=== PATIENT | male | born 1940 | race African-American/Black ===

== ENCOUNTER 2016-10-22 08:36 | Day surgery (SDC) | payer MEDICARE ==
[~2016-10-22] VITALS: Ht 190.5 cm; Wt 113.4 kg
[~2016-10-22 08:36] MED LIST: ALLO100T PO; AMLO2.5T PO; CEFTRIAXONE 1GM IVPB FOR OMNI 50 ML IV PRN; CEPH-264 PO; CIPR500T94 PO; CLOP75TA27 PO; CRESTOR10 MG PO; CYAN10005 PO; DOXY25TA16 PO; FENTANYL PF 100 MCG/2 ML VIAL. IV PRN; GENTAMICIN SULFATE 80 MG in IV NORMAL SALINE 100ML 100 ML IV ONE; GLIP2.5T4 PO; GLIP5TAB10 PO; HYDR25TA9 PO; HYDROMORPHONE 2 MG/ML VIAL. IV PRN; IV RINGERS,LACTATED 1000ML 1,000 ML IV SCH; LIDOCAINE 1% 1 ML SYRINGE. ID PRN; LOSA50TA6 PO; MORPHINE SULFATE 2 MG/ML DISP.SYRIN. IV PRN; MULT-246 PO; MULT1TAB52 PO; NITR0.4T6 SL; OMEG-33 PO; OMEP20CA9 PO; OMEP20TA PO; ONDANSETRON PF 4 MG/2 ML VIAL. IV PRN; PIOG30TA20 PO; PROCHLORPERAZINE 10 MG/2 ML VIAL. IV PRN; VITA400C36 PO; WARF7.5T PO
[2016-10-22 09:17] LABS: BILIRUBIN,URINE NEGATIVE (NEG); GLUCOSE,URINE NEGATIVE (NEG); NITRITE,URINE NEGATIVE (NEG); PROTEIN,URINE NEGATIVE (NEG-TRACE); UROBILINOGEN,URINE 0.2 mg/dL (0.2 mg/dL)
[2016-10-22 09:29] LABS: BACTERIA,URINE FEW /HPF (0-FEW); RBC,URINE OCC /HPF (0-2); SQUAMOUS EPITHELIAL CELL,UR FEW /LPF
[2016-10-22 09:36] LABS: BASO # 0.1 x10^3/uL (0.0-0.2); BASO % 1 % (0-3); EOS % 1 % (0-3); HEMATOCRIT 39.1 % (39.0-53.0); HEMOGLOBIN 13.1 g/dL (13.0-17.5); LYMPH # 1.5 x10^3/uL (1.0-4.8); LYMPH % 15 % (24-48); MEAN CORPUSCULAR HEMOGLOBIN 28 pg (25-35); MEAN CORPUSCULAR HGB CONC 34 g/dL (31-37); MEAN CORPUSCULAR VOLUME 84 fL (79-100); MONO % 7 % (0-9); NEUT % 76 % (31-73); PLATELET COUNT 442 x10^3/uL (140-400); RED BLOOD COUNT 4.64 x10^6/uL (4.30-5.70); RED CELL DISTRIBUTION WIDTH 16.9 % (11.5-14.5); WHITE BLOOD COUNT 10.3 x10^3/uL (4.0-11.0)
[2016-10-22] MEDS ORDERED: LIDOCAINE 2% 100 MG/5 ML DISP.SYRIN. ONE (09:41)
[2016-10-22] MEDS ORDERED: PROPOFOL 20 ML IV ONE (09:41)
[2016-10-22] MEDS ORDERED: SEVOFLURANE 31 TO 60 MINUTES. IH ONE (09:41)
[2016-10-22 09:47] LABS: INR 1.1 (0.8-1.1); PROTHROMBIN TIME PATIENT 13.7 SEC (11.7-14.0)
[2016-10-22 09:57] LABS: CALCIUM 9.3 mg/dL (8.5-10.1); CREATININE 1.7 mg/dL (0.7-1.3); GFR 47.4; POTASSIUM 4.2 mmol/L (3.5-5.1)
--- NOTE | 2016-10-22 11:46 | PDOC ---
BRIEF OPERATIVE NOTE Date: Oct 22, 2016 Pre-Op Diagnosis Elevated PSA, Abnormal prostate exam Post-Op Diagnosis Same Procedure Performed TRUS, with ultrasound guided prostate bx's (13) Surgeon Jan Anesthesia Type: General Specimens Obtained 13 prostate biopsies Findings Prostate 149 grams Complications None Additional Remarks Tolerated well DANIEL BLOCK DO Oct 22, 2016 11:46
--- NOTE | 2016-10-22 11:48 | DISCH ---
DISCHARGE INSTRUCTIONS Condition on Discharge Condition on Discharge: Stable Activity After Discharge Activity Instructions for Disc: Activity as tolerated Lifting Instructions after Dis: Do not lift >10 pounds Driving Instructions after Dis: Do not drive today Diet after Discharge Diet after Discharge: Regular Additional Diet Restrictions: drink fluids to keep urine clear Contacting the after DC Call your doctor for: Concerns you may have Follow-Up Follow up with: Dr Block will call you with bx results and when to start Plavix DANIEL BLOCK DO Oct 22, 2016 11:48
[2016-10-22 12:25] VITALS: BP 148/78
--- NOTE | 2016-10-22 12:38 | OP ---
DATE OF SURGERY: 10/22/2016 PREOPERATIVE DIAGNOSES: Elevated prostate-specific antigen, abnormal prostate exam. POSTOPERATIVE DIAGNOSES: Elevated prostate-specific antigen, abnormal prostate exam. PROCEDURE: Transrectal ultrasound of prostate, ultrasound-guided prostate biopsies (13). SURGEON: Daniel Block D.O. ANESTHESIA: General. INDICATIONS AND JUDGMENT: This is a 76-year-old obese -Stateless male with a history of an elevated PSA. The patient had prostate biopsies back in 2014 and there is no malignancy found. The patient's most recent PSA came back 11.9. The normal range for him would be 0-5.5. Also, on digital rectal exam, he was found to have an enlarged prostate, but the right lobe was more prominent than the left. Given these findings, it was felt that the patient should undergo prostate ultrasound needle biopsies. The procedure was explained to the patient. He appeared to understand and was agreeable. We stopped his Plavix about a week prior to today. We also started him on Cipro antibiotics 2 days prior to the procedure today. OPERATION AND PROCEDURE: The patient was preloaded with a gram of Rocephin and 80 mg of gentamicin IV. He was then taken to the operating room, placed on the operating room table in a supine position and given a general anesthetic. We then rotated the patient, so his left side was down and knees tucked. With his ____ slightly hanging off the side of the operating table. A well-lubricated ultrasound probe was then advanced into the rectum, the prostate was visualized from apex to base. It did appear to have some hypoechoic areas. The prostate was measured at 149 grams. The ultrasound probe was then reinserted into the rectum with the biopsy guide. Attention was directed to the right side of the prostate and ultrasound-guided biopsies of the prostate on the right side were taken from apex to mid gland to the base of the gland and after we had done laterally. ____ the probe medially and once again biopsied from apex to the mid gland to the base on the patient's right side. A total of six biopsies were taken on the right side. The ultrasound probe was then repositioned and attention was directed to the patient's left side of the prostate and ultrasound-guided biopsies were taken on the left side laterally from apex to mid gland to the base and then rotated the probe more medially and once again take biopsies on the left side from the apex to mid to the base. I then took one additional biopsy on the left at the apex. A total of 13 biopsies were performed. These were submitted to pathology. The patient tolerated the procedure well and he was sent to recovery room in satisfactory condition. Plans will be to discharge the patient home. He has antibiotics at home to complete. I will call him with the results of his biopsies. At that time, we will let him restart his Plavix. He appears to understand and is agreeable. DANIEL BLOCK DO DR: RICH/elvis JOB#: [id number] / [id number]
--- NOTE | 2016-10-23 15:28 | PATHOLOGY ---
PATHOLOGY REPORT * * * * * * * * FINAL DIAGNOSIS: A. Prostate tissue, right apex prostate, needle biopsy: - Focal glandular atrophy and mild acute and chronic inflammation. B. Prostate tissue, right mid prostate needle biopsy: - Focal glandular atrophy. C. Prostate tissue, right base prostate needle biopsy: - Focal glandular atrophy and mild acute and chronic inflammation. D. Prostate tissue, left apex prostate needle biopsy: - Focal glandular atrophy and mild acute and chronic inflammation. E. Prostate tissue, left mid prostate needle biopsy: - Focal glandular atrophy and mild chronic inflammation. F. Prostate tissue, left base prostate needle biopsy: - Focal glandular atrophy and mild chronic inflammation. COMMENT: There is no evidence of malignancy. (JPM:mgcrystal; d/t: 10/23/16) REPORT ELECTRONICALLY SIGNED BY: Daniel Bustamante M.D. DATE/TIME: 10/23/2016 15:28 * * * * * * * * GROSS PATHOLOGY: A. Submitted in formalin, labeled "Grider Jr, Urel and right apex," are 2 needle cores of juarez tissue measuring less than 1.7 and 2.3 cm in length, by less than 0.1 cm in diameter. Tissue is submitted in toto in cassette A1. B. Submitted in formalin, labeled "Grider Jr, Urel and right mid," are 2 needle cores of juarez tissue measuring 1.2 and 2.0 cm in length, by less than 0.1 cm in diameter. Tissue is submitted in toto in cassette B1. C. Submitted in formalin, labeled "Grider Jr, Urel and right base," are 2 needle cores of juarez tissue measuring 1.7 and 1.9 cm in length, by less than 0.1 cm in diameter. Tissue is submitted in toto in cassette C1. D. Submitted in formalin, labeled "Grider Jr, Urel and left apex," are 3 needle cores of juarez tissue ranging from 1.2-1.5 cm in length, by less than 0.1 cm in diameter. Tissue is submitted in toto in cassette D1. E. Submitted in formalin, labeled "Grider Jr, Urel and left mid," are 2 needle cores of juarez tissue measuring 1.2 and 2.1 cm in length, by less than 0.1 cm in diameter. Tissue is submitted in toto in cassette E1. F. Submitted in formalin, labeled "Grider Jr, Urel and left base," are 3 needle cores of juarez tissue ranging from 0.3-1.5 cm in length, by less than 0.1 cm in diameter. Tissue submitted in toto in cassette F1. (TTL; 10/22/2016) INITIAL CPT CODE(S): A; 01339 B; 47066 C; 13951 D; 99879 E; 36010 F; 12692 Professional services [place] [place] [address] Technical services performed by [facility] at [address] [place] [address] [address], [place] [address]. SPECIMEN(S) RECEIVED: A.Right apex prostate, needle biopsy B.Right mid prostate, needle biopsy C.Right base prostate, needle biopsy D.Left apex prostate, needle biopsy E.Left mid prostate, needle biopsy F.Left base prostate, needle biopsy CLINICAL HISTORY: Elevated PSA PATIENT: TIM GRIDER JR /AGE: [id number] 1940 (Age: 76) PATIENT #: [id number] ALT CASE #: SPECIMEN COLLECTION DATE: 10/22/2016 SPECIMEN RECEIVED DATE: 10/22/2016 [facility] - [address] [place] [address] - PHONE: [phone] * * * END OF REPORT * * *
== END 2016-10-22 12:37 | disposition home or self-care (01) ==
LOC: SURG 08:36
PROVIDERS: ATTEND Urology
DX: R97.20 Elevated prostate specific antigen [PSA] (principal); E78.00 Pure hypercholesterolemia, unspecified; I10 Essential (primary) hypertension; K21.9 Gastro-esophageal reflux disease without esophagitis; E11.9 Type 2 diabetes mellitus without complications; M19.90 Unspecified osteoarthritis, unspecified site; Z72.89 Other problems related to lifestyle; Z79.01 Long term (current) use of anticoagulants
CPT/HCPCS: 36415; 55700; 76942; 80048; 81001; 82947; 85027; 85610; 85730; C1887; G0416; J2704; J1580

== ENCOUNTER → 2017-11-06 | Outpatient (CLI) | payer MEDICARE | END | disposition home or self-care (01) | LOC: RAD 10:32 | DX: M25.461 Effusion, right knee (principal); M79.89 Other specified soft tissue disorders; I10 Essential (primary) hypertension; E11.9 Type 2 diabetes mellitus without complications; E78.5 Hyperlipidemia, unspecified; R60.0 Localized edema | CPT/HCPCS: 73562 ==

== ENCOUNTER → 2017-11-10 | Outpatient (CLI) | payer MEDICARE | END | disposition home or self-care (01) | LOC: ECHO 13:49 | DX: I25.10 Atherosclerotic heart disease of native coronary artery without angina pectoris (principal); I08.2 Rheumatic disorders of both aortic and tricuspid valves; I10 Essential (primary) hypertension; E11.9 Type 2 diabetes mellitus without complications; E78.5 Hyperlipidemia, unspecified | CPT/HCPCS: 93306 ==

== ENCOUNTER → 2018-02-17 | Outpatient (CLI) | payer MEDICARE | END | disposition home or self-care (01) | LOC: RAD 13:36 | DX: M48.56XA Collapsed vertebra, not elsewhere classified, lumbar region, initial encounter for fracture (principal); M41.86 Other forms of scoliosis, lumbar region; M47.896 Other spondylosis, lumbar region; M12.88 Other specific arthropathies, not elsewhere classified, other specified site; I12.9 Hypertensive chronic kidney disease with stage 1 through stage 4 chronic kidney disease, or unspecified chronic kidney disease; E11.22 Type 2 diabetes mellitus with diabetic chronic kidney disease; N18.2 Chronic kidney disease, stage 2 (mild); E78.5 Hyperlipidemia, unspecified; E78.00 Pure hypercholesterolemia, unspecified; K21.9 Gastro-esophageal reflux disease without esophagitis | CPT/HCPCS: 72100 ==

== ENCOUNTER → 2018-11-02 | Outpatient (CLI) | payer MEDICARE ==
[~2018-11-02] MED LIST changes: -AMLO2.5T PO; +AMLO2.5T5 PO; -CEFTRIAXONE 1GM IVPB FOR OMNI 50 ML IV PRN; -CLOP75TA27 PO; +CLOP75TA57 PO; -FENTANYL PF 100 MCG/2 ML VIAL. IV PRN; -GENTAMICIN SULFATE 80 MG in IV NORMAL SALINE 100ML 100 ML IV ONE; +HYDR-2145 PO; -HYDR25TA9 PO; -HYDROMORPHONE 2 MG/ML VIAL. IV PRN; -IV RINGERS,LACTATED 1000ML 1,000 ML IV SCH; -LIDOCAINE 1% 1 ML SYRINGE. ID PRN; +LOSA-73 PO; -LOSA50TA6 PO; -MORPHINE SULFATE 2 MG/ML DISP.SYRIN. IV PRN; +NITR0.4T22 SL; -NITR0.4T6 SL; +OMEP20CA10 PO; -OMEP20CA9 PO; -OMEP20TA PO; +OMEP20TA8 PO; -ONDANSETRON PF 4 MG/2 ML VIAL. IV PRN; -PIOG30TA20 PO; +PIOG30TA41 PO; -PROCHLORPERAZINE 10 MG/2 ML VIAL. IV PRN; -WARF7.5T PO; +WARF7.5T48 PO
--- NOTE | 2018-11-03 12:10 | SLEEP ---
DATE OF STUDY: 11/02/2018 ATTENDING PHYSICIAN: Dr. Mclaughlin. The patient is an 78-year-old who weighs 238 pounds with a BMI of 30. The patient underwent sleep study at [facility]. This was a diagnostic study. During the night study, the patient spent 435 minutes in bed and slept for 358 minutes with a sleep efficiency of 82%. Sleep latency was 9 minutes with a REM latency of 273 minutes. Overall sleep architecture showed increased stage 1 sleep and stage 2 sleep, reduced N3 sleep and reduced REM sleep. During the night study, the patient had 61 obstructive apneas, 15 mixed apneas, no central apneas and 64 hypopneas. The patient's apnea-hypopnea index was 24 per hour with a supine index of 54 per hour and a REM index of 8 per hour. EKG monitoring revealed normal sinus rhythm, average heart rate 98 beats per minute, no sustained arrhythmias observed. No clinically significant PLMS observed. Nocturnal oximetry study revealed a mean oxygen saturation of 98% with the lowest of 85%. Only 2.4 minutes were spent in oxygen saturation of less than 89%. The patient did meet the criteria for CPAP initiation, but it was late in the night and as a result it could not be initiated. IMPRESSION: 1. Moderate sleep apnea-hypopnea syndrome with worsening during supine sleep. Total apnea-hypopnea index of 24 per hour with a supine apnea-hypopnea index of 54 per hour. 2. No clinically significant nocturnal hypoxia. 3. No clinically significant periodic limb movements of sleep. RECOMMENDATIONS: 1. The patient would benefit from in-lab CPAP titration study. 2. Once optimum CPAP pressure is achieved, then follow up in 4-6 weeks to assess compliance and to document clinical improvement. 3. Avoid supine sleep. 4. Avoid TISSUE REWINDER depressants. 5. Cautioned regarding driving until symptoms of sleep apnea have resolved with the use of CPAP. JENA MOORE MD DR: ALYSIA/elvis JOB#: [id number] / [id number] QAMAR Solo MD
== END | disposition home or self-care (01) ==
LOC: RT 19:00
PROVIDERS: ATTEND Internal Medicine Critical Care Medicine
DX: G47.33 Obstructive sleep apnea (adult) (pediatric) (principal)
CPT/HCPCS: 95810

== ENCOUNTER → 2018-11-18 | Outpatient (CLI) | payer MEDICARE ==
--- NOTE | 2018-11-19 15:43 | SLEEP ---
DATE OF STUDY: 11/18/2018 ATTENDING PHYSICIAN: Dr. Mclaughlin. The patient is 78 years old who weighs 238 pounds with a BMI of 30. The patient's [place] score was 2. The patient had a sleep study on 11/02/2018 and was found to have moderate NAREN with worsening during supine sleep. Total AHI 24 per hour, with a supine AHI of 54 per hour. The patient returned for CPAP titration study. During the night study, the patient spent 445 minutes in bed and slept for 310 minutes with a sleep efficiency of 70%. Sleep latency was 7 minutes with a REM latency of 130 minutes. Overall, sleep architecture showed increased stage 1 and stage 2 sleep, normal slow wave and slightly reduced REM sleep. EKG monitoring revealed normal sinus rhythm. No arrhythmias observed. Average heart rate 94 beats per minute. No PLMS observed. The patient was started on CPAP at 5 cm water and titrated up to 12 cm water. At the final pressure, the patient slept for 57 minutes. The patient's AHI was reduced to 0 per hour, and the patient had supine as well as REM sleep. Oxygen saturation remained above 95%. The patient used a large size full face mask. IMPRESSION: 1. Sleep apnea diagnosed by previous sleep study. 2. No clinically significant PLMS. RECOMMENDATIONS: 1. CPAP at 12 cm water completely eliminated the patient's sleep apnea and should be used on a nightly basis. 2. Follow up in 4-6 weeks to assess compliance with CPAP and to document clinical improvement. 3. Weight loss is strongly advised. 4. Avoid DYE MACHINE TENDER depressants. 5. Caution regarding driving until symptoms of sleep apnea resolve with the use of CPAP. JENA MOORE MD DR: ALYSIA/elvis JOB#: [id number] / [id number] ayaz MCLAUGHLIN DR
== END | disposition home or self-care (01) ==
LOC: RT 18:50
PROVIDERS: ATTEND Internal Medicine Critical Care Medicine
DX: G47.33 Obstructive sleep apnea (adult) (pediatric) (principal)
CPT/HCPCS: 95811

== ENCOUNTER → 2019-02-26 | Outpatient (CLI) | payer MEDICARE ==
[~2019-02-26] MED LIST changes: +CYAN-25 PO; -CYAN10005 PO
--- NOTE | 2019-02-26 14:01 | RAD ---
Indication:Swelling and tenderness in the left lateral malleolus for one week. TECHNIQUE: 3 views of the left ankle COMPARISON:None FINDINGS/ impression: No acute fracture or dislocation. Small plantar and dorsal calcaneal spurs. Mild midfoot osteoarthritis. Moderate ankle swelling. Electronically signed by: Harjit Mccain DO (02/26/2019 1:59 PM) [facility]
== END | disposition home or self-care (01) ==
LOC: RAD 13:31
PROVIDERS: ATTEND Internal Medicine
DX: M19.072 Primary osteoarthritis, left ankle and foot (principal); M77.32 Calcaneal spur, left foot; M25.472 Effusion, left ankle
CPT/HCPCS: 73610

== ENCOUNTER → 2019-03-19 | Outpatient (CLI) | payer MEDICARE ==
--- NOTE | 2019-03-19 12:27 | RAD ---
LUNG VENT/PERFUSION SCAN(VQ), CHEST PA LATERAL History: Pulmonary embolism in July 2018. First of breath. Comparison: 06/23/2015 CT chest without contrast. Findings: PA and lateral views of chest were obtained. The cardiomediastinal silhouette is normal. Pulmonary vasculature is normal. The lungs are clear. No pleural effusion or pneumothorax is seen. There is no acute bone abnormality. Xenon-133 gas was administered for ventilation purposes. Delayed washout radiotracer compatible COPD is noted. 6.6 mCi technetium 99m MAA was intravenously administered. Imaging was performed in 8 projections. There is no mismatch defect or suspicious matched defect. IMPRESSION: No acute cardiopulmonary process. Low probably for pulmonary embolism. Electronically signed by: Damien Morales MD (03/19/2019 12:24 PM) [facility]
== END | disposition home or self-care (01) ==
LOC: NM 11:21
PROVIDERS: ATTEND Internal Medicine Critical Care Medicine
DX: R06.00 Dyspnea, unspecified (principal); Z86.711 Personal history of pulmonary embolism
CPT/HCPCS: 71046; 78582; 96374; A9540; A9558

== ENCOUNTER → 2019-05-25 | Outpatient (CLI) | payer MEDICARE ==
[~2019-05-25] MED LIST changes: +VITA-8 PO; -VITA400C36 PO
--- NOTE | 2019-05-25 14:29 | CARD ---
MR#: [id number] Date of Study: 05/25/2019 Ordering Physician: DEJON MADISON, Referring Physician: DEJON MADISON, Tech: Maria Isabel Saldivar ANTON APPROVED REPORT EXAM: Two-dimensional and M-mode echocardiogram with Doppler and color Doppler. Other Information Quality : AverageHR: 93bpm Rhythm : NSR INDICATION Pulmonary Hypertention 2D DIMENSIONS RVDd4.7 (2.9-3.5cm)Left Atrium(2D)3.9 (1.6-4.0cm) IVSd1.3 (0.7-1.1cm)Aortic Root(2D)3.2 (2.0-3.7cm) LVDd4.9 (3.9-5.9cm)LVOT Diameter2.5 (1.8-2.4cm) PWd1.1 (0.7-1.1cm)LVDs3.0 (2.5-4.0cm) FS (%) 39.1 %SV78.4 ml LVEF(%)69.3 (>50%) M-Mode DIMENSIONS Left Atrium(MM)4.00 (2.5-4.0cm)Aortic Root3.33 (2.2-3.7cm) Aortic Valve AoV Peak Reinier.117.1cm/sAoV VTI20.8cm AO Peak GR.5.5mmHgLVOT Peak Reinier.103.8cm/s AO Mean GR.3mmHgAVA (VMAX)4.25cm2 ISRA (VTI)4.00cm2 Mitral Valve MV E Ygraqlrw31.2cm/sMV DECEL SLZQ050ve MV A [place]48.3cm/sE/A Ratio0.3 Pulmonary Valve PV Peak Zarrsowu779.7cm/s Tricuspid Valve TR P. Gortalir414fq/sRAP MGDLOKAH0mcZj TR Peak Gr.31ykLoNGMM13jsVo LEFT VENTRICLE The left ventricle is normal size. There is mild concentric left ventricular hypertrophy. The left ve ntricular systolic function is normal. The Ejection Fraction is 65-70%. There is normal LV segmental wall motion. Transmitral Doppler flow pattern is Grade I-abnormal relaxation pattern. RIGHT VENTRICLE The right ventricle is normal size. There is normal right ventricular wall thickness. The right ventr icular systolic function is normal. ATRIA The left atrium is mildly dilated. The right atrium is moderately dilated. Interatrial septum bowed t oward the left, consistent with elevated right atrial pressures. AORTIC VALVE The aortic valve is normal in structure and function. The aortic valve is trileaflet. Doppler and Col or Flow revealed mild aortic regurgitation. There is no significant aortic valvular stenosis. There i s no aortic valvular vegetation. MITRAL VALVE The mitral valve is normal in structure and function. There is no evidence of mitral valve prolapse. There is no mitral valve stenosis. Doppler and Color-flow revealed trace mitral regurgitation. TRICUSPID VALVE The tricuspid valve is normal in structure and function. Doppler and Color Flow revealed mild tricusp id regurgitation. There is mild-moderate pulmonary hypertension. The PA pressure was estimated at 45 mmHg. There is no tricuspid valve prolapse or vegetation. There is no tricuspid valve stenosis. PULMONIC VALVE The pulmonary valve is normal in structure and function. Doppler and Color Flow revealed trace pulmon ic valvular regurgitation. There is no pulmonic valvular stenosis. GREAT VESSELS The aortic root is normal in size. The ascending aorta is Mildly dilated at 3.5cm. The IVC is normal in size and collapses >50% with inspiration. PERICARDIAL EFFUSION There is no evidence of significant pericardial effusion. Critical Notification Critical Value: No <Conclusion> The left ventricular systolic function is normal. The Ejection Fraction is 65-70%. There is normal LV segmental wall motion. Trace mitral regurgitation. Mild tricuspid regurgitation. The PA pressure was estimated at 45 mmHg. There is no evidence of significant pericardial effusion. Signed by : Martinez Reagan, Electronically Approved : 05/25/2019 14:28:20
== END | disposition home or self-care (01) ==
LOC: ECHO 13:41
PROVIDERS: ATTEND Internal Medicine Cardiovascular Disease
DX: I08.2 Rheumatic disorders of both aortic and tricuspid valves (principal); I27.0 Primary pulmonary hypertension
CPT/HCPCS: 93306

== ENCOUNTER 2019-06-29 06:49 | Outpatient (CLI) | payer MEDICARE ==
[2019-06-29] VITALS (9 sets, daily range): BP systolic 114–146; BP diastolic 68–89
[~2019-06-29] VITALS: Ht 190.5 cm; Wt 108.0 kg
[~2019-06-29 06:49] MED LIST changes: +OMEP-229 PO; -OMEP20CA10 PO
[2019-06-29 07:34] LABS: BASO # 0.1 x10^3/uL (0.0-0.2); BASO % 1 % (0-3); EOS # 0.2 x10^3/uL (0.0-0.7); EOS % 2 % (0-3); HEMATOCRIT 31.4 % (39.0-53.0); HEMOGLOBIN 10.2 g/dL (13.0-17.5); LYMPH # 1.6 x10^3/uL (1.0-4.8); LYMPH % 12 % (24-48); MEAN CORPUSCULAR HEMOGLOBIN 26 pg (25-35); MEAN CORPUSCULAR HGB CONC 33 g/dL (31-37); MEAN CORPUSCULAR VOLUME 80 fL (79-100); MONO # 0.9 x10^3/uL (0.0-1.1); MONO % 7 % (0-9); NEUT # 10.3 x10^3/uL (1.8-7.7); NEUT % 79 % (31-73); PLATELET COUNT 567 x10^3/uL (140-400); RED BLOOD COUNT 3.91 x10^6/uL (4.30-5.70); RED CELL DISTRIBUTION WIDTH 18.6 % (11.5-14.5); WHITE BLOOD COUNT 13.1 x10^3/uL (4.0-11.0)
[2019-06-29 07:49] LABS: PROTHROMBIN TIME PATIENT 14.4 SEC (11.7-14.0)
[2019-06-29] MEDS ORDERED: APIX2.5T PO (07:59)
[2019-06-29] MEDS ORDERED: LIDOCAINE WITH 8.4% SOD BICARB 3 ML DISP.SYRIN. ONE (08:11)
[2019-06-29] MEDS ORDERED: fentaNYL PF VIAL 100 MCG/2 ML VIAL ONE (08:19)
[2019-06-29] MEDS ORDERED: MIDAZOLAM HCL/PF 2 MG/2 ML VIAL. ONE (08:19)
--- NOTE | 2019-06-29 08:27 | PDOC2 ---
INTERV RADIOLOGY CONSULT Date of Consult 06.29.19 Reason for Consult Anemia Referring Physician Rajat Identification/Chief Complaint Anemia Chart Reviewed Laboratory Tests Test 06/29/19 07:23 White Blood Count 13.1 x10^3/uL Red Blood Count 3.91 x10^6/uL Hemoglobin 10.2 g/dL Hematocrit 31.4 % Mean Corpuscular Volume 80 fL Mean Corpuscular Hemoglobin 26 pg Mean Corpuscular Hemoglobin Concent 33 g/dL Red Cell Distribution Width 18.6 % Platelet Count 567 x10^3/uL Neutrophils (%) (Auto) 79 % Lymphocytes (%) (Auto) 12 % Monocytes (%) (Auto) 7 % Eosinophils (%) (Auto) 2 % Basophils (%) (Auto) 1 % Neutrophils # (Auto) 10.3 x10^3/uL Lymphocytes # (Auto) 1.6 x10^3/uL Monocytes # (Auto) 0.9 x10^3/uL Eosinophils # (Auto) 0.2 x10^3/uL Basophils # (Auto) 0.1 x10^3/uL Prothrombin Time 14.4 SEC Prothromb Time International Ratio 1.2 Activated Partial Thromboplast Time 32 SEC Current Medications Medications (Trade) Dose Ordered Sig/Minnie Route PRN Reason Start Time Stop Time Status Last Admin Dose Admin Lidocaine HCl (Buffered Lidocaine 1%) 3 ml STK-MED ONCE .ROUTE 06/29/19 08:11 06/29/19 08:11 DC Midazolam HCl (Versed) 2 mg STK-MED ONCE .ROUTE 06/29/19 08:19 06/29/19 08:19 DC Fentanyl Citrate (Fentanyl 2ml Vial) 100 mcg STK-MED ONCE .ROUTE 06/29/19 08:19 06/29/19 08:19 DC Lidocaine HCl (Buffered Lidocaine 1%) 3 ml 1X ONCE IJ 06/29/19 08:30 06/29/19 08:31 UNV Midazolam HCl (Versed) 2 mg 1X ONCE IV 06/29/19 08:30 06/29/19 08:31 UNV Fentanyl Citrate (Fentanyl 2ml Vial) 100 mcg 1X ONCE IV 06/29/19 08:30 06/29/19 08:31 UNV Source Patient History of Present Illness Reason for Visit leukocytosis, anemai Past Medical History Cardiovascular: No pertinent hx Pulmonary: No pertinent hx CENTRAL NERVOUS SYSTEM: Carpal Tunnel Syndrome GI: No pertinent hx Heme/Onc: Anemia NOS Hepatobiliary: No pertinent hx Psych: No pertinent hx Rheumatologic: No pertinent hx Infectious disease: No pertinent hx ENT: No pertinent hx Renal/: No pertinent hx Endocrine: No pertinent hx Dermatology: No pertinent hx Current Medications Current Medications Lidocaine HCl (Buffered Lidocaine 1%) 3 ml STK-MED ONCE .ROUTE ; Start 06/29/19 at 08:11; Stop 06/29/19 at 08:11; Status DC Midazolam HCl (Versed) 2 mg STK-MED ONCE .ROUTE ; Start 06/29/19 at 08:19; Stop 06/29/19 at 08:19; Status DC Fentanyl Citrate (Fentanyl 2ml Vial) 100 mcg STK-MED ONCE .ROUTE ; Start 06/29/19 at 08:19; Stop 06/29/19 at 08:19; Status DC Lidocaine HCl (Buffered Lidocaine 1%) 3 ml 1X ONCE IJ ; Start 06/29/19 at 08:30; Stop 06/29/19 at 08:31; Status UNV Midazolam HCl (Versed) 2 mg 1X ONCE IV ; Start 06/29/19 at 08:30; Stop 06/29/19 at 08:31; Status UNV Fentanyl Citrate (Fentanyl 2ml Vial) 100 mcg 1X ONCE IV ; Start 06/29/19 at 08:30; Stop 06/29/19 at 08:31; Status UNV Active Scripts Active Reported Eliquis (Apixaban) 2.5 Mg Tablet 2.5 Mg PO DAILY Allopurinol 100 Mg Tablet 1 Tab PO DAILY Unisom Sleep Aid (Doxylamine Succinate) 25 Mg Tablet 25 Mg PO HS Multivitamins (Multivitamin) 1 Each Tablet 1 Each PO DAILY Vitamin E (Vitamin E Mixed) 400 Unit Capsule 400 Unit PO DAILY Vitamin B-12 (Cyanocobalamin (Vitamin B-12)) 1,000 Mcg Tablet 1,000 Mcg PO DAILY Hydrochlorothiazide Tablet (Hydrochlorothiazide) 25 Mg Tablet 25 Mg PO DAILY Amlodipine Besylate 2.5 Mg Tablet 2.5 Mg PO DAILY Actos (Pioglitazone Hcl) 30 Mg Tablet 30 Mg PO DAILY08 Omeprazole 20 Mg Tablet.dr 20 Mg PO QHS Crestor (Rosuvastatin Calcium) 10 Mg Tablet 10 Mg PO HS Glipizide 5 Mg Tablet 2.5 Mg PO DAILYBFRSUP Allergies Coded Allergies: amlodipine (Unverified Allergy, Intermediate, DIZZINESS, 10/22/16) atorvastatin calcium (Verified Allergy, Intermediate, bothered muscles, 10/22/16) finasteride (Verified Allergy, Intermediate, MYALGIAS, 10/22/16) fluvastatin (Unverified Allergy, Intermediate, 10/22/16) fluvastatin sodium (Verified Allergy, Intermediate, 10/22/16) lisinopril (Verified Allergy, Intermediate, 10/22/16) losartan (Verified Allergy, Intermediate, 10/22/16) metoprolol (Verified Allergy, Intermediate, 10/22/16) Vitals Vital Signs Date Time Temp Pulse Resp B/P (MAP) Pulse Ox O2 Delivery O2 Flow Rate FiO2 06/29/19 07:47 97.8 92 20 144/75 (98) 100 Room Air 97.8 Labs Laboratory Tests Test 06/29/19 07:23 White Blood Count 13.1 x10^3/uL (4.0-11.0) Red Blood Count 3.91 x10^6/uL (4.30-5.70) Hemoglobin 10.2 g/dL (13.0-17.5) Hematocrit 31.4 % (39.0-53.0) Mean Corpuscular Volume 80 fL (79-100) Mean Corpuscular Hemoglobin 26 pg (25-35) Mean Corpuscular Hemoglobin Concent 33 g/dL (31-37) Red Cell Distribution Width 18.6 % (11.5-14.5) Platelet Count 567 x10^3/uL (140-400) Neutrophils (%) (Auto) 79 % (31-73) Lymphocytes (%) (Auto) 12 % (24-48) Monocytes (%) (Auto) 7 % (0-9) Eosinophils (%) (Auto) 2 % (0-3) Basophils (%) (Auto) 1 % (0-3) Neutrophils # (Auto) 10.3 x10^3/uL (1.8-7.7) Lymphocytes # (Auto) 1.6 x10^3/uL (1.0-4.8) Monocytes # (Auto) 0.9 x10^3/uL (0.0-1.1) Eosinophils # (Auto) 0.2 x10^3/uL (0.0-0.7) Basophils # (Auto) 0.1 x10^3/uL (0.0-0.2) Prothrombin Time 14.4 SEC (11.7-14.0) Prothromb Time International Ratio 1.2 (0.8-1.1) Activated Partial Thromboplast Time 32 SEC (24-38) Laboratory Tests Test 06/29/19 07:23 White Blood Count 13.1 x10^3/uL (4.0-11.0) Red Blood Count 3.91 x10^6/uL (4.30-5.70) Hemoglobin 10.2 g/dL (13.0-17.5) Hematocrit 31.4 % (39.0-53.0) Mean Corpuscular Volume 80 fL (79-100) Mean Corpuscular Hemoglobin 26 pg (25-35) Mean Corpuscular Hemoglobin Concent 33 g/dL (31-37) Red Cell Distribution Width 18.6 % (11.5-14.5) Platelet Count 567 x10^3/uL (140-400) Neutrophils (%) (Auto) 79 % (31-73) Lymphocytes (%) (Auto) 12 % (24-48) Monocytes (%) (Auto) 7 % (0-9) Eosinophils (%) (Auto) 2 % (0-3) Basophils (%) (Auto) 1 % (0-3) Neutrophils # (Auto) 10.3 x10^3/uL (1.8-7.7) Lymphocytes # (Auto) 1.6 x10^3/uL (1.0-4.8) Monocytes # (Auto) 0.9 x10^3/uL (0.0-1.1) Eosinophils # (Auto) 0.2 x10^3/uL (0.0-0.7) Basophils # (Auto) 0.1 x10^3/uL (0.0-0.2) Prothrombin Time 14.4 SEC (11.7-14.0) Prothromb Time International Ratio 1.2 (0.8-1.1) Activated Partial Thromboplast Time 32 SEC (24-38) Assessment/Plan anemia: bone marrow bx JIGAR DEVLIN MD Jun 29, 2019 08:27
--- NOTE | 2019-06-29 08:27 | PDOC ---
MODERATE SEDATION ASSESSMENT RISKS/ALTERNATIVES Risks/Alternatives Risks and alternatives of this type of sedation and procedure discussed with: RISK/ALTERNATIVES: Patient H & P ON CHART H & P H & P on chart and reviewed for co-morbid conditions and appropriate labs. H&P ON CHART: Yes STATUS PREG STATUS ASSESSED: Yes MEDS/ALLERGIES REVIEWED Meds/Allergies Reviewed Medications and Allergies including time and route of recently administered narcotics and sedatives. MEDS/ALLERGIES REVIEWED: Yes ASA RATING ASA RATING: II AIRWAY ASSESSMENT Airway Assessment Airway patency, oral function limitations, presence of caps, crowns, dentures, partials, and ability to extend neck assessed. AIRWAY ASSESSMENT: Yes MALLAMPATI SCORE MALLAMPATI SCORE: II PRE-SEDATION ASSESSMENT PRE-SEDATION ASSESSMENT: Yes JIGAR DEVLIN MD Jun 29, 2019 08:27
[2019-06-29] MEDS: LIDOCAINE WITH 8.4% SOD BICARB 3 ML DISP.SYRIN. IJ ONE (08:34)
[2019-06-29] MEDS: fentaNYL PF VIAL 100 MCG/2 ML VIAL IV ONE (08:35)
[2019-06-29] MEDS: MIDAZOLAM HCL/PF 2 MG/2 ML VIAL. IV ONE (08:35)
--- NOTE | 2019-06-30 08:26 | RAD ---
CT-guided bone marrow biopsy. 06/29/2019 Indication: Leukocytosis Discussion: The risks and benefits of the procedure, including but not limited to, bleeding and infection were discussed patient. Informed consent was obtained. The patient was brought to the CT scanner and placed in the prone position. A timeout procedure was performed. Gummed Tape Press Operator CT imaging of the pelvis demonstrated left ilium amenable to bone marrow biopsy. The overlying soft tissues were prepped and draped using maximum sterile barrier technique. 1% lidocaine without epinephrine was administered for local anesthesia. Under intermittent CT guidance, an OncControl needle was advanced into the bone marrow of the left iliac crest. 2 Aspirates and 1 core biopsy samples were obtained. Samples were delivered to pathology was present at the time of procedure. The needle was removed and manual pressure held to achieve hemostasis. No immediate complications were identified. The procedure was performed under conscious sedation including continuous cardiopulmonary monitoring via dedicated sedation nurse. Sedation time: 20 minutes Impression: Successful CT-guided bone marrow biopsy of the left iliac crest . PQRS Compliance Statement: One or more of the following individualized dose reduction techniques were utilized for this examination: 1. Automated exposure control 2. Adjustment of the mA and/or kV according to patient size 3. Use of iterative reconstruction technique
--- NOTE | 2019-07-01 21:06 | PATHOLOGY ---
[facility] Accession Number: [id number] . 01 Material submitted: . PART A: bone - BONE MARROW BIOPSY PART B: bone - BONE MARROW CLOT PART C: bone - BONE MARROW ASPRIATE SLIDES PART D: bone - PERIPHERAL BLOOD SMEARS PART E: bone - BONE MARROW FLOW . 01 Clinical history: . Leukocytosis . An 79-year-old man with leukocytosis, anemia, thrombocytosis and JAK2 positive. . 02 Diagnosis: Bone marrow aspirate, biopsy, cell clot and peripheral blood: - Peripheral blood with mild leukocytosis / neutrophilia, mild microcytic anemia and moderate thrombocytosis. - Hypercellular bone marrow with trilineage hematopoiesis, pancellular hyperplasia, mild dyspoiesis and slightly increased, focally clustered and mildly atypical megakaryocytes. (See comment) . (CLW:mmelizabeth; 07/01/2019) [facility] 07/01/[address] [place] [address] . 02 Comment: Overall, the bone marrow is hypercellular for the patient's age with trilineage hematopoiesis, pancellular hyperplasia, mild dyspoiesis and slightly increased/focally clustered megakaryocytes. While the findings are overall nonspecific, they are consistent with a myeloproliferative neoplasm. There is focal mild (1-2/4+) reticulin fibrosis. There is not an increase in blasts. Correlation with clinical history, additional laboratory data and cytogenetics/potentially molecular studies is required. . (CLW:mmelizabeth; 07/01/2019) . 02 Electronically signed: . Kathy Parker MD, Pathologist NPI- [id number] . 01 Gross description: . A. Received in formalin labeled "Taylor Grider J[employer], BM BX," are 2 needle cores of juarez bone measuring 0.6 and 1.1 cm in length and 0.3 cm each in diameter. The specimen is submitted entirely in cassette A1, following decalcification. . B. Received in formalin labeled "Guido Grider Jr, BM Asp clot," is an aggregate of dark juarez blood clot measuring 2.0 x 0.7 x 0.1 cm. The specimen is filtered and entirely submitted in cassette B1. (TSD; 06/29/2019) TOB/TOB 07/01/2019 1559 Local . 02 Microscopic: . CBC Data (06/29/19): WBC 13,100/uL, RBC 3.91, hemoglobin 10.2 g/dL, hematocrit 31.4%, MCV 80 fL, MCH 26 pg, MCHC 33 g/dL, RDW 18.6%, and platelet count 567,000/uL. White blood cell differential: segs 79%, lymphs 12%, monos 7%, eos 2%, and basos 1%. . Peripheral Blood Smear: Cytomorphological examination of the Monge's stained peripheral blood smear confirms the provided data. Red blood cells show mild normocytic to mildly microcytic anemia with mild anisocytosis. Occasional target cells are noted. White blood cells are mildly increased in number. They are predominantly segmented neutrophils and are without significant dyspoiesis or significant left shift. Lymphocytes are predominantly small, round, and mature appearing with condensed chromatin and scant cytoplasm with admixed large granular lymphocytes. On scanning, no markedly atypical lymphoid cells are seen. Monocytes are mature. Platelets are moderately increased in number and mainly normal in morphology with rare larger platelets noted. . Aspirate Smears: Cytomorphological examination of the Monge's stained aspirate smears show hypercellular spicules present. The overall cellularity is 80 to 90%. The myeloid to erythroid ratio is 3:1. Full myeloid maturation is identified and is without significant dyspoiesis. Erythroid maturation is mildly dyserythropoietic with irregular nuclear contours, nuclear cytoplasmic dyssynchrony and basophilic stippling. In a 500 cell differential, there are 1% blasts (no Boris rods are seen), 65% more differentiated myeloids, 23% erythroid precursors, 10% lymphocytes and 1% plasma cells. Megakaryocytes are proportional in number and both normal and abnormal in morphology with variable sizes and nuclear abnormalities. No lymphoid aggregates or markedly atypical lymphoid cells are seen. Plasma cells are without atypia. Iron stain of the aspirate smear shows 3/4+ iron positivity with spicules present. No ringed sideroblasts are identified. . Core Biopsy and Cell Clot: The decalcified bone marrow core biopsy is adequate. The bone marrow is hypercellular with an overall cellularity of approximately 80%. The myeloid to erythroid ratio is 2-3:1. Myeloid maturation is without significant dyspoiesis. Erythroid maturation is mildly dyserythropoietic. Megakaryocytes are normal to slightly increased in number and both normal and abnormal in morphology with focal megakaryocyte clustering. Rare, irregular, interstitial lymphoid aggregates composed of small lymphocytes are noted. No markedly atypical lymphoid cells are seen. Bony trabeculae and blood vessels are unremarkable. The cell clot has spicules present that are similar in cellularity and differential morphology as previously described. A mild eosinophilia is noted. Again, occasional lymphoid aggregate composed of small lymphocytes are noted. . Properly-controlled special stains are performed. . Block A1: Iron - 1/4+ iron positivity; Reticulin - Focal mild (1-2/4+) reticulin fibrosis. . Block B1: Iron - 1/4+ iron positivity with spicules present. . . Flow Cytometry: Flow cytometric immunophenotypic analysis was performed at [facility]. The diagnosis is "no immunophenotypic evidence of lymphoma or increased blasts." There are 7.5% lymphocytes. Of the lymphocytes, there are 72% T-cells with a CD4/CD8 ratio of 2.0 and no aberrant T-cell antigen expression and 2% polyclonal mature B-cells (kappa lambda ratio of 0.8). There are 0.3% CD34 positive cells (blasts) and precursor B-cells are virtually absent. There are 0.0% plasma cells. Please see separate flow cytometry report from [facility] ([id number]). . Cytogenetics Analysis: Cytogenetic chromosomal analysis is pending at [facility] ([id number]). . (CLW:viviane; 07/01/2019) . 02 Pathologist provided ICD-10: D72.829, D50.9, D47.3, D75.89 . 02 CPT . 674087, 855047, 715240, 035314, 093258, 664409, 605909, [id number], [id number] Specimen Comment: A courtesy copy of this report has been sent to [phone] Specimen Comment: [phone], Specimen Comment: Report sent to , and Performed at: 01 [facility] [address] [place] [id number] MD Dean Coles MD Phone: [phone] Performed at: 02 [facility] [address] [id number] MD Richard Alaniz MD Phone: [phone]
== END 2019-06-29 10:05 | disposition home or self-care (01) ==
LOC: INTRAD 06:49
PROVIDERS: ATTEND Internal Medicine Hematology & Oncology
DX: D47.3 Essential (hemorrhagic) thrombocythemia (principal); D72.828 Other elevated white blood cell count; D64.9 Anemia, unspecified; E78.5 Hyperlipidemia, unspecified; I25.10 Atherosclerotic heart disease of native coronary artery without angina pectoris; E11.9 Type 2 diabetes mellitus without complications; I10 Essential (primary) hypertension; Z79.899 Other long term (current) drug therapy; Z98.890 Other specified postprocedural states; Z88.8 Allergy status to other drugs, medicaments and biological substances; Z79.84 Long term (current) use of oral hypoglycemic drugs; Z86.718 Personal history of other venous thrombosis and embolism
CPT/HCPCS: 36415; 38222; 77012; 85025; 85610; 85730; 88184; 88185; 88237; J2250; J3010; 99152

== ENCOUNTER → 2020-01-12 | Outpatient (CLI) | payer MEDICARE ==
[2019-06-29 09:50] VITALS: BP 132/70
[~2020-01-12] MED LIST changes: +AMOX1TAB11 PO; +APIX2.5T PO; +DOXY25TA49 PO; +HYDR500C16 PO; +LACT1CAP19 PO; +MULT-445 PO; -MULT1TAB52 PO; -OMEP-229 PO; +OMEP20CA16 PO
[2020-01-12 11:41] LABS: BASO # 0.1 x10^3/uL (0.0-0.2); BASO % 1 % (0-3); EOS % 0 % (0-3); HEMATOCRIT 29.5 % (39.0-53.0); HEMOGLOBIN 9.7 g/dL (13.0-17.5); LYMPH # 1.9 x10^3/uL (1.0-4.8); LYMPH % 12 % (24-48); MEAN CORPUSCULAR HEMOGLOBIN 29 pg (25-35); MEAN CORPUSCULAR HGB CONC 33 g/dL (31-37); MEAN CORPUSCULAR VOLUME 89 fL (79-100); MONO # 0.9 x10^3/uL (0.0-1.1); MONO % 6 % (0-9); NEUT # 12.4 x10^3/uL (1.8-7.7); NEUT % 81 % (31-73); PLATELET COUNT 538 x10^3/uL (140-400); RED BLOOD COUNT 3.33 x10^6/uL (4.30-5.70); RED CELL DISTRIBUTION WIDTH 16.8 % (11.5-14.5); WHITE BLOOD COUNT 15.3 x10^3/uL (4.0-11.0)
[2020-01-12 11:48] LABS: CALCIUM 9.1 mg/dL (8.5-10.1); CREATININE 2.2 mg/dL (0.7-1.3); GFR 34.9; POTASSIUM 4.2 mmol/L (3.5-5.1)
[2020-01-12 11:52] LABS: ALBUMIN 2.9 g/dL (3.4-5.0); DIRECT BILIRUBIN 0.2 mg/dL (0.0-0.2); MAGNESIUM 1.8 mg/dL (1.8-2.4); TOTAL BILIRUBIN 0.4 mg/dL (0.2-1.0); TOTAL PROTEIN 8.4 g/dL (6.4-8.2); URIC ACID 5.7 mg/dL (3.5-7.2)
== END | disposition home or self-care (01) ==
LOC: ONCLAB 11:23
PROVIDERS: ATTEND Internal Medicine Hematology & Oncology
DX: D47.3 Essential (hemorrhagic) thrombocythemia (principal)
CPT/HCPCS: 36415; 80048; 80076; 83615; 83735; 84550; 85025; 85045

== ENCOUNTER → 2020-01-14 | Outpatient (CLI) | payer MEDICARE ==
[2019-06-29 09:50] VITALS: BP 132/70
[~2020-01-14] MED LIST changes: -AMOX1TAB11 PO; +CONTRAST GIVEN. MC PRN; -DOXY25TA49 PO; -HYDR500C16 PO; +IOHEXOL 240 MG/ML 50ML VIAL. PO ONE; -LACT1CAP19 PO
--- NOTE | 2020-01-14 15:57 | RAD ---
CT Abdomen and Pelvis without contrast History: Splenomegaly Technique: Noncontrast CT imaging was performed of the abdomen and pelvis. Oral contrast was given. Multiplanar images are reviewed. Exposure: One or more of the following individualized dose reduction techniques were utilized for this examination: 1. Automated exposure control 2. Adjustment of the mA and/or kV according to patient size 3. Use of iterative reconstruction technique. Comparison: January 27, 2014 Findings: There is some motion degradation. There is no significant abnormality of the limited visualized lung bases. Spleen is not enlarged, measures about 9.1 x 4.2 x 9 cm in maximal dimensions. Accurate evaluation of the abdominal visceral organs is limited without intravenous contrast. There is subtle focus of hypodensity of the right lobe of the liver image 21 series 2 estimated about 2 cm otherwise difficult to characterize, no definitive abnormality in this region on 2014 exam. There are again multiple foci of variable density of the bilateral kidneys, some hyperdense foci intermixed with hypodense foci. There is associated variable lobulation of the bilateral kidneys overall greater than 2014. Largest focus of the mid left kidney is estimated about 3.7 cm, density measurements 29 Hounsfield units. Largest focus of the medial right kidney measures about 3.6 cm with density measurements 23 Hounsfield units. There is no adrenal nodularity. Bowel is not significantly dilated. There is variable retained stool in the colon. There is no free air or free fluid. There is mild plaque of the abdominal aorta. There is colonic diverticulosis. There is prominent prostatomegaly about 7.2 x 6.7 by about 8 cm in size with indentation upon the base of the urinary bladder. There are some prostate calcifications. There is some fat in the left vertebral canal, no bowel. There is grade 1 anterior spondylolisthesis L4-5, multilevel lumbar facet degenerative change. There is lumbar neural foramina compromise greatest on the left at L4-5. There is degree of left lateral recess stenosis at L4-5. There is superior L2 compression deformity as seen on previous lumbar spine radiographs February 17, 2018. There is degree of osteoarthritic change of the bilateral hips. Impression: 1. Spleen is not enlarged. 2. There is severe prostatomegaly indenting the base of urinary bladder. Prostate cancer screening is advised if this has not been performed. 3. There are again foci of variable density of the bilateral kidneys likely sequela of cysts with various degrees of complex fluid/hemorrhage. It is difficult to exclude an underlying solid lesion by this noncontrast exam. 4. There is colonic diverticulosis. There is variable retained stool in the colon. 5. There is some subtle hypodensity of the right lobe of liver not clearly apparent on previous exam. Underlying lesion is possible, better evaluated with ultrasound or MRI if the patient cannot receive intravenous contrast for CT. Electronically signed by: Justin Live MD (01/14/2020 3:54 PM) [id number]
== END ==
LOC: CT 12:02
PROVIDERS: ATTEND Internal Medicine Hematology & Oncology
DX: K57.30 Diverticulosis of large intestine without perforation or abscess without bleeding (principal); K59.00 Constipation, unspecified; M43.16 Spondylolisthesis, lumbar region; M48.061 Spinal stenosis, lumbar region without neurogenic claudication; M16.0 Bilateral primary osteoarthritis of hip
CPT/HCPCS: 74176; Q9966

== ENCOUNTER → 2020-01-27 | Outpatient (CLI) | payer MEDICARE ==
[2019-06-29 09:50] VITALS: BP 132/70
[~2020-01-27] MED LIST changes: -CONTRAST GIVEN. MC PRN; +HYDR500C16 PO; -IOHEXOL 240 MG/ML 50ML VIAL. PO ONE
[2020-01-27 13:29] LABS: BASO # 0.1 x10^3/uL (0.0-0.2); BASO % 0 % (0-3); EOS % 0 % (0-3); HEMATOCRIT 28.8 % (39.0-53.0); HEMOGLOBIN 9.9 g/dL (13.0-17.5); LYMPH % 11 % (24-48); MEAN CORPUSCULAR HEMOGLOBIN 31 pg (25-35); MEAN CORPUSCULAR HGB CONC 34 g/dL (31-37); MEAN CORPUSCULAR VOLUME 89 fL (79-100); MONO # 1.1 x10^3/uL (0.0-1.1); MONO % 6 % (0-9); NEUT # 14.9 x10^3/uL (1.8-7.7); NEUT % 82 % (31-73); PLATELET COUNT 560 x10^3/uL (140-400); RED BLOOD COUNT 3.25 x10^6/uL (4.30-5.70); RED CELL DISTRIBUTION WIDTH 16.6 % (11.5-14.5); WHITE BLOOD COUNT 18.1 x10^3/uL (4.0-11.0)
[2020-01-27 14:07] LABS: % BANDS 1 % (0-9); % BASOS 1 % (0-3); % EOS 1 % (0-5); % LYMPHS 9 % (24-48); % MONOS 3 % (0-10)
[2020-01-27 14:08] LABS: PLT ESTIMATE INCREASED (ADEQUATE)
[2020-01-27 14:10] LABS: CREATININE 2.4 mg/dL (0.7-1.3); GFR 31.6; POTASSIUM 4.1 mmol/L (3.5-5.1)
[2020-01-27 14:53] LABS: ALBUMIN/GLOBULIN RATIO 0.7 (1.0-1.7); TOTAL BILIRUBIN 0.5 mg/dL (0.2-1.0); TOTAL PROTEIN 7.6 g/dL (6.4-8.2)
[2020-01-28 14:55] LABS: % SEGS 85 % (35-66)
== END | disposition home or self-care (01) ==
LOC: ONCLAB 13:02
PROVIDERS: ATTEND Internal Medicine Hematology & Oncology
DX: D64.9 Anemia, unspecified (principal); D47.3 Essential (hemorrhagic) thrombocythemia; D72.828 Other elevated white blood cell count; R94.4 Abnormal results of kidney function studies; R79.89 Other specified abnormal findings of blood chemistry; N18.3 Chronic kidney disease, stage 3 (moderate); Z91.89 Other specified personal risk factors, not elsewhere classified
CPT/HCPCS: 36415; 80053; 82668; 82728; 83010; 83540; 83550; 83615; 85007; 85025; 85045

== ENCOUNTER 2020-02-02 17:04 | Inpatient (IN) | payer MEDICARE ==
[~2020-02-02] VITALS: Ht 190.5 cm; Wt 99.6 kg
[~2020-02-02 17:04] MED LIST changes: -HYDR500C16 PO
[2020-02-02 17:40] VITALS: BP 143/67
[2020-02-02] MEDS ORDERED: HYDR500C16 PO (17:45)
[2020-02-02] MEDS ORDERED: ANTI-COAG MONITOR BY PHARMACY. MC PRN (18:30)
[2020-02-02] MEDS ORDERED: SENNOSIDES 8.6 MG TABLET PO PRN (18:30)
[2020-02-02] MEDS ORDERED: ACETAMINOPHEN 325 MG TABLET. PO PRN (18:30)
[2020-02-02 19:00] VITALS: BP 129/70
[2020-02-02] MEDS: glipiZIDE 5 MG TABLET PO SCH (19:06)
--- NOTE | 2020-02-02 19:46 | RAD ---
Exam: Chest one view INDICATION: Hypertension TECHNIQUE: Frontal view of the chest Comparisons: 03/19/2019 FINDINGS: The cardiomediastinal silhouette and pulmonary vessels are within normal limits. The lung and pleural spaces are clear. IMPRESSION: No acute cardiopulmonary process. Electronically signed by: Evelyn Godinez MD (02/02/2020 7:42 PM) [id number]
[2020-02-02 20:11] LABS: BASO # 0.1 x10^3/uL (0.0-0.2); BASO % 1 % (0-3); EOS # 0.1 x10^3/uL (0.0-0.7); EOS % 0 % (0-3); HEMATOCRIT 26.3 % (39.0-53.0); LYMPH # 1.5 x10^3/uL (1.0-4.8); LYMPH % 10 % (24-48); MEAN CORPUSCULAR HEMOGLOBIN 30 pg (25-35); MEAN CORPUSCULAR HGB CONC 34 g/dL (31-37); MEAN CORPUSCULAR VOLUME 88 fL (79-100); MONO # 1.2 x10^3/uL (0.0-1.1); MONO % 8 % (0-9); NEUT # 11.8 x10^3/uL (1.8-7.7); NEUT % 81 % (31-73); PLATELET COUNT 521 x10^3/uL (140-400); RED BLOOD COUNT 2.99 x10^6/uL (4.30-5.70); RED CELL DISTRIBUTION WIDTH 15.9 % (11.5-14.5); WHITE BLOOD COUNT 14.7 x10^3/uL (4.0-11.0)
[2020-02-02 20:25] LABS: ALBUMIN 2.8 g/dL (3.4-5.0); ALBUMIN/GLOBULIN RATIO 0.6 (1.0-1.7); CALCIUM 8.5 mg/dL (8.5-10.1); CREATININE 2.5 mg/dL (0.7-1.3); GFR 30.1; MAGNESIUM 1.4 mg/dL (1.8-2.4); POTASSIUM 3.9 mmol/L (3.5-5.1); TOTAL BILIRUBIN 0.5 mg/dL (0.2-1.0); TOTAL PROTEIN 7.5 g/dL (6.4-8.2)
[2020-02-02] MEDS: PIPERACILLIN/TAZOBACTAM 3.375 GM in IV NORMAL SALINE 50ML 50 ML IV SCH (20:30)
[2020-02-02] MEDS: APIXABAN 2.5 MG TABLET. PO SCH (21:53)
--- NOTE | 2020-02-02 22:14 | EKG ---
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
[2020-02-02 23:05] VITALS: BP 95/53
[2020-02-02] MEDS: HYDROcodone/APAP 5/325MG 1 TAB TABLET PO PRN (23:15)
[2020-02-03 03:00] VITALS: BP 95/54
[2020-02-03] MEDS: PIPERACILLIN/TAZOBACTAM 3.375 GM in IV NORMAL SALINE 50ML 50 ML IV SCH ×3 (05:45→21:49)
[2020-02-03 07:00] VITALS: BP 90/41
[2020-02-03] MEDS: FOLIC ACID 1 MG TABLET. PO SCH (08:11)
[2020-02-03] MEDS: PIOGLITAZONE 15 MG TABLET. PO SCH (08:11)
[2020-02-03] MEDS: PANTOPRAZOLE 40 MG TABLET.DR. PO SCH (08:13)
[2020-02-03] MEDS: POLYETHYLENE GLYCOL 3350 17 GM PACKET. PO SCH (08:13)
[2020-02-03] MEDS: ALLOPURINOL 100 MG TABLET. PO SCH (08:13)
[2020-02-03] MEDS: APIXABAN 2.5 MG TABLET. PO SCH (08:22)
[2020-02-03] MEDS ORDERED: amLODIPine BESYLATE 5 MG TABLET PO SCH (09:00)
[2020-02-03] MEDS ORDERED: hydroCHLOROthiazide 25 MG TABLET PO SCH (09:00)
--- NOTE | 2020-02-03 09:00 | PDOC2 ---
JOSECHANTELL Samuel ZELAYA 02/03/20 0900: CONSULT Date of Consult Date of Consult DATE: 02/03/20 TIME: 08:51 Reason for Consult Reason for Consult: perirectal abscess Referring Physician Referring Physician: Dr Mclaughlin Identification/Chief Complaint Chief Complaint rectal pain and drainage Source Source: Chart review, Patient History of Present Illness Reason for Visit: reports 1 month of pain and swelling to buttocks, this last became worse. Has had significant amount of drainage. It does not appear to be improving. No hx of skin infections Pain aggravated with movement Past Medical History Cardiovascular: CAD, HTN, Hyperlipidemia Pulmonary: Pulmonary embolus CENTRAL NERVOUS SYSTEM: Carpal Tunnel Syndrome GI: GERD, Peptic Ulcer disease Heme/Onc: Anemia NOS, Other (DVT) Renal/: Benign prostatic enlarg. Endocrine: Diabetes Past Surgical History Past Surgical History: Other (Cardiac cath) Family History Family History: Family History Unknown Social History Quit ALCOHOL: other (quit) Drugs: None Lives: with Family Current Medications Current Medications Current Medications Allopurinol (Zyloprim) 100 mg DAILY PO Last administered on 02/03/20at 08:13; Start 02/03/20 at 09:00 Apixaban (Eliquis) 2.5 mg BID PO Last administered on 02/02/20at 21:53; Start 02/02/20 at 21:00 Glipizide (Glucotrol) 2.5 mg DAILYBFRSUP PO Last administered on 02/02/20at 19:06; Start 02/02/20 at 18:00 Hydrochlorothiazide (Hydrodiuril) 25 mg DAILY PO ; Start 02/03/20 at 09:00 Hydroxyurea (Hydrea) 500 mg DAILY PO ; Start 02/03/20 at 09:00 Amlodipine Besylate (Norvasc) 2.5 mg DAILY PO ; Start 02/03/20 at 09:00 Pantoprazole Sodium (Protonix) 40 mg DAILYAC PO Last administered on 02/03/20at 08:13; Start 02/03/20 at 07:30 Pioglitazone HCl (Actos) 30 mg DAILY08 PO Last administered on 02/03/20at 08:11; Start 02/03/20 at 08:00 Non-Formulary Medication (Rosuvastatin Calcium (Crestor)) 10 mg HS PO Last administered on 02/02/20at 21:53; Start 02/02/20 at 21:00 Info (Anti-Coagulation Monitoring By Pharmacy) 1 each PRN DAILY PRN MC SEE COMMENTS; Start 02/02/20 at 18:30 Linezolid/Dextrose 300 ml @ 300 mls/hr Q12HR IV Last administered on 02/03/20at 08:14; Start 02/02/20 at 21:00 Piperacillin Sod/ Tazobactam Sod 3.375 gm/Sodium Chloride 50 ml @ 100 mls/hr Q8HRS IV Last administered on 02/03/20at 05:45; Start 02/02/20 at 20:00 Acetaminophen (Tylenol) 650 mg PRN Q4HRS PRN PO pain,fever; Start 02/02/20 at 18:30 Acetaminophen/ Hydrocodone Bitart (Lortab 5/325) 1 tab PRN Q4HRS PRN PO MODERATE PAIN Last administered on 02/02/20at 23:15; Start 02/02/20 at 18:30 Polyethylene Glycol (miraLAX PACKET) 17 gm DAILY PO Last administered on 02/03/20at 08:13; Start 02/03/20 at 09:00 Sennosides (Senna) 8.6 mg PRN BID PRN PO CONSTIPATION; Start 02/02/20 at 18:30 Folic Acid (Folic Acid) 1 mg DAILY PO Last administered on 02/03/20at 08:11; Start 02/03/20 at 09:00 Active Scripts Active Reported Hydroxyurea 500 Mg Capsule 500 Mg PO DAILY Eliquis (Apixaban) 2.5 Mg Tablet 2.5 Mg PO BID Allopurinol 100 Mg Tablet 1 Tab PO DAILY Unisom Sleep Aid (Doxylamine Succinate) 25 Mg Tablet 25 Mg PO HS Multivitamins (Multivitamin) 1 Each Tablet 1 Each PO DAILY Vitamin E (Vitamin E Mixed) 400 Unit Capsule 400 Unit PO DAILY Vitamin B-12 (Cyanocobalamin (Vitamin B-12)) 1,000 Mcg Tablet 1,000 Mcg PO DAILY Hydrochlorothiazide Tablet (Hydrochlorothiazide) 25 Mg Tablet 25 Mg PO DAILY Amlodipine Besylate 2.5 Mg Tablet 2.5 Mg PO DAILY Actos (Pioglitazone Hcl) 30 Mg Tablet 30 Mg PO DAILY08 Omeprazole 20 Mg Tablet.dr 20 Mg PO QHS Crestor (Rosuvastatin Calcium) 10 Mg Tablet 10 Mg PO HS Glipizide 5 Mg Tablet 2.5 Mg PO DAILYBFRSUP Allergies Allergies: Coded Allergies: amlodipine (Unverified Allergy, Intermediate, DIZZINESS, 10/22/16) atorvastatin calcium (Verified Allergy, Intermediate, bothered muscles, 10/22/16) finasteride (Verified Allergy, Intermediate, MYALGIAS, 10/22/16) fluvastatin (Unverified Allergy, Intermediate, 10/22/16) fluvastatin sodium (Verified Allergy, Intermediate, 10/22/16) lisinopril (Verified Allergy, Intermediate, 10/22/16) losartan (Verified Allergy, Intermediate, 10/22/16) metoprolol (Verified Allergy, Intermediate, 10/22/16) ROS General: No: Chills, Other (fevers ) PSYCHOLOGICAL ROS: No: Anxiety, Depression Eyes: No Blurry vision, No Double vision HEENT: No: Heacaches, Sore Throat Hematological and Lymphatic: YES: Bleeding Problems, Blood Clots Respiratory: No: Cough, Shortness of breath Cardiovascular: No Chest Pain, No Palpitations Gastrointestinal: No Nausea, No Vomiting Genitourinary: No Dysuria, No Hematuria Musculoskeletal: No Joint Pain, No Muscle Pain Neurological: No Confusion, No Impaired Coord/balance Skin: Yes Other (see hpi) Physical Exam General: Alert, Oriented X3, Cooperative HEENT: Atraumatic, PERRLA Lungs: Clear to auscultation, Normal air movement Heart: Regular rate, Normal S1, Normal S2 Abdomen: Soft, No tenderness Extremities: No clubbing, No cyanosis Skin: Other (perirectal area with significant amount of purulent drainage--mild tenderness on exam, fluctuance noted ) Neuro: Normal speech, Sensation intact Psych/Mental Status: Mental status NL, Mood NL Vitals VITALS Vital Signs Date Time Temp Pulse Resp B/P (MAP) Pulse Ox O2 Delivery O2 Flow Rate FiO2 02/03/20 07:00 98.7 99 17 90/41 (57) 99 Room Air 98.7 Labs Labs Laboratory Tests Test 02/02/20 20:00 02/02/20 20:39 02/03/20 07:27 White Blood Count 14.7 x10^3/uL (4.0-11.0) Red Blood Count 2.99 x10^6/uL (4.30-5.70) Hemoglobin 9.0 g/dL (13.0-17.5) Hematocrit 26.3 % (39.0-53.0) Mean Corpuscular Volume 88 fL (79-100) Mean Corpuscular Hemoglobin 30 pg (25-35) Mean Corpuscular Hemoglobin Concent 34 g/dL (31-37) Red Cell Distribution Width 15.9 % (11.5-14.5) Platelet Count 521 x10^3/uL (140-400) Neutrophils (%) (Auto) 81 % (31-73) Lymphocytes (%) (Auto) 10 % (24-48) Monocytes (%) (Auto) 8 % (0-9) Eosinophils (%) (Auto) 0 % (0-3) Basophils (%) (Auto) 1 % (0-3) Neutrophils # (Auto) 11.8 x10^3/uL (1.8-7.7) Lymphocytes # (Auto) 1.5 x10^3/uL (1.0-4.8) Monocytes # (Auto) 1.2 x10^3/uL (0.0-1.1) Eosinophils # (Auto) 0.1 x10^3/uL (0.0-0.7) Basophils # (Auto) 0.1 x10^3/uL (0.0-0.2) Sodium Level 136 mmol/L (136-145) Potassium Level 3.9 mmol/L (3.5-5.1) Chloride Level 99 mmol/L (98-107) Carbon Dioxide Level 25 mmol/L (21-32) Anion Gap 12 (6-14) Blood Urea Nitrogen 38 mg/dL (8-26) Creatinine 2.5 mg/dL (0.7-1.3) Estimated GFR (Cockcroft-Gault) 30.1 BUN/Creatinine Ratio 15 (6-20) Glucose Level 150 mg/dL (70-99) Calcium Level 8.5 mg/dL (8.5-10.1) Magnesium Level 1.4 mg/dL (1.8-2.4) Total Bilirubin 0.5 mg/dL (0.2-1.0) Aspartate Amino Transf (AST/SGOT) 12 U/L (15-37) Alanine Aminotransferase (ALT/SGPT) 18 U/L (16-63) Alkaline Phosphatase 129 U/L (46-116) Total Protein 7.5 g/dL (6.4-8.2) Albumin 2.8 g/dL (3.4-5.0) Albumin/Globulin Ratio 0.6 (1.0-1.7) Glucose (Fingerstick) 138 mg/dL (70-99) 101 mg/dL (70-99) Laboratory Tests Test 02/02/20 20:00 02/02/20 20:39 02/03/20 07:27 White Blood Count 14.7 x10^3/uL (4.0-11.0) Red Blood Count 2.99 x10^6/uL (4.30-5.70) Hemoglobin 9.0 g/dL (13.0-17.5) Hematocrit 26.3 % (39.0-53.0) Mean Corpuscular Volume 88 fL (79-100) Mean Corpuscular Hemoglobin 30 pg (25-35) Mean Corpuscular Hemoglobin Concent 34 g/dL (31-37) Red Cell Distribution Width 15.9 % (11.5-14.5) Platelet Count 521 x10^3/uL (140-400) Neutrophils (%) (Auto) 81 % (31-73) Lymphocytes (%) (Auto) 10 % (24-48) Monocytes (%) (Auto) 8 % (0-9) Eosinophils (%) (Auto) 0 % (0-3) Basophils (%) (Auto) 1 % (0-3) Neutrophils # (Auto) 11.8 x10^3/uL (1.8-7.7) Lymphocytes # (Auto) 1.5 x10^3/uL (1.0-4.8) Monocytes # (Auto) 1.2 x10^3/uL (0.0-1.1) Eosinophils # (Auto) 0.1 x10^3/uL (0.0-0.7) Basophils # (Auto) 0.1 x10^3/uL (0.0-0.2) Sodium Level 136 mmol/L (136-145) Potassium Level 3.9 mmol/L (3.5-5.1) Chloride Level 99 mmol/L (98-107) Carbon Dioxide Level 25 mmol/L (21-32) Anion Gap 12 (6-14) Blood Urea Nitrogen 38 mg/dL (8-26) Creatinine 2.5 mg/dL (0.7-1.3) Estimated GFR (Cockcroft-Gault) 30.1 BUN/Creatinine Ratio 15 (6-20) Glucose Level 150 mg/dL (70-99) Calcium Level 8.5 mg/dL (8.5-10.1) Magnesium Level 1.4 mg/dL (1.8-2.4) Total Bilirubin 0.5 mg/dL (0.2-1.0) Aspartate Amino Transf (AST/SGOT) 12 U/L (15-37) Alanine Aminotransferase (ALT/SGPT) 18 U/L (16-63) Alkaline Phosphatase 129 U/L (46-116) Total Protein 7.5 g/dL (6.4-8.2) Albumin 2.8 g/dL (3.4-5.0) Albumin/Globulin Ratio 0.6 (1.0-1.7) Glucose (Fingerstick) 138 mg/dL (70-99) 101 mg/dL (70-99) Assessment/Plan Assessment/Plan perirectal abscess not npo this AM hold eliquis, NPO after MN LULY FISHER MD 02/03/20 1242: CONSULT Assessment/Plan Assessment/Plan Pt seen and examined; states he has had perineal pain and swelling last 1 1/2 weeks; has drained "a lot" recently; PMH/PSH/ROS/SH as above; exam: alert, oriented, no distress, lungs clear, heart RR and R, abdomen soft, nontender, rectal area with drainage left perineum, induration resolved. A/P) Perineal infection, draining spontaneously, pt took eliquis last night; will observe next 24 hours, hold eliquis, poss I and D in OR 02/04 (Friday). CHANTELL GARCIA APRN Feb 03, 2020 09:00 LULY FISHER MD Feb 03, 2020 12:42
--- NOTE | 2020-02-03 09:03 | NUR ---
SW following. Discussed with RN, pt from home with family, room air. COVID-19 pending for potential surgery. Pt uses a cane at home. RN advised no SW needs at this time. SW will continue to follow.
--- NOTE | 2020-02-03 09:19 | RAD ---
EXAM: CT PELVIS WITHOUT IV CONTRAST DATE: 02/02/2020 6:26 PM COMPARISON: No prior INDICATION: pelvic abscess. Pelvic pain TECHNIQUE: CT of the pelvis was performed without IV contrast. Axial, coronal and sagittal reformatted images were generated. PQRS compliance statement - One or more of the following individualized dose reduction techniques were utilized for this study: 1. Automated exposure control 2. Adjustment of the mA and/or kV according to patient size 3. Use of iterative reconstruction technique FINDINGS: Prostate is enlarged measuring 7.2 cm in transverse dimension. This results in mild deformity of the inferior bladder. Colonic diverticulosis without evidence for acute diverticulitis. Small fat-containing periumbilical hernia is seen. Appendix is normal. Moderate colonic stool content is seen. No free or loculated pelvic collection. Bilateral hip joint degenerative changes are seen. Symphysis pubis degenerative changes are noted. Lower lumbar spine degenerative changes are also seen. IMPRESSION: 1. No free or loculated pelvic collection. 2. Colonic diverticulosis without evidence for acute diverticulitis. 3. Prostate is enlarged. 4. Small fat-containing left inguinal hernia. Electronically signed by: Gurdeep Mclean MD (02/03/2020 9:16 AM) [facility]
[2020-02-03] MEDS: HYDROXYUREA 500 MG CAPSULE PO SCH (09:52)
[2020-02-03 11:00] VITALS: BP 90/44
--- NOTE | 2020-02-03 11:43 | CONS ---
DATE OF CONSULTATION: REQUESTING PHYSICIAN: Dr. Mclaughlin. REASON FOR CONSULTATION: Perineal abscess. HISTORY OF PRESENT ILLNESS: This is an 79-year-old -[place] gentleman who had pain in the perineal area about a week ago and then started draining. The patient was seen by Dr. Mclaughlin and admitted for further management. The patient has had fever at home. The patient denies any nausea, vomiting, or diarrhea. Denies any chest pain, shortness of breath, abdominal pain, urinary symptoms, or bowel symptoms. PAST MEDICAL HISTORY: Positive for hypertension, hyperlipidemia, coronary artery disease, history of pulmonary embolism, carpal tunnel syndrome, peptic ulcer disease, anemia, prostatic hypertrophy, and diabetes. SOCIAL HISTORY: Negative for smoking, alcohol or illicit drug use. ALLERGIES: THE PATIENT IS LISTED ALLERGIC TO MULTIPLE MEDICATIONS, NONE OF THEM ARE ANTIBIOTICS. REVIEW OF SYSTEMS: As per HPI, all other systems reviewed and are negative. CURRENT MEDICATIONS: The patient is put on Zyvox and Zosyn. PHYSICAL EXAMINATION: GENERAL: Alert and oriented gentleman, not in any distress. VITAL SIGNS: Stable. The patient had a T-max of 100.0. HEENT: NAD. NECK: Supple, no JVP, no lymphadenopathy. LUNGS: Clear. HEART: S1, S2 regular. ABDOMEN: Benign. EXTREMITIES: No edema or cyanosis. SKIN: Unremarkable. RECTAL: The patient's perineal area, the patient does have purulent drainage and induration into the perirectal area. NEUROLOGICAL: The patient is alert, awake and appropriate. No focal neurologic deficit. LABORATORY DATA: White count is 14.7, hemoglobin 9.0, and platelets are 521,000. BUN and creatinine are 38 and 2.5. Culture is pending. Pelvic CT done, which showed no free fluid or loculated pelvic collection, colonic diverticulosis, prostate enlargement, or small hernia. No obvious abscess seen. Chest x-ray unremarkable. IMPRESSION: 1. Perineal abscess, which has opened up and is draining. 2. Fever. 3. Leukocytosis. 4. Diabetes. 5. Renal insufficiency. RECOMMENDATIONS: We will follow the cultures. Supportive care. Continue Zyvox and Zosyn. We will adjust as soon as more information is available. Thank you very much, Dr. Mclaughlin, for giving me the opportunity to participate in this patient's care. ANY DECKER MD DR: SMILEY/elvis JOB#: [id number] / [id number]
--- NOTE | 2020-02-03 12:17 | PDOC ---
Provider Note Provider Note history and physical dictated # [id number] Justicifation of Admission Dx: Justifications for Admission: Justification of Admission Dx: Yes (sepsis and perirectal abscess and acute kidney injury) QAMAR HOUSTON MD Feb 03, 2020 12:17
[2020-02-03] MEDS: IV NORMAL SALINE 1000ML BAG 1,000 ML IV SCH (12:27)
[2020-02-03] MEDS ORDERED: MAGNESIUM SULFATE 4GM 100 ML IV ONE (12:30)
--- NOTE | 2020-02-03 12:54 | HP ---
ADMIT DATE: LOCATION: He is in room 424. HISTORY OF PRESENT ILLNESS: The patient is an 79-year-old obese -[place] male who has a history of diabetes mellitus type 2 with diabetic nephropathy, chronic kidney disease stage 3 with baseline serum creatinine 1.8, who has hypertension, hyperlipidemia, coronary artery disease, previous history of a pulmonary embolus and deep vein thrombosis, on chronic Eliquis, who also has a myeloproliferative disease, on hydroxyurea, was seen in the office on 02/02/2020 with a 3-week history of a perirectal abscess. He apparently saw his urologist, Dr. Hernandez who treated him with antibiotics for 6 days. Initially noted some lumps in that area and it started draining about 3 weeks ago copiously. He was seen in the office yesterday and he was noted to have a perirectal abscess and subsequently admitted to the hospital. He was also noted to have sinus tachycardia with a heart rate over 120, which was unusual for him. He denies any fever or chills, but it did hurt when he sat on his buttock area. He is therefore admitted for further evaluation and treatment of his perirectal abscess and was started on IV antibiotics, has already been seen by the surgeon. ALLERGIES AND INTOLERANCES: INCLUDE AMLODIPINE, ATORVASTATIN, FINASTERIDE, FLUVASTATIN, LISINOPRIL, LOSARTAN AND METOPROLOL. HE IS ACTUALLY ALLERGIC TO LOSARTAN WHICH CAUSED MILD ANGIOEDEMA. MEDICATIONS: Prior to admission include nitroglycerin 0.4 mg sublingual p.r.n., folic acid 1 mg every day, Eliquis 2.5 mg b.i.d., omeprazole 20 mg every day, amlodipine 2.5 mg every day, Crestor 10 mg at bedtime, glipizide 2.5 mg daily. He actually takes it before supper. Hydrochlorothiazide 25 mg every day, Actos 30 mg every day, allopurinol 100 mg every day, hydroxyurea 500 mg 1 tablet p.o. daily. PAST MEDICAL HISTORY: Significant for myeloproliferative disorder and he is followed by general internist. He has coronary artery disease, hypertension, hyperlipidemia, vitamin B12 deficiency, chronic kidney disease stage 3, diabetic nephropathy, gout. He has a history of diabetic peripheral neuropathy. He had a deep vein thrombosis and pulmonary embolus in 2013. The deep vein thrombosis was in the left popliteal vein. He had a gastric ulcer with an upper GI bleed in 2007. He has a vitamin B12 deficiency. He had a syncopal episode in 07/2018. Cardiac catheterization in 2001. Benign prostate biopsy in 2010. Right tibial fracture due to syncope in 07/2018. Bilateral pulmonary emboli in 07/2018. Right tibial fracture secondary to syncope in 07/2018. He has been on Eliquis since 08/2018 due to pulmonary emboli. FAMILY HISTORY: Mother had diabetes mellitus, history of pancreatic cancer. SOCIAL HISTORY: He is , does not drink alcohol nor does he smoke cigarettes. He does not use any type of assistive device for ambulation. REVIEW OF SYSTEMS: GENERAL: He denies any fever, chills or sweats. CARDIOVASCULAR: No chest pain. PULMONARY: No cough or shortness of breath. GASTROINTESTINAL: He had some constipation. ENDOCRINE: He has diabetes mellitus. SKIN: He has got a perirectal abscess. The rest of systems reviewed are negative except as stated in history of present illness. PHYSICAL EXAMINATION: VITAL SIGNS: His temperature was 100 degrees last night and this morning is 98.7, apical pulse of 99, respiratory rate is 18, blood pressure is 90/41, oxygen saturation 99% on room air. HEENT: Eyes: Gaze is conjugate. Extraocular muscles are intact. Mouth: Tongue is midline without yeast. NECK: No cervical lymphadenopathy or thyroid enlargement. Neck is supple. HEART: S1, S2. There is no S3 or murmur. LUNGS: Clear. ABDOMEN: Obese and soft with no hepatosplenomegaly, masses or tenderness. RECTAL: Examination of the perirectal area shows that he does have an opening of the abscess in the left perirectal area. In the office yesterday, a copious amount of pus coming out of it. EXTREMITIES: Lower extremities without edema. He has got pedal pulses. NEUROLOGIC: Coherent. He has got no facial weakness. 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 SKIN: No rashes, but he had a perirectal abscess. LABORATORY DATA: Review of his laboratory tests: White count 14.7, hemoglobin 9, platelet count 521,000, 81 polys and 10 lymphocytes. Sodium 136, potassium 3.9, chloride 99, total CO2 of 25, BUN 38, creatinine 2.5, blood sugar 152. Fingerstick blood sugar was 164 before lunch today. Magnesium low at 1.4, albumin 2.8. SGOT, SGPT and bilirubin were normal, alkaline phosphatase 129. COVID-19 test on 02/01 last night is negative. He had a chest x-ray done, which showed no acute abnormality. Lungs were clear. He had a CAT scan of the pelvis done without contrast and it showed colonic diverticulosis, enlarged prostate, small fat containing left inguinal hernia. He had an electrocardiogram done. EKG showed sinus tachycardia with no acute change. He had a first-degree AV block. ASSESSMENT: 1. Perirectal abscess. 2. Leukocytosis, unclear what his baseline white count since he has a myeloproliferative disease. 3. Anemia, which could be related to myeloproliferative disease. 4. Acute kidney injury on top of chronic kidney disease stage 3, most likely related to inadequate fluid intake, perhaps to hydrochlorothiazide and also sepsis. 5. Sepsis. 6. Hypomagnesemia. 7. Coronary artery disease. 8. Hyperlipidemia. 9. Hypertension. 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 11. History of a pulmonary embolus, on Eliquis. 12. Myeloproliferative disorder. PLAN: At this time is to consult Dr. De La Cruz and his nurse practitioner has already seen the patient. He is scheduled for, I believe, an incision and drainage tomorrow. We will continue with IV Zyvox and Zosyn, which was started yesterday. He has already been seen in consultation by Dr. Jeremias Richter for Infectious Disease. We will consult Dr. Ross for Nephrology for the acute kidney injury on top of chronic kidney disease stage [address] Francisco, Cardiology for cardiology clearance. It should be noted an echocardiogram was done in 05/2019, which showed a left ventricular ejection fraction of 65-70% with [id number] pulmonary hypertension. In addition for the hypomagnesemia, we gave him 4 grams of magnesium sulfate IV today. We will check serum iron. We will check a total iron binding capacity and ferritin tomorrow. Check a stool for occult blood x 3. I will start him on IV normal saline at 75 mL an hour, obtain a urinalysis and renal ultrasound. Discontinue the hydrochlorothiazide and amlodipine as his blood pressure was low and also because of the acute kidney injury. We will continue pioglitazone a low dose, glipizide for his diabetes and watch for any hypoglycemia with his renal insufficiency. Continue the MiraLax and Senokot-S for his constipation. We will discontinue Eliquis in preparation of the incision and drainage tomorrow. Get a CBC, BMP and magnesium level tomorrow also and urinalysis. We will continue Tylenol p.r.n. for pain control. QAMAR HOUSTON MD DR: MU/elvis JOB#: [id number] / [id number]
--- NOTE | 2020-02-03 13:24 | PDOC2 ---
CONSULT Date of Consult Date of Consult DATE: 02/03/20 TIME: 12:51 Reason for Consult Reason for Consult: JIA Referring Physician Referring Physician: Dr. Mclaughlin History of Present Illness Reason for Visit: Pt is a 79-year-old AAM who had pain in the perineal area about a week ago and then started draining. The patient was seen by Dr. Mclaughlin and admitted for further management. He has had fever at home. He denies any nausea, vomiting, or diarrhea. Denies any chest pain, shortness of breath, abdominal pain. Denies any urinary symptoms, except Nocturia . No CP or SOB Denies use of NSAID's. Has been seeing a Urologist for past 3 years , never seen Retail Field Supervisor Past Medical History Past Medical History PAST MEDICAL HISTORY: Significant for myeloproliferative disorder and he is followed by wine master. He has coronary artery disease, hypertension, hyperlipidemia, vitamin B12 deficiency, chronic kidney disease stage 3, diabetic nephropathy, gout. He has a history of diabetic peripheral neuropathy. He had a deep vein thrombosis and pulmonary embolus in 2013. The deep vein thrombosis was in the left popliteal vein. He had a gastric ulcer with an upper GI bleed in 2007. He has a vitamin B12 deficiency. He had a syncopal episode in 07/2018. Cardiac catheterization in 2001. Benign prostate biopsy in 2010. Right tibial fracture due to syncope in 07/2018. Bilateral pulmonary emboli in 07/2018. Right tibial fracture secondary to syncope in 07/2018. He has been on Eliquis since 08/2018 due to pulmonary emboli. Cardiovascular: CAD, HTN, Hyperlipidemia Pulmonary: Pulmonary embolus CENTRAL NERVOUS SYSTEM: Carpal Tunnel Syndrome GI: GERD, Peptic Ulcer disease Heme/Onc: Anemia NOS, Other (DVT) Renal/: Benign prostatic enlarg. Endocrine: Diabetes Past Surgical History Past Surgical History: Other (Cardiac cath) Family History Family History Mother had diabetes mellitus, history of pancreatic cancer. Family History: Family History Unknown Social History Social History He is , does not drink alcohol nor does he smoke cigarettes. He does not use any type of assistive device for ambulation. Quit ALCOHOL: other (quit) Drugs: None Lives: with Family Current Medications Current Medications Current Medications Allopurinol (Zyloprim) 100 mg DAILY PO Last administered on 02/03/20at 08:13; Start 02/03/20 at 09:00 Apixaban (Eliquis) 2.5 mg BID PO Last administered on 02/02/20at 21:53; Start 02/02/20 at 21:00; Stop 02/03/20 at 12:00; Status DC Glipizide (Glucotrol) 2.5 mg DAILYBFRSUP PO Last administered on 02/02/20at 19:06; Start 02/02/20 at 18:00 Hydrochlorothiazide (Hydrodiuril) 25 mg DAILY PO ; Start 02/03/20 at 09:00; Stop 02/03/20 at 12:00; Status DC Hydroxyurea (Hydrea) 500 mg DAILY PO Last administered on 02/03/20at 09:52; Start 02/03/20 at 09:00 Amlodipine Besylate (Norvasc) 2.5 mg DAILY PO ; Start 02/03/20 at 09:00; Stop 02/03/20 at 12:00; Status DC Pantoprazole Sodium (Protonix) 40 mg DAILYAC PO Last administered on 02/03/20at 08:13; Start 02/03/20 at 07:30 Pioglitazone HCl (Actos) 30 mg DAILY08 PO Last administered on 02/03/20at 08:11; Start 02/03/20 at 08:00 Non-Formulary Medication (Rosuvastatin Calcium (Crestor)) 10 mg HS PO Last administered on 02/02/20at 21:53; Start 02/02/20 at 21:00 Info (Anti-Coagulation Monitoring By Pharmacy) 1 each PRN DAILY PRN MC SEE COMMENTS; Start 02/02/20 at 18:30 Linezolid/Dextrose 300 ml @ 300 mls/hr Q12HR IV Last administered on 02/03/20at 08:14; Start 02/02/20 at 21:00 Piperacillin Sod/ Tazobactam Sod 3.375 gm/Sodium Chloride 50 ml @ 100 mls/hr Q8HRS IV Last administered on 02/03/20at 05:45; Start 02/02/20 at 20:00 Acetaminophen (Tylenol) 650 mg PRN Q4HRS PRN PO FEVER; Start 02/02/20 at 18:30 Acetaminophen/ Hydrocodone Bitart (Lortab 5/325) 1 tab PRN Q4HRS PRN PO MODERATE PAIN Last administered on 02/02/20at 23:15; Start 02/02/20 at 18:30 Polyethylene Glycol (miraLAX PACKET) 17 gm DAILY PO Last administered on 02/03/20at 08:13; Start 02/03/20 at 09:00 Sennosides (Senna) 8.6 mg PRN BID PRN PO CONSTIPATION; Start 02/02/20 at 18:30 Folic Acid (Folic Acid) 1 mg DAILY PO Last administered on 02/03/20at 08:11; Start 02/03/20 at 09:00 Magnesium Sulfate 100 ml @ 25 mls/hr 1X ONCE IV Last administered on 02/03/20at 12:28; Start 02/03/20 at 12:30; Stop 02/03/20 at 16:29 Sodium Chloride 1,000 ml @ 75 mls/hr [id number] IV Last administered on 02/03/20at 12:27; Start 02/03/20 at 12:00 Active Scripts Active Reported Hydroxyurea 500 Mg Capsule 500 Mg PO DAILY Eliquis (Apixaban) 2.5 Mg Tablet 2.5 Mg PO BID Allopurinol 100 Mg Tablet 1 Tab PO DAILY Unisom Sleep Aid (Doxylamine Succinate) 25 Mg Tablet 25 Mg PO HS Multivitamins (Multivitamin) 1 Each Tablet 1 Each PO DAILY Vitamin E (Vitamin E Mixed) 400 Unit Capsule 400 Unit PO DAILY Vitamin B-12 (Cyanocobalamin (Vitamin B-12)) 1,000 Mcg Tablet 1,000 Mcg PO DAILY Hydrochlorothiazide Tablet (Hydrochlorothiazide) 25 Mg Tablet 25 Mg PO DAILY Amlodipine Besylate 2.5 Mg Tablet 2.5 Mg PO DAILY Actos (Pioglitazone Hcl) 30 Mg Tablet 30 Mg PO DAILY08 Omeprazole 20 Mg Tablet.dr 20 Mg PO QHS Crestor (Rosuvastatin Calcium) 10 Mg Tablet 10 Mg PO HS Glipizide 5 Mg Tablet 2.5 Mg PO DAILYBFRSUP Allergies Allergies: Coded Allergies: amlodipine (Unverified Allergy, Intermediate, DIZZINESS, 10/22/16) atorvastatin calcium (Verified Allergy, Intermediate, bothered muscles, 10/22/16) finasteride (Verified Allergy, Intermediate, MYALGIAS, 10/22/16) fluvastatin (Unverified Allergy, Intermediate, 10/22/16) fluvastatin sodium (Verified Allergy, Intermediate, 10/22/16) lisinopril (Verified Allergy, Intermediate, 10/22/16) losartan (Verified Allergy, Intermediate, ANGIOEDEMA, 02/03/20) metoprolol (Verified Allergy, Intermediate, 10/22/16) ROS Review of System Per HPI , rest of ROS is negative Physical Exam Physical Exam GENERAL: Alert and oriented gentleman, not in any distress. VITAL SIGNS: Stable. The patient had a T-max of 100.0. HEENT: NAD. NECK: Supple, no JVP, no lymphadenopathy. LUNGS: Clear. HEART: S1, S2 regular. ABDOMEN: Benign. EXTREMITIES: No edema or cyanosis. SKIN: Unremarkable. RECTAL: The patient's perineal area, the patient does have purulent drainage and induration into the perirectal area. NEUROLOGICAL: The patient is alert, awake and appropriate. No focal neurologic deficit. Vital Signs Vital Signs Date Time Temp Pulse Resp B/P (MAP) Pulse Ox O2 Delivery O2 Flow Rate FiO2 02/03/20 11:00 98.5 102 18 90/44 (59) 99 Room Air 98.5 Assessment & Plan JIA - suspect ATN 2/2 Hypotension / HCTZ at home E-Lytes stable , UA and renal US pending, r/o TRIVEDI Supportive care, IVF, avoid nehrotoxins, Monitor CKD stage 3- Present at least since 2013 baseline 1.4-1.9 Bilateral renal cyst reported in [address] , Pt is aware , doesn't follow with nephrology as OP Perineal abscess, which has opened up and is draining/Fever/ Leukocytosis. HTN- currently low BP BPH-Severe prostatomegaly indenting the base of urinary bladder reported on CT scan PSA elevated 12/08 , Pt reports its chronic, follows with Urologist for past 3 years Anemia- Fe deficient labs done 01/27/2020 Dx of myleoproliferative disorder Renal Cysts - bilateral kidneys various degrees of complex fluid/hemorrhage. It is difficult to exclude an underlying solid lesion by this noncontrast exam.MRI done in 2013 . Follows with Urology Colonic diverticulosis. Hypodensity of the right lobe of liver on CT scan Diabetes Labs Labs Laboratory Tests Test 02/02/20 20:00 02/02/20 20:39 02/02/20 20:50 02/03/20 07:27 White Blood Count 14.7 x10^3/uL (4.0-11.0) Red Blood Count 2.99 x10^6/uL (4.30-5.70) Hemoglobin 9.0 g/dL (13.0-17.5) Hematocrit 26.3 % (39.0-53.0) Mean Corpuscular Volume 88 fL (79-100) Mean Corpuscular Hemoglobin 30 pg (25-35) Mean Corpuscular Hemoglobin Concent 34 g/dL (31-37) Red Cell Distribution Width 15.9 % (11.5-14.5) Platelet Count 521 x10^3/uL (140-400) Neutrophils (%) (Auto) 81 % (31-73) Lymphocytes (%) (Auto) 10 % (24-48) Monocytes (%) (Auto) 8 % (0-9) Eosinophils (%) (Auto) 0 % (0-3) Basophils (%) (Auto) 1 % (0-3) Neutrophils # (Auto) 11.8 x10^3/uL (1.8-7.7) Lymphocytes # (Auto) 1.5 x10^3/uL (1.0-4.8) Monocytes # (Auto) 1.2 x10^3/uL (0.0-1.1) Eosinophils # (Auto) 0.1 x10^3/uL (0.0-0.7) Basophils # (Auto) 0.1 x10^3/uL (0.0-0.2) Sodium Level 136 mmol/L (136-145) Potassium Level 3.9 mmol/L (3.5-5.1) Chloride Level 99 mmol/L (98-107) Carbon Dioxide Level 25 mmol/L (21-32) Anion Gap 12 (6-14) Blood Urea Nitrogen 38 mg/dL (8-26) Creatinine 2.5 mg/dL (0.7-1.3) Estimated GFR (Cockcroft-Gault) 30.1 BUN/Creatinine Ratio 15 (6-20) Glucose Level 150 mg/dL (70-99) Calcium Level 8.5 mg/dL (8.5-10.1) Magnesium Level 1.4 mg/dL (1.8-2.4) Total Bilirubin 0.5 mg/dL (0.2-1.0) Aspartate Amino Transf (AST/SGOT) 12 U/L (15-37) Alanine Aminotransferase (ALT/SGPT) 18 U/L (16-63) Alkaline Phosphatase 129 U/L (46-116) Total Protein 7.5 g/dL (6.4-8.2) Albumin 2.8 g/dL (3.4-5.0) Albumin/Globulin Ratio 0.6 (1.0-1.7) Glucose (Fingerstick) 138 mg/dL (70-99) 101 mg/dL (70-99) Coronavirus (COVID-19)(PCR) Negative (NEGATIVE) Test 02/03/20 11:52 Glucose (Fingerstick) 164 mg/dL (70-99) Laboratory Tests Test 02/02/20 20:00 02/02/20 20:39 02/02/20 20:50 02/03/20 07:27 White Blood Count 14.7 x10^3/uL (4.0-11.0) Red Blood Count 2.99 x10^6/uL (4.30-5.70) Hemoglobin 9.0 g/dL (13.0-17.5) Hematocrit 26.3 % (39.0-53.0) Mean Corpuscular Volume 88 fL (79-100) Mean Corpuscular Hemoglobin 30 pg (25-35) Mean Corpuscular Hemoglobin Concent 34 g/dL (31-37) Red Cell Distribution Width 15.9 % (11.5-14.5) Platelet Count 521 x10^3/uL (140-400) Neutrophils (%) (Auto) 81 % (31-73) Lymphocytes (%) (Auto) 10 % (24-48) Monocytes (%) (Auto) 8 % (0-9) Eosinophils (%) (Auto) 0 % (0-3) Basophils (%) (Auto) 1 % (0-3) Neutrophils # (Auto) 11.8 x10^3/uL (1.8-7.7) Lymphocytes # (Auto) 1.5 x10^3/uL (1.0-4.8) Monocytes # (Auto) 1.2 x10^3/uL (0.0-1.1) Eosinophils # (Auto) 0.1 x10^3/uL (0.0-0.7) Basophils # (Auto) 0.1 x10^3/uL (0.0-0.2) Sodium Level 136 mmol/L (136-145) Potassium Level 3.9 mmol/L (3.5-5.1) Chloride Level 99 mmol/L (98-107) Carbon Dioxide Level 25 mmol/L (21-32) Anion Gap 12 (6-14) Blood Urea Nitrogen 38 mg/dL (8-26) Creatinine 2.5 mg/dL (0.7-1.3) Estimated GFR (Cockcroft-Gault) 30.1 BUN/Creatinine Ratio 15 (6-20) Glucose Level 150 mg/dL (70-99) Calcium Level 8.5 mg/dL (8.5-10.1) Magnesium Level 1.4 mg/dL (1.8-2.4) Total Bilirubin 0.5 mg/dL (0.2-1.0) Aspartate Amino Transf (AST/SGOT) 12 U/L (15-37) Alanine Aminotransferase (ALT/SGPT) 18 U/L (16-63) Alkaline Phosphatase 129 U/L (46-116) Total Protein 7.5 g/dL (6.4-8.2) Albumin 2.8 g/dL (3.4-5.0) Albumin/Globulin Ratio 0.6 (1.0-1.7) Glucose (Fingerstick) 138 mg/dL (70-99) 101 mg/dL (70-99) Coronavirus (COVID-19)(PCR) Negative (NEGATIVE) Test 02/03/20 11:52 Glucose (Fingerstick) 164 mg/dL (70-99) Review All relevant outside records, renal labs, imaging studies, telemetry/EKG's were reviewed. Images Images CxR The cardiomediastinal silhouette and pulmonary vessels are within normal limits. The lung and pleural spaces are clear. IMPRESSION: No acute cardiopulmonary process. CT ABDOMEN/PELVIS W/O CONTRAST - DECEMBER 2019 1. Spleen is not enlarged. 2. There is severe prostatomegaly indenting the base of urinary bladder. Prostate cancer screening is advised if this has not been performed. 3. There are again foci of variable density of the bilateral kidneys likely sequela of cysts with various degrees of complex fluid/hemorrhage. It is difficult to exclude an underlying solid lesion by this noncontrast exam. 4. There is colonic diverticulosis. There is variable retained stool in the colon. 5. There is some subtle hypodensity of the right lobe of liver not clearly apparent on previous exam. Underlying lesion is possible, better evaluated with ultrasound or MRI if the patient cannot receive intravenous contrast for CT. SONIA SARAH MD Feb 03, 2020 13:24
--- NOTE | 2020-02-03 13:25 | NUR ---
Dr. Mclaughlin and Dr. Richter have been paged for + Lab cultures. Dr. Richter returned phone call, no changes at this time.
[2020-02-03 13:40] LABS: BILIRUBIN,URINE NEGATIVE (NEG); CLARITY,URINE CLEAR; COLOR,URINE YELLOW; NITRITE,URINE NEGATIVE (NEG); PH,URINE 5.5 (<5.0-8.0); PROTEIN,URINE NEGATIVE (NEG-TRACE); UROBILINOGEN,URINE 0.2 mg/dL (0.2 mg/dL)
--- NOTE | 2020-02-03 13:41 | RAD ---
RENAL COMPLETE BILATERAL History: Reason: acute kidney injury. rule out hydronephrosis / Spl. Instructions: / History: Comparison: CT January 14, 2020 Procedure: Transabdominal ultrasound images are obtained of the kidneys and bladder. Findings: Right kidney: measures 11.8 x 5.1 x 5.4 cm. Several renal cysts largest measures 3.0 cm. Normal cortical echotexture. Corticomedullary differentiation is preserved. No hydronephrosis. Left kidney: measures 11.4 x 5.3 x 5.9 cm. Several renal cysts largest measures 4.2 cm. Normal cortical echotexture. Corticomedullary differentiation is preserved. No hydronephrosis. Urinary bladder: No urinary bladder wall thickening. The IVC is normal caliber. The visualized abdominal aorta is normal caliber. Enlarged prostate measures 7.5 x 6.9 x 7.17 m. IMPRESSION: 1. Multiple bilateral renal cysts. 2. Prostamegaly. Electronically signed by: Vikas Laguerre DO (02/03/2020 1:38 PM) [id number]
[2020-02-03 13:45] LABS: WBC,URINE >40 /HPF (0-4)
[2020-02-03 13:46] LABS: BACTERIA,URINE FEW /HPF (0-FEW)
[2020-02-03 15:00] VITALS: BP 90/50
--- NOTE | 2020-02-03 15:52 | PDOC2 ---
CARDIAC CONSULT DATE OF CONSULT Date of Consult DATE: 02/03/20 TIME: 15:48 REASON FOR CONSULT Reason for Consult: preop eval REFERRING PHYSICIAN Referring Physician: Dr. Mclaughlin SOURCE Source: Chart review, Patient HISTORY OF PRESENT ILLNESS HISTORY OF PRESENT ILLNESS This is an 79 yo male who presented secondary to perirectal abscess. Surgical team consulted for possible I and D. Consultation obtain for cardiac clearance prior to surgery. Patient denies any chest pain, shortness of breath, dizziness, diaphoresis, palpitations, or nausea/vomiting. No recent illness/fatigue. PAST MEDICAL HISTORY Cardiovascular: CAD, HTN, Hyperlipidemia Pulmonary: Pulmonary embolus (DVT) Heme/Onc: Anemia NOS, Other (Leukemia ) Musculoskeletal: Osteoarthritis Endocrine: Diabetes PAST SURGICAL HISTORY Past Surgical History: No pertinent history FAMILY HISTORY Family History: Diabetes, Hypertension SOCIAL HISTORY Smoke: No ALCOHOL: none Drugs: None Lives: with Family CURRENT MEDICATIONS CURRENT MEDICATIONS Current Medications Medications (Trade) Dose Ordered Sig/Minnie Route PRN Reason Start Time Stop Time Status Last Admin Dose Admin Allopurinol (Zyloprim) 100 mg DAILY PO 02/03/20 09:00 02/03/20 08:13 Apixaban (Eliquis) 2.5 mg BID PO 02/02/20 21:00 02/03/20 12:00 DC 02/02/20 21:53 Glipizide (Glucotrol) 2.5 mg DAILYBFRSUP PO 02/02/20 18:00 02/02/20 19:06 Hydroxyurea (Hydrea) 500 mg DAILY PO 02/03/20 09:00 02/03/20 09:52 Pantoprazole Sodium (Protonix) 40 mg DAILYAC PO 02/03/20 07:30 02/03/20 08:13 Pioglitazone HCl (Actos) 30 mg DAILY08 PO 02/03/20 08:00 02/03/20 08:11 Non-Formulary Medication (Rosuvastatin Calcium (Crestor)) 10 mg HS PO 02/02/20 21:00 02/02/20 21:53 Linezolid/Dextrose 300 ml @ 300 mls/hr Q12HR IV 02/02/20 21:00 02/03/20 08:14 Piperacillin Sod/ Tazobactam Sod 3.375 gm/Sodium Chloride 50 ml @ 100 mls/hr Q8HRS IV 7/15/20 20:00 02/03/20 14:32 Acetaminophen/ Hydrocodone Bitart (Lortab 5/325) 1 tab PRN Q4HRS PRN PO MODERATE PAIN 02/02/20 18:30 02/02/20 23:15 Polyethylene Glycol (miraLAX PACKET) 17 gm DAILY PO 02/03/20 09:00 02/03/20 08:13 Folic Acid (Folic Acid) 1 mg DAILY PO 02/03/20 09:00 02/03/20 08:11 Magnesium Sulfate 100 ml @ 25 mls/hr 1X ONCE IV 02/03/20 12:30 02/03/20 16:29 02/03/20 12:28 Sodium Chloride 1,000 ml @ 75 mls/hr [id number] IV 02/03/20 12:00 02/03/20 12:27 ALLERGIES ALLERGIES: Coded Allergies: amlodipine (Unverified Allergy, Intermediate, DIZZINESS, 10/22/16) atorvastatin calcium (Verified Allergy, Intermediate, bothered muscles, 10/22/16) finasteride (Verified Allergy, Intermediate, MYALGIAS, 10/22/16) fluvastatin (Unverified Allergy, Intermediate, 10/22/16) fluvastatin sodium (Verified Allergy, Intermediate, 10/22/16) lisinopril (Verified Allergy, Intermediate, 10/22/16) losartan (Verified Allergy, Intermediate, ANGIOEDEMA, 02/03/20) metoprolol (Verified Allergy, Intermediate, 10/22/16) ROS Review of System 14 point ROS conducted with pertinent positives noted above in hPI PHYSICAL EXAM General: Alert, Oriented X3, Cooperative, No acute distress HEENT: Atraumatic, Mucous membr. moist/pink Lungs: Clear to auscultation Heart: Regular rate Abdomen: Soft, No tenderness Extremities: No edema, Normal pulses Neuro: Normal speech, Sensation intact Psych/Mental Status: Mental status NL, Mood NL MUSCULOSKELETAL: Osteoarthritic changes both hands VITALS/I&O VITALS/I&O: Vital Signs Date Time Temp Pulse Resp B/P (MAP) Pulse Ox O2 Delivery O2 Flow Rate FiO2 02/03/20 15:00 98.4 98 18 90/50 (63) 97 Room Air 98.4 I & O 02/02/20 02/02/20 02/03/20 15:00 23:00 07:00 Intake Total 400 ml Balance 400 ml LABS Lab: Laboratory Tests Test 02/02/20 20:00 02/02/20 20:39 02/02/20 20:50 02/03/20 07:27 White Blood Count 14.7 x10^3/uL (4.0-11.0) H Red Blood Count 2.99 x10^6/uL (4.30-5.70) L Hemoglobin 9.0 g/dL (13.0-17.5) L Hematocrit 26.3 % (39.0-53.0) L Mean Corpuscular Volume 88 fL (79-100) Mean Corpuscular Hemoglobin 30 pg (25-35) Mean Corpuscular Hemoglobin Concent 34 g/dL (31-37) Red Cell Distribution Width 15.9 % (11.5-14.5) H Platelet Count 521 x10^3/uL (140-400) H Neutrophils (%) (Auto) 81 % (31-73) H Lymphocytes (%) (Auto) 10 % (24-48) L Monocytes (%) (Auto) 8 % (0-9) Eosinophils (%) (Auto) 0 % (0-3) Basophils (%) (Auto) 1 % (0-3) Neutrophils # (Auto) 11.8 x10^3/uL (1.8-7.7) H Lymphocytes # (Auto) 1.5 x10^3/uL (1.0-4.8) Monocytes # (Auto) 1.2 x10^3/uL (0.0-1.1) H Eosinophils # (Auto) 0.1 x10^3/uL (0.0-0.7) Basophils # (Auto) 0.1 x10^3/uL (0.0-0.2) Sodium Level 136 mmol/L (136-145) Potassium Level 3.9 mmol/L (3.5-5.1) Chloride Level 99 mmol/L (98-107) Carbon Dioxide Level 25 mmol/L (21-32) Anion Gap 12 (6-14) Blood Urea Nitrogen 38 mg/dL (8-26) H Creatinine 2.5 mg/dL (0.7-1.3) H Estimated GFR (Cockcroft-Gault) 30.1 BUN/Creatinine Ratio 15 (6-20) Glucose Level 150 mg/dL (70-99) H Calcium Level 8.5 mg/dL (8.5-10.1) Magnesium Level 1.4 mg/dL (1.8-2.4) L Total Bilirubin 0.5 mg/dL (0.2-1.0) Aspartate Amino Transferase (AST) 12 U/L (15-37) L Alanine Aminotransferase (ALT) 18 U/L (16-63) Alkaline Phosphatase 129 U/L (46-116) H Total Protein 7.5 g/dL (6.4-8.2) Albumin 2.8 g/dL (3.4-5.0) L Albumin/Globulin Ratio 0.6 (1.0-1.7) L Glucose (Fingerstick) 138 mg/dL (70-99) H 101 mg/dL (70-99) H Coronavirus (COVID-19)(PCR) Negative (NEGATIVE) Test 02/03/20 11:52 02/03/20 13:23 Glucose (Fingerstick) 164 mg/dL (70-99) H Urine Collection Type Unknown Urine Color Yellow Urine Clarity Clear Urine pH 5.5 (<5.0-8.0) Urine Specific [place] 1.015 (1.000-1.030) Urine Protein Negative mg/dL (NEG-TRACE) Urine Glucose (UA) Negative mg/dL (NEG) Urine Ketones (Stick) Negative mg/dL (NEG) Urine Blood Small (NEG) Urine Nitrite Negative (NEG) Urine Bilirubin Negative (NEG) Urine Urobilinogen Dipstick 0.2 mg/dL (0.2 mg/dL) Urine Leukocyte Esterase Large (NEG) Urine RBC 1-2 /HPF (0-2) Urine WBC >40 /HPF (0-4) Urine Bacteria Few /HPF (0-FEW) Laboratory Tests 02/02/20 20:00 Laboratory Tests 02/02/20 20:00 ECHOCARDIOGRAM ECHOCARDIOGRAM <Conclusion> The left ventricular systolic function is normal. The Ejection Fraction is 65-70%. There is normal LV segmental wall motion. Trace mitral regurgitation. Mild tricuspid regurgitation. The PA pressure was estimated at 45 mmHg. There is no evidence of significant pericardial effusion. DATE: 05/25/19 1415 ASSESSMENT/PLAN ASSESSMENT/PLAN 1. Perirectal abscess. Poss I and D by surgical team. Eliquis of hold 2. CAD; details unknown. Echo 06/08 with preserved LV systolic function 3. Hypertension; low end 4. Hyperlipidemia 5. H/o PE and DVT; on chronic OAC 6. Diabetes, II 7. CKD Recommendations Echo to assess LV systolic function Lipids Secondary prevention BB discontinued in past due to bronchospasms. Okay to hold Eliquis for now Would be at mild to moderate risk for non-cardiac surgery given significant history/risk factors DAYO SAAVEDRA APRN Feb 03, 2020 15:52
--- NOTE | 2020-02-03 15:56 | CARD ---
MR#: [id number] Date of Study: 02/03/2020 Ordering Physician: DAYO SAAVEDRA, Referring Physician: DAYO SAAVEDRA, Tech: Janie Wheeler APPROVED REPORT EXAM: Two-dimensional and M-mode echocardiogram with Doppler and color Doppler. Other Information Quality : AverageHR: 98bpm INDICATION Pre-Op Cardiac Disease: CAD RISK FACTORS Hypertension Hyperlipidemia Diabetes 2D DIMENSIONS RVDd4.3 (2.9-3.5cm)Left Atrium(2D)4.5 (1.6-4.0cm) IVSd1.1 (0.7-1.1cm)Aortic Root(2D)3.6 (2.0-3.7cm) LVDd5.4 (3.9-5.9cm)LVOT Diameter2.3 (1.8-2.4cm) PWd1.1 (0.7-1.1cm)LVDs3.0 (2.5-4.0cm) FS (%) 44.8 %SV108.0 ml LVEF(%)75.6 (>50%) Aortic Valve AoV Peak Reinier.135.3cm/sAoV VTI19.3cm AO Peak GR.7.3mmHgLVOT Peak Reinier.99.5cm/s LVOT VTI 16.81cmAO Mean GR.4mmHg ISRA (VMAX)3.13wy1XXU (VTI)3.52cm2 AI P 1/2 Wvsd532yg Mitral Valve MV E Clrvkfor78.7cm/sMV E Peak Gr.110mmHg MV DECEL [id number] A Kbmvlmnc17.8cm/s MV E Mean Gr.3mmHgMV LPF09kk E/A Ratio1.5MVA (PHT)6.24cm2 TDI E/Lateral E'7.0E/Medial E'5.3 Pulmonary Valve PV Peak Ymzxcrqw187.1cm/sPV Peak Grad.4mmHg Tricuspid Valve TR P. Piiasolp098cs/sRAP KFNOWLML4xsTg TR Peak Gr.48crTdWJHX39gcTc Pulmonary Vein S1 Esqysqqa60.8cm/sD2 Nceklckn29.9cm/s PVa inbgpapx01evtj LEFT VENTRICLE The left ventricle is normal size. There is borderline to mild concentric left ventricular hypertroph y. The left ventricular systolic function is normal. The Ejection Fraction is 60-65%. There is normal LV segmental wall motion. Transmitral Doppler flow pattern is Grade II-pseudonormal filling dynamics . RIGHT VENTRICLE The right ventricle is normal size. There is normal right ventricular wall thickness. The right ventr icular systolic function is normal. ATRIA The left atrium size is normal. The right atrium is borderline dilated. 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 AORTIC VALVE The aortic valve is normal in structure and function. Doppler and Color Flow revealed moderate aortic regurgitation. There is no significant aortic valvular stenosis. Calculated aortic valve area is 3.9 2 cm2 with maximum pressure gradient of 8 mmHg and mean pressure gradient of 4 mmHg. MITRAL VALVE The mitral valve is thickened but opens well. There is no evidence of mitral valve prolapse. There is no mitral valve stenosis with an mean gradient of 2.8 mmHg. Doppler and Color-flow revealed mild judy ral regurgitation. TRICUSPID VALVE The tricuspid valve is normal in structure and function. Doppler and Color Flow revealed mild tricusp id regurgitation with an estimated PAP of 36 mmHg. There is no tricuspid valve stenosis. PULMONIC VALVE The pulmonic valve is not well visualized. Doppler and Color Flow revealed trace pulmonic valvular re gurgitation. GREAT VESSELS The aortic root is normal in size. The IVC is appears dilated. PERICARDIAL EFFUSION There is no evidence of significant pericardial effusion. Critical Notification Critical Value: No <Conclusion> The left ventricular systolic function is normal. The Ejection Fraction is 60-65%. There is normal LV segmental wall motion. Transmitral Doppler flow pattern is Grade II-pseudonormal filling dynamics. Moderate aortic regurgitation. Mild mitral regurgitation. Mild tricuspid regurgitation with an estimated PAP of 36 mmHg. There is no evidence of significant pericardial effusion. Signed by : Martinez Reagan, Electronically Approved : 02/03/2020 15:55:59
[2020-02-03] MEDS: glipiZIDE 5 MG TABLET PO SCH (17:12)
[2020-02-03] MEDS: HYDROcodone/APAP 5/325MG 1 TAB TABLET PO PRN (17:14)
[2020-02-03 19:00] VITALS: BP 108/47
[2020-02-03 23:00] VITALS: BP 113/48
[2020-02-04] MEDS: IV NORMAL SALINE 1000ML BAG 1,000 ML IV SCH ×2 (02:12→15:36)
[2020-02-04 03:00] VITALS: BP 116/60
[2020-02-04 04:26] LABS: FECAL OB PT POSITIVE (NEG)
[2020-02-04 05:16] LABS: BASO # 0.1 x10^3/uL (0.0-0.2); BASO % 1 % (0-3); EOS # 0.2 x10^3/uL (0.0-0.7); EOS % 2 % (0-3); HEMATOCRIT 24.7 % (39.0-53.0); HEMOGLOBIN 8.2 g/dL (13.0-17.5); LYMPH # 1.2 x10^3/uL (1.0-4.8); LYMPH % 11 % (24-48); MEAN CORPUSCULAR HEMOGLOBIN 30 pg (25-35); MEAN CORPUSCULAR HGB CONC 33 g/dL (31-37); MEAN CORPUSCULAR VOLUME 89 fL (79-100); MONO # 0.9 x10^3/uL (0.0-1.1); MONO % 8 % (0-9); NEUT # 8.9 x10^3/uL (1.8-7.7); NEUT % 78 % (31-73); PLATELET COUNT 456 x10^3/uL (140-400); RED BLOOD COUNT 2.78 x10^6/uL (4.30-5.70); RED CELL DISTRIBUTION WIDTH 16.4 % (11.5-14.5); WHITE BLOOD COUNT 11.4 x10^3/uL (4.0-11.0)
[2020-02-04 05:56] LABS: CHOLESTEROL/HDL RATIO 1.8
[2020-02-04] MEDS: PIPERACILLIN/TAZOBACTAM 3.375 GM in IV NORMAL SALINE 50ML 50 ML IV SCH ×3 (05:59→21:57)
[2020-02-04] MEDS: PANTOPRAZOLE 40 MG TABLET.DR. PO SCH (05:59)
[2020-02-04 06:18] LABS: CALCIUM 8.1 mg/dL (8.5-10.1); CREATININE 2.1 mg/dL (0.7-1.3); GFR 36.9; POTASSIUM 4.1 mmol/L (3.5-5.1)
[2020-02-04 07:00] VITALS: BP 107/57
[2020-02-04] MEDS: FOLIC ACID 1 MG TABLET. PO SCH (08:44)
[2020-02-04] MEDS: ALLOPURINOL 100 MG TABLET. PO SCH (08:44)
[2020-02-04] MEDS: POLYETHYLENE GLYCOL 3350 17 GM PACKET. PO SCH (08:44)
[2020-02-04] MEDS: PIOGLITAZONE 15 MG TABLET. PO SCH (08:45)
--- NOTE | 2020-02-04 08:47 | NUR ---
SW following. Discussed with RN, COVID-19 negative. Pt scheduled for surgery tomorrow (02/05/2020) due to Eliquis needing to be held prior to surgery. SW will continue to follow.
[2020-02-04] MEDS: HYDROXYUREA 500 MG CAPSULE PO SCH (08:55)
--- NOTE | 2020-02-04 09:06 | PDOC ---
CHANTELL GARCIA STAFF CONSULTANT 02/04/20 0906: SURGICAL PROGRESS NOTE Subjective still draining some pain tolerating diet Vital Signs Vital Signs Date Time Temp Pulse Resp B/P (MAP) Pulse Ox O2 Delivery O2 Flow Rate FiO2 02/04/20 07:30 Room Air 02/04/20 07:00 98.5 61 18 107/57 (74) 98 98.5 I&O Intake and Output 02/04/20 07:00 Output Total 1100 ml Balance -1100 ml Output Urine Total 1100 ml General: Alert, Oriented X3, Cooperative Skin: Other (perirectal area, drainage, puruelent, noted fluctuance over drainage site ) Labs Laboratory Tests Test 02/02/20 20:00 02/02/20 20:39 02/02/20 20:50 02/03/20 07:27 White Blood Count 14.7 x10^3/uL (4.0-11.0) Red Blood Count 2.99 x10^6/uL (4.30-5.70) Hemoglobin 9.0 g/dL (13.0-17.5) Hematocrit 26.3 % (39.0-53.0) Mean Corpuscular Volume 88 fL (79-100) Mean Corpuscular Hemoglobin 30 pg (25-35) Mean Corpuscular Hemoglobin Concent 34 g/dL (31-37) Red Cell Distribution Width 15.9 % (11.5-14.5) Platelet Count 521 x10^3/uL (140-400) Neutrophils (%) (Auto) 81 % (31-73) Lymphocytes (%) (Auto) 10 % (24-48) Monocytes (%) (Auto) 8 % (0-9) Eosinophils (%) (Auto) 0 % (0-3) Basophils (%) (Auto) 1 % (0-3) Neutrophils # (Auto) 11.8 x10^3/uL (1.8-7.7) Lymphocytes # (Auto) 1.5 x10^3/uL (1.0-4.8) Monocytes # (Auto) 1.2 x10^3/uL (0.0-1.1) Eosinophils # (Auto) 0.1 x10^3/uL (0.0-0.7) Basophils # (Auto) 0.1 x10^3/uL (0.0-0.2) Sodium Level 136 mmol/L (136-145) Potassium Level 3.9 mmol/L (3.5-5.1) Chloride Level 99 mmol/L (98-107) Carbon Dioxide Level 25 mmol/L (21-32) Anion Gap 12 (6-14) Blood Urea Nitrogen 38 mg/dL (8-26) Creatinine 2.5 mg/dL (0.7-1.3) Estimated GFR (Cockcroft-Gault) 30.1 BUN/Creatinine Ratio 15 (6-20) Glucose Level 150 mg/dL (70-99) Calcium Level 8.5 mg/dL (8.5-10.1) Magnesium Level 1.4 mg/dL (1.8-2.4) Total Bilirubin 0.5 mg/dL (0.2-1.0) Aspartate Amino Transf (AST/SGOT) 12 U/L (15-37) Alanine Aminotransferase (ALT/SGPT) 18 U/L (16-63) Alkaline Phosphatase 129 U/L (46-116) Total Protein 7.5 g/dL (6.4-8.2) Albumin 2.8 g/dL (3.4-5.0) Albumin/Globulin Ratio 0.6 (1.0-1.7) Glucose (Fingerstick) 138 mg/dL (70-99) 101 mg/dL (70-99) Coronavirus (COVID-19)(PCR) Negative (NEGATIVE) Test 02/03/20 11:52 02/03/20 13:23 02/03/20 16:00 02/03/20 20:54 Glucose (Fingerstick) 164 mg/dL (70-99) 142 mg/dL (70-99) 160 mg/dL (70-99) Urine Collection Type Unknown Urine Color Yellow Urine Clarity Clear Urine pH 5.5 (<5.0-8.0) Urine Specific [place] 1.015 (1.000-1.030) Urine Protein Negative mg/dL (NEG-TRACE) Urine Glucose (UA) Negative mg/dL (NEG) Urine Ketones (Stick) Negative mg/dL (NEG) Urine Blood Small (NEG) Urine Nitrite Negative (NEG) Urine Bilirubin Negative (NEG) Urine Urobilinogen Dipstick 0.2 mg/dL (0.2 mg/dL) Urine Leukocyte Esterase Large (NEG) Urine RBC 1-2 /HPF (0-2) Urine WBC >40 /HPF (0-4) Urine Bacteria Few /HPF (0-FEW) Test 02/04/20 03:30 02/04/20 04:11 02/04/20 07:03 Stool Occult Blood Positive (NEG) White Blood Count 11.4 x10^3/uL (4.0-11.0) Red Blood Count 2.78 x10^6/uL (4.30-5.70) Hemoglobin 8.2 g/dL (13.0-17.5) Hematocrit 24.7 % (39.0-53.0) Mean Corpuscular Volume 89 fL (79-100) Mean Corpuscular Hemoglobin 30 pg (25-35) Mean Corpuscular Hemoglobin Concent 33 g/dL (31-37) Red Cell Distribution Width 16.4 % (11.5-14.5) Platelet Count 456 x10^3/uL (140-400) Neutrophils (%) (Auto) 78 % (31-73) Lymphocytes (%) (Auto) 11 % (24-48) Monocytes (%) (Auto) 8 % (0-9) Eosinophils (%) (Auto) 2 % (0-3) Basophils (%) (Auto) 1 % (0-3) Neutrophils # (Auto) 8.9 x10^3/uL (1.8-7.7) Lymphocytes # (Auto) 1.2 x10^3/uL (1.0-4.8) Monocytes # (Auto) 0.9 x10^3/uL (0.0-1.1) Eosinophils # (Auto) 0.2 x10^3/uL (0.0-0.7) Basophils # (Auto) 0.1 x10^3/uL (0.0-0.2) Sodium Level 138 mmol/L (136-145) Potassium Level 4.1 mmol/L (3.5-5.1) Chloride Level 102 mmol/L (98-107) Carbon Dioxide Level 24 mmol/L (21-32) Anion Gap 12 (6-14) Blood Urea Nitrogen 31 mg/dL (8-26) Creatinine 2.1 mg/dL (0.7-1.3) Estimated GFR (Cockcroft-Gault) 36.9 Glucose Level 120 mg/dL (70-99) Calcium Level 8.1 mg/dL (8.5-10.1) Magnesium Level 2.0 mg/dL (1.8-2.4) Iron Level 24 ug/dL (65-175) Total Iron Binding Capacity 139 ug/dL (250-450) Iron Saturation 17 % (15-34) Ferritin 1500 ng/mL (26-388) Triglycerides Level 43 mg/dL (0-150) Cholesterol Level 72 mg/dL (0-200) LDL Cholesterol, Calculated 23 mg/dL (0-100) VLDL Cholesterol, Calculated 9 mg/dL (0-40) Non-HDL Cholesterol Calculated 32 mg/dL (0-129) HDL Cholesterol 40 mg/dL (40-60) Cholesterol/HDL Ratio 1.8 Glucose (Fingerstick) 103 mg/dL (70-99) Laboratory Tests Test 02/03/20 11:52 02/03/20 13:23 02/03/20 16:00 02/03/20 20:54 Glucose (Fingerstick) 164 mg/dL (70-99) 142 mg/dL (70-99) 160 mg/dL (70-99) Urine Collection Type Unknown Urine Color Yellow Urine Clarity Clear Urine pH 5.5 (<5.0-8.0) Urine Specific [place] 1.015 (1.000-1.030) Urine Protein Negative mg/dL (NEG-TRACE) Urine Glucose (UA) Negative mg/dL (NEG) Urine Ketones (Stick) Negative mg/dL (NEG) Urine Blood Small (NEG) Urine Nitrite Negative (NEG) Urine Bilirubin Negative (NEG) Urine Urobilinogen Dipstick 0.2 mg/dL (0.2 mg/dL) Urine Leukocyte Esterase Large (NEG) Urine RBC 1-2 /HPF (0-2) Urine WBC >40 /HPF (0-4) Urine Bacteria Few /HPF (0-FEW) Test 02/04/20 03:30 02/04/20 04:11 02/04/20 07:03 Stool Occult Blood Positive (NEG) White Blood Count 11.4 x10^3/uL (4.0-11.0) Red Blood Count 2.78 x10^6/uL (4.30-5.70) Hemoglobin 8.2 g/dL (13.0-17.5) Hematocrit 24.7 % (39.0-53.0) Mean Corpuscular Volume 89 fL (79-100) Mean Corpuscular Hemoglobin 30 pg (25-35) Mean Corpuscular Hemoglobin Concent 33 g/dL (31-37) Red Cell Distribution Width 16.4 % (11.5-14.5) Platelet Count 456 x10^3/uL (140-400) Neutrophils (%) (Auto) 78 % (31-73) Lymphocytes (%) (Auto) 11 % (24-48) Monocytes (%) (Auto) 8 % (0-9) Eosinophils (%) (Auto) 2 % (0-3) Basophils (%) (Auto) 1 % (0-3) Neutrophils # (Auto) 8.9 x10^3/uL (1.8-7.7) Lymphocytes # (Auto) 1.2 x10^3/uL (1.0-4.8) Monocytes # (Auto) 0.9 x10^3/uL (0.0-1.1) Eosinophils # (Auto) 0.2 x10^3/uL (0.0-0.7) Basophils # (Auto) 0.1 x10^3/uL (0.0-0.2) Sodium Level 138 mmol/L (136-145) Potassium Level 4.1 mmol/L (3.5-5.1) Chloride Level 102 mmol/L (98-107) Carbon Dioxide Level 24 mmol/L (21-32) Anion Gap 12 (6-14) Blood Urea Nitrogen 31 mg/dL (8-26) Creatinine 2.1 mg/dL (0.7-1.3) Estimated GFR (Cockcroft-Gault) 36.9 Glucose Level 120 mg/dL (70-99) Calcium Level 8.1 mg/dL (8.5-10.1) Magnesium Level 2.0 mg/dL (1.8-2.4) Iron Level 24 ug/dL (65-175) Total Iron Binding Capacity 139 ug/dL (250-450) Iron Saturation 17 % (15-34) Ferritin 1500 ng/mL (26-388) Triglycerides Level 43 mg/dL (0-150) Cholesterol Level 72 mg/dL (0-200) LDL Cholesterol, Calculated 23 mg/dL (0-100) VLDL Cholesterol, Calculated 9 mg/dL (0-40) Non-HDL Cholesterol Calculated 32 mg/dL (0-129) HDL Cholesterol 40 mg/dL (40-60) Cholesterol/HDL Ratio 1.8 Glucose (Fingerstick) 103 mg/dL (70-99) Problem List abx NPO after MN tentatively plan for I&D in AM continue to hold eliquis Justicifation of Admission Dx: Justifications for Admission: Justification of Admission Dx: Yes (sepsis and perirectal abscess and acute kidney injury) LULY FISHER MD 02/05/20 1017: SURGICAL PROGRESS NOTE Assessment/Plan Hold faisal, to OR tomorrow CHANTELL GARCIA APRN Feb 04, 2020 09:06 LULY FISHER MD Feb 05, 2020 10:17
--- NOTE | 2020-02-04 09:17 | PDOC ---
Infectious Disease Note Subjective Subjective pt is feeling better, rectal pain + ROS ROS no n/v/d/ Vital Sign Vital Signs Vital Signs Date Time Temp Pulse Resp B/P (MAP) Pulse Ox O2 Delivery O2 Flow Rate FiO2 02/04/20 07:30 Room Air 02/04/20 07:00 98.5 61 18 107/57 (74) 98 98.5 Physical Exam PHYSICAL EXAM GENERAL: Alert and oriented gentleman, not in any distress. VITAL SIGNS: Stable. The patient had a T-max of 100.0. HEENT: NAD. NECK: Supple, no JVP, no lymphadenopathy. LUNGS: Clear. HEART: S1, S2 regular. ABDOMEN: Benign. EXTREMITIES: No edema or cyanosis. SKIN: Unremarkable. RECTAL: The patient's perineal area, the patient does have purulent drainage and induration into the perirectal area. NEUROLOGICAL: The patient is alert, awake and appropriate. No focal neurologic deficit. Labs Lab Laboratory Tests Test 02/03/20 11:52 02/03/20 13:23 02/03/20 16:00 02/03/20 20:54 Glucose (Fingerstick) 164 mg/dL (70-99) 142 mg/dL (70-99) 160 mg/dL (70-99) Urine Collection Type Unknown Urine Color Yellow Urine Clarity Clear Urine pH 5.5 (<5.0-8.0) Urine Specific [place] 1.015 (1.000-1.030) Urine Protein Negative mg/dL (NEG-TRACE) Urine Glucose (UA) Negative mg/dL (NEG) Urine Ketones (Stick) Negative mg/dL (NEG) Urine Blood Small (NEG) Urine Nitrite Negative (NEG) Urine Bilirubin Negative (NEG) Urine Urobilinogen Dipstick 0.2 mg/dL (0.2 mg/dL) Urine Leukocyte Esterase Large (NEG) Urine RBC 1-2 /HPF (0-2) Urine WBC >40 /HPF (0-4) Urine Bacteria Few /HPF (0-FEW) Test 02/04/20 03:30 02/04/20 04:11 02/04/20 07:03 Stool Occult Blood Positive (NEG) White Blood Count 11.4 x10^3/uL (4.0-11.0) Red Blood Count 2.78 x10^6/uL (4.30-5.70) Hemoglobin 8.2 g/dL (13.0-17.5) Hematocrit 24.7 % (39.0-53.0) Mean Corpuscular Volume 89 fL (79-100) Mean Corpuscular Hemoglobin 30 pg (25-35) Mean Corpuscular Hemoglobin Concent 33 g/dL (31-37) Red Cell Distribution Width 16.4 % (11.5-14.5) Platelet Count 456 x10^3/uL (140-400) Neutrophils (%) (Auto) 78 % (31-73) Lymphocytes (%) (Auto) 11 % (24-48) Monocytes (%) (Auto) 8 % (0-9) Eosinophils (%) (Auto) 2 % (0-3) Basophils (%) (Auto) 1 % (0-3) Neutrophils # (Auto) 8.9 x10^3/uL (1.8-7.7) Lymphocytes # (Auto) 1.2 x10^3/uL (1.0-4.8) Monocytes # (Auto) 0.9 x10^3/uL (0.0-1.1) Eosinophils # (Auto) 0.2 x10^3/uL (0.0-0.7) Basophils # (Auto) 0.1 x10^3/uL (0.0-0.2) Sodium Level 138 mmol/L (136-145) Potassium Level 4.1 mmol/L (3.5-5.1) Chloride Level 102 mmol/L (98-107) Carbon Dioxide Level 24 mmol/L (21-32) Anion Gap 12 (6-14) Blood Urea Nitrogen 31 mg/dL (8-26) Creatinine 2.1 mg/dL (0.7-1.3) Estimated GFR (Cockcroft-Gault) 36.9 Glucose Level 120 mg/dL (70-99) Calcium Level 8.1 mg/dL (8.5-10.1) Magnesium Level 2.0 mg/dL (1.8-2.4) Iron Level 24 ug/dL (65-175) Total Iron Binding Capacity 139 ug/dL (250-450) Iron Saturation 17 % (15-34) Ferritin 1500 ng/mL (26-388) Triglycerides Level 43 mg/dL (0-150) Cholesterol Level 72 mg/dL (0-200) LDL Cholesterol, Calculated 23 mg/dL (0-100) VLDL Cholesterol, Calculated 9 mg/dL (0-40) Non-HDL Cholesterol Calculated 32 mg/dL (0-129) HDL Cholesterol 40 mg/dL (40-60) Cholesterol/HDL Ratio 1.8 Glucose (Fingerstick) 103 mg/dL (70-99) Micro BLOOD CULTURE Final TINY GRAM NEGATIVE COCCO-BACILLI, IN THE ANAEROBIC BOTTLE OF THIS SET. 1 OF 3 BOTTLES, TWO SETS WERE DRAWN. CALLED TO KEV JOYNER RN ON 4N AT 13:05 ON 02/03/20 DW MT SENT TO [facility] FOR FURTHER WORKUP. GRAM STAIN Final Final GRAM NEGATIVE RODS:FEW GRAM POSITIVE COCCI:RARE SQUAMOUS EPI CELL:RARE PMN (WBCs):NONE SEEN Unless otherwise specified, Testing Performed by: [facility] [address] [place] [address] For Inquires, the Physician may contact the Microbiology department at [phone] ANAEROBIC-AEROBIC CULTURE PENDING Objective Assessment IMPRESSION: 1. Perineal abscess, which has opened up and is draining. 2. Fever. 3. Leukocytosis. 4. Diabetes. 5. Renal insufficiency. 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 Supportive care. Continue Zyvox and Zosyn. We will adjust as soon as more information is available. supportive care d/w Surgery ANY DECKER MD Feb 04, 2020 09:17
[2020-02-04 09:39] LABS: FECAL OB PT POSITIVE (NEG)
--- NOTE | 2020-02-04 10:54 | PDOC ---
PROGRESS NOTES Subjective Subjective feels better. lab reviewed. echo LVEF 60-65% with mod AR. creatinine 2.1. Objective Objective Vital Signs Date Time Temp Pulse Resp B/P (MAP) Pulse Ox O2 Delivery O2 Flow Rate FiO2 02/04/20 07:30 Room Air 02/04/20 07:00 98.5 61 18 107/57 (74) 98 98.5 Intake and Output 02/04/20 06:59 Output Total 1100 ml Balance -1100 ml Output Urine Total 1100 ml Physical Exam Abdomen: Soft Heart: Regular rate, Normal S1, Normal S2 Extremities: No edema General: Alert HEENT: Atraumatic Lungs: Clear to auscultation Neuro: Normal speech Psych/Mental Status: Mental status NL Skin: No rashes (perirectal abscess), Other Assessment Assessment 1. Perirectal abscess. 2. Leukocytosis, unclear what his baseline white count since he has a myeloproliferative disease. improved 3. Anemia, which could be related to myeloproliferative disease. 4. Acute kidney injury on top of chronic kidney disease stage 3, most likely related to inadequate fluid intake, perhaps to hydrochlorothiazide and also sepsis. improved with hydration 5. Sepsis.resolved 6. Hypomagnesemia. resolved 7. Coronary artery disease. 8. Hyperlipidemia. 9. Hypertension. 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 11. History of a pulmonary embolus, on Eliquis. 12. Myeloproliferative disorder. gram positive cocci bacilli moderate aortic regurgitation Plan Plan of Care surgical I and D tomorrow continue iv zyvox and zosyn labs tomorrow decrease iv fluids Comment Review of Relevant I have reviewed the following items sanjiv (where applicable) has been applied. Labs Laboratory Tests Test 02/02/20 20:00 02/02/20 20:39 02/02/20 20:50 02/03/20 07:27 White Blood Count 14.7 x10^3/uL (4.0-11.0) Red Blood Count 2.99 x10^6/uL (4.30-5.70) Hemoglobin 9.0 g/dL (13.0-17.5) Hematocrit 26.3 % (39.0-53.0) Mean Corpuscular Volume 88 fL (79-100) Mean Corpuscular Hemoglobin 30 pg (25-35) Mean Corpuscular Hemoglobin Concent 34 g/dL (31-37) Red Cell Distribution Width 15.9 % (11.5-14.5) Platelet Count 521 x10^3/uL (140-400) Neutrophils (%) (Auto) 81 % (31-73) Lymphocytes (%) (Auto) 10 % (24-48) Monocytes (%) (Auto) 8 % (0-9) Eosinophils (%) (Auto) 0 % (0-3) Basophils (%) (Auto) 1 % (0-3) Neutrophils # (Auto) 11.8 x10^3/uL (1.8-7.7) Lymphocytes # (Auto) 1.5 x10^3/uL (1.0-4.8) Monocytes # (Auto) 1.2 x10^3/uL (0.0-1.1) Eosinophils # (Auto) 0.1 x10^3/uL (0.0-0.7) Basophils # (Auto) 0.1 x10^3/uL (0.0-0.2) Sodium Level 136 mmol/L (136-145) Potassium Level 3.9 mmol/L (3.5-5.1) Chloride Level 99 mmol/L (98-107) Carbon Dioxide Level 25 mmol/L (21-32) Anion Gap 12 (6-14) Blood Urea Nitrogen 38 mg/dL (8-26) Creatinine 2.5 mg/dL (0.7-1.3) Estimated GFR (Cockcroft-Gault) 30.1 BUN/Creatinine Ratio 15 (6-20) Glucose Level 150 mg/dL (70-99) Calcium Level 8.5 mg/dL (8.5-10.1) Magnesium Level 1.4 mg/dL (1.8-2.4) Total Bilirubin 0.5 mg/dL (0.2-1.0) Aspartate Amino Transf (AST/SGOT) 12 U/L (15-37) Alanine Aminotransferase (ALT/SGPT) 18 U/L (16-63) Alkaline Phosphatase 129 U/L (46-116) Total Protein 7.5 g/dL (6.4-8.2) Albumin 2.8 g/dL (3.4-5.0) Albumin/Globulin Ratio 0.6 (1.0-1.7) Glucose (Fingerstick) 138 mg/dL (70-99) 101 mg/dL (70-99) Coronavirus (COVID-19)(PCR) Negative (NEGATIVE) Test 02/03/20 11:52 02/03/20 13:23 02/03/20 16:00 02/03/20 20:54 Glucose (Fingerstick) 164 mg/dL (70-99) 142 mg/dL (70-99) 160 mg/dL (70-99) Urine Collection Type Unknown Urine Color Yellow Urine Clarity Clear Urine pH 5.5 (<5.0-8.0) Urine Specific [place] 1.015 (1.000-1.030) Urine Protein Negative mg/dL (NEG-TRACE) Urine Glucose (UA) Negative mg/dL (NEG) Urine Ketones (Stick) Negative mg/dL (NEG) Urine Blood Small (NEG) Urine Nitrite Negative (NEG) Urine Bilirubin Negative (NEG) Urine Urobilinogen Dipstick 0.2 mg/dL (0.2 mg/dL) Urine Leukocyte Esterase Large (NEG) Urine RBC 1-2 /HPF (0-2) Urine WBC >40 /HPF (0-4) Urine Bacteria Few /HPF (0-FEW) Test 02/04/20 03:30 02/04/20 04:11 02/04/20 07:03 02/04/20 08:53 Stool Occult Blood Positive (NEG) Positive (NEG) White Blood Count 11.4 x10^3/uL (4.0-11.0) Red Blood Count 2.78 x10^6/uL (4.30-5.70) Hemoglobin 8.2 g/dL (13.0-17.5) Hematocrit 24.7 % (39.0-53.0) Mean Corpuscular Volume 89 fL (79-100) Mean Corpuscular Hemoglobin 30 pg (25-35) Mean Corpuscular Hemoglobin Concent 33 g/dL (31-37) Red Cell Distribution Width 16.4 % (11.5-14.5) Platelet Count 456 x10^3/uL (140-400) Neutrophils (%) (Auto) 78 % (31-73) Lymphocytes (%) (Auto) 11 % (24-48) Monocytes (%) (Auto) 8 % (0-9) Eosinophils (%) (Auto) 2 % (0-3) Basophils (%) (Auto) 1 % (0-3) Neutrophils # (Auto) 8.9 x10^3/uL (1.8-7.7) Lymphocytes # (Auto) 1.2 x10^3/uL (1.0-4.8) Monocytes # (Auto) 0.9 x10^3/uL (0.0-1.1) Eosinophils # (Auto) 0.2 x10^3/uL (0.0-0.7) Basophils # (Auto) 0.1 x10^3/uL (0.0-0.2) Sodium Level 138 mmol/L (136-145) Potassium Level 4.1 mmol/L (3.5-5.1) Chloride Level 102 mmol/L (98-107) Carbon Dioxide Level 24 mmol/L (21-32) Anion Gap 12 (6-14) Blood Urea Nitrogen 31 mg/dL (8-26) Creatinine 2.1 mg/dL (0.7-1.3) Estimated GFR (Cockcroft-Gault) 36.9 Glucose Level 120 mg/dL (70-99) Calcium Level 8.1 mg/dL (8.5-10.1) Magnesium Level 2.0 mg/dL (1.8-2.4) Iron Level 24 ug/dL (65-175) Total Iron Binding Capacity 139 ug/dL (250-450) Iron Saturation 17 % (15-34) Ferritin 1500 ng/mL (26-388) Triglycerides Level 43 mg/dL (0-150) Cholesterol Level 72 mg/dL (0-200) LDL Cholesterol, Calculated 23 mg/dL (0-100) VLDL Cholesterol, Calculated 9 mg/dL (0-40) Non-HDL Cholesterol Calculated 32 mg/dL (0-129) HDL Cholesterol 40 mg/dL (40-60) Cholesterol/HDL Ratio 1.8 Glucose (Fingerstick) 103 mg/dL (70-99) Laboratory Tests Test 02/03/20 11:52 02/03/20 13:23 02/03/20 16:00 02/03/20 20:54 Glucose (Fingerstick) 164 mg/dL (70-99) 142 mg/dL (70-99) 160 mg/dL (70-99) Urine Collection Type Unknown Urine Color Yellow Urine Clarity Clear Urine pH 5.5 (<5.0-8.0) Urine Specific [place] 1.015 (1.000-1.030) Urine Protein Negative mg/dL (NEG-TRACE) Urine Glucose (UA) Negative mg/dL (NEG) Urine Ketones (Stick) Negative mg/dL (NEG) Urine Blood Small (NEG) Urine Nitrite Negative (NEG) Urine Bilirubin Negative (NEG) Urine Urobilinogen Dipstick 0.2 mg/dL (0.2 mg/dL) Urine Leukocyte Esterase Large (NEG) Urine RBC 1-2 /HPF (0-2) Urine WBC >40 /HPF (0-4) Urine Bacteria Few /HPF (0-FEW) Test 02/04/20 03:30 02/04/20 04:11 02/04/20 07:03 02/04/20 08:53 Stool Occult Blood Positive (NEG) Positive (NEG) White Blood Count 11.4 x10^3/uL (4.0-11.0) Red Blood Count 2.78 x10^6/uL (4.30-5.70) Hemoglobin 8.2 g/dL (13.0-17.5) Hematocrit 24.7 % (39.0-53.0) Mean Corpuscular Volume 89 fL (79-100) Mean Corpuscular Hemoglobin 30 pg (25-35) Mean Corpuscular Hemoglobin Concent 33 g/dL (31-37) Red Cell Distribution Width 16.4 % (11.5-14.5) Platelet Count 456 x10^3/uL (140-400) Neutrophils (%) (Auto) 78 % (31-73) Lymphocytes (%) (Auto) 11 % (24-48) Monocytes (%) (Auto) 8 % (0-9) Eosinophils (%) (Auto) 2 % (0-3) Basophils (%) (Auto) 1 % (0-3) Neutrophils # (Auto) 8.9 x10^3/uL (1.8-7.7) Lymphocytes # (Auto) 1.2 x10^3/uL (1.0-4.8) Monocytes # (Auto) 0.9 x10^3/uL (0.0-1.1) Eosinophils # (Auto) 0.2 x10^3/uL (0.0-0.7) Basophils # (Auto) 0.1 x10^3/uL (0.0-0.2) Sodium Level 138 mmol/L (136-145) Potassium Level 4.1 mmol/L (3.5-5.1) Chloride Level 102 mmol/L (98-107) Carbon Dioxide Level 24 mmol/L (21-32) Anion Gap 12 (6-14) Blood Urea Nitrogen 31 mg/dL (8-26) Creatinine 2.1 mg/dL (0.7-1.3) Estimated GFR (Cockcroft-Gault) 36.9 Glucose Level 120 mg/dL (70-99) Calcium Level 8.1 mg/dL (8.5-10.1) Magnesium Level 2.0 mg/dL (1.8-2.4) Iron Level 24 ug/dL (65-175) Total Iron Binding Capacity 139 ug/dL (250-450) Iron Saturation 17 % (15-34) Ferritin 1500 ng/mL (26-388) Triglycerides Level 43 mg/dL (0-150) Cholesterol Level 72 mg/dL (0-200) LDL Cholesterol, Calculated 23 mg/dL (0-100) VLDL Cholesterol, Calculated 9 mg/dL (0-40) Non-HDL Cholesterol Calculated 32 mg/dL (0-129) HDL Cholesterol 40 mg/dL (40-60) Cholesterol/HDL Ratio 1.8 Glucose (Fingerstick) 103 mg/dL (70-99) Microbiology 02/02/20 Gram Stain - Final, Resulted 02/02/20 Aerobic and Anaerobic Culture, Resulted Pending 02/02/20 Blood Culture - Final, Complete Medications Current Medications Allopurinol (Zyloprim) 100 mg DAILY PO Last administered on 02/04/20at 08:44; Start 02/03/20 at 09:00 Apixaban (Eliquis) 2.5 mg BID PO Last administered on 02/02/20at 21:53; Start 02/02/20 at 21:00; Stop 02/03/20 at 12:00; Status DC Glipizide (Glucotrol) 2.5 mg DAILYBFRSUP PO Last administered on 02/03/20at 17:12; Start 02/02/20 at 18:00 Hydrochlorothiazide (Hydrodiuril) 25 mg DAILY PO ; Start 02/03/20 at 09:00; Stop 02/03/20 at 12:00; Status DC Hydroxyurea (Hydrea) 500 mg DAILY PO Last administered on 02/04/20 08:55; Start 02/03/20 at 09:00 Amlodipine Besylate (Norvasc) 2.5 mg DAILY PO ; Start 02/03/20 at 09:00; Stop 02/03/20 at 12:00; Status DC Pantoprazole Sodium (Protonix) 40 mg DAILYAC PO Last administered on 02/04/20 05:59; Start 02/03/20 at 07:30 Pioglitazone HCl (Actos) 30 mg DAILY08 PO Last administered on 02/04/20at 08:45; Start 02/03/20 at 08:00 Non-Formulary Medication (Rosuvastatin Calcium (Crestor)) 10 mg HS PO Last administered on 02/03/20 20:36; Start 02/02/20 at 21:00 Info (Anti-Coagulation Monitoring By Pharmacy) 1 each PRN DAILY PRN MC SEE COMMENTS; Start 02/02/20 at 18:30 Linezolid/Dextrose 300 ml @ 300 mls/hr Q12HR IV Last administered on 02/04/20at 08:44; Start 02/02/20 at 21:00 Piperacillin Sod/ Tazobactam Sod 3.375 gm/Sodium Chloride 50 ml @ 100 mls/hr Q8HRS IV Last administered on 02/04/20 05:59; Start 02/02/20 at 20:00 Acetaminophen (Tylenol) 650 mg PRN Q4HRS PRN PO FEVER; Start 02/02/20 at 18:30 Acetaminophen/ Hydrocodone Bitart (Lortab 5/325) 1 tab PRN Q4HRS PRN PO MODERATE PAIN Last administered on 02/03/20at 17:14; Start 02/02/20 at 18:30 Polyethylene Glycol (miraLAX PACKET) 17 gm DAILY PO Last administered on 02/04/20 08:44; Start 02/03/20 at 09:00 Sennosides (Senna) 8.6 mg PRN BID PRN PO CONSTIPATION; Start 02/02/20 at 18:30 Folic Acid (Folic Acid) 1 mg DAILY PO Last administered on 02/04/20at 08:44; Start 02/03/20 at 09:00 Magnesium Sulfate 100 ml @ 25 mls/hr 1X ONCE IV Last administered on 02/03/20at 12:28; Start 02/03/20 at 12:30; Stop 02/03/20 at 16:29; Status DC Sodium Chloride 1,000 ml @ 75 mls/hr [id number] IV Last administered on 02/04/20at 02:12; Start 02/03/20 at 12:00 Ondansetron HCl (Zofran) 4 mg PRN Q6HRS PRN IV NAUSEA/VOMITING; Start 02/05/20 at 07:00; Stop 02/06/20 at 06:59 Fentanyl Citrate (Fentanyl 2ml Vial) 25 mcg PRN Q5MIN PRN IV MILD PAIN 1-3; Start 02/05/20 at 07:00; Stop 02/06/20 at 06:59 Fentanyl Citrate (Fentanyl 2ml Vial) 50 mcg PRN Q5MIN PRN IV MODERATE TO SEVERE PAIN; Start 02/05/20 at 07:00; Stop 02/06/20 at 06:59 Morphine Sulfate (Morphine Sulfate) 1 mg PRN Q10MIN PRN IV SEVERE PAIN 7-10; Start 02/05/20 at 07:00; Stop 02/06/20 at 06:59 Ringer's Solution 1,000 ml @ 30 mls/hr Q24H IV ; Start 02/05/20 at 07:00; Stop 02/05/20 at 18:59 Lidocaine HCl (Xylocaine-Mpf 1% 2ml Vial) 2 ml PRN 1X PRN ID PRIOR TO IV START; Start 02/05/20 at 07:00; Stop 02/06/20 at 06:59 Hydromorphone HCl (Dilaudid) 0.5 mg PRN Q10MIN PRN IV SEV PAIN, Second choice; Start 02/05/20 at 07:00; Stop 02/06/20 at 06:59 Prochlorperazine Edisylate (Compazine) 5 mg PACU PRN PRN IV NAUSEA, MRX1; Start 02/05/20 at 07:00; Stop 02/06/20 at 06:59 Active Scripts Active Reported Hydroxyurea 500 Mg Capsule 500 Mg PO DAILY Eliquis (Apixaban) 2.5 Mg Tablet 2.5 Mg PO BID Allopurinol 100 Mg Tablet 1 Tab PO DAILY Unisom Sleep Aid (Doxylamine Succinate) 25 Mg Tablet 25 Mg PO HS Multivitamins (Multivitamin) 1 Each Tablet 1 Each PO DAILY Vitamin E (Vitamin E Mixed) 400 Unit Capsule 400 Unit PO DAILY Vitamin B-12 (Cyanocobalamin (Vitamin B-12)) 1,000 Mcg Tablet 1,000 Mcg PO DAILY Hydrochlorothiazide Tablet (Hydrochlorothiazide) 25 Mg Tablet 25 Mg PO DAILY Amlodipine Besylate 2.5 Mg Tablet 2.5 Mg PO DAILY Actos (Pioglitazone Hcl) 30 Mg Tablet 30 Mg PO DAILY08 Omeprazole 20 Mg Tablet.dr 20 Mg PO QHS Crestor (Rosuvastatin Calcium) 10 Mg Tablet 10 Mg PO HS Glipizide 5 Mg Tablet 2.5 Mg PO DAILYBFRSUP Vitals/I & O Vital Sign - Last 24 Hours 02/03/20 02/03/20 02/03/20 02/03/20 11:00 15:00 17:14 18:14 Temp 98.5 98.4 98.5 98.4 Pulse 102 98 Resp 18 18 B/P (MAP) 90/44 (59) 90/50 (63) Pulse Ox 99 97 O2 Delivery Room Air Room Air Room Air Room Air 02/03/20 02/03/20 02/03/20 02/04/20 19:00 20:00 23:00 03:00 Temp 97.8 98.3 97.9 97.8 98.3 97.9 Pulse 99 91 89 Resp 18 18 18 B/P (MAP) 108/47 (67) 113/48 (69) 116/60 (78) Pulse Ox 96 94 95 O2 Delivery Room Air Room Air Room Air Room Air 02/04/20 02/04/20 07:00 07:30 Temp 98.5 98.5 Pulse 61 Resp 18 B/P (MAP) 107/57 (74) Pulse Ox 98 O2 Delivery Room Air Room Air Intake and Output 02/03/20 02/03/20 02/04/20 14:59 22:59 06:59 Output Total 200 ml 400 ml 500 ml Balance -200 ml -400 ml -500 ml Justicifation of Admission Dx: Justifications for Admission: Justification of Admission Dx: Yes (sepsis and perirectal abscess and acute kidney injury) QAMAR HOUSTON MD Feb 04, 2020 10:54
[2020-02-04 11:00] VITALS: BP 111/64
--- NOTE | 2020-02-04 11:21 | PDOC ---
SUBJECTIVE ROS Stable, No complaints OBJECTIVE Vital Signs Vital Signs Date Time Temp Pulse Resp B/P (MAP) Pulse Ox O2 Delivery O2 Flow Rate FiO2 02/04/20 11:00 97.9 99 18 111/64 (80) 97 Room Air 97.9 I & 0 Intake and Output 02/04/20 07:00 Output Total 1100 ml Balance -1100 ml Output Urine Total 1100 ml PHYSICAL EXAM Physical Exam GENERAL: Alert and oriented gentleman, not in any distress. VITAL SIGNS: Stable. The patient had a T-max of 100.0. HEENT: NAD. NECK: Supple, no JVP, no lymphadenopathy. LUNGS: Clear. HEART: S1, S2 regular. ABDOMEN: Benign. EXTREMITIES: No edema or cyanosis. SKIN: Unremarkable. RECTAL: The patient's perineal area, the patient does have purulent drainage and induration into the perirectal area. NEUROLOGICAL: The patient is alert, awake and appropriate. No focal neurologic deficit. DIAGNOSIS/ASSESSMENT Assessment & Plan JIA - suspect ATN 2/2 Hypotension / HCTZ at home E-Lytes stable , Cr improving Supportive care, avoid nehrotoxins, Monitor CKD stage 3- Present at least since 2014 baseline 1.4-1.9 Bilateral renal cyst reported in [address] , Pt is aware , doesn't follow with nephrology as OP Perineal abscess, which has opened up and is draining/Fever/ Leukocytosis. Renal Cysts - bilateral kidneys various degrees of complex fluid/hemorrhage. It is difficult to exclude an underlying solid lesion by this noncontrast exam.MRI done in 2014 COMMENT/RELEVANT DATA Meds Current Medications Medications (Trade) Dose Ordered Sig/Minnie Start Time Stop Time Status Last Admin Dose Admin Acetaminophen (Tylenol) 650 mg PRN Q4HRS PRN 02/02/20 18:30 Acetaminophen/ Hydrocodone Bitart (Lortab 5/325) 1 tab PRN Q4HRS PRN 02/02/20 18:30 02/03/20 17:14 1 TAB Allopurinol (Zyloprim) 100 mg DAILY 02/03/20 09:00 02/04/20 08:44 100 MG Amlodipine Besylate (Norvasc) 2.5 mg DAILY 02/03/20 09:00 02/03/20 12:00 DC Apixaban (Eliquis) 2.5 mg BID 02/02/20 21:00 02/03/20 12:00 DC 02/02/20 21:53 2.5 MG Fentanyl Citrate (Fentanyl 2ml Vial) 50 mcg PRN Q5MIN PRN 02/05/20 07:00 02/06/20 06:59 Folic Acid (Folic Acid) 1 mg DAILY 02/03/20 09:00 02/04/20 08:44 1 MG Glipizide (Glucotrol) 2.5 mg DAILYBFRSUP 02/02/20 18:00 02/03/20 17:12 2.5 MG Hydrochlorothiazide (Hydrodiuril) 25 mg DAILY 02/03/20 09:00 02/03/20 12:00 DC Hydromorphone HCl (Dilaudid) 0.5 mg PRN Q10MIN PRN 02/05/20 07:00 02/06/20 06:59 Hydroxyurea (Hydrea) 500 mg DAILY 02/03/20 09:00 02/04/20 08:55 500 MG Info (Anti-Coagulation Monitoring By Pharmacy) 1 each PRN DAILY PRN 02/02/20 18:30 Lidocaine HCl (Xylocaine-Mpf 1% 2ml Vial) 2 ml PRN 1X PRN 02/05/20 07:00 02/06/20 06:59 Linezolid/Dextrose 300 ml @ 300 mls/hr Q12HR 02/02/20 21:00 02/04/20 08:44 300 MLS/HR Magnesium Sulfate 100 ml @ 25 mls/hr 1X ONCE 02/03/20 12:30 02/03/20 16:29 DC 02/03/20 12:28 25 MLS/HR Morphine Sulfate (Morphine Sulfate) 1 mg PRN Q10MIN PRN 02/05/20 07:00 02/06/20 06:59 Non-Formulary Medication (Rosuvastatin Calcium (Crestor)) 10 mg HS 02/02/20 21:00 02/03/20 20:36 10 MG Ondansetron HCl (Zofran) 4 mg PRN Q6HRS PRN 02/05/20 07:00 02/06/20 06:59 Pantoprazole Sodium (Protonix) 40 mg DAILYAC 02/03/20 07:30 02/04/20 05:59 40 MG Pioglitazone HCl (Actos) 30 mg DAILY08 02/03/20 08:00 02/04/20 08:45 30 MG Piperacillin Sod/ Tazobactam Sod 3.375 gm/Sodium Chloride 50 ml @ 100 mls/hr Q8HRS 02/02/20 20:00 02/04/20 05:59 100 MLS/HR Polyethylene Glycol (miraLAX PACKET) 17 gm DAILY 02/03/20 09:00 02/04/20 08:44 17 GM Prochlorperazine Edisylate (Compazine) 5 mg PACU PRN PRN 02/05/20 07:00 02/06/20 06:59 Ringer's Solution 1,000 ml @ 30 mls/hr Q24H 02/05/20 07:00 02/05/20 18:59 Sennosides (Senna) 8.6 mg PRN BID PRN 02/02/20 18:30 Sodium Chloride 1,000 ml @ 60 mls/hr [id number] 02/03/20 12:00 02/04/20 02:12 75 MLS/HR Lab Laboratory Tests Test 02/03/20 11:52 02/03/20 13:23 02/03/20 16:00 02/03/20 20:54 Glucose (Fingerstick) 164 mg/dL (70-99) 142 mg/dL (70-99) 160 mg/dL (70-99) Urine Collection Type Unknown Urine Color Yellow Urine Clarity Clear Urine pH 5.5 (<5.0-8.0) Urine Specific [place] 1.015 (1.000-1.030) Urine Protein Negative mg/dL (NEG-TRACE) Urine Glucose (UA) Negative mg/dL (NEG) Urine Ketones (Stick) Negative mg/dL (NEG) Urine Blood Small (NEG) Urine Nitrite Negative (NEG) Urine Bilirubin Negative (NEG) Urine Urobilinogen Dipstick 0.2 mg/dL (0.2 mg/dL) Urine Leukocyte Esterase Large (NEG) Urine RBC 1-2 /HPF (0-2) Urine WBC >40 /HPF (0-4) Urine Bacteria Few /HPF (0-FEW) Test 02/04/20 03:30 02/04/20 04:11 02/04/20 07:03 02/04/20 08:53 Stool Occult Blood Positive (NEG) Positive (NEG) White Blood Count 11.4 x10^3/uL (4.0-11.0) Red Blood Count 2.78 x10^6/uL (4.30-5.70) Hemoglobin 8.2 g/dL (13.0-17.5) Hematocrit 24.7 % (39.0-53.0) Mean Corpuscular Volume 89 fL (79-100) Mean Corpuscular Hemoglobin 30 pg (25-35) Mean Corpuscular Hemoglobin Concent 33 g/dL (31-37) Red Cell Distribution Width 16.4 % (11.5-14.5) Platelet Count 456 x10^3/uL (140-400) Neutrophils (%) (Auto) 78 % (31-73) Lymphocytes (%) (Auto) 11 % (24-48) Monocytes (%) (Auto) 8 % (0-9) Eosinophils (%) (Auto) 2 % (0-3) Basophils (%) (Auto) 1 % (0-3) Neutrophils # (Auto) 8.9 x10^3/uL (1.8-7.7) Lymphocytes # (Auto) 1.2 x10^3/uL (1.0-4.8) Monocytes # (Auto) 0.9 x10^3/uL (0.0-1.1) Eosinophils # (Auto) 0.2 x10^3/uL (0.0-0.7) Basophils # (Auto) 0.1 x10^3/uL (0.0-0.2) Sodium Level 138 mmol/L (136-145) Potassium Level 4.1 mmol/L (3.5-5.1) Chloride Level 102 mmol/L (98-107) Carbon Dioxide Level 24 mmol/L (21-32) Anion Gap 12 (6-14) Blood Urea Nitrogen 31 mg/dL (8-26) Creatinine 2.1 mg/dL (0.7-1.3) Estimated GFR (Cockcroft-Gault) 36.9 Glucose Level 120 mg/dL (70-99) Calcium Level 8.1 mg/dL (8.5-10.1) Magnesium Level 2.0 mg/dL (1.8-2.4) Iron Level 24 ug/dL (65-175) Total Iron Binding Capacity 139 ug/dL (250-450) Iron Saturation 17 % (15-34) Ferritin 1500 ng/mL (26-388) Triglycerides Level 43 mg/dL (0-150) Cholesterol Level 72 mg/dL (0-200) LDL Cholesterol, Calculated 23 mg/dL (0-100) VLDL Cholesterol, Calculated 9 mg/dL (0-40) Non-HDL Cholesterol Calculated 32 mg/dL (0-129) HDL Cholesterol 40 mg/dL (40-60) Cholesterol/HDL Ratio 1.8 Glucose (Fingerstick) 103 mg/dL (70-99) Results All relevant outside records, renal labs, imaging studies, telemetry/EKG's were reviewed. Justicifation of Admission Dx: Justifications for Admission: Justification of Admission Dx: Yes (sepsis and perirectal abscess and acute kidney injury) SONIA SARAH MD Feb 04, 2020 11:21
--- NOTE | 2020-02-04 14:01 | PDOC2 ---
GI CONSULT Reason For Consult: heme pos stool HPI: HPI: Very pleasant 79 y/o male here for several days w/ perineal abscess, possible I&D tomorrow. He has no GI complaints and denies bleeding including hematochezia, melena, and hematemesis. Says abscess is oozing w/ blood though. H/o GERD controlled w/ omeprazole. No dysphagia, n/v, diarrhea, change in appetite ("I don't eat much"), and weight loss. Occasional constipation controlled w/ Miralax. Notes occasional mild mid abdominal discomfort - not bothersome currently. EGD for melena and syncope by Dr. Lobato in 2007 showed multiple superficial gastric ulcers (biopsy w/ active chronic gastritis, negative for H. pylori) and colonoscopy showed diverticulosis and hemorrhoids. Anemia noted on labs here since 2013 - gradually worse this year and last. H/o myeloproliferative disease on hydroxyurea and h/o DVT/PE on Eliquis. Iron profile c/w ACD this month. B12 normal in 11/2019. No GB, liver, or pancreas history. Viral Hepatitis profile negative in the past. PMH: PMH: CAD, HTN, HLD, PE/DVT, anemia, OA, DM, myeloproliferative disease bone marrow biopsy FH: Family History: No pertinent hx Social History: Smoke: Quit ALCOHOL: none Drugs: None ROS: GEN: Denies fevers, chills, sweats HEENT: Denies blurred vision, sore throat CV: Denies chest pain RESP: Denies shortness of air, cough GI: Per HPI : Denies hematuria, dysuria ENDO: Denies weight changes NEURO: Denies confusion, dizziness MSK: Denies weakness, joint pain/swelling SKIN: Denies jaundice, pruritus Vitals: Vitals: Vital Signs Date Time Temp Pulse Resp B/P (MAP) Pulse Ox O2 Delivery O2 Flow Rate FiO2 02/04/20 11:00 97.9 99 18 111/64 (80) 97 Room Air 97.9 Labs: Labs: Laboratory Tests Test 02/03/20 16:00 02/03/20 20:54 02/04/20 03:30 02/04/20 04:11 Glucose (Fingerstick) 142 mg/dL (70-99) 160 mg/dL (70-99) Stool Occult Blood Positive (NEG) White Blood Count 11.4 x10^3/uL (4.0-11.0) Red Blood Count 2.78 x10^6/uL (4.30-5.70) Hemoglobin 8.2 g/dL (13.0-17.5) Hematocrit 24.7 % (39.0-53.0) Mean Corpuscular Volume 89 fL (79-100) Mean Corpuscular Hemoglobin 30 pg (25-35) Mean Corpuscular Hemoglobin Concent 33 g/dL (31-37) Red Cell Distribution Width 16.4 % (11.5-14.5) Platelet Count 456 x10^3/uL (140-400) Neutrophils (%) (Auto) 78 % (31-73) Lymphocytes (%) (Auto) 11 % (24-48) Monocytes (%) (Auto) 8 % (0-9) Eosinophils (%) (Auto) 2 % (0-3) Basophils (%) (Auto) 1 % (0-3) Neutrophils # (Auto) 8.9 x10^3/uL (1.8-7.7) Lymphocytes # (Auto) 1.2 x10^3/uL (1.0-4.8) Monocytes # (Auto) 0.9 x10^3/uL (0.0-1.1) Eosinophils # (Auto) 0.2 x10^3/uL (0.0-0.7) Basophils # (Auto) 0.1 x10^3/uL (0.0-0.2) Sodium Level 138 mmol/L (136-145) Potassium Level 4.1 mmol/L (3.5-5.1) Chloride Level 102 mmol/L (98-107) Carbon Dioxide Level 24 mmol/L (21-32) Anion Gap 12 (6-14) Blood Urea Nitrogen 31 mg/dL (8-26) Creatinine 2.1 mg/dL (0.7-1.3) Estimated GFR (Cockcroft-Gault) 36.9 Glucose Level 120 mg/dL (70-99) Calcium Level 8.1 mg/dL (8.5-10.1) Magnesium Level 2.0 mg/dL (1.8-2.4) Iron Level 24 ug/dL (65-175) Total Iron Binding Capacity 139 ug/dL (250-450) Iron Saturation 17 % (15-34) Ferritin 1500 ng/mL (26-388) Triglycerides Level 43 mg/dL (0-150) Cholesterol Level 72 mg/dL (0-200) LDL Cholesterol, Calculated 23 mg/dL (0-100) VLDL Cholesterol, Calculated 9 mg/dL (0-40) Non-HDL Cholesterol Calculated 32 mg/dL (0-129) HDL Cholesterol 40 mg/dL (40-60) Cholesterol/HDL Ratio 1.8 Test 02/04/20 07:03 02/04/20 08:53 02/04/20 11:36 Glucose (Fingerstick) 103 mg/dL (70-99) 147 mg/dL (70-99) Stool Occult Blood Positive (NEG) BLOOD CULTURE Final TINY GRAM NEGATIVE COCCO-BACILLI, GRAM STAIN Final Final GRAM NEGATIVE RODS:FEW GRAM POSITIVE COCCI:RARE SQUAMOUS EPI CELL:RARE PMN (WBCs):NONE SEEN Unless otherwise specified, Testing Performed by: [address] [address] For Inquires, the Physician may contact the Microbiology department at [phone] ANAEROBIC-AEROBIC CULTURE Preliminary Preliminary MIXED AEROBIC ANDRE on 02/04/20 at 1050 INCLUDING: MANY GRAM NEGATIVE RODS MANY [ENTEROCOCCUS SPECIES] ENTEROCOCCUS SPECIES Unless otherwise specified, Testing Performed by: [address] [address] For Inquires, the Physician may contact the Microbiology department at [phone] Allergies: Coded Allergies: amlodipine (Unverified Allergy, Intermediate, DIZZINESS, 10/22/16) atorvastatin calcium (Verified Allergy, Intermediate, bothered muscles, 10/22/16) finasteride (Verified Allergy, Intermediate, MYALGIAS, 10/22/16) fluvastatin (Unverified Allergy, Intermediate, 10/22/16) fluvastatin sodium (Verified Allergy, Intermediate, 10/22/16) lisinopril (Verified Allergy, Intermediate, 10/22/16) losartan (Verified Allergy, Intermediate, ANGIOEDEMA, 02/03/20) metoprolol (Verified Allergy, Intermediate, 10/22/16) Medications: Please see EMR. Imaging: Imaging: Pelv CT IMPRESSION: 1. No free or loculated pelvic collection. 2. Colonic diverticulosis without evidence for acute diverticulitis. 3. Prostate is enlarged. 4. Small fat-containing left inguinal hernia. CXR IMPRESSION: No acute cardiopulmonary process. Renal US IMPRESSION: 1. Multiple bilateral renal cysts. 2. Prostamegaly. PE: GEN: NAD HEENT: Atraumatic, PERRL LUNGS: CTAB HEART: RRR ABD: NABS, S/ND/NT EXTREMITY: No edema SKIN: deferred exam of perirectal abscess NEURO/PSYCH: A & O 3 A/P: A/P: Perineal abscess, bacteremia +Hemoccult without obvious GI bleeding ACD - h/o myeloproliferative disorder, h/o DVT/PE on Eliquis, CKD GERD, h/o PUD - on PPI CRC screen - done in 2007 Diverticulosis, hemorrhoids Occasional constipation - controlled w/ Miralax -- Continue PPI and Miralax, observe. LIZZY ORR Feb 04, 2020 14:01
[2020-02-04 15:00] VITALS: BP 107/37
[2020-02-04] MEDS: glipiZIDE 5 MG TABLET PO SCH (17:28)
[2020-02-04 19:00] VITALS: BP 119/40
[2020-02-04] MEDS: LACTOBACILLUS RHAMNOSUS GG 1 CAPSULE. PO SCH (20:49)
[2020-02-04 23:00] VITALS: BP 117/54
[2020-02-05 03:00] VITALS: BP 101/47
[2020-02-05] MEDS: PIPERACILLIN/TAZOBACTAM 3.375 GM in IV NORMAL SALINE 50ML 50 ML IV SCH ×3 (05:55→22:14)
[2020-02-05] MEDS ORDERED: BUPIVACAINE-EPI 0.5%-1:200000 MPF 30 ML VIAL. ONE (06:56)
[2020-02-05] MEDS ORDERED: IV RINGERS,LACTATED 1000ML 1,000 ML IV SCH (07:00)
[2020-02-05] MEDS ORDERED: MORPHINE SULFATE 2 MG/ML VIAL. IV PRN (07:00)
[2020-02-05] MEDS ORDERED: fentaNYL PF VIAL 100 MCG/2 ML VIAL IV PRN ×2 (07:00)
[2020-02-05] MEDS ORDERED: PROCHLORPERAZINE 10 MG/2 ML VIAL. IV PRN (07:00)
[2020-02-05] MEDS ORDERED: HYDROmorphone 2 MG/ML VIAL IV PRN (07:00)
[2020-02-05] MEDS ORDERED: ONDANSETRON PF 4 MG/2 ML VIAL. IV PRN (07:00)
[2020-02-05] MEDS ORDERED: LIDOCAINE 1% PF 2 ML VIAL. ID PRN (07:00)
[2020-02-05] MEDS: PANTOPRAZOLE 40 MG TABLET.DR. PO SCH (07:30)
[2020-02-05] MEDS ORDERED: LIDOCAINE 2% PF 5 ML VIAL. ONE (07:53)
[2020-02-05] MEDS ORDERED: DEXAMETHASONE SOD PHOS 4 MG/ML VIAL ONE (07:53)
[2020-02-05] MEDS ORDERED: PROPOFOL 10 MG/ML (20ML) VIAL. IV ONE (07:53)
[2020-02-05] MEDS ORDERED: ONDANSETRON PF 4 MG/2 ML VIAL. ONE (07:54)
[2020-02-05] MEDS ORDERED: DESFLURANE 31 TO 60 MINUTES IH ONE (07:58)
[2020-02-05 08:18] LABS: BASO % 0 % (0-3); EOS # 0.2 x10^3/uL (0.0-0.7); EOS % 2 % (0-3); HEMATOCRIT 24.6 % (39.0-53.0); HEMOGLOBIN 8.1 g/dL (13.0-17.5); LYMPH # 1.2 x10^3/uL (1.0-4.8); LYMPH % 11 % (24-48); MEAN CORPUSCULAR HEMOGLOBIN 29 pg (25-35); MEAN CORPUSCULAR HGB CONC 33 g/dL (31-37); MEAN CORPUSCULAR VOLUME 89 fL (79-100); MONO # 0.9 x10^3/uL (0.0-1.1); MONO % 8 % (0-9); NEUT # 9.1 x10^3/uL (1.8-7.7); NEUT % 80 % (31-73); PLATELET COUNT 476 x10^3/uL (140-400); RED BLOOD COUNT 2.77 x10^6/uL (4.30-5.70); RED CELL DISTRIBUTION WIDTH 16.3 % (11.5-14.5); WHITE BLOOD COUNT 11.5 x10^3/uL (4.0-11.0)
[2020-02-05] MEDS ORDERED: fentaNYL PF VIAL 100 MCG/2 ML VIAL ONE (08:25)
[2020-02-05 08:37] LABS: CALCIUM 8.7 mg/dL (8.5-10.1); CREATININE 2.1 mg/dL (0.7-1.3); GFR 36.9; MAGNESIUM 1.7 mg/dL (1.8-2.4)
--- NOTE | 2020-02-05 10:17 | PDOC4 ---
Operative Note Operative Note Operative Note: Preoperative Diagnosis: Perirectal abscess Postoperative Diagnosis: Same Procedure: Incision and drainage of perirectal abscess Surgeon: Jono Anesthesia: General EBL: 20 mL Specimen: None Drains: None Complications: None Indication: The patient is an 79-year-old gentleman who presented with a perirectal abscess. We recommend operative incision and drainage. The risks of surgery were discussed which include bleeding, infection, recurrence, pain, anesthetic risk, potential need for additional surgery procedure. He understands and would like to proceed. Description: The patient was taken to the operating room and placed supine on the operating table. General anesthesia was performed. He was then placed in lithotomy. The perianal skin was prepped with Betadine and draped in a standard surgical manner. While in lithotomy there is a draining spot at the 3 o'clock position. A hemostat was introduced and spread with return of purulent fluid. The cavity seem to extend superiorly and toward the midline. With a scalpel the overlying skin was unroofed along the tract of the abscess. The entire abscess cavity was then probed digitally and all loculations were freed up. The cavity was then irrigated with sterile saline and cautery was used to assist with hemostasis. The wound was then packed with sterile gauze and a dressing was applied. The patient tolerated the procedure well and was sent to the recovery room in stable condition. At the end of the case all counts were correct. LULY FISHER MD Feb 05, 2020 10:17
[2020-02-05] MEDS: PIOGLITAZONE 15 MG TABLET. PO SCH (10:36)
[2020-02-05] MEDS: LACTOBACILLUS RHAMNOSUS GG 1 CAPSULE. PO SCH ×2 (10:37→21:06)
[2020-02-05] MEDS: ALLOPURINOL 100 MG TABLET. PO SCH (10:37)
[2020-02-05] MEDS: FOLIC ACID 1 MG TABLET. PO SCH (10:37)
[2020-02-05] MEDS: POLYETHYLENE GLYCOL 3350 17 GM PACKET. PO SCH (10:37)
--- NOTE | 2020-02-05 10:43 | PDOC ---
Infectious Disease Note Subjective Subjective s/p surgery this morning Comfortable Denies N/V/F/C ROS ROS as mentioned above Vital Sign Vital Signs Vital Signs Date Time Temp Pulse Resp B/P (MAP) Pulse Ox O2 Delivery O2 Flow Rate FiO2 02/05/20 09:30 Room Air 02/05/20 09:20 97.3 78 14 125/60 99 97.3 02/05/20 09:06 8 Physical Exam PHYSICAL EXAM GENERAL: Propped up in bed, alert and in NAD HEENT: Oral cavity pink, moist NECK: Supple, no JVP, no lymphadenopathy. LUNGS: Clear. HEART: S1, S2 regular. ABDOMEN: SOft and nontender EXTREMITIES: No edema or cyanosis. SKIN: warm to touch. No signs of rash RECTAL: Perineal post-op dressing in place NEUROLOGICAL: Alert,answers questions appropriately Labs Lab Laboratory Tests Test 02/04/20 11:36 02/04/20 16:50 02/04/20 20:55 02/05/20 08:00 Glucose (Fingerstick) 147 mg/dL (70-99) 95 mg/dL (70-99) 129 mg/dL (70-99) White Blood Count 11.5 x10^3/uL (4.0-11.0) Red Blood Count 2.77 x10^6/uL (4.30-5.70) Hemoglobin 8.1 g/dL (13.0-17.5) Hematocrit 24.6 % (39.0-53.0) Mean Corpuscular Volume 89 fL (79-100) Mean Corpuscular Hemoglobin 29 pg (25-35) Mean Corpuscular Hemoglobin Concent 33 g/dL (31-37) Red Cell Distribution Width 16.3 % (11.5-14.5) Platelet Count 476 x10^3/uL (140-400) Neutrophils (%) (Auto) 80 % (31-73) Lymphocytes (%) (Auto) 11 % (24-48) Monocytes (%) (Auto) 8 % (0-9) Eosinophils (%) (Auto) 2 % (0-3) Basophils (%) (Auto) 0 % (0-3) Neutrophils # (Auto) 9.1 x10^3/uL (1.8-7.7) Lymphocytes # (Auto) 1.2 x10^3/uL (1.0-4.8) Monocytes # (Auto) 0.9 x10^3/uL (0.0-1.1) Eosinophils # (Auto) 0.2 x10^3/uL (0.0-0.7) Basophils # (Auto) 0.0 x10^3/uL (0.0-0.2) Sodium Level 139 mmol/L (136-145) Potassium Level 4.0 mmol/L (3.5-5.1) Chloride Level 105 mmol/L (98-107) Carbon Dioxide Level 26 mmol/L (21-32) Anion Gap 8 (6-14) Blood Urea Nitrogen 21 mg/dL (8-26) Creatinine 2.1 mg/dL (0.7-1.3) Estimated GFR (Cockcroft-Gault) 36.9 Glucose Level 112 mg/dL (70-99) Calcium Level 8.7 mg/dL (8.5-10.1) Magnesium Level 1.7 mg/dL (1.8-2.4) Test 02/05/20 09:10 Glucose (Fingerstick) 84 mg/dL (70-99) Micro 02/01. BLOOD CULTURE Final TINY GRAM NEGATIVE COCCO-BACILLI, IN THE ANAEROBIC BOTTLE OF THIS SET. 1 OF 3 BOTTLES, TWO SETS WERE DRAWN. ANAEROBIC-AEROBIC CULTURE Preliminary Preliminary MIXED AEROBIC ANDRE on 02/04/20 at 1050 INCLUDING: MANY GRAM NEGATIVE RODS MANY [ENTEROCOCCUS SPECIES] ENTEROCOCCUS SPECIES Objective Assessment Perineal abscess, which has opened up and is draining. Enterococcus and GNR so far. s/p I and D 02/04 Fever - better Leukocytosis - better Diabetes. Renal insufficiency. 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 ID still pending Plan Plan of Care Continue Zyvox and Zosyn. s/p steroids Probiotics f/u cultures Local wound care as directed D/w nursing D/w son at bedside Attending Co-Sign The patient was seen and interviewed as well as examined at the bedside. The chart was reviewed. The case was discussed. Agree with the plan of care. BILLY HARDIN APRN Feb 05, 2020 10:43 ANY DECKER MD Feb 05, 2020 13:27
[2020-02-05] MEDS: HYDROXYUREA 500 MG CAPSULE PO SCH (10:48)
[2020-02-05] MEDS: IV NORMAL SALINE 1000ML BAG 1,000 ML IV SCH (10:51)
[2020-02-05 11:00] VITALS: BP 124/68
--- NOTE | 2020-02-05 12:41 | PDOC ---
PROGRESS NOTES Subjective Subjective had I and D of perirectal abscess earlier today. feels okay. son in room lab reviewed. magnesium low 1.7. blood sugars okay. bp is better. abscess cultuer on admission growing enterococcus and GNR Objective Objective Vital Signs Date Time Temp Pulse Resp B/P (MAP) Pulse Ox O2 Delivery O2 Flow Rate FiO2 02/05/20 11:00 98.3 64 18 124/68 (86) 99 Room Air 98.3 02/05/20 09:06 8 Intake and Output 02/05/20 07:00 Intake Total 460 ml Output Total 1000 ml Balance -540 ml Intake Oral 460 ml Output Urine Total 1000 ml # Voids 2 Physical Exam Abdomen: Soft Heart: Regular rate, Normal S1, Normal S2 Extremities: No edema General: Alert HEENT: Atraumatic Lungs: Clear to auscultation Neuro: Normal speech Psych/Mental Status: Mental status NL Skin: No rashes Assessment Assessment 1. Perirectal abscess. surgical I and D 02/05/20 2. Leukocytosis, unclear what his baseline white count since he has a myeloproliferative disease. improved 3. Anemia, which could be related to myeloproliferative disease. 4. Acute kidney injury on top of chronic kidney disease stage 3, most likely related to inadequate fluid intake, perhaps to hydrochlorothiazide and also sepsis. improved with hydration 5. Sepsis.resolved 6. Hypomagnesemia. 7. Coronary artery disease. 8. Hyperlipidemia. 9. Hypertension. 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 11. History of a pulmonary embolus, on Eliquis. 12. Myeloproliferative disorder. gram positive cocci bacilli on 07/23. ID and S pending moderate aortic regurgitation Plan Plan of Care await final blood and abscess cultures continue iv zyvox and zosyn decrease iv fluids iv magnesium today resume eliquis tomorrow if okay with dr. De La Cruz Comment Review of Relevant I have reviewed the following items sanjiv (where applicable) has been applied. Labs Laboratory Tests Test 02/03/20 13:23 02/03/20 16:00 02/03/20 20:54 02/04/20 03:30 Urine Collection Type Unknown Urine Color Yellow Urine Clarity Clear Urine pH 5.5 (<5.0-8.0) Urine Specific [place] 1.015 (1.000-1.030) Urine Protein Negative mg/dL (NEG-TRACE) Urine Glucose (UA) Negative mg/dL (NEG) Urine Ketones (Stick) Negative mg/dL (NEG) Urine Blood Small (NEG) Urine Nitrite Negative (NEG) Urine Bilirubin Negative (NEG) Urine Urobilinogen Dipstick 0.2 mg/dL (0.2 mg/dL) Urine Leukocyte Esterase Large (NEG) Urine RBC 1-2 /HPF (0-2) Urine WBC >40 /HPF (0-4) Urine Bacteria Few /HPF (0-FEW) Glucose (Fingerstick) 142 mg/dL (70-99) 160 mg/dL (70-99) Stool Occult Blood Positive (NEG) Test 02/04/20 04:11 02/04/20 07:03 02/04/20 08:53 02/04/20 11:36 White Blood Count 11.4 x10^3/uL (4.0-11.0) Red Blood Count 2.78 x10^6/uL (4.30-5.70) Hemoglobin 8.2 g/dL (13.0-17.5) Hematocrit 24.7 % (39.0-53.0) Mean Corpuscular Volume 89 fL (79-100) Mean Corpuscular Hemoglobin 30 pg (25-35) Mean Corpuscular Hemoglobin Concent 33 g/dL (31-37) Red Cell Distribution Width 16.4 % (11.5-14.5) Platelet Count 456 x10^3/uL (140-400) Neutrophils (%) (Auto) 78 % (31-73) Lymphocytes (%) (Auto) 11 % (24-48) Monocytes (%) (Auto) 8 % (0-9) Eosinophils (%) (Auto) 2 % (0-3) Basophils (%) (Auto) 1 % (0-3) Neutrophils # (Auto) 8.9 x10^3/uL (1.8-7.7) Lymphocytes # (Auto) 1.2 x10^3/uL (1.0-4.8) Monocytes # (Auto) 0.9 x10^3/uL (0.0-1.1) Eosinophils # (Auto) 0.2 x10^3/uL (0.0-0.7) Basophils # (Auto) 0.1 x10^3/uL (0.0-0.2) Sodium Level 138 mmol/L (136-145) Potassium Level 4.1 mmol/L (3.5-5.1) Chloride Level 102 mmol/L (98-107) Carbon Dioxide Level 24 mmol/L (21-32) Anion Gap 12 (6-14) Blood Urea Nitrogen 31 mg/dL (8-26) Creatinine 2.1 mg/dL (0.7-1.3) Estimated GFR (Cockcroft-Gault) 36.9 Glucose Level 120 mg/dL (70-99) Calcium Level 8.1 mg/dL (8.5-10.1) Magnesium Level 2.0 mg/dL (1.8-2.4) Iron Level 24 ug/dL (65-175) Total Iron Binding Capacity 139 ug/dL (250-450) Iron Saturation 17 % (15-34) Ferritin 1500 ng/mL (26-388) Triglycerides Level 43 mg/dL (0-150) Cholesterol Level 72 mg/dL (0-200) LDL Cholesterol, Calculated 23 mg/dL (0-100) VLDL Cholesterol, Calculated 9 mg/dL (0-40) Non-HDL Cholesterol Calculated 32 mg/dL (0-129) HDL Cholesterol 40 mg/dL (40-60) Cholesterol/HDL Ratio 1.8 Glucose (Fingerstick) 103 mg/dL (70-99) 147 mg/dL (70-99) Stool Occult Blood Positive (NEG) Test 02/04/20 16:50 02/04/20 20:55 02/05/20 08:00 02/05/20 09:10 Glucose (Fingerstick) 95 mg/dL (70-99) 129 mg/dL (70-99) 84 mg/dL (70-99) White Blood Count 11.5 x10^3/uL (4.0-11.0) Red Blood Count 2.77 x10^6/uL (4.30-5.70) Hemoglobin 8.1 g/dL (13.0-17.5) Hematocrit 24.6 % (39.0-53.0) Mean Corpuscular Volume 89 fL (79-100) Mean Corpuscular Hemoglobin 29 pg (25-35) Mean Corpuscular Hemoglobin Concent 33 g/dL (31-37) Red Cell Distribution Width 16.3 % (11.5-14.5) Platelet Count 476 x10^3/uL (140-400) Neutrophils (%) (Auto) 80 % (31-73) Lymphocytes (%) (Auto) 11 % (24-48) Monocytes (%) (Auto) 8 % (0-9) Eosinophils (%) (Auto) 2 % (0-3) Basophils (%) (Auto) 0 % (0-3) Neutrophils # (Auto) 9.1 x10^3/uL (1.8-7.7) Lymphocytes # (Auto) 1.2 x10^3/uL (1.0-4.8) Monocytes # (Auto) 0.9 x10^3/uL (0.0-1.1) Eosinophils # (Auto) 0.2 x10^3/uL (0.0-0.7) Basophils # (Auto) 0.0 x10^3/uL (0.0-0.2) Sodium Level 139 mmol/L (136-145) Potassium Level 4.0 mmol/L (3.5-5.1) Chloride Level 105 mmol/L (98-107) Carbon Dioxide Level 26 mmol/L (21-32) Anion Gap 8 (6-14) Blood Urea Nitrogen 21 mg/dL (8-26) Creatinine 2.1 mg/dL (0.7-1.3) Estimated GFR (Cockcroft-Gault) 36.9 Glucose Level 112 mg/dL (70-99) Calcium Level 8.7 mg/dL (8.5-10.1) Magnesium Level 1.7 mg/dL (1.8-2.4) Test 02/05/20 11:50 Glucose (Fingerstick) 176 mg/dL (70-99) Laboratory Tests Test 02/04/20 16:50 02/04/20 20:55 02/05/20 08:00 02/05/20 09:10 Glucose (Fingerstick) 95 mg/dL (70-99) 129 mg/dL (70-99) 84 mg/dL (70-99) White Blood Count 11.5 x10^3/uL (4.0-11.0) Red Blood Count 2.77 x10^6/uL (4.30-5.70) Hemoglobin 8.1 g/dL (13.0-17.5) Hematocrit 24.6 % (39.0-53.0) Mean Corpuscular Volume 89 fL (79-100) Mean Corpuscular Hemoglobin 29 pg (25-35) Mean Corpuscular Hemoglobin Concent 33 g/dL (31-37) Red Cell Distribution Width 16.3 % (11.5-14.5) Platelet Count 476 x10^3/uL (140-400) Neutrophils (%) (Auto) 80 % (31-73) Lymphocytes (%) (Auto) 11 % (24-48) Monocytes (%) (Auto) 8 % (0-9) Eosinophils (%) (Auto) 2 % (0-3) Basophils (%) (Auto) 0 % (0-3) Neutrophils # (Auto) 9.1 x10^3/uL (1.8-7.7) Lymphocytes # (Auto) 1.2 x10^3/uL (1.0-4.8) Monocytes # (Auto) 0.9 x10^3/uL (0.0-1.1) Eosinophils # (Auto) 0.2 x10^3/uL (0.0-0.7) Basophils # (Auto) 0.0 x10^3/uL (0.0-0.2) Sodium Level 139 mmol/L (136-145) Potassium Level 4.0 mmol/L (3.5-5.1) Chloride Level 105 mmol/L (98-107) Carbon Dioxide Level 26 mmol/L (21-32) Anion Gap 8 (6-14) Blood Urea Nitrogen 21 mg/dL (8-26) Creatinine 2.1 mg/dL (0.7-1.3) Estimated GFR (Cockcroft-Gault) 36.9 Glucose Level 112 mg/dL (70-99) Calcium Level 8.7 mg/dL (8.5-10.1) Magnesium Level 1.7 mg/dL (1.8-2.4) Test 02/05/20 11:50 Glucose (Fingerstick) 176 mg/dL (70-99) Microbiology 02/02/20 Gram Stain - Final, Resulted 02/02/20 Aerobic and Anaerobic Culture - Preliminary, Resulted 02/02/20 Blood Culture - Final, Complete Medications Current Medications Allopurinol (Zyloprim) 100 mg DAILY PO Last administered on 02/05/20at 10:37; Start 7/16/20 at 09:00 Apixaban (Eliquis) 2.5 mg BID PO Last administered on 02/02/20at 21:53; Start 02/02/20 at 21:00; Stop 02/03/20 at 12:00; Status DC Glipizide (Glucotrol) 2.5 mg DAILYBFRSUP PO Last administered on 02/04/20at 17:28; Start 02/02/20 at 18:00 Hydrochlorothiazide (Hydrodiuril) 25 mg DAILY PO ; Start 02/03/20 at 09:00; Stop 02/03/20 at 12:00; Status DC Hydroxyurea (Hydrea) 500 mg DAILY PO Last administered on 02/05/20at 10:48; Start 02/03/20 at 09:00 Amlodipine Besylate (Norvasc) 2.5 mg DAILY PO ; Start 02/03/20 at 09:00; Stop 02/03/20 at 12:00; Status DC Pantoprazole Sodium (Protonix) 40 mg DAILYAC PO Last administered on 02/04/20at 05:59; Start 02/03/20 at 07:30 Pioglitazone HCl (Actos) 30 mg DAILY08 PO Last administered on 02/05/20at 10:36; Start 02/03/20 at 08:00 Non-Formulary Medication (Rosuvastatin Calcium (Crestor)) 10 mg HS PO Last administered on 02/04/20at 20:49; Start 02/02/20 at 21:00 Info (Anti-Coagulation Monitoring By Pharmacy) 1 each PRN DAILY PRN MC SEE COMMENTS; Start 02/02/20 at 18:30 Linezolid/Dextrose 300 ml @ 300 mls/hr Q12HR IV Last administered on 02/05/20at 10:43; Start 02/02/20 at 21:00 Piperacillin Sod/ Tazobactam Sod 3.375 gm/Sodium Chloride 50 ml @ 100 mls/hr Q8HRS IV Last administered on 02/05/20at 05:55; Start 02/02/20 at 20:00 Acetaminophen (Tylenol) 650 mg PRN Q4HRS PRN PO FEVER; Start 02/02/20 at 18:30 Acetaminophen/ Hydrocodone Bitart (Lortab 5/325) 1 tab PRN Q4HRS PRN PO MODERATE PAIN Last administered on 02/03/20at 17:14; Start 02/02/20 at 18:30 Polyethylene Glycol (miraLAX PACKET) 17 gm DAILY PO Last administered on 02/04/20at 08:44; Start 02/03/20 at 09:00 Sennosides (Senna) 8.6 mg PRN BID PRN PO CONSTIPATION; Start 02/02/20 at 18:30 Folic Acid (Folic Acid) 1 mg DAILY PO Last administered on 02/05/20at 10:37; Start 02/03/20 at 09:00 Magnesium Sulfate 100 ml @ 25 mls/hr 1X ONCE IV Last administered on 02/03/20at 12:28; Start 02/03/20 at 12:30; Stop 02/03/20 at 16:29; Status DC Sodium Chloride 1,000 ml @ 60 mls/hr [id number] IV Last administered on 02/05/20at 10:51; Start 02/03/20 at 12:00 Ondansetron HCl (Zofran) 4 mg PRN Q6HRS PRN IV NAUSEA/VOMITING; Start 02/05/20 at 07:00; Stop 02/06/20 at 06:59 Fentanyl Citrate (Fentanyl 2ml Vial) 25 mcg PRN Q5MIN PRN IV MILD PAIN 1-3; Start 02/05/20 at 07:00; Stop 02/06/20 at 06:59 Fentanyl Citrate (Fentanyl 2ml Vial) 50 mcg PRN Q5MIN PRN IV MODERATE TO SEVERE PAIN; Start 02/05/20 at 07:00; Stop 02/06/20 at 06:59 Morphine Sulfate (Morphine Sulfate) 1 mg PRN Q10MIN PRN IV SEVERE PAIN 7-10; Start 02/05/20 at 07:00; Stop 02/06/20 at 06:59 Ringer's Solution 1,000 ml @ 30 mls/hr Q24H IV ; Start 02/05/20 at 07:00; Stop 02/05/20 at 18:59 Lidocaine HCl (Xylocaine-Mpf 1% 2ml Vial) 2 ml PRN 1X PRN ID PRIOR TO IV START; Start 02/05/20 at 07:00; Stop 02/06/20 at 06:59 Hydromorphone HCl (Dilaudid) 0.5 mg PRN Q10MIN PRN IV SEV PAIN, Second choice; Start 02/05/20 at 07:00; Stop 02/06/20 at 06:59 Prochlorperazine Edisylate (Compazine) 5 mg PACU PRN PRN IV NAUSEA, MRX1; Start 02/05/20 at 07:00; Stop 02/06/20 at 06:59 Lactobacillus Rhamnosus (Culturelle) 1 cap BID PO Last administered on 02/05/20at 10:37; Start 02/04/20 at 21:00 Bupivacaine HCl/ Epinephrine Bitart (Sensorcain-Epi 0.5%-1:[id number] Mpf) 30 ml STK-MED ONCE .ROUTE ; Start 02/05/20 at 06:56; Stop 02/05/20 at 06:56; Status DC Propofol (Diprivan) 200 mg STK-MED ONCE IV ; Start 02/05/20 at 07:53; Stop 02/05/20 at 07:54; Status DC Lidocaine HCl (Lidocaine Pf 2% Vial) 5 ml STK-MED ONCE .ROUTE ; Start 02/05/20 at 07:53; Stop 02/05/20 at 07:54; Status DC Dexamethasone Sodium Phosphate (Decadron) 4 mg STK-MED ONCE .ROUTE ; Start 02/05/20 at 07:53; Stop 02/05/20 at 07:54; Status DC Ondansetron HCl (Zofran) 4 mg STK-MED ONCE .ROUTE ; Start 02/05/20 at 07:54; Stop 02/05/20 at 07:54; Status DC Desflurane (Suprane) 30 ml STK-MED ONCE IH ; Start 02/05/20 at 07:58; Stop 02/05/20 at 07:59; Status DC Fentanyl Citrate (Fentanyl 2ml Vial) 100 mcg STK-MED ONCE .ROUTE ; Start 02/05/20 at 08:25; Stop 02/05/20 at 08:25; Status DC Active Scripts Active Reported Hydroxyurea 500 Mg Capsule 500 Mg PO DAILY Eliquis (Apixaban) 2.5 Mg Tablet 2.5 Mg PO BID Allopurinol 100 Mg Tablet 1 Tab PO DAILY Unisom Sleep Aid (Doxylamine Succinate) 25 Mg Tablet 25 Mg PO HS Multivitamins (Multivitamin) 1 Each Tablet 1 Each PO DAILY Vitamin E (Vitamin E Mixed) 400 Unit Capsule 400 Unit PO DAILY Vitamin B-12 (Cyanocobalamin (Vitamin B-12)) 1,000 Mcg Tablet 1,000 Mcg PO DAILY Hydrochlorothiazide Tablet (Hydrochlorothiazide) 25 Mg Tablet 25 Mg PO DAILY Amlodipine Besylate 2.5 Mg Tablet 2.5 Mg PO DAILY Actos (Pioglitazone Hcl) 30 Mg Tablet 30 Mg PO DAILY08 Omeprazole 20 Mg Tablet.dr 20 Mg PO QHS Crestor (Rosuvastatin Calcium) 10 Mg Tablet 10 Mg PO HS Glipizide 5 Mg Tablet 2.5 Mg PO DAILYBFRSUP Vitals/I & O Vital Sign - Last 24 Hours 02/04/20 02/04/20 02/04/20 02/04/20 15:00 19:00 20:00 23:00 Temp 98.8 98.2 98.3 98.8 98.2 98.3 Pulse 96 110 94 Resp 18 18 18 B/P (MAP) 107/37 (60) 119/40 (66) 117/54 (75) Pulse Ox 96 94 98 O2 Delivery Room Air Room Air Room Air Room Air 02/05/20 02/05/20 02/05/20 02/05/20 03:00 08:30 09:06 09:06 Temp 98.5 97.3 98.5 97.3 Pulse 89 79 Resp 18 14 B/P (MAP) 101/47 (65) 132/64 Pulse Ox 90 100 O2 Delivery Room Air Room Air Simple Mask Mask O2 Flow Rate 8 8 02/05/20 02/05/20 02/05/20 09:20 09:30 11:00 Temp 97.3 98.3 97.3 98.3 Pulse 78 64 Resp 14 18 B/P (MAP) 125/60 124/68 (86) Pulse Ox 99 99 O2 Delivery Room Air Room Air Room Air Intake and Output 02/04/20 02/04/20 02/05/20 15:00 23:00 07:00 Intake Total 220 ml 240 ml Output Total 300 ml 300 ml 400 ml Balance -80 ml -60 ml -400 ml Justicifation of Admission Dx: Justifications for Admission: Justification of Admission Dx: Yes (sepsis and perirectal abscess and acute kidney injury) QAMAR HOUSTON MD Feb 05, 2020 12:41
[2020-02-05] MEDS ORDERED: MAGNESIUM SULFATE 2GM 50 ML IV ONE (12:45)
[2020-02-05 15:00] VITALS: BP 122/68
[2020-02-05] MEDS: glipiZIDE 5 MG TABLET PO SCH (18:03)
[2020-02-05 19:00] VITALS: BP 111/66
[2020-02-05] MEDS ORDERED: DOXY25TA49 PO (19:36)
[2020-02-05] MEDS: [UNRECOGNIZED DRUG - OTHER] PO SCH (21:06)
[2020-02-05 23:00] VITALS: BP 95/48
[2020-02-06 03:00] VITALS: BP 95/38
[2020-02-06] MEDS: PIPERACILLIN/TAZOBACTAM 3.375 GM in IV NORMAL SALINE 50ML 50 ML IV SCH ×3 (06:17→23:00)
[2020-02-06] MEDS: PANTOPRAZOLE 40 MG TABLET.DR. PO SCH (06:18)
[2020-02-06 07:00] VITALS: BP 117/56
--- NOTE | 2020-02-06 09:04 | PDOC ---
Infectious Disease Note Subjective Subjective Slept well, little sore Ate breakfast Denies F/C/N/V/D/SOA ROS ROS as mentioned above Vital Sign Vital Signs Vital Signs Date Time Temp Pulse Resp B/P (MAP) Pulse Ox O2 Delivery O2 Flow Rate FiO2 02/06/20 07:00 98.0 49 16 117/56 (76) 100 Room Air 98.0 02/05/20 09:06 8 Physical Exam PHYSICAL EXAM GENERAL: Propped up in bed, alert, smiling HEENT: Oral cavity pink, moist NECK: Supple, no JVP, no lymphadenopathy. LUNGS: Clear. HEART: S1, S2 regular. ABDOMEN: Soft and nontender EXTREMITIES: No edema or cyanosis. SKIN: warm to touch. No signs of rash RECTAL: Perineal packing in place. NEUROLOGICAL: Alert,answers questions appropriately PIV Labs Lab Laboratory Tests Test 02/05/20 09:10 02/05/20 11:50 02/05/20 17:12 02/05/20 20:43 Glucose (Fingerstick) 84 mg/dL (70-99) 176 mg/dL (70-99) 215 mg/dL (70-99) 211 mg/dL (70-99) Test 02/06/20 08:06 Glucose (Fingerstick) 108 mg/dL (70-99) Micro 02/01. BLOOD CULTURE Final TINY GRAM NEGATIVE COCCO-BACILLI, IN THE ANAEROBIC BOTTLE OF THIS SET. 1 OF 3 BOTTLES, TWO SETS WERE DRAWN. ANAEROBIC-AEROBIC CULTURE Preliminary Preliminary MIXED AEROBIC ANDRE on 02/04/20 at 1050 INCLUDING: ESCHERICHIA COLI ENTEROCOCCUS SPECIES STREPTOCOCCUS ANGINOSUS ANTIMICROBIAL SUSCEPTIBILITY Preliminary NEG URINE COMBO TYPE 86 ESCHERICHIA COLI ANTIBIOTIC RESULT INTERPRETATION AMPICILLIN/SULBACTAM <=8/4 S AMIKACIN <=16 S AMPICILLIN <=8 S AZTREONAM <=4 S CEFTRIAXONE <=1 S CEFTAZIDIME <=1 S CEFOXITIN <=8 S CEFAZOLIN <=2 S CEFEPIME <=2 S CEFTAZIDIME/AVIBACTAM <=8 S ERTAPENEM <=0.5 S GENTAMICIN <=4 S MEROPENEM <=1 S PIPERACILLIN/TAZOBACTAM <=16 S TRIMETHOPRIM/SULFAMETHOXAZOLE <=2/38 S TETRACYCLINE <=4 S TOBRAMYCIN <=4 S Objective Assessment Perineal abscess, which has opened up and is draining. Enterococcus spp, Strep anginosus and E. coli (ESPINOZA-S) so far. s/p I and D 02/04 Fever - better Leukocytosis - better Diabetes. Renal insufficiency. 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 ID still pending Plan Plan of Care Continue Zyvox and Zosyn. s/p steroids Probiotics f/u cultures Local wound care as directed Attending Co-Sign The patient was seen and interviewed as well as examined at the bedside. The chart was reviewed. The case was discussed. Agree with the plan of care. BILLY HARDIN APRN Feb 06, 2020 09:04 ANY DECKER MD Feb 06, 2020 10:27
[2020-02-06] MEDS: PIOGLITAZONE 15 MG TABLET. PO SCH (09:54)
[2020-02-06] MEDS: FOLIC ACID 1 MG TABLET. PO SCH (09:54)
[2020-02-06] MEDS: LACTOBACILLUS RHAMNOSUS GG 1 CAPSULE. PO SCH ×2 (09:54→21:10)
[2020-02-06] MEDS: POLYETHYLENE GLYCOL 3350 17 GM PACKET. PO SCH (09:54)
[2020-02-06] MEDS: ALLOPURINOL 100 MG TABLET. PO SCH (09:55)
[2020-02-06] MEDS: HYDROXYUREA 500 MG CAPSULE PO SCH (10:03)
[2020-02-06] MEDS: IV NORMAL SALINE 1000ML BAG 1,000 ML IV SCH (10:05)
--- NOTE | 2020-02-06 10:42 | PDOC ---
PROGRESS NOTES Subjective Subjective Doing well Objective Objective Vital Signs Date Time Temp Pulse Resp B/P (MAP) Pulse Ox O2 Delivery O2 Flow Rate FiO2 02/06/20 07:00 98.0 49 16 117/56 (76) 100 Room Air 98.0 02/05/20 09:06 8 Intake and Output 02/06/20 07:00 Intake Total 720 ml Output Total 650 ml Balance 70 ml Intake Oral 320 ml IV Total 400 ml Output Urine Total 630 ml Estimated Blood Loss 20 ml # Voids 4 # Bowel Movements 1 Physical Exam Physical Exam dressing intact Assessment Assessment Perirectal abscess Plan Plan of Care Dressing change per nurse today, wound care team eval tomorrow Comment Review of Relevant I have reviewed the following items sanjiv (where applicable) has been applied. Labs Laboratory Tests Test 02/04/20 11:36 02/04/20 16:50 02/04/20 20:55 02/05/20 08:00 Glucose (Fingerstick) 147 mg/dL (70-99) 95 mg/dL (70-99) 129 mg/dL (70-99) White Blood Count 11.5 x10^3/uL (4.0-11.0) Red Blood Count 2.77 x10^6/uL (4.30-5.70) Hemoglobin 8.1 g/dL (13.0-17.5) Hematocrit 24.6 % (39.0-53.0) Mean Corpuscular Volume 89 fL (79-100) Mean Corpuscular Hemoglobin 29 pg (25-35) Mean Corpuscular Hemoglobin Concent 33 g/dL (31-37) Red Cell Distribution Width 16.3 % (11.5-14.5) Platelet Count 476 x10^3/uL (140-400) Neutrophils (%) (Auto) 80 % (31-73) Lymphocytes (%) (Auto) 11 % (24-48) Monocytes (%) (Auto) 8 % (0-9) Eosinophils (%) (Auto) 2 % (0-3) Basophils (%) (Auto) 0 % (0-3) Neutrophils # (Auto) 9.1 x10^3/uL (1.8-7.7) Lymphocytes # (Auto) 1.2 x10^3/uL (1.0-4.8) Monocytes # (Auto) 0.9 x10^3/uL (0.0-1.1) Eosinophils # (Auto) 0.2 x10^3/uL (0.0-0.7) Basophils # (Auto) 0.0 x10^3/uL (0.0-0.2) Sodium Level 139 mmol/L (136-145) Potassium Level 4.0 mmol/L (3.5-5.1) Chloride Level 105 mmol/L (98-107) Carbon Dioxide Level 26 mmol/L (21-32) Anion Gap 8 (6-14) Blood Urea Nitrogen 21 mg/dL (8-26) Creatinine 2.1 mg/dL (0.7-1.3) Estimated GFR (Cockcroft-Gault) 36.9 Glucose Level 112 mg/dL (70-99) Calcium Level 8.7 mg/dL (8.5-10.1) Magnesium Level 1.7 mg/dL (1.8-2.4) Test 02/05/20 09:10 02/05/20 11:50 02/05/20 17:12 02/05/20 20:43 Glucose (Fingerstick) 84 mg/dL (70-99) 176 mg/dL (70-99) 215 mg/dL (70-99) 211 mg/dL (70-99) Test 02/06/20 08:06 Glucose (Fingerstick) 108 mg/dL (70-99) Laboratory Tests Test 02/05/20 11:50 02/05/20 17:12 02/05/20 20:43 02/06/20 08:06 Glucose (Fingerstick) 176 mg/dL (70-99) 215 mg/dL (70-99) 211 mg/dL (70-99) 108 mg/dL (70-99) Microbiology 02/02/20 Gram Stain - Final, Resulted 02/02/20 Aerobic and Anaerobic Culture - Preliminary, Resulted 02/02/20 Antimicrobic Susceptibility - Preliminary, Resulted 02/02/20 Blood Culture - Final, Complete Medications Current Medications Allopurinol (Zyloprim) 100 mg DAILY PO Last administered on 02/06/20at 09:55; Start 02/03/20 at 09:00 Apixaban (Eliquis) 2.5 mg BID PO Last administered on 02/02/20at 21:53; Start 02/02/20 at 21:00; Stop 02/03/20 at 12:00; Status DC Glipizide (Glucotrol) 2.5 mg DAILYBFRSUP PO Last administered on 02/05/20at 18:03; Start 02/02/20 at 18:00 Hydrochlorothiazide (Hydrodiuril) 25 mg DAILY PO ; Start 02/03/20 at 09:00; Stop 02/03/20 at 12:00; Status DC Hydroxyurea (Hydrea) 500 mg DAILY PO Last administered on 02/06/20at 10:03; Start 02/03/20 at 09:00 Amlodipine Besylate (Norvasc) 2.5 mg DAILY PO ; Start 02/03/20 at 09:00; Stop 02/03/20 at 12:00; Status DC Pantoprazole Sodium (Protonix) 40 mg DAILYAC PO Last administered on 02/06/20at 06:18; Start 02/03/20 at 07:30 Pioglitazone HCl (Actos) 30 mg DAILY08 PO Last administered on 02/06/20at 09:54; Start 02/03/20 at 08:00 Non-Formulary Medication (Rosuvastatin Calcium (Crestor)) 10 mg HS PO Last administered on 02/05/20at 21:06; Start 02/02/20 at 21:00 Info (Anti-Coagulation Monitoring By Pharmacy) 1 each PRN DAILY PRN MC SEE COMMENTS; Start 02/02/20 at 18:30 Linezolid/Dextrose 300 ml @ 300 mls/hr Q12HR IV Last administered on 02/06/20at 09:54; Start 02/02/20 at 21:00 Piperacillin Sod/ Tazobactam Sod 3.375 gm/Sodium Chloride 50 ml @ 100 mls/hr Q8HRS IV Last administered on 02/06/20at 06:17; Start 02/02/20 at 20:00 Acetaminophen (Tylenol) 650 mg PRN Q4HRS PRN PO FEVER; Start 02/02/20 at 18:30 Acetaminophen/ Hydrocodone Bitart (Lortab 5/325) 1 tab PRN Q4HRS PRN PO MODERATE PAIN Last administered on 02/03/20at 17:14; Start 02/02/20 at 18:30 Polyethylene Glycol (miraLAX PACKET) 17 gm DAILY PO Last administered on 02/06/20at 09:54; Start 02/03/20 at 09:00 Sennosides (Senna) 8.6 mg PRN BID PRN PO CONSTIPATION; Start 02/02/20 at 18:30 Folic Acid (Folic Acid) 1 mg DAILY PO Last administered on 02/06/20at 09:54; Start 02/03/20 at 09:00 Magnesium Sulfate 100 ml @ 25 mls/hr 1X ONCE IV Last administered on 02/03/20at 12:28; Start 02/03/20 at 12:30; Stop 02/03/20 at 16:29; Status DC Sodium Chloride 1,000 ml @ 40 mls/hr Q24H IV Last administered on 02/06/20at 10:05; Start 02/03/20 at 12:00 Ondansetron HCl (Zofran) 4 mg PRN Q6HRS PRN IV NAUSEA/VOMITING; Start 02/05/20 at 07:00; Stop 02/06/20 at 06:59; Status DC Fentanyl Citrate (Fentanyl 2ml Vial) 25 mcg PRN Q5MIN PRN IV MILD PAIN 1-3; Start 02/05/20 at 07:00; Stop 02/06/20 at 06:59; Status DC Fentanyl Citrate (Fentanyl 2ml Vial) 50 mcg PRN Q5MIN PRN IV MODERATE TO SEVERE PAIN; Start 02/05/20 at 07:00; Stop 02/06/20 at 06:59; Status DC Morphine Sulfate (Morphine Sulfate) 1 mg PRN Q10MIN PRN IV SEVERE PAIN 7-10; Start 02/05/20 at 07:00; Stop 02/06/20 at 06:59; Status DC Ringer's Solution 1,000 ml @ 30 mls/hr Q24H IV ; Start 02/05/20 at 07:00; Stop 02/05/20 at 15:01; Status DC Lidocaine HCl (Xylocaine-Mpf 1% 2ml Vial) 2 ml PRN 1X PRN ID PRIOR TO IV START; Start 02/05/20 at 07:00; Stop 02/06/20 at 06:59; Status DC Hydromorphone HCl (Dilaudid) 0.5 mg PRN Q10MIN PRN IV SEV PAIN, Second choice; Start 02/05/20 at 07:00; Stop 02/06/20 at 06:59; Status DC Prochlorperazine Edisylate (Compazine) 5 mg PACU PRN PRN IV NAUSEA, MRX1; Start 02/05/20 at 07:00; Stop 02/06/20 at 06:59; Status DC Lactobacillus Rhamnosus (Culturelle) 1 cap BID PO Last administered on 02/06/20at 09:54; Start 02/04/20 at 21:00 Bupivacaine HCl/ Epinephrine Bitart (Sensorcain-Epi 0.5%-1:664560 Mpf) 30 ml STK-MED ONCE .ROUTE ; Start 02/05/20 at 06:56; Stop 02/05/20 at 06:56; Status DC Propofol (Diprivan) 200 mg STK-MED ONCE IV ; Start 02/05/20 at 07:53; Stop 02/05/20 at 07:54; Status DC Lidocaine HCl (Lidocaine Pf 2% Vial) 5 ml STK-MED ONCE .ROUTE ; Start 02/05/20 at 07:53; Stop 02/05/20 at 07:54; Status DC Dexamethasone Sodium Phosphate (Decadron) 4 mg STK-MED ONCE .ROUTE ; Start 02/05/20 at 07:53; Stop 02/05/20 at 07:54; Status DC Ondansetron HCl (Zofran) 4 mg STK-MED ONCE .ROUTE ; Start 02/05/20 at 07:54; Stop 02/05/20 at 07:54; Status DC Desflurane (Suprane) 30 ml STK-MED ONCE IH ; Start 02/05/20 at 07:58; Stop 02/05/20 at 07:59; Status DC Fentanyl Citrate (Fentanyl 2ml Vial) 100 mcg STK-MED ONCE .ROUTE ; Start 02/05/20 at 08:25; Stop 02/05/20 at 08:25; Status DC Magnesium Sulfate 50 ml @ 25 mls/hr 1X ONCE IV Last administered on 02/05/20at 14:59; Start 02/05/20 at 12:45; Stop 02/05/20 at 14:44; Status DC Non-Formulary Medication 1 ea QHS PO Last administered on 02/05/20at 21:06; Start 02/05/20 at 21:00 Active Scripts Active Reported Unisom (Doxylamine Succinate) 25 Mg Tablet 50 Mg PO QHS Hydroxyurea 500 Mg Capsule 500 Mg PO DAILY Eliquis (Apixaban) 2.5 Mg Tablet 2.5 Mg PO BID Allopurinol 100 Mg Tablet 1 Tab PO DAILY Unisom Sleep Aid (Doxylamine Succinate) 25 Mg Tablet 25 Mg PO HS Multivitamins (Multivitamin) 1 Each Tablet 1 Each PO DAILY Vitamin E (Vitamin E Mixed) 400 Unit Capsule 400 Unit PO DAILY Vitamin B-12 (Cyanocobalamin (Vitamin B-12)) 1,000 Mcg Tablet 1,000 Mcg PO DAILY Hydrochlorothiazide Tablet (Hydrochlorothiazide) 25 Mg Tablet 25 Mg PO DAILY Amlodipine Besylate 2.5 Mg Tablet 2.5 Mg PO DAILY Actos (Pioglitazone Hcl) 30 Mg Tablet 30 Mg PO DAILY08 Omeprazole 20 Mg Tablet.dr 20 Mg PO QHS Crestor (Rosuvastatin Calcium) 10 Mg Tablet 10 Mg PO HS Glipizide 5 Mg Tablet 2.5 Mg PO DAILYBFRSUP Vitals/I & O Vital Sign - Last 24 Hours 02/05/20 02/05/20 02/05/20 02/05/20 11:00 15:00 19:00 20:00 Temp 98.3 97.9 97.6 98.3 97.9 97.6 Pulse 64 66 99 Resp 18 16 18 B/P (MAP) 124/68 (86) 122/68 (86) 111/66 (81) Pulse Ox 99 91 100 O2 Delivery Room Air Room Air Room Air Room Air 02/05/20 02/06/20 02/06/20 23:00 03:00 07:00 Temp 97.6 97.8 98.0 97.6 97.8 98.0 Pulse 83 76 49 Resp 18 18 16 B/P (MAP) 95/48 (64) 95/38 (57) 117/56 (76) Pulse Ox 99 97 100 O2 Delivery Room Air Room Air Room Air Intake and Output 02/05/20 02/05/20 02/06/20 15:00 23:00 07:00 Intake Total 400 ml 200 ml 120 ml Output Total 200 ml 450 ml Balance 200 ml -250 ml 120 ml Justicifation of Admission Dx: Justifications for Admission: Justification of Admission Dx: Yes (sepsis and perirectal abscess and acute kidney injury) LULY FISHER MD Feb 06, 2020 10:42
[2020-02-06 11:00] VITALS: BP 95/48
--- NOTE | 2020-02-06 11:48 | PDOC ---
PROGRESS NOTES Subjective Subjective feels well. mild pain. bowels are okay. has pyuria. afebrile . bp still on low side. Objective Objective Vital Signs Date Time Temp Pulse Resp B/P (MAP) Pulse Ox O2 Delivery O2 Flow Rate FiO2 02/06/20 11:00 97.9 76 18 95/48 (64) 100 Room Air 97.9 02/05/20 09:06 8 Intake and Output 02/06/20 07:00 Intake Total 720 ml Output Total 650 ml Balance 70 ml Intake Oral 320 ml IV Total 400 ml Output Urine Total 630 ml Estimated Blood Loss 20 ml # Voids 4 # Bowel Movements 1 Physical Exam Abdomen: Soft Heart: Regular rate, Normal S1, Normal S2 Extremities: No edema General: Alert HEENT: Atraumatic Lungs: Clear to auscultation Neuro: Normal speech Psych/Mental Status: Mental status NL Skin: No rashes, Other (perirectal cavity packed ) Assessment Assessment 1. Perirectal abscess. surgical I and D 02/05/20 2. Leukocytosis, unclear what his baseline white count since he has a myeloproliferative disease. improved 3. Anemia, which could be related to myeloproliferative disease. 4. Acute kidney injury on top of chronic kidney disease stage 3, most likely related to inadequate fluid intake, perhaps to hydrochlorothiazide and also sepsis. improved with hydration 5. Sepsis.resolved 6. Hypomagnesemia. treated 7. Coronary artery disease. 8. Hyperlipidemia. 9. Hypertension. 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 11. History of a pulmonary embolus, on Eliquis. 12. Myeloproliferative disorder. gram positive cocci bacilli on 07/23. ID and S pending heme positive stool pyuria moderate aortic regurgitation Plan Plan of Care await final blood culture results urine culture continue iv zosyn and zyvox continue iv normal saline labs tomorrow wound care Comment Review of Relevant I have reviewed the following items sanjiv (where applicable) has been applied. Labs Laboratory Tests Test 02/04/20 16:50 02/04/20 20:55 02/05/20 08:00 02/05/20 09:10 Glucose (Fingerstick) 95 mg/dL (70-99) 129 mg/dL (70-99) 84 mg/dL (70-99) White Blood Count 11.5 x10^3/uL (4.0-11.0) Red Blood Count 2.77 x10^6/uL (4.30-5.70) Hemoglobin 8.1 g/dL (13.0-17.5) Hematocrit 24.6 % (39.0-53.0) Mean Corpuscular Volume 89 fL (79-100) Mean Corpuscular Hemoglobin 29 pg (25-35) Mean Corpuscular Hemoglobin Concent 33 g/dL (31-37) Red Cell Distribution Width 16.3 % (11.5-14.5) Platelet Count 476 x10^3/uL (140-400) Neutrophils (%) (Auto) 80 % (31-73) Lymphocytes (%) (Auto) 11 % (24-48) Monocytes (%) (Auto) 8 % (0-9) Eosinophils (%) (Auto) 2 % (0-3) Basophils (%) (Auto) 0 % (0-3) Neutrophils # (Auto) 9.1 x10^3/uL (1.8-7.7) Lymphocytes # (Auto) 1.2 x10^3/uL (1.0-4.8) Monocytes # (Auto) 0.9 x10^3/uL (0.0-1.1) Eosinophils # (Auto) 0.2 x10^3/uL (0.0-0.7) Basophils # (Auto) 0.0 x10^3/uL (0.0-0.2) Sodium Level 139 mmol/L (136-145) Potassium Level 4.0 mmol/L (3.5-5.1) Chloride Level 105 mmol/L (98-107) Carbon Dioxide Level 26 mmol/L (21-32) Anion Gap 8 (6-14) Blood Urea Nitrogen 21 mg/dL (8-26) Creatinine 2.1 mg/dL (0.7-1.3) Estimated GFR (Cockcroft-Gault) 36.9 Glucose Level 112 mg/dL (70-99) Calcium Level 8.7 mg/dL (8.5-10.1) Magnesium Level 1.7 mg/dL (1.8-2.4) Test 02/05/20 11:50 02/05/20 17:12 02/05/20 20:43 02/06/20 08:06 Glucose (Fingerstick) 176 mg/dL (70-99) 215 mg/dL (70-99) 211 mg/dL (70-99) 108 mg/dL (70-99) Test 02/06/20 10:53 Glucose (Fingerstick) 147 mg/dL (70-99) Laboratory Tests Test 02/05/20 11:50 02/05/20 17:12 02/05/20 20:43 02/06/20 08:06 Glucose (Fingerstick) 176 mg/dL (70-99) 215 mg/dL (70-99) 211 mg/dL (70-99) 108 mg/dL (70-99) Test 02/06/20 10:53 Glucose (Fingerstick) 147 mg/dL (70-99) Microbiology 02/02/20 Gram Stain - Final, Resulted 02/02/20 Aerobic and Anaerobic Culture - Preliminary, Resulted 02/02/20 Antimicrobic Susceptibility - Preliminary, Resulted 02/02/20 Blood Culture - Final, Complete Medications Current Medications Allopurinol (Zyloprim) 100 mg DAILY PO Last administered on 02/06/20at 09:55; Start 02/03/20 at 09:00 Apixaban (Eliquis) 2.5 mg BID PO Last administered on 02/02/20at 21:53; Start 02/02/20 at 21:00; Stop 02/03/20 at 12:00; Status DC Glipizide (Glucotrol) 2.5 mg DAILYBFRSUP PO Last administered on 02/05/20at 18:03; Start 02/02/20 at 18:00 Hydrochlorothiazide (Hydrodiuril) 25 mg DAILY PO ; Start 02/03/20 at 09:00; Stop 02/03/20 at 12:00; Status DC Hydroxyurea (Hydrea) 500 mg DAILY PO Last administered on 02/06/20at 10:03; Start 02/03/20 at 09:00 Amlodipine Besylate (Norvasc) 2.5 mg DAILY PO ; Start 02/03/20 at 09:00; Stop 02/03/20 at 12:00; Status DC Pantoprazole Sodium (Protonix) 40 mg DAILYAC PO Last administered on 02/06/20at 06:18; Start 02/03/20 at 07:30 Pioglitazone HCl (Actos) 30 mg DAILY08 PO Last administered on 02/06/20 09:54; Start 02/03/20 at 08:00 Non-Formulary Medication (Rosuvastatin Calcium (Crestor)) 10 mg HS PO Last administered on 02/05/20at 21:06; Start 02/02/20 at 21:00 Info (Anti-Coagulation Monitoring By Pharmacy) 1 each PRN DAILY PRN MC SEE COMMENTS; Start 02/02/20 at 18:30 Linezolid/Dextrose 300 ml @ 300 mls/hr Q12HR IV Last administered on 02/06/20at 09:54; Start 02/02/20 at 21:00 Piperacillin Sod/ Tazobactam Sod 3.375 gm/Sodium Chloride 50 ml @ 100 mls/hr Q8HRS IV Last administered on 02/06/20 06:17; Start 02/02/20 at 20:00 Acetaminophen (Tylenol) 650 mg PRN Q4HRS PRN PO FEVER; Start 02/02/20 at 18:30 Acetaminophen/ Hydrocodone Bitart (Lortab 5/325) 1 tab PRN Q4HRS PRN PO MODERATE PAIN Last administered on 02/03/20at 17:14; Start 02/02/20 at 18:30 Polyethylene Glycol (miraLAX PACKET) 17 gm DAILY PO Last administered on 02/06/20 09:54; Start 02/03/20 at 09:00 Sennosides (Senna) 8.6 mg PRN BID PRN PO CONSTIPATION; Start 02/02/20 at 18:30 Folic Acid (Folic Acid) 1 mg DAILY PO Last administered on 02/06/20at 09:54; Start 02/03/20 at 09:00 Magnesium Sulfate 100 ml @ 25 mls/hr 1X ONCE IV Last administered on 02/03/20at 12:28; Start 02/03/20 at 12:30; Stop 02/03/20 at 16:29; Status DC Sodium Chloride 1,000 ml @ 40 mls/hr Q24H IV Last administered on 02/06/20at 10:05; Start 02/03/20 at 12:00 Ondansetron HCl (Zofran) 4 mg PRN Q6HRS PRN IV NAUSEA/VOMITING; Start 02/05/20 at 07:00; Stop 02/06/20 at 06:59; Status DC Fentanyl Citrate (Fentanyl 2ml Vial) 25 mcg PRN Q5MIN PRN IV MILD PAIN 1-3; Start 02/05/20 at 07:00; Stop 02/06/20 at 06:59; Status DC Fentanyl Citrate (Fentanyl 2ml Vial) 50 mcg PRN Q5MIN PRN IV MODERATE TO SEVERE PAIN; Start 02/05/20 at 07:00; Stop 02/06/20 at 06:59; Status DC Morphine Sulfate (Morphine Sulfate) 1 mg PRN Q10MIN PRN IV SEVERE PAIN 7-10; Start 02/05/20 at 07:00; Stop 02/06/20 at 06:59; Status DC Ringer's Solution 1,000 ml @ 30 mls/hr Q24H IV ; Start 02/05/20 at 07:00; Stop 02/05/20 at 15:01; Status DC Lidocaine HCl (Xylocaine-Mpf 1% 2ml Vial) 2 ml PRN 1X PRN ID PRIOR TO IV START; Start 02/05/20 at 07:00; Stop 02/06/20 at 06:59; Status DC Hydromorphone HCl (Dilaudid) 0.5 mg PRN Q10MIN PRN IV SEV PAIN, Second choice; Start 02/05/20 at 07:00; Stop 02/06/20 at 06:59; Status DC Prochlorperazine Edisylate (Compazine) 5 mg PACU PRN PRN IV NAUSEA, MRX1; Start 02/05/20 at 07:00; Stop 02/06/20 at 06:59; Status DC Lactobacillus Rhamnosus (Culturelle) 1 cap BID PO Last administered on 02/06/20at 09:54; Start 02/04/20 at 21:00 Bupivacaine HCl/ Epinephrine Bitart (Sensorcain-Epi 0.5%-1:957862 Mpf) 30 ml STK-MED ONCE .ROUTE ; Start 02/05/20 at 06:56; Stop 02/05/20 at 06:56; Status DC Propofol (Diprivan) 200 mg STK-MED ONCE IV ; Start 02/05/20 at 07:53; Stop 02/05/20 at 07:54; Status DC Lidocaine HCl (Lidocaine Pf 2% Vial) 5 ml STK-MED ONCE .ROUTE ; Start 02/05/20 at 07:53; Stop 02/05/20 at 07:54; Status DC Dexamethasone Sodium Phosphate (Decadron) 4 mg STK-MED ONCE .ROUTE ; Start 02/05/20 at 07:53; Stop 02/05/20 at 07:54; Status DC Ondansetron HCl (Zofran) 4 mg STK-MED ONCE .ROUTE ; Start 02/05/20 at 07:54; Stop 02/05/20 at 07:54; Status DC Desflurane (Suprane) 30 ml STK-MED ONCE IH ; Start 02/05/20 at 07:58; Stop 02/05/20 at 07:59; Status DC Fentanyl Citrate (Fentanyl 2ml Vial) 100 mcg STK-MED ONCE .ROUTE ; Start 02/05/20 at 08:25; Stop 02/05/20 at 08:25; Status DC Magnesium Sulfate 50 ml @ 25 mls/hr 1X ONCE IV Last administered on 02/05/20at 14:59; Start 02/05/20 at 12:45; Stop 02/05/20 at 14:44; Status DC Non-Formulary Medication 1 ea QHS PO Last administered on 02/05/20at 21:06; Start 02/05/20 at 21:00 Active Scripts Active Reported Unisom (Doxylamine Succinate) 25 Mg Tablet 50 Mg PO QHS Hydroxyurea 500 Mg Capsule 500 Mg PO DAILY Eliquis (Apixaban) 2.5 Mg Tablet 2.5 Mg PO BID Allopurinol 100 Mg Tablet 1 Tab PO DAILY Unisom Sleep Aid (Doxylamine Succinate) 25 Mg Tablet 25 Mg PO HS Multivitamins (Multivitamin) 1 Each Tablet 1 Each PO DAILY Vitamin E (Vitamin E Mixed) 400 Unit Capsule 400 Unit PO DAILY Vitamin B-12 (Cyanocobalamin (Vitamin B-12)) 1,000 Mcg Tablet 1,000 Mcg PO DAILY Hydrochlorothiazide Tablet (Hydrochlorothiazide) 25 Mg Tablet 25 Mg PO DAILY Amlodipine Besylate 2.5 Mg Tablet 2.5 Mg PO DAILY Actos (Pioglitazone Hcl) 30 Mg Tablet 30 Mg PO DAILY08 Omeprazole 20 Mg Tablet.dr 20 Mg PO QHS Crestor (Rosuvastatin Calcium) 10 Mg Tablet 10 Mg PO HS Glipizide 5 Mg Tablet 2.5 Mg PO DAILYBFRSUP Vitals/I & O Vital Sign - Last 24 Hours 02/05/20 02/05/20 02/05/20 02/05/20 15:00 19:00 20:00 23:00 Temp 97.9 97.6 97.6 97.9 97.6 97.6 Pulse 66 99 83 Resp 16 18 18 B/P (MAP) 122/68 (86) 111/66 (81) 95/48 (64) Pulse Ox 91 100 99 O2 Delivery Room Air Room Air Room Air Room Air 02/06/20 02/06/20 02/06/20 02/06/20 03:00 07:00 08:00 11:00 Temp 97.8 98.0 97.9 97.8 98.0 97.9 Pulse 76 49 76 Resp 18 16 18 B/P (MAP) 95/38 (57) 117/56 (76) 95/48 (64) Pulse Ox 97 100 100 O2 Delivery Room Air Room Air Room Air Room Air Intake and Output 02/05/20 02/05/20 02/06/20 15:00 23:00 07:00 Intake Total 400 ml 200 ml 120 ml Output Total 200 ml 450 ml Balance 200 ml -250 ml 120 ml Justicifation of Admission Dx: Justifications for Admission: Justification of Admission Dx: Yes (sepsis and perirectal abscess and acute kidney injury) QAMAR HOUSTON MD Feb 06, 2020 11:48
[2020-02-06] MEDS: HYDROcodone/APAP 5/325MG 1 TAB TABLET PO PRN ×2 (14:01→23:01)
[2020-02-06 15:00] VITALS: BP 106/55
[2020-02-06] MEDS: glipiZIDE 5 MG TABLET PO SCH (17:34)
[2020-02-06 19:00] VITALS: BP 107/45
[2020-02-06] MEDS: [UNRECOGNIZED DRUG - OTHER] PO SCH (21:08)
[2020-02-06 23:00] VITALS: BP 101/41
[2020-02-07 03:00] VITALS: BP 105/49
[2020-02-07 04:28] LABS: BASO # 0.1 x10^3/uL (0.0-0.2); BASO % 1 % (0-3); EOS # 0.2 x10^3/uL (0.0-0.7); EOS % 2 % (0-3); HEMATOCRIT 22.6 % (39.0-53.0); HEMOGLOBIN 7.5 g/dL (13.0-17.5); LYMPH # 2.9 x10^3/uL (1.0-4.8); LYMPH % 23 % (24-48); MEAN CORPUSCULAR HEMOGLOBIN 30 pg (25-35); MEAN CORPUSCULAR HGB CONC 33 g/dL (31-37); MEAN CORPUSCULAR VOLUME 90 fL (79-100); MONO # 0.8 x10^3/uL (0.0-1.1); MONO % 6 % (0-9); NEUT # 8.8 x10^3/uL (1.8-7.7); NEUT % 69 % (31-73); PLATELET COUNT 432 x10^3/uL (140-400); RED BLOOD COUNT 2.52 x10^6/uL (4.30-5.70); RED CELL DISTRIBUTION WIDTH 16.4 % (11.5-14.5); WHITE BLOOD COUNT 12.7 x10^3/uL (4.0-11.0)
[2020-02-07 04:49] LABS: ALBUMIN 2.1 g/dL (3.4-5.0); ALBUMIN/GLOBULIN RATIO 0.5 (1.0-1.7); CALCIUM 8.2 mg/dL (8.5-10.1); CREATININE 1.9 mg/dL (0.7-1.3); GFR 41.4; POTASSIUM 3.8 mmol/L (3.5-5.1); TOTAL BILIRUBIN 0.2 mg/dL (0.2-1.0); TOTAL PROTEIN 6.6 g/dL (6.4-8.2)
[2020-02-07] MEDS: PIPERACILLIN/TAZOBACTAM 3.375 GM in IV NORMAL SALINE 50ML 50 ML IV SCH ×3 (05:52→22:59)
[2020-02-07 06:31] LABS: FECAL OB PT POSITIVE (NEG)
[2020-02-07 07:00] VITALS: BP 113/60
[2020-02-07] MEDS: PIOGLITAZONE 15 MG TABLET. PO SCH (08:51)
[2020-02-07] MEDS: FOLIC ACID 1 MG TABLET. PO SCH (08:51)
[2020-02-07] MEDS: PANTOPRAZOLE 40 MG TABLET.DR. PO SCH (08:52)
[2020-02-07] MEDS: LACTOBACILLUS RHAMNOSUS GG 1 CAPSULE. PO SCH ×2 (08:52→21:44)
[2020-02-07] MEDS: HYDROXYUREA 500 MG CAPSULE PO SCH (08:52)
[2020-02-07] MEDS: ALLOPURINOL 100 MG TABLET. PO SCH (08:52)
[2020-02-07] MEDS: POLYETHYLENE GLYCOL 3350 17 GM PACKET. PO SCH (08:56)
--- NOTE | 2020-02-07 10:02 | PDOC ---
Infectious Disease Note Subjective: Subjective Patient without complaintS Blood sugar was low earlier today but now under control Denies fever, nausea, vomiting, shortness of breath, diarrhea, abdominal pain, rash Otherwise as above Vital Signs: Vital Signs Vital Signs Date Time Temp Pulse Resp B/P (MAP) Pulse Ox O2 Delivery O2 Flow Rate FiO2 02/07/20 08:02 Room Air 02/07/20 07:00 97.9 84 18 113/60 (77) 99 97.9 Physical Exam: PHYSICAL EXAM GENERAL: Propped up in bed, alert, smiling HEENT: Oral cavity pink, moist NECK: Supple, no JVP, no lymphadenopathy. LUNGS: Clear. HEART: S1, S2 regular. ABDOMEN: Soft and nontender EXTREMITIES: No edema or cyanosis. SKIN: warm to touch. No signs of rash RECTAL: Perineal packing in place. NEUROLOGICAL: Alert,answers questions appropriately PIV Medications: Inpatient Meds: Current Medications Medications (Trade) Dose Ordered Sig/Minnie Start Time Stop Time Status Last Admin Dose Admin Acetaminophen (Tylenol) 650 mg PRN Q4HRS PRN 02/02/20 18:30 Acetaminophen/ Hydrocodone Bitart (Lortab 5/325) 1 tab PRN Q4HRS PRN 02/02/20 18:30 02/06/20 23:01 1 TAB Allopurinol (Zyloprim) 100 mg DAILY 02/03/20 09:00 02/07/20 08:52 100 MG Amlodipine Besylate (Norvasc) 2.5 mg DAILY 02/03/20 09:00 02/03/20 12:00 DC Apixaban (Eliquis) 2.5 mg BID 02/02/20 21:00 02/03/20 12:00 DC 02/02/20 21:53 2.5 MG Bupivacaine HCl/ Epinephrine Bitart (Sensorcain-Epi 0.5%-1:[id number] Mpf) 30 ml STK-MED ONCE 02/05/20 06:56 02/05/20 06:56 DC Desflurane (Suprane) 30 ml STK-MED ONCE 02/05/20 07:58 02/05/20 07:59 DC Dexamethasone Sodium Phosphate (Decadron) 4 mg STK-MED ONCE 02/05/20 07:53 02/05/20 07:54 DC Fentanyl Citrate (Fentanyl 2ml Vial) 100 mcg STK-MED ONCE 02/05/20 08:25 02/05/20 08:25 DC Folic Acid (Folic Acid) 1 mg DAILY 02/03/20 09:00 02/07/20 08:51 1 MG Glipizide (Glucotrol) 2.5 mg DAILYBFRSUP 02/02/20 18:00 02/06/20 17:34 2.5 MG Hydrochlorothiazide (Hydrodiuril) 25 mg DAILY 02/03/20 09:00 02/03/20 12:00 DC Hydromorphone HCl (Dilaudid) 0.5 mg PRN Q10MIN PRN 02/05/20 07:00 02/06/20 06:59 DC Hydroxyurea (Hydrea) 500 mg DAILY 02/03/20 09:00 02/07/20 08:52 500 MG Info (Anti-Coagulation Monitoring By Pharmacy) 1 each PRN DAILY PRN 02/02/20 18:30 Lactobacillus Rhamnosus (Culturelle) 1 cap BID 02/04/20 21:00 02/07/20 08:52 1 CAP Lidocaine HCl (Lidocaine Pf 2% Vial) 5 ml STK-MED ONCE 02/05/20 07:53 02/05/20 07:54 DC Lidocaine HCl (Xylocaine-Mpf 1% 2ml Vial) 2 ml PRN 1X PRN 02/05/20 07:00 02/06/20 06:59 DC Linezolid/Dextrose 300 ml @ 300 mls/hr Q12HR 02/02/20 21:00 02/07/20 08:51 300 MLS/HR Magnesium Sulfate 50 ml @ 25 mls/hr 1X ONCE 02/05/20 12:45 02/05/20 14:44 DC 02/05/20 14:59 25 MLS/HR Morphine Sulfate (Morphine Sulfate) 1 mg PRN Q10MIN PRN 02/05/20 07:00 02/06/20 06:59 DC Non-Formulary Medication 1 ea QHS 02/05/20 21:00 02/06/20 21:08 1 EA Non-Formulary Medication (Rosuvastatin Calcium (Crestor)) 10 mg HS 02/02/20 21:00 02/06/20 21:09 10 MG Ondansetron HCl (Zofran) 4 mg STK-MED ONCE 02/05/20 07:54 02/05/20 07:54 DC Pantoprazole Sodium (Protonix) 40 mg DAILYAC 02/03/20 07:30 02/07/20 08:52 40 MG Pioglitazone HCl (Actos) 30 mg DAILY08 02/03/20 08:00 02/07/20 08:51 30 MG Piperacillin Sod/ Tazobactam Sod 3.375 gm/Sodium Chloride 50 ml @ 100 mls/hr Q8HRS 02/02/20 20:00 02/07/20 05:52 100 MLS/HR Polyethylene Glycol (miraLAX PACKET) 17 gm DAILY 02/03/20 09:00 02/06/20 09:54 17 GM Prochlorperazine Edisylate (Compazine) 5 mg PACU PRN PRN 02/05/20 07:00 02/06/20 06:59 DC Propofol (Diprivan) 200 mg STK-MED ONCE 02/05/20 07:53 02/05/20 07:54 DC Ringer's Solution 1,000 ml @ 30 mls/hr Q24H 02/05/20 07:00 02/05/20 15:01 DC Sennosides (Senna) 8.6 mg PRN BID PRN 02/02/20 18:30 Sodium Chloride 1,000 ml @ 40 mls/hr Q24H 02/03/20 12:00 02/06/20 10:05 40 MLS/HR Labs: Lab Laboratory Tests Test 02/06/20 10:53 02/06/20 16:52 02/06/20 21:11 02/07/20 04:10 Glucose (Fingerstick) 147 mg/dL (70-99) 78 mg/dL (70-99) 107 mg/dL (70-99) White Blood Count 12.7 x10^3/uL (4.0-11.0) Red Blood Count 2.52 x10^6/uL (4.30-5.70) Hemoglobin 7.5 g/dL (13.0-17.5) Hematocrit 22.6 % (39.0-53.0) Mean Corpuscular Volume 90 fL (79-100) Mean Corpuscular Hemoglobin 30 pg (25-35) Mean Corpuscular Hemoglobin Concent 33 g/dL (31-37) Red Cell Distribution Width 16.4 % (11.5-14.5) Platelet Count 432 x10^3/uL (140-400) Neutrophils (%) (Auto) 69 % (31-73) Lymphocytes (%) (Auto) 23 % (24-48) Monocytes (%) (Auto) 6 % (0-9) Eosinophils (%) (Auto) 2 % (0-3) Basophils (%) (Auto) 1 % (0-3) Neutrophils # (Auto) 8.8 x10^3/uL (1.8-7.7) Lymphocytes # (Auto) 2.9 x10^3/uL (1.0-4.8) Monocytes # (Auto) 0.8 x10^3/uL (0.0-1.1) Eosinophils # (Auto) 0.2 x10^3/uL (0.0-0.7) Basophils # (Auto) 0.1 x10^3/uL (0.0-0.2) Sodium Level 141 mmol/L (136-145) Potassium Level 3.8 mmol/L (3.5-5.1) Chloride Level 106 mmol/L (98-107) Carbon Dioxide Level 27 mmol/L (21-32) Anion Gap 8 (6-14) Blood Urea Nitrogen 19 mg/dL (8-26) Creatinine 1.9 mg/dL (0.7-1.3) Estimated GFR (Cockcroft-Gault) 41.4 BUN/Creatinine Ratio 10 (6-20) Glucose Level 69 mg/dL (70-99) Calcium Level 8.2 mg/dL (8.5-10.1) Magnesium Level 1.9 mg/dL (1.8-2.4) Total Bilirubin 0.2 mg/dL (0.2-1.0) Aspartate Amino Transf (AST/SGOT) 20 U/L (15-37) Alanine Aminotransferase (ALT/SGPT) 16 U/L (16-63) Alkaline Phosphatase 84 U/L (46-116) Total Protein 6.6 g/dL (6.4-8.2) Albumin 2.1 g/dL (3.4-5.0) Albumin/Globulin Ratio 0.5 (1.0-1.7) Test 02/07/20 06:00 02/07/20 07:21 Stool Occult Blood Positive (NEG) Glucose (Fingerstick) 60 mg/dL (70-99) Micro RUN DATE: 02/06/20 [facility] LAB *LIVE* PAGE 1 RUN TIME: 850 Specimen Inquiry PATIENT: MARITZA TIM RIVERO ACCT: [id number] LOC: [address] [place] [address] U: [id number] AGE/SX: 79/M ROOM: 424 RE02/02/[address]: QAMAR HOUSTON MD : [id number] BED: 1 DIS: STATUS: ADM IN TLOC: SPEC #: [id number] ROXIE: 02/02/20-1999 STATUS: COMP REQ #: [id number] RECD: 02/02/20-[address]: QAMAR HOUSTON MD SOURCE: BLOOD ENTR: 02/03/20-[address]: ANY DECKER MD SPDESC: LULY FISHER MD ORDERED: PAUL PETTY - LC Procedure Result BLOOD CULTURE LC Final Final No Growth on 02/06/20 at 0844 Note: Gram stain smears were repeated and reviewed. No organisms were observed and all subculture plates were no growth at initial subculture and repeat subculture. CALLED TO SHANELL AT [facility]. TIME CALLED: 845 Unless otherwise specified, Testing Performed by: [address] [address] For Inquires, the Physician may contact the Microbiology department at [phone] Objective: Assessment: Perineal abscess, which has opened up and is draining. Enterococcus spp, Strep anginosus ,bacteroides fragilis, and E. coli (ESPINOZA-S) so far. s/p I and D 02/04 MICRO ESCHERICHIA COLI STREPTOCOCCUS ANGINOSUS BACTEROIDES FRAGILIS ENTEROCOCCUS SPECIES Fever - better Leukocytosis - better Anemia Diabetes. Renal insufficiency. 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 ID still pending, no growth on subculture Plan: Plan of Care Continue Zyvox and Zosyn. s/p steroids Probiotics f/u cultures Local wound care as directed BROOKS DECKER MD Feb 07, 2020 10:02
--- NOTE | 2020-02-07 10:14 | PDOC ---
CHANTELL GARCIA SENIOR QA TESTER 02/07/20 1014: SURGICAL PROGRESS NOTE Subjective some pain at wound site Vital Signs Vital Signs Date Time Temp Pulse Resp B/P (MAP) Pulse Ox O2 Delivery O2 Flow Rate FiO2 02/07/20 08:02 Room Air 02/07/20 07:00 97.9 84 18 113/60 (77) 99 97.9 I&O Intake and Output 02/07/20 07:00 Intake Total 220 ml Output Total 200 ml Balance 20 ml Intake Oral 220 ml Output Urine Total 200 ml # Voids 4 # Bowel Movements 1 General: Alert, Oriented X3, Cooperative, No acute distress Skin: Other (wound clean, packed, some drainage ) Labs Laboratory Tests Test 02/05/20 11:50 02/05/20 17:12 02/05/20 20:43 02/06/20 08:06 Glucose (Fingerstick) 176 mg/dL (70-99) 215 mg/dL (70-99) 211 mg/dL (70-99) 108 mg/dL (70-99) Test 02/06/20 10:53 02/06/20 16:52 02/06/20 21:11 02/07/20 04:10 Glucose (Fingerstick) 147 mg/dL (70-99) 78 mg/dL (70-99) 107 mg/dL (70-99) White Blood Count 12.7 x10^3/uL (4.0-11.0) Red Blood Count 2.52 x10^6/uL (4.30-5.70) Hemoglobin 7.5 g/dL (13.0-17.5) Hematocrit 22.6 % (39.0-53.0) Mean Corpuscular Volume 90 fL (79-100) Mean Corpuscular Hemoglobin 30 pg (25-35) Mean Corpuscular Hemoglobin Concent 33 g/dL (31-37) Red Cell Distribution Width 16.4 % (11.5-14.5) Platelet Count 432 x10^3/uL (140-400) Neutrophils (%) (Auto) 69 % (31-73) Lymphocytes (%) (Auto) 23 % (24-48) Monocytes (%) (Auto) 6 % (0-9) Eosinophils (%) (Auto) 2 % (0-3) Basophils (%) (Auto) 1 % (0-3) Neutrophils # (Auto) 8.8 x10^3/uL (1.8-7.7) Lymphocytes # (Auto) 2.9 x10^3/uL (1.0-4.8) Monocytes # (Auto) 0.8 x10^3/uL (0.0-1.1) Eosinophils # (Auto) 0.2 x10^3/uL (0.0-0.7) Basophils # (Auto) 0.1 x10^3/uL (0.0-0.2) Sodium Level 141 mmol/L (136-145) Potassium Level 3.8 mmol/L (3.5-5.1) Chloride Level 106 mmol/L (98-107) Carbon Dioxide Level 27 mmol/L (21-32) Anion Gap 8 (6-14) Blood Urea Nitrogen 19 mg/dL (8-26) Creatinine 1.9 mg/dL (0.7-1.3) Estimated GFR (Cockcroft-Gault) 41.4 BUN/Creatinine Ratio 10 (6-20) Glucose Level 69 mg/dL (70-99) Calcium Level 8.2 mg/dL (8.5-10.1) Magnesium Level 1.9 mg/dL (1.8-2.4) Total Bilirubin 0.2 mg/dL (0.2-1.0) Aspartate Amino Transf (AST/SGOT) 20 U/L (15-37) Alanine Aminotransferase (ALT/SGPT) 16 U/L (16-63) Alkaline Phosphatase 84 U/L (46-116) Total Protein 6.6 g/dL (6.4-8.2) Albumin 2.1 g/dL (3.4-5.0) Albumin/Globulin Ratio 0.5 (1.0-1.7) Test 02/07/20 06:00 02/07/20 07:21 Stool Occult Blood Positive (NEG) Glucose (Fingerstick) 60 mg/dL (70-99) Laboratory Tests Test 02/06/20 10:53 02/06/20 16:52 02/06/20 21:11 02/07/20 04:10 Glucose (Fingerstick) 147 mg/dL (70-99) 78 mg/dL (70-99) 107 mg/dL (70-99) White Blood Count 12.7 x10^3/uL (4.0-11.0) Red Blood Count 2.52 x10^6/uL (4.30-5.70) Hemoglobin 7.5 g/dL (13.0-17.5) Hematocrit 22.6 % (39.0-53.0) Mean Corpuscular Volume 90 fL (79-100) Mean Corpuscular Hemoglobin 30 pg (25-35) Mean Corpuscular Hemoglobin Concent 33 g/dL (31-37) Red Cell Distribution Width 16.4 % (11.5-14.5) Platelet Count 432 x10^3/uL (140-400) Neutrophils (%) (Auto) 69 % (31-73) Lymphocytes (%) (Auto) 23 % (24-48) Monocytes (%) (Auto) 6 % (0-9) Eosinophils (%) (Auto) 2 % (0-3) Basophils (%) (Auto) 1 % (0-3) Neutrophils # (Auto) 8.8 x10^3/uL (1.8-7.7) Lymphocytes # (Auto) 2.9 x10^3/uL (1.0-4.8) Monocytes # (Auto) 0.8 x10^3/uL (0.0-1.1) Eosinophils # (Auto) 0.2 x10^3/uL (0.0-0.7) Basophils # (Auto) 0.1 x10^3/uL (0.0-0.2) Sodium Level 141 mmol/L (136-145) Potassium Level 3.8 mmol/L (3.5-5.1) Chloride Level 106 mmol/L (98-107) Carbon Dioxide Level 27 mmol/L (21-32) Anion Gap 8 (6-14) Blood Urea Nitrogen 19 mg/dL (8-26) Creatinine 1.9 mg/dL (0.7-1.3) Estimated GFR (Cockcroft-Gault) 41.4 BUN/Creatinine Ratio 10 (6-20) Glucose Level 69 mg/dL (70-99) Calcium Level 8.2 mg/dL (8.5-10.1) Magnesium Level 1.9 mg/dL (1.8-2.4) Total Bilirubin 0.2 mg/dL (0.2-1.0) Aspartate Amino Transf (AST/SGOT) 20 U/L (15-37) Alanine Aminotransferase (ALT/SGPT) 16 U/L (16-63) Alkaline Phosphatase 84 U/L (46-116) Total Protein 6.6 g/dL (6.4-8.2) Albumin 2.1 g/dL (3.4-5.0) Albumin/Globulin Ratio 0.5 (1.0-1.7) Test 02/07/20 06:00 02/07/20 07:21 Stool Occult Blood Positive (NEG) Glucose (Fingerstick) 60 mg/dL (70-99) Assessment/Plan s/p I&D wound care Justicifation of Admission Dx: Justifications for Admission: Justification of Admission Dx: Yes (sepsis and perirectal abscess and acute ki dney injury) LULY FISHER MD 02/07/20 1104: SURGICAL PROGRESS NOTE Assessment/Plan Wound care team to see CHANTELL GARCIA APRN Feb 07, 2020 10:14 LULY FISHER MD Feb 07, 2020 11:04
--- NOTE | 2020-02-07 10:30 | NUR ---
medicated with Lortab then repacked incision with nu gauze and 4x4's then mesh pants on. bloody drainage.
--- NOTE | 2020-02-07 10:41 | PDOC ---
PROGRESS NOTES Subjective Subjective feels well. lab reviewed. wound not currently packed and nurse to repack.fbs 60 and will d/c glipizide Objective Objective Vital Signs Date Time Temp Pulse Resp B/P (MAP) Pulse Ox O2 Delivery O2 Flow Rate FiO2 02/07/20 08:02 Room Air 02/07/20 07:00 97.9 84 18 113/60 (77) 99 97.9 02/05/20 09:06 8 Intake and Output 02/07/20 07:00 Intake Total 220 ml Output Total 200 ml Balance 20 ml Intake Oral 220 ml Output Urine Total 200 ml # Voids 4 # Bowel Movements 1 Physical Exam Abdomen: Soft Heart: Regular rate, Normal S1, Normal S2 Extremities: No edema General: Alert HEENT: Atraumatic Lungs: Clear to auscultation Neuro: Normal speech Psych/Mental Status: Mental status NL Skin: No rashes, Other (perirectal woune not packed and blood came out of it) Assessment Assessment 1. Perirectal abscess. surgical I and D 02/05/20 2. Leukocytosis, unclear what his baseline white count since he has a myeloproliferative disease. improved 3. Anemia, which could be related to myeloproliferative disease. 4. Acute kidney injury on top of chronic kidney disease stage 3, most likely related to inadequate fluid intake, perhaps to hydrochlorothiazide and also sepsis. improved with hydration 5. Sepsis.resolved 6. Hypomagnesemia. treated 7. Coronary artery disease. 8. Hyperlipidemia. 9. Hypertension. 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 hypoglycemia 11. History of a pulmonary embolus, on Eliquis. 12. Myeloproliferative disorder. gram positive cocci bacilli on 07/23 BC. ID and S pending heme positive stool pyuria moderate aortic regurgitation\ severe protein calorie malnutrition Plan Plan of Care continue iv zosyn and zyvox continue wound care d/c glipizide continue actos continue iv fluids Comment Review of Relevant I have reviewed the following items sanjiv (where applicable) has been applied. Labs Laboratory Tests Test 02/05/20 11:50 02/05/20 17:12 02/05/20 20:43 02/06/20 08:06 Glucose (Fingerstick) 176 mg/dL (70-99) 215 mg/dL (70-99) 211 mg/dL (70-99) 108 mg/dL (70-99) Test 02/06/20 10:53 02/06/20 16:52 02/06/20 21:11 02/07/20 04:10 Glucose (Fingerstick) 147 mg/dL (70-99) 78 mg/dL (70-99) 107 mg/dL (70-99) White Blood Count 12.7 x10^3/uL (4.0-11.0) Red Blood Count 2.52 x10^6/uL (4.30-5.70) Hemoglobin 7.5 g/dL (13.0-17.5) Hematocrit 22.6 % (39.0-53.0) Mean Corpuscular Volume 90 fL (79-100) Mean Corpuscular Hemoglobin 30 pg (25-35) Mean Corpuscular Hemoglobin Concent 33 g/dL (31-37) Red Cell Distribution Width 16.4 % (11.5-14.5) Platelet Count 432 x10^3/uL (140-400) Neutrophils (%) (Auto) 69 % (31-73) Lymphocytes (%) (Auto) 23 % (24-48) Monocytes (%) (Auto) 6 % (0-9) Eosinophils (%) (Auto) 2 % (0-3) Basophils (%) (Auto) 1 % (0-3) Neutrophils # (Auto) 8.8 x10^3/uL (1.8-7.7) Lymphocytes # (Auto) 2.9 x10^3/uL (1.0-4.8) Monocytes # (Auto) 0.8 x10^3/uL (0.0-1.1) Eosinophils # (Auto) 0.2 x10^3/uL (0.0-0.7) Basophils # (Auto) 0.1 x10^3/uL (0.0-0.2) Sodium Level 141 mmol/L (136-145) Potassium Level 3.8 mmol/L (3.5-5.1) Chloride Level 106 mmol/L (98-107) Carbon Dioxide Level 27 mmol/L (21-32) Anion Gap 8 (6-14) Blood Urea Nitrogen 19 mg/dL (8-26) Creatinine 1.9 mg/dL (0.7-1.3) Estimated GFR (Cockcroft-Gault) 41.4 BUN/Creatinine Ratio 10 (6-20) Glucose Level 69 mg/dL (70-99) Calcium Level 8.2 mg/dL (8.5-10.1) Magnesium Level 1.9 mg/dL (1.8-2.4) Total Bilirubin 0.2 mg/dL (0.2-1.0) Aspartate Amino Transf (AST/SGOT) 20 U/L (15-37) Alanine Aminotransferase (ALT/SGPT) 16 U/L (16-63) Alkaline Phosphatase 84 U/L (46-116) Total Protein 6.6 g/dL (6.4-8.2) Albumin 2.1 g/dL (3.4-5.0) Albumin/Globulin Ratio 0.5 (1.0-1.7) Test 02/07/20 06:00 02/07/20 07:21 Stool Occult Blood Positive (NEG) Glucose (Fingerstick) 60 mg/dL (70-99) Laboratory Tests Test 02/06/20 10:53 02/06/20 16:52 02/06/20 21:11 02/07/20 04:10 Glucose (Fingerstick) 147 mg/dL (70-99) 78 mg/dL (70-99) 107 mg/dL (70-99) White Blood Count 12.7 x10^3/uL (4.0-11.0) Red Blood Count 2.52 x10^6/uL (4.30-5.70) Hemoglobin 7.5 g/dL (13.0-17.5) Hematocrit 22.6 % (39.0-53.0) Mean Corpuscular Volume 90 fL (79-100) Mean Corpuscular Hemoglobin 30 pg (25-35) Mean Corpuscular Hemoglobin Concent 33 g/dL (31-37) Red Cell Distribution Width 16.4 % (11.5-14.5) Platelet Count 432 x10^3/uL (140-400) Neutrophils (%) (Auto) 69 % (31-73) Lymphocytes (%) (Auto) 23 % (24-48) Monocytes (%) (Auto) 6 % (0-9) Eosinophils (%) (Auto) 2 % (0-3) Basophils (%) (Auto) 1 % (0-3) Neutrophils # (Auto) 8.8 x10^3/uL (1.8-7.7) Lymphocytes # (Auto) 2.9 x10^3/uL (1.0-4.8) Monocytes # (Auto) 0.8 x10^3/uL (0.0-1.1) Eosinophils # (Auto) 0.2 x10^3/uL (0.0-0.7) Basophils # (Auto) 0.1 x10^3/uL (0.0-0.2) Sodium Level 141 mmol/L (136-145) Potassium Level 3.8 mmol/L (3.5-5.1) Chloride Level 106 mmol/L (98-107) Carbon Dioxide Level 27 mmol/L (21-32) Anion Gap 8 (6-14) Blood Urea Nitrogen 19 mg/dL (8-26) Creatinine 1.9 mg/dL (0.7-1.3) Estimated GFR (Cockcroft-Gault) 41.4 BUN/Creatinine Ratio 10 (6-20) Glucose Level 69 mg/dL (70-99) Calcium Level 8.2 mg/dL (8.5-10.1) Magnesium Level 1.9 mg/dL (1.8-2.4) Total Bilirubin 0.2 mg/dL (0.2-1.0) Aspartate Amino Transf (AST/SGOT) 20 U/L (15-37) Alanine Aminotransferase (ALT/SGPT) 16 U/L (16-63) Alkaline Phosphatase 84 U/L (46-116) Total Protein 6.6 g/dL (6.4-8.2) Albumin 2.1 g/dL (3.4-5.0) Albumin/Globulin Ratio 0.5 (1.0-1.7) Test 02/07/20 06:00 02/07/20 07:21 Stool Occult Blood Positive (NEG) Glucose (Fingerstick) 60 mg/dL (70-99) Microbiology 02/02/20 Gram Stain - Final, Resulted 02/02/20 Aerobic and Anaerobic Culture - Preliminary, Resulted 02/02/20 Antimicrobic Susceptibility - Preliminary, Resulted 02/02/20 Blood Culture - Final, Complete Medications Current Medications Allopurinol (Zyloprim) 100 mg DAILY PO Last administered on 02/07/20at 08:52; Start 02/03/20 at 09:00 Apixaban (Eliquis) 2.5 mg BID PO Last administered on 02/02/20at 21:53; Start 02/02/20 at 21:00; Stop 02/03/20 at 12:00; Status DC Glipizide (Glucotrol) 2.5 mg DAILYBFRSUP PO Last administered on 02/06/20at 17:34; Start 02/02/20 at 18:00 Hydrochlorothiazide (Hydrodiuril) 25 mg DAILY PO ; Start 02/03/20 at 09:00; Stop 02/03/20 at 12:00; Status DC Hydroxyurea (Hydrea) 500 mg DAILY PO Last administered on 02/07/20at 08:52; Start 02/03/20 at 09:00 Amlodipine Besylate (Norvasc) 2.5 mg DAILY PO ; Start 02/03/20 at 09:00; Stop 02/03/20 at 12:00; Status DC Pantoprazole Sodium (Protonix) 40 mg DAILYAC PO Last administered on 02/07/20at 08:52; Start 02/03/20 at 07:30 Pioglitazone HCl (Actos) 30 mg DAILY08 PO Last administered on 02/07/20at 08:51; Start 02/03/20 at 08:00 Non-Formulary Medication (Rosuvastatin Calcium (Crestor)) 10 mg HS PO Last administered on 02/06/20at 21:09; Start 02/02/20 at 21:00 Info (Anti-Coagulation Monitoring By Pharmacy) 1 each PRN DAILY PRN MC SEE COMMENTS; Start 02/02/20 at 18:30 Linezolid/Dextrose 300 ml @ 300 mls/hr Q12HR IV Last administered on 02/07/20at 08:51; Start 02/02/20 at 21:00 Piperacillin Sod/ Tazobactam Sod 3.375 gm/Sodium Chloride 50 ml @ 100 mls/hr Q8HRS IV Last administered on 02/07/20at 05:52; Start 02/02/20 at 20:00 Acetaminophen (Tylenol) 650 mg PRN Q4HRS PRN PO FEVER; Start 02/02/20 at 18:30 Acetaminophen/ Hydrocodone Bitart (Lortab 5/325) 1 tab PRN Q4HRS PRN PO MODERATE PAIN Last administered on 02/06/20at 23:01; Start 02/02/20 at 18:30 Polyethylene Glycol (miraLAX PACKET) 17 gm DAILY PO Last administered on 02/06/20at 09:54; Start 02/03/20 at 09:00 Sennosides (Senna) 8.6 mg PRN BID PRN PO CONSTIPATION; Start 02/02/20 at 18:30 Folic Acid (Folic Acid) 1 mg DAILY PO Last administered on 02/07/20at 08:51; Start 02/03/20 at 09:00 Magnesium Sulfate 100 ml @ 25 mls/hr 1X ONCE IV Last administered on 02/03/20at 12:28; Start 02/03/20 at 12:30; Stop 02/03/20 at 16:29; Status DC Sodium Chloride 1,000 ml @ 40 mls/hr Q24H IV Last administered on 02/06/20at 10:05; Start 02/03/20 at 12:00 Ondansetron HCl (Zofran) 4 mg PRN Q6HRS PRN IV NAUSEA/VOMITING; Start 02/05/20 at 07:00; Stop 02/06/20 at 06:59; Status DC Fentanyl Citrate (Fentanyl 2ml Vial) 25 mcg PRN Q5MIN PRN IV MILD PAIN 1-3; Start 02/05/20 at 07:00; Stop 02/06/20 at 06:59; Status DC Fentanyl Citrate (Fentanyl 2ml Vial) 50 mcg PRN Q5MIN PRN IV MODERATE TO SEVERE PAIN; Start 02/05/20 at 07:00; Stop 02/06/20 at 06:59; Status DC Morphine Sulfate (Morphine Sulfate) 1 mg PRN Q10MIN PRN IV SEVERE PAIN 7-10; Start 02/05/20 at 07:00; Stop 02/06/20 at 06:59; Status DC Ringer's Solution 1,000 ml @ 30 mls/hr Q24H IV ; Start 02/05/20 at 07:00; Stop 02/05/20 at 15:01; Status DC Lidocaine HCl (Xylocaine-Mpf 1% 2ml Vial) 2 ml PRN 1X PRN ID PRIOR TO IV START; Start 02/05/20 at 07:00; Stop 02/06/20 at 06:59; Status DC Hydromorphone HCl (Dilaudid) 0.5 mg PRN Q10MIN PRN IV SEV PAIN, Second choice; Start 02/05/20 at 07:00; Stop 02/06/20 at 06:59; Status DC Prochlorperazine Edisylate (Compazine) 5 mg PACU PRN PRN IV NAUSEA, MRX1; Sta rt 02/05/20 at 07:00; Stop 02/06/20 at 06:59; Status DC Lactobacillus Rhamnosus (Culturelle) 1 cap BID PO Last administered on 02/07/20at 08:52; Start 02/04/20 at 21:00 Bupivacaine HCl/ Epinephrine Bitart (Sensorcain-Epi 0.5%-1:430651 Mpf) 30 ml STK-MED ONCE .ROUTE ; Start 02/05/20 at 06:56; Stop 02/05/20 at 06:56; Status DC Propofol (Diprivan) 200 mg STK-MED ONCE IV ; Start 02/05/20 at 07:53; Stop 02/05/20 at 07:54; Status DC Lidocaine HCl (Lidocaine Pf 2% Vial) 5 ml STK-MED ONCE .ROUTE ; Start 02/05/20 at 07:53; Stop 02/05/20 at 07:54; Status DC Dexamethasone Sodium Phosphate (Decadron) 4 mg STK-MED ONCE .ROUTE ; Start 02/05/20 at 07:53; Stop 02/05/20 at 07:54; Status DC Ondansetron HCl (Zofran) 4 mg STK-MED ONCE .ROUTE ; Start 02/05/20 at 07:54; Stop 02/05/20 at 07:54; Status DC Desflurane (Suprane) 30 ml STK-MED ONCE IH ; Start 02/05/20 at 07:58; Stop 02/05/20 at 07:59; Status DC Fentanyl Citrate (Fentanyl 2ml Vial) 100 mcg STK-MED ONCE .ROUTE ; Start 02/05/20 at 08:25; Stop 02/05/20 at 08:25; Status DC Magnesium Sulfate 50 ml @ 25 mls/hr 1X ONCE IV Last administered on 02/05/20at 14:59; Start 02/05/20 at 12:45; Stop 02/05/20 at 14:44; Status DC Non-Formulary Medication 1 ea QHS PO Last administered on 02/06/20at 21:08; Start 02/05/20 at 21:00 Active Scripts Active Reported Unisom (Doxylamine Succinate) 25 Mg Tablet 50 Mg PO QHS Hydroxyurea 500 Mg Capsule 500 Mg PO DAILY Eliquis (Apixaban) 2.5 Mg Tablet 2.5 Mg PO BID Allopurinol 100 Mg Tablet 1 Tab PO DAILY Unisom Sleep Aid (Doxylamine Succinate) 25 Mg Tablet 25 Mg PO HS Multivitamins (Multivitamin) 1 Each Tablet 1 Each PO DAILY Vitamin E (Vitamin E Mixed) 400 Unit Capsule 400 Unit PO DAILY Vitamin B-12 (Cyanocobalamin (Vitamin B-12)) 1,000 Mcg Tablet 1,000 Mcg PO DAILY Hydrochlorothiazide Tablet (Hydrochlorothiazide) 25 Mg Tablet 25 Mg PO DAILY Amlodipine Besylate 2.5 Mg Tablet 2.5 Mg PO DAILY Actos (Pioglitazone Hcl) 30 Mg Tablet 30 Mg PO DAILY08 Omeprazole 20 Mg Tablet.dr 20 Mg PO QHS Crestor (Rosuvastatin Calcium) 10 Mg Tablet 10 Mg PO HS Glipizide 5 Mg Tablet 2.5 Mg PO DAILYBFRSUP Vitals/I & O Vital Sign - Last 24 Hours 02/06/20 02/06/20 02/06/20 02/06/20 11:00 14:01 15:00 15:01 Temp 97.9 98.0 97.9 98.0 Pulse 76 66 Resp 18 18 B/P (MAP) 95/48 (64) 106/55 (72) Pulse Ox 100 99 O2 Delivery Room Air Room Air Room Air Room Air 02/06/20 02/06/20 02/06/20 02/06/20 19:00 20:00 23:00 23:01 Temp 97.7 97.5 97.7 97.5 Pulse 91 72 Resp 18 18 B/P (MAP) 107/45 (65) 101/41 (61) Pulse Ox 99 99 99 O2 Delivery Room Air Room Air Room Air Room Air 02/06/20 02/07/20 02/07/20 02/07/20 23:59 03:00 07:00 08:02 Temp 97.7 97.9 97.7 97.9 Pulse 68 84 Resp 18 18 B/P (MAP) 105/49 (67) 113/60 (77) Pulse Ox 99 96 99 O2 Delivery Room Air Room Air Room Air Room Air Intake and Output 02/06/20 02/06/20 02/07/20 15:00 23:00 07:00 Intake Total 120 ml 100 ml Output Total 200 ml Balance 120 ml -100 ml Justicifation of Admission Dx: Justifications for Admission: Justification of Admission Dx: Yes (sepsis and perirectal abscess and acute kidney injury) QAMAR HOUSTON MD Feb 07, 2020 10:41
[2020-02-07] MEDS: HYDROcodone/APAP 5/325MG 1 TAB TABLET PO PRN ×2 (10:45→21:44)
[2020-02-07 11:00] VITALS: BP 124/59
--- NOTE | 2020-02-07 11:42 | PDOC ---
Subjective: Subjective: No blood in stools. Has "a feeling" in mid abdomen sometimes - maybe after taking medication - not bothersome, currently asymptomatic. Objective: Vital Signs: Vital Signs Date Time Temp Pulse Resp B/P (MAP) Pulse Ox O2 Delivery O2 Flow Rate FiO2 02/07/20 11:00 97.7 86 20 124/59 (80) 100 Room Air 97.7 Labs: Laboratory Tests Test 02/06/20 16:52 02/06/20 21:11 02/07/20 04:10 02/07/20 06:00 Glucose (Fingerstick) 78 mg/dL 107 mg/dL White Blood Count 12.7 x10^3/uL Red Blood Count 2.52 x10^6/uL Hemoglobin 7.5 g/dL Hematocrit 22.6 % Mean Corpuscular Volume 90 fL Mean Corpuscular Hemoglobin 30 pg Mean Corpuscular Hemoglobin Concent 33 g/dL Red Cell Distribution Width 16.4 % Platelet Count 432 x10^3/uL Neutrophils (%) (Auto) 69 % Lymphocytes (%) (Auto) 23 % Monocytes (%) (Auto) 6 % Eosinophils (%) (Auto) 2 % Basophils (%) (Auto) 1 % Neutrophils # (Auto) 8.8 x10^3/uL Lymphocytes # (Auto) 2.9 x10^3/uL Monocytes # (Auto) 0.8 x10^3/uL Eosinophils # (Auto) 0.2 x10^3/uL Basophils # (Auto) 0.1 x10^3/uL Sodium Level 141 mmol/L Potassium Level 3.8 mmol/L Chloride Level 106 mmol/L Carbon Dioxide Level 27 mmol/L Anion Gap 8 Blood Urea Nitrogen 19 mg/dL Creatinine 1.9 mg/dL Estimated GFR (Cockcroft-Gault) 41.4 BUN/Creatinine Ratio 10 Glucose Level 69 mg/dL Calcium Level 8.2 mg/dL Magnesium Level 1.9 mg/dL Total Bilirubin 0.2 mg/dL Aspartate Amino Transf (AST/SGOT) 20 U/L Alanine Aminotransferase (ALT/SGPT) 16 U/L Alkaline Phosphatase 84 U/L Total Protein 6.6 g/dL Albumin 2.1 g/dL Albumin/Globulin Ratio 0.5 Stool Occult Blood Positive Test 02/07/20 07:21 Glucose (Fingerstick) 60 mg/dL PE: GEN: NAD - standing in room LUNGS: CTAB HEART: RRR ABD: non-tender NEURO/PSYCH: A & O 3 A/P: Perirectal abscess s/p I&D, +Hemoccult Bacteremia ACD, h/o MPD -- Still without obvious GI bleeding - hemoccult possibly related to abscess. 'scopes in the past per consult note. Continue PPI. Justicifation of Admission Dx: Justifications for Admission: Justification of Admission Dx: Yes (sepsis and perirectal abscess and acute kidney injury) LIZZY ORR Feb 07, 2020 11:42
[2020-02-07 15:09] VITALS: BP 111/53
--- NOTE | 2020-02-07 15:22 | PDOC ---
Renal-Progress Notes Subjective Notes Notes NO NEW COMPLAINTS History of Present Illness Hx of present illness STABLE Vitals Vitals Vital Signs Date Time Temp Pulse Resp B/P (MAP) Pulse Ox O2 Delivery O2 Flow Rate FiO2 02/07/20 15:09 97.9 94 18 111/53 (72) 100 Room Air 97.9 Weight Weight [ ] I.O. Intake and Output Intake and Output 02/07/20 06:59 Intake Total 220 ml Output Total 200 ml Balance 20 ml Intake Oral 220 ml Output Urine Total 200 ml # Voids 4 # Bowel Movements 1 Labs Labs Laboratory Tests Test 02/06/20 16:52 02/06/20 21:11 02/07/20 04:10 02/07/20 06:00 Glucose (Fingerstick) 78 mg/dL (70-99) 107 mg/dL (70-99) White Blood Count 12.7 x10^3/uL (4.0-11.0) Red Blood Count 2.52 x10^6/uL (4.30-5.70) Hemoglobin 7.5 g/dL (13.0-17.5) Hematocrit 22.6 % (39.0-53.0) Mean Corpuscular Volume 90 fL (79-100) Mean Corpuscular Hemoglobin 30 pg (25-35) Mean Corpuscular Hemoglobin Concent 33 g/dL (31-37) Red Cell Distribution Width 16.4 % (11.5-14.5) Platelet Count 432 x10^3/uL (140-400) Neutrophils (%) (Auto) 69 % (31-73) Lymphocytes (%) (Auto) 23 % (24-48) Monocytes (%) (Auto) 6 % (0-9) Eosinophils (%) (Auto) 2 % (0-3) Basophils (%) (Auto) 1 % (0-3) Neutrophils # (Auto) 8.8 x10^3/uL (1.8-7.7) Lymphocytes # (Auto) 2.9 x10^3/uL (1.0-4.8) Monocytes # (Auto) 0.8 x10^3/uL (0.0-1.1) Eosinophils # (Auto) 0.2 x10^3/uL (0.0-0.7) Basophils # (Auto) 0.1 x10^3/uL (0.0-0.2) Sodium Level 141 mmol/L (136-145) Potassium Level 3.8 mmol/L (3.5-5.1) Chloride Level 106 mmol/L (98-107) Carbon Dioxide Level 27 mmol/L (21-32) Anion Gap 8 (6-14) Blood Urea Nitrogen 19 mg/dL (8-26) Creatinine 1.9 mg/dL (0.7-1.3) Estimated GFR (Cockcroft-Gault) 41.4 BUN/Creatinine Ratio 10 (6-20) Glucose Level 69 mg/dL (70-99) Calcium Level 8.2 mg/dL (8.5-10.1) Magnesium Level 1.9 mg/dL (1.8-2.4) Total Bilirubin 0.2 mg/dL (0.2-1.0) Aspartate Amino Transf (AST/SGOT) 20 U/L (15-37) Alanine Aminotransferase (ALT/SGPT) 16 U/L (16-63) Alkaline Phosphatase 84 U/L (46-116) Total Protein 6.6 g/dL (6.4-8.2) Albumin 2.1 g/dL (3.4-5.0) Albumin/Globulin Ratio 0.5 (1.0-1.7) Stool Occult Blood Positive (NEG) Test 02/07/20 07:21 02/07/20 11:48 Glucose (Fingerstick) 60 mg/dL (70-99) 106 mg/dL (70-99) Micro Micro Microbiology 02/02/20 Gram Stain - Final, Resulted 02/02/20 Aerobic and Anaerobic Culture - Preliminary, Resulted 02/02/20 Antimicrobic Susceptibility - Preliminary, Resulted 02/02/20 Blood Culture - Final, Complete Review of Systems Constitutional: yes: weakness, alert, oriented Ears/Nose/Throat: Yes: no symptom reported Eyes: Yes: no symptom reported Pulmonary: Yes no symptom reported Cardiovascular: Yes no symptom reported Gastrointestional: Yes: constipation Genitourinary: Yes: frequency Musculoskeletal: Yes: no symptom reported Skin: Yes no symptom reported Psychiatric/Neurological: Yes: no symptom reported Endocrine: Yes: no symptom reported Physical Exam General Appearance: no apparent distress Skin: warm Respiratory: bilateral CTA Heart: S1S2 Abdomen: soft, bowel sounds present Genitourinary: bladder flat Extremities: pulses present Neurology: alert Musculoskeletal: Osteoarthritis Assessment Assessment IMP CKD STAGE 3 WITH CR OF 1.9 AND STABLE HX OF HTN HX OF DM II PERIRECTAL ABSCESS SEPSIS RESOLVED PLAN ANTIBIOTICS HYDRATION NEEDED RENAL FX IS STABLE WILL FOLLOW YOHANA ALCALA MD Feb 07, 2020 15:21
--- NOTE | 2020-02-07 16:48 | NUR ---
SW following. Spoke with RN and reviewed chart. Spoke with Dr. Mclaughlin for coordination of care. Pt from home with . SW confirmed with out-patient wound management that they will see this pt on discharge. Spoke with pt who is agreeable to having HH in addition to out-patient wound care. Patient Choice of Vendor form completed. Referral to [facility], , (fax). Pt remains on IV Zyvox and Zosyn. SW to continue following.
--- NOTE | 2020-02-07 17:33 | NUR ---
Wound/Ostomy Care Wound Type/Assessment: consult for left buttock abscess, s/p I&D by Dr. De La Cruz. Wound cleanse with wound wash, moderate purulent drainage note upon assessment. Treatment Recommendations/Plan: wound packed with 1/4 inch iodoform packing, abd place on top and a new brief to help with drainage. No other wound noted upon skin assessment. Education provided: pt educated on frequency of dressing changes, pt voiced concerns about doing it at home and possibly needing HH at discharge and f/u at the [facility] to help with dressings. Offloading surface/device: pillows Recommended Referrals/Tests: for HH at discharge Discharge Recommendations for dressings: will follow up on 02/09 and re-eval dressings needed at [place].
[2020-02-07 19:00] VITALS: BP 111/49
[2020-02-07] MEDS: [UNRECOGNIZED DRUG - OTHER] PO SCH (21:43)
[2020-02-07] MEDS: IV NORMAL SALINE 1000ML BAG 1,000 ML IV SCH (21:45)
[2020-02-07 23:00] VITALS: BP 130/39
[2020-02-08 03:00] VITALS: BP 116/52
[2020-02-08] MEDS: PIPERACILLIN/TAZOBACTAM 3.375 GM in IV NORMAL SALINE 50ML 50 ML IV SCH ×3 (05:50→22:39)
[2020-02-08 07:00] VITALS: BP 120/56
[2020-02-08] MEDS: POLYETHYLENE GLYCOL 3350 17 GM PACKET. PO SCH (09:00)
--- NOTE | 2020-02-08 09:26 | PDOC ---
CHANTELL GARCIA MOLD CAPPER HELPER 02/08/20 0926: SURGICAL PROGRESS NOTE Subjective no complaints other than packing falls out when up to BR Vital Signs Vital Signs Date Time Temp Pulse Resp B/P (MAP) Pulse Ox O2 Delivery O2 Flow Rate FiO2 02/08/20 07:00 97.8 100 18 120/56 (77) 98 Room Air 97.8 I&O Intake and Output 02/08/20 07:00 Intake Total 1320 ml Balance 1320 ml Intake Oral 560 ml IV Total 280 ml Other 480 ml # Voids 3 General: Alert, Oriented X3, Cooperative Skin: Other (wound clean) Labs Laboratory Tests Test 02/06/20 10:53 02/06/20 16:52 02/06/20 21:11 02/07/20 04:10 Glucose (Fingerstick) 147 mg/dL (70-99) 78 mg/dL (70-99) 107 mg/dL (70-99) White Blood Count 12.7 x10^3/uL (4.0-11.0) Red Blood Count 2.52 x10^6/uL (4.30-5.70) Hemoglobin 7.5 g/dL (13.0-17.5) Hematocrit 22.6 % (39.0-53.0) Mean Corpuscular Volume 90 fL (79-100) Mean Corpuscular Hemoglobin 30 pg (25-35) Mean Corpuscular Hemoglobin Concent 33 g/dL (31-37) Red Cell Distribution Width 16.4 % (11.5-14.5) Platelet Count 432 x10^3/uL (140-400) Neutrophils (%) (Auto) 69 % (31-73) Lymphocytes (%) (Auto) 23 % (24-48) Monocytes (%) (Auto) 6 % (0-9) Eosinophils (%) (Auto) 2 % (0-3) Basophils (%) (Auto) 1 % (0-3) Neutrophils # (Auto) 8.8 x10^3/uL (1.8-7.7) Lymphocytes # (Auto) 2.9 x10^3/uL (1.0-4.8) Monocytes # (Auto) 0.8 x10^3/uL (0.0-1.1) Eosinophils # (Auto) 0.2 x10^3/uL (0.0-0.7) Basophils # (Auto) 0.1 x10^3/uL (0.0-0.2) Sodium Level 141 mmol/L (136-145) Potassium Level 3.8 mmol/L (3.5-5.1) Chloride Level 106 mmol/L (98-107) Carbon Dioxide Level 27 mmol/L (21-32) Anion Gap 8 (6-14) Blood Urea Nitrogen 19 mg/dL (8-26) Creatinine 1.9 mg/dL (0.7-1.3) Estimated GFR (Cockcroft-Gault) 41.4 BUN/Creatinine Ratio 10 (6-20) Glucose Level 69 mg/dL (70-99) Calcium Level 8.2 mg/dL (8.5-10.1) Magnesium Level 1.9 mg/dL (1.8-2.4) Total Bilirubin 0.2 mg/dL (0.2-1.0) Aspartate Amino Transf (AST/SGOT) 20 U/L (15-37) Alanine Aminotransferase (ALT/SGPT) 16 U/L (16-63) Alkaline Phosphatase 84 U/L (46-116) Total Protein 6.6 g/dL (6.4-8.2) Albumin 2.1 g/dL (3.4-5.0) Albumin/Globulin Ratio 0.5 (1.0-1.7) Test 02/07/20 06:00 02/07/20 07:21 02/07/20 11:48 02/07/20 16:31 Stool Occult Blood Positive (NEG) Glucose (Fingerstick) 60 mg/dL (70-99) 106 mg/dL (70-99) 121 mg/dL (70-99) Test 02/07/20 20:23 02/08/20 07:32 Glucose (Fingerstick) 146 mg/dL (70-99) 90 mg/dL (70-99) Laboratory Tests Test 02/07/20 11:48 02/07/20 16:31 02/07/20 20:23 02/08/20 07:32 Glucose (Fingerstick) 106 mg/dL (70-99) 121 mg/dL (70-99) 146 mg/dL (70-99) 90 mg/dL (70-99) Assessment/Plan continue wound care can dc when medically ready will sign off, please call with questions Justicifation of Admission Dx: Justifications for Admission: Justification of Admission Dx: Yes (sepsis and perirectal abscess and acute kidney injury) LULY FISHER MD 02/08/20 1252: SURGICAL PROGRESS NOTE Assessment/Plan Agree with above CHANTELL GARCIA APRN Feb 08, 2020 09:26 LULY FISHER MD Feb 08, 2020 12:52
[2020-02-08] MEDS: LACTOBACILLUS RHAMNOSUS GG 1 CAPSULE. PO SCH ×2 (09:34→22:36)
[2020-02-08] MEDS: HYDROcodone/APAP 5/325MG 1 TAB TABLET PO PRN ×2 (09:35→18:43)
[2020-02-08] MEDS: PIOGLITAZONE 15 MG TABLET. PO SCH (09:35)
[2020-02-08] MEDS: ALLOPURINOL 100 MG TABLET. PO SCH (09:35)
[2020-02-08] MEDS: FOLIC ACID 1 MG TABLET. PO SCH (09:35)
[2020-02-08] MEDS: PANTOPRAZOLE 40 MG TABLET.DR. PO SCH (09:35)
[2020-02-08] MEDS: HYDROXYUREA 500 MG CAPSULE PO SCH (09:43)
[2020-02-08] MEDS: IV NORMAL SALINE 1000ML BAG 1,000 ML IV SCH (09:44)
--- NOTE | 2020-02-08 09:45 | PDOC ---
Infectious Disease Note Subjective: Subjective Patient without complaints Feels better Postop site pain is under control Denies fever, nausea, vomiting, shortness of breath, diarrhea, abdominal pain, rash Otherwise as above Vital Signs: Vital Signs Vital Signs Date Time Temp Pulse Resp B/P (MAP) Pulse Ox O2 Delivery O2 Flow Rate FiO2 02/08/20 07:00 97.8 100 18 120/56 (77) 98 Room Air 97.8 Physical Exam: PHYSICAL EXAM GENERAL: Propped up in bed, alert, smiling HEENT: Oral cavity pink, moist NECK: Supple, no JVP, no lymphadenopathy. LUNGS: Clear. HEART: S1, S2 regular. ABDOMEN: Soft and nontender EXTREMITIES: No edema or cyanosis. SKIN: warm to touch. No signs of rash RECTAL: Perineal packing in place. NEUROLOGICAL: Alert,answers questions appropriately PIV Medications: Inpatient Meds: Current Medications Medications (Trade) Dose Ordered Sig/Minnie Start Time Stop Time Status Last Admin Dose Admin Acetaminophen (Tylenol) 650 mg PRN Q4HRS PRN 02/02/20 18:30 Acetaminophen/ Hydrocodone Bitart (Lortab 5/325) 1 tab PRN Q4HRS PRN 02/02/20 18:30 02/07/20 21:44 1 TAB Allopurinol (Zyloprim) 100 mg DAILY 02/03/20 09:00 02/07/20 08:52 100 MG Amlodipine Besylate (Norvasc) 2.5 mg DAILY 02/03/20 09:00 02/03/20 12:00 DC Apixaban (Eliquis) 2.5 mg BID 02/02/20 21:00 02/03/20 12:00 DC 02/02/20 21:53 2.5 MG Bupivacaine HCl/ Epinephrine Bitart (Sensorcain-Epi 0.5%-1:468448 Mpf) 30 ml STK-MED ONCE 02/05/20 06:56 02/05/20 06:56 DC Desflurane (Suprane) 30 ml STK-MED ONCE 02/05/20 07:58 02/05/20 07:59 DC Dexamethasone Sodium Phosphate (Decadron) 4 mg STK-MED ONCE 02/05/20 07:53 02/05/20 07:54 DC Fentanyl Citrate (Fentanyl 2ml Vial) 100 mcg STK-MED ONCE 02/05/20 08:25 02/05/20 08:25 DC Folic Acid (Folic Acid) 1 mg DAILY 02/03/20 09:00 02/07/20 08:51 1 MG Glipizide (Glucotrol) 2.5 mg DAILYBFRSUP 02/02/20 18:00 02/07/20 10:40 DC 02/06/20 17:34 2.5 MG Hydrochlorothiazide (Hydrodiuril) 25 mg DAILY 02/03/20 09:00 02/03/20 12:00 DC Hydromorphone HCl (Dilaudid) 0.5 mg PRN Q10MIN PRN 02/05/20 07:00 02/06/20 06:59 DC Hydroxyurea (Hydrea) 500 mg DAILY 02/03/20 09:00 02/07/20 08:52 500 MG Info (Anti-Coagulation Monitoring By Pharmacy) 1 each PRN DAILY PRN 02/02/20 18:30 Lactobacillus Rhamnosus (Culturelle) 1 cap BID 02/04/20 21:00 02/07/20 21:44 1 CAP Lidocaine HCl (Lidocaine Pf 2% Vial) 5 ml STK-MED ONCE 02/05/20 07:53 02/05/20 07:54 DC Lidocaine HCl (Xylocaine-Mpf 1% 2ml Vial) 2 ml PRN 1X PRN 02/05/20 07:00 02/06/20 06:59 DC Linezolid/Dextrose 300 ml @ 300 mls/hr Q12HR 02/02/20 21:00 02/07/20 21:45 300 MLS/HR Magnesium Sulfate 50 ml @ 25 mls/hr 1X ONCE 02/05/20 12:45 02/05/20 14:44 DC 02/05/20 14:59 25 MLS/HR Morphine Sulfate (Morphine Sulfate) 1 mg PRN Q10MIN PRN 02/05/20 07:00 02/06/20 06:59 DC Non-Formulary Medication 1 ea QHS 02/05/20 21:00 02/07/20 21:43 1 EA Non-Formulary Medication (Rosuvastatin Calcium (Crestor)) 10 mg HS 02/02/20 21:00 02/07/20 21:44 10 MG Ondansetron HCl (Zofran) 4 mg STK-MED ONCE 02/05/20 07:54 02/05/20 07:54 DC Pantoprazole Sodium (Protonix) 40 mg DAILYAC 02/03/20 07:30 02/07/20 08:52 40 MG Pioglitazone HCl (Actos) 30 mg DAILY08 02/03/20 08:00 02/07/20 08:51 30 MG Piperacillin Sod/ Tazobactam Sod 3.375 gm/Sodium Chloride 50 ml @ 100 mls/hr Q8HRS 02/02/20 20:00 02/08/20 05:50 100 MLS/HR Polyethylene Glycol (miraLAX PACKET) 17 gm DAILY 02/03/20 09:00 02/06/20 09:54 17 GM Prochlorperazine Edisylate (Compazine) 5 mg PACU PRN PRN 02/05/20 07:00 02/06/20 06:59 DC Propofol (Diprivan) 200 mg STK-MED ONCE 02/05/20 07:53 02/05/20 07:54 DC Ringer's Solution 1,000 ml @ 30 mls/hr Q24H 02/05/20 07:00 02/05/20 15:01 DC Sennosides (Senna) 8.6 mg PRN BID PRN 02/02/20 18:30 Sodium Chloride 1,000 ml @ 40 mls/hr Q24H 02/03/20 12:00 02/07/20 21:45 40 MLS/HR Labs: Lab Laboratory Tests Test 02/07/20 11:48 02/07/20 16:31 02/07/20 20:23 02/08/20 07:32 Glucose (Fingerstick) 106 mg/dL (70-99) 121 mg/dL (70-99) 146 mg/dL (70-99) 90 mg/dL (70-99) Micro RUN DATE: 02/06/20 [facility] *LIVE* PAGE 1 RUN TIME: 0851 Specimen Inquiry PATIENT: TIM SALAS JR ACCT: [id number] LOC: [address] [place] [address] U: [id number] AGE/SX: 79/M ROOM: [facility] RE02/02/[address]: QAMAR HOUSTON MD : 1940 BED: 1 DIS: STATUS: ADM IN TLOC: SPEC #: [id number] ROXIE: 02/02/20 STATUS: COMP REQ #: [id number] RECD: 02/02/20-[address]: QAMAR HOUSTON MD SOURCE: BLOOD ENTR: 02/03/20-[address] [facility] [address]: ANY DECKER MD SPDC: LULY FISHER MD ORDERED: PAUL PETTY - LC Procedure Result BLOOD CULTURE LC Final Final No Growth on 02/06/20 at 0844 Note: Gram stain smears were repeated and reviewed. No organisms were observed and all subculture plates were no growth at initial subculture and repeat subculture. CALLED TO SHANELL AT THE [facility]. TIME CALLED: 08 Unless otherwise specified, Testing Performed by: [address] [address] For Inquires, the Physician may contact the Microbiology department at [phone] Objective: Assessment: Perineal abscess, which has opened up and is draining. Enterococcus spp, Strep anginosus ,bacteroides fragilis, and E. coli (ESPINOZA-S) so far. s/p I and D 02/04 MICRO ESCHERICHIA COLI STREPTOCOCCUS ANGINOSUS BACTEROIDES FRAGILIS ENTEROCOCCUS SPECIES Fever - better Leukocytosis - better Anemia Diabetes. Renal insufficiency. 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 ID still pending, no growth on subculture Plan: Plan of Care Continue Zosyn. DC Zyvox s/p steroids Probiotics f/u cultures Local wound care as directed BROOKS DECKER MD Feb 08, 2020 09:45
--- NOTE | 2020-02-08 09:54 | PDOC ---
Objective: Objective: No GI concerns per nurse. Vital Signs: Vital Signs Date Time Temp Pulse Resp B/P (MAP) Pulse Ox O2 Delivery O2 Flow Rate FiO2 02/08/20 09:35 Room Air 02/08/20 07:00 97.8 100 18 120/56 (77) 98 97.8 Labs: Laboratory Tests Test 02/07/20 11:48 02/07/20 16:31 02/07/20 20:23 02/08/20 07:32 Glucose (Fingerstick) 106 mg/dL (70-99) 121 mg/dL (70-99) 146 mg/dL (70-99) 90 mg/dL (70-99) PE: GEN: NAD LUNGS: room air HEART: RR ABD: non-distended NEURO/PSYCH: sleeping - not awakened A/P: Perirectal abscess s/p I&D Bacteremia ACD, h/o MPD, +Hemoccult -- Consider outpt 'scopes re: +Hemoccult. Justicifation of Admission Dx: Justifications for Admission: Justification of Admission Dx: Yes (sepsis and perirectal abscess and acute kidney injury) LIZZY ORR Feb 08, 2020 09:54
[2020-02-08 10:31] VITALS: BP 125/54
--- NOTE | 2020-02-08 10:49 | PDOC ---
PROGRESS NOTES Subjective Subjective feels well. taking prn analgesics. walking in room. bowels are okay. bp and blood sugars are okay. fbs 90. Objective Objective Vital Signs Date Time Temp Pulse Resp B/P (MAP) Pulse Ox O2 Delivery O2 Flow Rate FiO2 02/08/20 10:45 Room Air 02/08/20 10:31 97.7 93 18 125/54 (77) 99 97.7 02/05/20 09:06 8 Intake and Output 02/08/20 07:00 Intake Total 1320 ml Balance 1320 ml Intake Oral 560 ml IV Total 280 ml Other 480 ml # Voids 3 Physical Exam Abdomen: Soft Heart: Normal S1, Normal S2 Extremities: No edema General: Alert HEENT: Atraumatic Lungs: Clear to auscultation Neuro: Normal gait Psych/Mental Status: Mental status NL Skin: Other (perirectal wound not packed. pink base) Assessment Assessment 1. Perirectal abscess. surgical I and D 02/05/20 2. Leukocytosis, unclear what his baseline white count since he has a myeloproliferative disease. improved 3. Anemia, which could be related to myeloproliferative disease. 4. Acute kidney injury resolved. on ckd stage 3 5. Sepsis.resolved 6. Hypomagnesemia. treated 7. Coronary artery disease. 8. Hyperlipidemia. 9. Hypertension. 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 hypoglycemia 11. History of a pulmonary embolus, on Eliquis. 12. Myeloproliferative disorder. gram positive cocci bacilli on 07/23 BC. ID and S pending heme positive stool pyuria moderate aortic regurgitation\ severe protein calorie malnutrition Plan Plan of Care continue iv zosyn, zyvox stopped continue iv fluids pack wound labs tomorrow Comment Review of Relevant I have reviewed the following items sanjiv (where applicable) has been applied. Labs Laboratory Tests Test 02/06/20 10:53 02/06/20 16:52 02/06/20 21:11 02/07/20 04:10 Glucose (Fingerstick) 147 mg/dL (70-99) 78 mg/dL (70-99) 107 mg/dL (70-99) White Blood Count 12.7 x10^3/uL (4.0-11.0) Red Blood Count 2.52 x10^6/uL (4.30-5.70) Hemoglobin 7.5 g/dL (13.0-17.5) Hematocrit 22.6 % (39.0-53.0) Mean Corpuscular Volume 90 fL (79-100) Mean Corpuscular Hemoglobin 30 pg (25-35) Mean Corpuscular Hemoglobin Concent 33 g/dL (31-37) Red Cell Distribution Width 16.4 % (11.5-14.5) Platelet Count 432 x10^3/uL (140-400) Neutrophils (%) (Auto) 69 % (31-73) Lymphocytes (%) (Auto) 23 % (24-48) Monocytes (%) (Auto) 6 % (0-9) Eosinophils (%) (Auto) 2 % (0-3) Basophils (%) (Auto) 1 % (0-3) Neutrophils # (Auto) 8.8 x10^3/uL (1.8-7.7) Lymphocytes # (Auto) 2.9 x10^3/uL (1.0-4.8) Monocytes # (Auto) 0.8 x10^3/uL (0.0-1.1) Eosinophils # (Auto) 0.2 x10^3/uL (0.0-0.7) Basophils # (Auto) 0.1 x10^3/uL (0.0-0.2) Sodium Level 141 mmol/L (136-145) Potassium Level 3.8 mmol/L (3.5-5.1) Chloride Level 106 mmol/L (98-107) Carbon Dioxide Level 27 mmol/L (21-32) Anion Gap 8 (6-14) Blood Urea Nitrogen 19 mg/dL (8-26) Creatinine 1.9 mg/dL (0.7-1.3) Estimated GFR (Cockcroft-Gault) 41.4 BUN/Creatinine Ratio 10 (6-20) Glucose Level 69 mg/dL (70-99) Calcium Level 8.2 mg/dL (8.5-10.1) Magnesium Level 1.9 mg/dL (1.8-2.4) Total Bilirubin 0.2 mg/dL (0.2-1.0) Aspartate Amino Transf (AST/SGOT) 20 U/L (15-37) Alanine Aminotransferase (ALT/SGPT) 16 U/L (16-63) Alkaline Phosphatase 84 U/L (46-116) Total Protein 6.6 g/dL (6.4-8.2) Albumin 2.1 g/dL (3.4-5.0) Albumin/Globulin Ratio 0.5 (1.0-1.7) Test 02/07/20 06:00 02/07/20 07:21 02/07/20 11:48 02/07/20 16:31 Stool Occult Blood Positive (NEG) Glucose (Fingerstick) 60 mg/dL (70-99) 106 mg/dL (70-99) 121 mg/dL (70-99) Test 02/07/20 20:23 02/08/20 07:32 Glucose (Fingerstick) 146 mg/dL (70-99) 90 mg/dL (70-99) Laboratory Tests Test 02/07/20 11:48 02/07/20 16:31 02/07/20 20:23 02/08/20 07:32 Glucose (Fingerstick) 106 mg/dL (70-99) 121 mg/dL (70-99) 146 mg/dL (70-99) 90 mg/dL (70-99) Microbiology 02/02/20 Gram Stain - Final, Resulted 02/02/20 Aerobic and Anaerobic Culture - Preliminary, Resulted 02/02/20 Antimicrobic Susceptibility - Preliminary, Resulted 02/02/20 Blood Culture - Final, Complete Medications Current Medications Allopurinol (Zyloprim) 100 mg DAILY PO Last administered on 02/08/20at 09:35; Start 02/03/20 at 09:00 Apixaban (Eliquis) 2.5 mg BID PO Last administered on 02/02/20at 21:53; Start 02/02/20 at 21:00; Stop 02/03/20 at 12:00; Status DC Glipizide (Glucotrol) 2.5 mg DAILYBFRSUP PO Last administered on 02/06/20at 17:34; Start 02/02/20 at 18:00; Stop 02/07/20 at 10:40; Status DC Hydrochlorothiazide (Hydrodiuril) 25 mg DAILY PO ; Start 02/03/20 at 09:00; Stop 02/03/20 at 12:00; Status DC Hydroxyurea (Hydrea) 500 mg DAILY PO Last administered on 02/08/20at 09:43; Start 02/03/20 at 09:00 Amlodipine Besylate (Norvasc) 2.5 mg DAILY PO ; Start 02/03/20 at 09:00; Stop 02/03/20 at 12:00; Status DC Pantoprazole Sodium (Protonix) 40 mg DAILYAC PO Last administered on 02/08/20at 09:35; Start 02/03/20 at 07:30 Pioglitazone HCl (Actos) 30 mg DAILY08 PO Last administered on 02/08/20at 09:35; Start 02/03/20 at 08:00 Non-Formulary Medication (Rosuvastatin Calcium (Crestor)) 10 mg HS PO Last administered on 02/07/20at 21:44; Start 02/02/20 at 21:00 Info (Anti-Coagulation Monitoring By Pharmacy) 1 each PRN DAILY PRN MC SEE COMMENTS; Start 02/02/20 at 18:30 Linezolid/Dextrose 300 ml @ 300 mls/hr Q12HR IV Last administered on 02/08/20at 09:34; Start 02/02/20 at 21:00; Stop 02/08/20 at 10:17; Status DC Piperacillin Sod/ Tazobactam Sod 3.375 gm/Sodium Chloride 50 ml @ 100 mls/hr Q8HRS IV Last administered on 02/08/20at 05:50; Start 02/02/20 at 20:00 Acetaminophen (Tylenol) 650 mg PRN Q4HRS PRN PO FEVER; Start 02/02/20 at 18:30 Acetaminophen/ Hydrocodone Bitart (Lortab 5/325) 1 tab PRN Q4HRS PRN PO MODERATE PAIN Last administered on 02/08/20at 09:35; Start 02/02/20 at 18:30 Polyethylene Glycol (miraLAX PACKET) 17 gm DAILY PO Last administered on 02/06/20at 09:54; Start 02/03/20 at 09:00 Sennosides (Senna) 8.6 mg PRN BID PRN PO CONSTIPATION; Start 02/02/20 at 18:30 Folic Acid (Folic Acid) 1 mg DAILY PO Last administered on 02/08/20at 09:35; Start 02/03/20 at 09:00 Magnesium Sulfate 100 ml @ 25 mls/hr 1X ONCE IV Last administered on 02/03/20a t 12:28; Start 02/03/20 at 12:30; Stop 02/03/20 at 16:29; Status DC Sodium Chloride 1,000 ml @ 40 mls/hr Q24H IV Last administered on 02/08/20at 09:44; Start 02/03/20 at 12:00 Ondansetron HCl (Zofran) 4 mg PRN Q6HRS PRN IV NAUSEA/VOMITING; Start 02/05/20 at 07:00; Stop 02/06/20 at 06:59; Status DC Fentanyl Citrate (Fentanyl 2ml Vial) 25 mcg PRN Q5MIN PRN IV MILD PAIN 1-3; Start 02/05/20 at 07:00; Stop 02/06/20 at 06:59; Status DC Fentanyl Citrate (Fentanyl 2ml Vial) 50 mcg PRN Q5MIN PRN IV MODERATE TO SEVERE PAIN; Start 02/05/20 at 07:00; Stop 02/06/20 at 06:59; Status DC Morphine Sulfate (Morphine Sulfate) 1 mg PRN Q10MIN PRN IV SEVERE PAIN 7-10; Start 02/05/20 at 07:00; Stop 02/06/20 at 06:59; Status DC Ringer's Solution 1,000 ml @ 30 mls/hr Q24H IV ; Start 02/05/20 at 07:00; Stop 02/05/20 at 15:01; Status DC Lidocaine HCl (Xylocaine-Mpf 1% 2ml Vial) 2 ml PRN 1X PRN ID PRIOR TO IV START; Start 02/05/20 at 07:00; Stop 02/06/20 at 06:59; Status DC Hydromorphone HCl (Dilaudid) 0.5 mg PRN Q10MIN PRN IV SEV PAIN, Second choice; Start 02/05/20 at 07:00; Stop 02/06/20 at 06:59; Status DC Prochlorperazine Edisylate (Compazine) 5 mg PACU PRN PRN IV NAUSEA, MRX1; Start 02/05/20 at 07:00; Stop 02/06/20 at 06:59; Status DC Lactobacillus Rhamnosus (Culturelle) 1 cap BID PO Last administered on 02/08/20at 09:34; Start 02/04/20 at 21:00 Bupivacaine HCl/ Epinephrine Bitart (Sensorcain-Epi 0.5%-1:002791 Mpf) 30 ml STK-MED ONCE .ROUTE ; Start 02/05/20 at 06:56; Stop 02/05/20 at 06:56; Status DC Propofol (Diprivan) 200 mg STK-MED ONCE IV ; Start 02/05/20 at 07:53; Stop 02/05/20 at 07:54; Status DC Lidocaine HCl (Lidocaine Pf 2% Vial) 5 ml STK-MED ONCE .ROUTE ; Start 02/05/20 at 07:53; Stop 02/05/20 at 07:54; Status DC Dexamethasone Sodium Phosphate (Decadron) 4 mg STK-MED ONCE .ROUTE ; Start 02/05/20 at 07:53; Stop 02/05/20 at 07:54; Status DC Ondansetron HCl (Zofran) 4 mg STK-MED ONCE .ROUTE ; Start 02/05/20 at 07:54; Stop 02/05/20 at 07:54; Status DC Desflurane (Suprane) 30 ml STK-MED ONCE IH ; Start 02/05/20 at 07:58; Stop 02/05/20 at 07:59; Status DC Fentanyl Citrate (Fentanyl 2ml Vial) 100 mcg STK-MED ONCE .ROUTE ; Start 02/04 at 08:25; Stop 02/05/20 at 08:25; Status DC Magnesium Sulfate 50 ml @ 25 mls/hr 1X ONCE IV Last administered on 02/05/20at 14:59; Start 02/05/20 at 12:45; Stop 02/05/20 at 14:44; Status DC Non-Formulary Medication 1 ea QHS PO Last administered on 02/07/20at 21:43; Start 02/05/20 at 21:00 Active Scripts Active Reported Unisom (Doxylamine Succinate) 25 Mg Tablet 50 Mg PO QHS Hydroxyurea 500 Mg Capsule 500 Mg PO DAILY Eliquis (Apixaban) 2.5 Mg Tablet 2.5 Mg PO BID Allopurinol 100 Mg Tablet 1 Tab PO DAILY Unisom Sleep Aid (Doxylamine Succinate) 25 Mg Tablet 25 Mg PO HS Multivitamins (Multivitamin) 1 Each Tablet 1 Each PO DAILY Vitamin E (Vitamin E Mixed) 400 Unit Capsule 400 Unit PO DAILY Vitamin B-12 (Cyanocobalamin (Vitamin B-12)) 1,000 Mcg Tablet 1,000 Mcg PO DAILY Hydrochlorothiazide Tablet (Hydrochlorothiazide) 25 Mg Tablet 25 Mg PO DAILY Amlodipine Besylate 2.5 Mg Tablet 2.5 Mg PO DAILY Actos (Pioglitazone Hcl) 30 Mg Tablet 30 Mg PO DAILY08 Omeprazole 20 Mg Tablet.dr 20 Mg PO QHS Crestor (Rosuvastatin Calcium) 10 Mg Tablet 10 Mg PO HS Glipizide 5 Mg Tablet 2.5 Mg PO DAILYBFRSUP Vitals/I & O Vital Sign - Last 24 Hours 02/07/20 02/07/20 02/07/20 02/07/20 11:00 11:45 15:09 19:00 Temp 97.7 97.9 98.1 97.7 97.9 98.1 Pulse 86 94 91 Resp 20 20 18 18 B/P (MAP) 124/59 (80) 111/53 (72) 111/49 (69) Pulse Ox 100 100 100 98 O2 Delivery Room Air Room Air Room Air Room Air 02/07/20 02/07/20 02/07/20 02/07/20 20:10 21:44 22:44 23:00 Temp 97.6 97.6 Pulse 82 Resp 18 B/P (MAP) 130/39 (69) Pulse Ox 98 O2 Delivery Room Air Room Air Room Air Room Air 02/08/20 02/08/20 02/08/20 02/08/20 03:00 07:00 08:00 09:35 Temp 97.8 97.8 97.8 97.8 Pulse 75 100 Resp 18 18 B/P (MAP) 116/52 (73) 120/56 (77) Pulse Ox 97 98 O2 Delivery Room Air Room Air Room Air Room Air 02/08/20 02/08/20 10:31 10:45 Temp 97.7 97.7 Pulse 93 Resp 18 B/P (MAP) 125/54 (77) Pulse Ox 99 O2 Delivery Room Air Room Air Intake and Output 02/07/20 02/07/20 02/08/20 15:00 23:00 07:00 Intake Total 200 ml 1120 ml Balance 200 ml 1120 ml Justicifation of Admission Dx: Justifications for Admission: Justification of Admission Dx: Yes (sepsis and perirectal abscess and acute kidney injury) QAMAR HOUSTON MD Feb 08, 2020 10:49
[2020-02-08 11:11] LABS: CALCIUM 8.2 mg/dL (8.5-10.1); CREATININE 1.8 mg/dL (0.7-1.3); POTASSIUM 4.1 mmol/L (3.5-5.1)
--- NOTE | 2020-02-08 11:18 | NUR ---
SW following. Discussed with RN, pt from home with , room air, ADA diet. IV zosyn (zyvox has been stopped). Per chart, labs ordered for tomorrow (02/09/2020). Plan is for [facility] at discharge. SW will continue to follow.
--- NOTE | 2020-02-08 11:41 | PDOC ---
Renal-Progress Notes Subjective Notes Notes NO NEW COMPLAINTS History of Present Illness Hx of present illness STABLE Vitals Vitals Vital Signs Date Time Temp Pulse Resp B/P (MAP) Pulse Ox O2 Delivery O2 Flow Rate FiO2 02/08/20 10:45 Room Air 02/08/20 10:31 97.7 93 18 125/54 (77) 99 97.7 Weight Weight [ ] I.O. Intake and Output Intake and Output 02/08/20 07:00 Intake Total 1320 ml Balance 1320 ml Intake Oral 560 ml IV Total 280 ml Other 480 ml # Voids 3 Labs Labs Laboratory Tests Test 02/07/20 11:48 02/07/20 16:31 02/07/20 20:23 02/08/20 07:32 Glucose (Fingerstick) 106 mg/dL (70-99) 121 mg/dL (70-99) 146 mg/dL (70-99) 90 mg/dL (70-99) Test 02/08/20 10:00 02/08/20 11:16 Sodium Level 141 mmol/L (136-145) Potassium Level 4.1 mmol/L (3.5-5.1) Chloride Level 105 mmol/L (98-107) Carbon Dioxide Level 25 mmol/L (21-32) Anion Gap 11 (6-14) Blood Urea Nitrogen 16 mg/dL (8-26) Creatinine 1.8 mg/dL (0.7-1.3) Estimated GFR (Cockcroft-Gault) 44.0 Glucose Level 135 mg/dL (70-99) Calcium Level 8.2 mg/dL (8.5-10.1) Glucose (Fingerstick) 108 mg/dL (70-99) Micro Micro Microbiology 02/02/20 Gram Stain - Final, Resulted 02/02/20 Aerobic and Anaerobic Culture - Final, Resulted 02/02/20 Antimicrobic Susceptibility - Preliminary, Resulted 02/02/20 Blood Culture - Final, Complete Review of Systems Constitutional: yes: weakness, alert, oriented Ears/Nose/Throat: Yes: no symptom reported Eyes: Yes: no symptom reported Pulmonary: Yes no symptom reported Cardiovascular: Yes no symptom reported Gastrointestional: Yes: constipation Genitourinary: Yes: frequency Musculoskeletal: Yes: no symptom reported Skin: Yes no symptom reported Psychiatric/Neurological: Yes: no symptom reported Endocrine: Yes: no symptom reported Physical Exam General Appearance: no apparent distress Skin: warm Respiratory: bilateral CTA Heart: S1S2 Abdomen: soft, bowel sounds present Genitourinary: bladder flat Extremities: pulses present Neurology: alert Musculoskeletal: Osteoarthritis Assessment Assessment IMP CKD STAGE 3 WITH CR OF 1.8 AND STABLE HX OF HTN HX OF DM II PERIRECTAL ABSCESS SEPSIS RESOLVED PLAN ANTIBIOTICS HYDRATION NEEDED RENAL FX IS STABLE WILL FOLLOW YOHANA ALCALA MD Feb 08, 2020 11:41
[2020-02-08 14:24] VITALS: BP 105/46
[2020-02-08 19:00] VITALS: BP 109/54
[2020-02-08] MEDS: [UNRECOGNIZED DRUG - OTHER] PO SCH (22:40)
[2020-02-08 23:00] VITALS: BP 115/57
[2020-02-09 03:00] VITALS: BP 114/53
[2020-02-09] MEDS: PIPERACILLIN/TAZOBACTAM 3.375 GM in IV NORMAL SALINE 50ML 50 ML IV SCH ×3 (06:22→22:08)
[2020-02-09 07:00] LABS: BASO # 0.1 x10^3/uL (0.0-0.2); BASO % 1 % (0-3); EOS # 0.3 x10^3/uL (0.0-0.7); EOS % 3 % (0-3); HEMATOCRIT 24.7 % (39.0-53.0); HEMOGLOBIN 8.3 g/dL (13.0-17.5); LYMPH # 1.7 x10^3/uL (1.0-4.8); LYMPH % 20 % (24-48); MEAN CORPUSCULAR HEMOGLOBIN 30 pg (25-35); MEAN CORPUSCULAR HGB CONC 34 g/dL (31-37); MEAN CORPUSCULAR VOLUME 90 fL (79-100); MONO # 0.6 x10^3/uL (0.0-1.1); MONO % 6 % (0-9); NEUT % 70 % (31-73); PLATELET COUNT 407 x10^3/uL (140-400); RED BLOOD COUNT 2.74 x10^6/uL (4.30-5.70); RED CELL DISTRIBUTION WIDTH 16.8 % (11.5-14.5); WHITE BLOOD COUNT 8.6 x10^3/uL (4.0-11.0)
[2020-02-09] MEDS: IV NORMAL SALINE 1000ML BAG 1,000 ML IV SCH (07:06)
[2020-02-09 07:26] VITALS: BP 134/70
[2020-02-09 07:27] LABS: CALCIUM 8.4 mg/dL (8.5-10.1); CREATININE 1.9 mg/dL (0.7-1.3); GFR 41.4; MAGNESIUM 1.6 mg/dL (1.8-2.4); POTASSIUM 3.8 mmol/L (3.5-5.1)
[2020-02-09] MEDS: POLYETHYLENE GLYCOL 3350 17 GM PACKET. PO SCH (08:28)
[2020-02-09] MEDS: ALLOPURINOL 100 MG TABLET. PO SCH (08:28)
[2020-02-09] MEDS: LACTOBACILLUS RHAMNOSUS GG 1 CAPSULE. PO SCH ×2 (08:28→22:05)
[2020-02-09] MEDS: PIOGLITAZONE 15 MG TABLET. PO SCH (08:28)
[2020-02-09] MEDS: PANTOPRAZOLE 40 MG TABLET.DR. PO SCH (08:28)
[2020-02-09] MEDS: FOLIC ACID 1 MG TABLET. PO SCH (08:28)
[2020-02-09] MEDS: HYDROXYUREA 500 MG CAPSULE PO SCH (08:35)
--- NOTE | 2020-02-09 10:11 | PDOC ---
PROGRESS NOTES Subjective Subjective feels well. packing comes out when out of bed. lab reviewed. urine culture negative. blood sugars are okay. serum magnesium 1.6 Objective Objective Vital Signs Date Time Temp Pulse Resp B/P (MAP) Pulse Ox O2 Delivery O2 Flow Rate FiO2 02/09/20 07:26 98.3 83 18 134/70 (91) 98 Room Air 98.3 02/09/20 03:00 8.0 Intake and Output 02/09/20 07:00 Intake Total 1780 ml Output Total 300 ml Balance 1480 ml Intake Oral 820 ml IV Total 480 ml Other 480 ml Output Urine Total 300 ml # Voids 3 Physical Exam Abdomen: Soft Heart: Regular rate, Normal S1, Normal S2 Extremities: No edema General: Alert HEENT: Atraumatic Lungs: Clear to auscultation Neuro: Normal speech Psych/Mental Status: Mental status NL Skin: No rashes, Other (perirectal wound with clear drainage) Assessment Assessment 1. Perirectal abscess. surgical I and D 02/05/20 2. Leukocytosis, unclear what his baseline white count since he has a myeloproliferative disease. improved 3. Anemia, which could be related to myeloproliferative disease. 4. Acute kidney injury resolved. on ckd stage 3 5. Sepsis.resolved 6. Hypomagnesemia. 7. Coronary artery disease. 8. Hyperlipidemia. 9. Hypertension. 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 hypoglycemia 11. History of a pulmonary embolus, on Eliquis. 12. Myeloproliferative disorder. gram positive cocci bacilli on 07/23 BC. ID and S pending heme positive stool moderate aortic regurgitation\ severe protein calorie malnutrition Plan Plan of Care continue iv zosyn continue iv fluids continue wound care iv magnesium today Comment Review of Relevant I have reviewed the following items sanjiv (where applicable) has been applied. Labs Laboratory Tests Test 02/07/20 11:48 02/07/20 16:31 02/07/20 20:23 02/08/20 07:32 Glucose (Fingerstick) 106 mg/dL (70-99) 121 mg/dL (70-99) 146 mg/dL (70-99) 90 mg/dL (70-99) Test 02/08/20 10:00 02/08/20 11:16 02/08/20 16:08 02/08/20 20:23 Sodium Level 141 mmol/L (136-145) Potassium Level 4.1 mmol/L (3.5-5.1) Chloride Level 105 mmol/L (98-107) Carbon Dioxide Level 25 mmol/L (21-32) Anion Gap 11 (6-14) Blood Urea Nitrogen 16 mg/dL (8-26) Creatinine 1.8 mg/dL (0.7-1.3) Estimated GFR (Cockcroft-Gault) 44.0 Glucose Level 135 mg/dL (70-99) Calcium Level 8.2 mg/dL (8.5-10.1) Glucose (Fingerstick) 108 mg/dL (70-99) 113 mg/dL (70-99) 122 mg/dL (70-99) Test 02/09/20 05:34 02/09/20 06:59 White Blood Count 8.6 x10^3/uL (4.0-11.0) Red Blood Count 2.74 x10^6/uL (4.30-5.70) Hemoglobin 8.3 g/dL (13.0-17.5) Hematocrit 24.7 % (39.0-53.0) Mean Corpuscular Volume 90 fL (79-100) Mean Corpuscular Hemoglobin 30 pg (25-35) Mean Corpuscular Hemoglobin Concent 34 g/dL (31-37) Red Cell Distribution Width 16.8 % (11.5-14.5) Platelet Count 407 x10^3/uL (140-400) Neutrophils (%) (Auto) 70 % (31-73) Lymphocytes (%) (Auto) 20 % (24-48) Monocytes (%) (Auto) 6 % (0-9) Eosinophils (%) (Auto) 3 % (0-3) Basophils (%) (Auto) 1 % (0-3) Neutrophils # (Auto) 6.0 x10^3/uL (1.8-7.7) Lymphocytes # (Auto) 1.7 x10^3/uL (1.0-4.8) Monocytes # (Auto) 0.6 x10^3/uL (0.0-1.1) Eosinophils # (Auto) 0.3 x10^3/uL (0.0-0.7) Basophils # (Auto) 0.1 x10^3/uL (0.0-0.2) Sodium Level 142 mmol/L (136-145) Potassium Level 3.8 mmol/L (3.5-5.1) Chloride Level 107 mmol/L (98-107) Carbon Dioxide Level 28 mmol/L (21-32) Anion Gap 7 (6-14) Blood Urea Nitrogen 16 mg/dL (8-26) Creatinine 1.9 mg/dL (0.7-1.3) Estimated GFR (Cockcroft-Gault) 41.4 Glucose Level 91 mg/dL (70-99) Calcium Level 8.4 mg/dL (8.5-10.1) Magnesium Level 1.6 mg/dL (1.8-2.4) Glucose (Fingerstick) 93 mg/dL (70-99) Laboratory Tests Test 02/08/20 11:16 02/08/20 16:08 02/08/20 20:23 02/09/20 05:34 Glucose (Fingerstick) 108 mg/dL (70-99) 113 mg/dL (70-99) 122 mg/dL (70-99) White Blood Count 8.6 x10^3/uL (4.0-11.0) Red Blood Count 2.74 x10^6/uL (4.30-5.70) Hemoglobin 8.3 g/dL (13.0-17.5) Hematocrit 24.7 % (39.0-53.0) Mean Corpuscular Volume 90 fL (79-100) Mean Corpuscular Hemoglobin 30 pg (25-35) Mean Corpuscular Hemoglobin Concent 34 g/dL (31-37) Red Cell Distribution Width 16.8 % (11.5-14.5) Platelet Count 407 x10^3/uL (140-400) Neutrophils (%) (Auto) 70 % (31-73) Lymphocytes (%) (Auto) 20 % (24-48) Monocytes (%) (Auto) 6 % (0-9) Eosinophils (%) (Auto) 3 % (0-3) Basophils (%) (Auto) 1 % (0-3) Neutrophils # (Auto) 6.0 x10^3/uL (1.8-7.7) Lymphocytes # (Auto) 1.7 x10^3/uL (1.0-4.8) Monocytes # (Auto) 0.6 x10^3/uL (0.0-1.1) Eosinophils # (Auto) 0.3 x10^3/uL (0.0-0.7) Basophils # (Auto) 0.1 x10^3/uL (0.0-0.2) Sodium Level 142 mmol/L (136-145) Potassium Level 3.8 mmol/L (3.5-5.1) Chloride Level 107 mmol/L (98-107) Carbon Dioxide Level 28 mmol/L (21-32) Anion Gap 7 (6-14) Blood Urea Nitrogen 16 mg/dL (8-26) Creatinine 1.9 mg/dL (0.7-1.3) Estimated GFR (Cockcroft-Gault) 41.4 Glucose Level 91 mg/dL (70-99) Calcium Level 8.4 mg/dL (8.5-10.1) Magnesium Level 1.6 mg/dL (1.8-2.4) Test 02/09/20 06:59 Glucose (Fingerstick) 93 mg/dL (70-99) Microbiology 02/07/20 Urine Culture - Final, Complete 02/02/20 Gram Stain - Final, Resulted 02/02/20 Aerobic and Anaerobic Culture - Final, Resulted 02/02/20 Antimicrobic Susceptibility - Preliminary, Resulted 02/02/20 Blood Culture - Final, Complete Medications Current Medications Allopurinol (Zyloprim) 100 mg DAILY PO Last administered on 02/09/20at 08:28; Start 02/03/20 at 09:00 Apixaban (Eliquis) 2.5 mg BID PO Last administered on 02/02/20at 21:53; Start 02/02/20 at 21:00; Stop 02/03/20 at 12:00; Status DC Glipizide (Glucotrol) 2.5 mg DAILYBFRSUP PO Last administered on 02/06/20at 17:34; Start 02/02/20 at 18:00; Stop 02/07/20 at 10:40; Status DC Hydrochlorothiazide (Hydrodiuril) 25 mg DAILY PO ; Start 02/03/20 at 09:00; Stop 02/03/20 at 12:00; Status DC Hydroxyurea (Hydrea) 500 mg DAILY PO Last administered on 02/09/20at 08:35; Start 02/03/20 at 09:00 Amlodipine Besylate (Norvasc) 2.5 mg DAILY PO ; Start 02/03/20 at 09:00; Stop 02/03/20 at 12:00; Status DC Pantoprazole Sodium (Protonix) 40 mg DAILYAC PO Last administered on 02/09/20at 08:28; Start 02/03/20 at 07:30 Pioglitazone HCl (Actos) 30 mg DAILY08 PO Last administered on 02/09/20at 08:28; Start 02/03/20 at 08:00 Non-Formulary Medication (Rosuvastatin Calcium (Crestor)) 10 mg HS PO Last administered on 02/08/20at 22:36; Start 02/02/20 at 21:00 Info (Anti-Coagulation Monitoring By Pharmacy) 1 each PRN DAILY PRN MC SEE COMMENTS; Start 02/02/20 at 18:30 Linezolid/Dextrose 300 ml @ 300 mls/hr Q12HR IV Last administered on 02/08/20at 09:34; Start 02/02/20 at 21:00; Stop 02/08/20 at 10:17; Status DC Piperacillin Sod/ Tazobactam Sod 3.375 gm/Sodium Chloride 50 ml @ 100 mls/hr Q8HRS IV Last administered on 02/09/20at 06:22; Start 02/02/20 at 20:00 Acetaminophen (Tylenol) 650 mg PRN Q4HRS PRN PO FEVER; Start 02/02/20 at 18:30 Acetaminophen/ Hydrocodone Bitart (Lortab 5/325) 1 tab PRN Q4HRS PRN PO MODERATE PAIN Last administered on 02/08/20at 18:43; Start 02/02/20 at 18:30 Polyethylene Glycol (miraLAX PACKET) 17 gm DAILY PO Last administered on 02/06/20at 09:54; Start 02/03/20 at 09:00 Sennosides (Senna) 8.6 mg PRN BID PRN PO CONSTIPATION; Start 02/02/20 at 18:30 Folic Acid (Folic Acid) 1 mg DAILY PO Last administered on 02/09/20at 08:28; Start 02/03/20 at 09:00 Magnesium Sulfate 100 ml @ 25 mls/hr 1X ONCE IV Last administered on at 12:28; Start 02/03/20 at 12:30; Stop 02/03/20 at 16:29; Status DC Sodium Chloride 1,000 ml @ 40 mls/hr Q24H IV Last administered on 02/08/20at 09:44; Start 02/03/20 at 12:00 Ondansetron HCl (Zofran) 4 mg PRN Q6HRS PRN IV NAUSEA/VOMITING; Start 02/05/20 at 07:00; Stop 02/06/20 at 06:59; Status DC Fentanyl Citrate (Fentanyl 2ml Vial) 25 mcg PRN Q5MIN PRN IV MILD PAIN 1-3; Start 02/05/20 at 07:00; Stop 02/06/20 at 06:59; Status DC Fentanyl Citrate (Fentanyl 2ml Vial) 50 mcg PRN Q5MIN PRN IV MODERATE TO SEVERE PAIN; Start 02/05/20 at 07:00; Stop 02/06/20 at 06:59; Status DC Morphine Sulfate (Morphine Sulfate) 1 mg PRN Q10MIN PRN IV SEVERE PAIN 7-10; Start 02/05/20 at 07:00; Stop 02/06/20 at 06:59; Status DC Ringer's Solution 1,000 ml @ 30 mls/hr Q24H IV ; Start 02/05/20 at 07:00; Stop 02/05/20 at 15:01; Status DC Lidocaine HCl (Xylocaine-Mpf 1% 2ml Vial) 2 ml PRN 1X PRN ID PRIOR TO IV START; Start 02/05/20 at 07:00; Stop 02/06/20 at 06:59; Status DC Hydromorphone HCl (Dilaudid) 0.5 mg PRN Q10MIN PRN IV SEV PAIN, Second choice; Start 02/05/20 at 07:00; Stop 02/06/20 at 06:59; Status DC Prochlorperazine Edisylate (Compazine) 5 mg PACU PRN PRN IV NAUSEA, MRX1; Start 02/05/20 at 07:00; Stop 02/06/20 at 06:59; Status DC Lactobacillus Rhamnosus (Culturelle) 1 cap BID PO Last administered on 02/09/20at 08:28; Start 02/04/20 at 21:00 Bupivacaine HCl/ Epinephrine Bitart (Sensorcain-Epi 0.5%-1:237907 Mpf) 30 ml STK-MED ONCE .ROUTE ; Start 02/05/20 at 06:56; Stop 02/05/20 at 06:56; Status DC Propofol (Diprivan) 200 mg STK-MED ONCE IV ; Start 02/05/20 at 07:53; Stop 02/05/20 at 07:54; Status DC Lidocaine HCl (Lidocaine Pf 2% Vial) 5 ml STK-MED ONCE .ROUTE ; Start 02/05/20 at 07:53; Stop 02/05/20 at 07:54; Status DC Dexamethasone Sodium Phosphate (Decadron) 4 mg STK-MED ONCE .ROUTE ; Start 02/05/20 at 07:53; Stop 02/05/20 at 07:54; Status DC Ondansetron HCl (Zofran) 4 mg STK-MED ONCE .ROUTE ; Start 02/05/20 at 07:54; Stop 02/05/20 at 07:54; Status DC Desflurane (Suprane) 30 ml STK-MED ONCE IH ; Start 02/05/20 at 07:58; Stop 02/05/20 at 07:59; Status DC Fentanyl Citrate (Fentanyl 2ml Vial) 100 mcg STK-MED ONCE .ROUTE ; Start 02/05/20 at 08:25; Stop 02/05/20 at 08:25; Status DC Magnesium Sulfate 50 ml @ 25 mls/hr 1X ONCE IV Last administered on 02/05/20at 14:59; Start 02/05/20 at 12:45; Stop 02/05/20 at 14:44; Status DC Non-Formulary Medication 1 ea QHS PO Last administered on 02/08/20at 22:40; Start 02/05/20 at 21:00 Active Scripts Active Reported Unisom (Doxylamine Succinate) 25 Mg Tablet 50 Mg PO QHS Hydroxyurea 500 Mg Capsule 500 Mg PO DAILY Eliquis (Apixaban) 2.5 Mg Tablet 2.5 Mg PO BID Allopurinol 100 Mg Tablet 1 Tab PO DAILY Unisom Sleep Aid (Doxylamine Succinate) 25 Mg Tablet 25 Mg PO HS Multivitamins (Multivitamin) 1 Each Tablet 1 Each PO DAILY Vitamin E (Vitamin E Mixed) 400 Unit Capsule 400 Unit PO DAILY Vitamin B-12 (Cyanocobalamin (Vitamin B-12)) 1,000 Mcg Tablet 1,000 Mcg PO DAILY Hydrochlorothiazide Tablet (Hydrochlorothiazide) 25 Mg Tablet 25 Mg PO DAILY Amlodipine Besylate 2.5 Mg Tablet 2.5 Mg PO DAILY Actos (Pioglitazone Hcl) 30 Mg Tablet 30 Mg PO DAILY08 Omeprazole 20 Mg Tablet.dr 20 Mg PO QHS Crestor (Rosuvastatin Calcium) 10 Mg Tablet 10 Mg PO HS Glipizide 5 Mg Tablet 2.5 Mg PO DAILYBFRSUP Vitals/I & O Vital Sign - Last 24 Hours 02/08/20 02/08/20 02/08/20 02/08/20 10:31 10:45 14:24 18:43 Temp 97.7 98.1 97.7 98.1 Pulse 93 81 Resp 18 18 B/P (MAP) 125/54 (77) 105/46 (65) Pulse Ox 99 100 O2 Delivery Room Air Room Air Room Air Room Air 02/08/20 02/08/20 02/08/20 02/08/20 19:00 19:43 19:50 23:00 Temp 97.8 98.1 97.8 98.1 Pulse 90 88 Resp 18 20 18 B/P (MAP) 109/54 (72) 115/57 (76) Pulse Ox 98 97 O2 Delivery Room Air Room Air Room Air Room Air O2 Flow Rate 8.0 8.0 02/09/20 02/09/20 03:00 07:26 Temp 98.6 98.3 98.6 98.3 Pulse 80 83 Resp 18 18 B/P (MAP) 114/53 (73) 134/70 (91) Pulse Ox 96 98 O2 Delivery Room Air Room Air O2 Flow Rate 8.0 Intake and Output 02/08/20 02/08/20 02/09/20 15:00 23:00 07:00 Intake Total 480 ml 240 ml 1060 ml Output Total 300 ml Balance 480 ml 240 ml 760 ml Justicifation of Admission Dx: Justifications for Admission: Justification of Admission Dx: Yes (sepsis and perirectal abscess and acute kidney injury) QAMAR HOUSTON MD Feb 09, 2020 10:11
[2020-02-09] MEDS ORDERED: MAGNESIUM SULFATE 2GM 50 ML IV ONE (10:30)
--- NOTE | 2020-02-09 10:48 | NUR ---
SW following. Discussed with RN, pt getting IV magnesium today, continue IV zosyn. Plan is for [facility] at discharge. SW will continue to follow.
--- NOTE | 2020-02-09 10:56 | PDOC ---
Subjective: Subjective: No GI complaints. Objective: Vital Signs: Vital Signs Date Time Temp Pulse Resp B/P (MAP) Pulse Ox O2 Delivery O2 Flow Rate FiO2 02/09/20 07:26 98.3 83 18 134/70 (91) 98 Room Air 98.3 02/09/20 03:00 8.0 Labs: Laboratory Tests Test 02/08/20 11:16 02/08/20 16:08 02/08/20 20:23 02/09/20 05:34 Glucose (Fingerstick) 108 mg/dL 113 mg/dL 122 mg/dL White Blood Count 8.6 x10^3/uL Red Blood Count 2.74 x10^6/uL Hemoglobin 8.3 g/dL Hematocrit 24.7 % Mean Corpuscular Volume 90 fL Mean Corpuscular Hemoglobin 30 pg Mean Corpuscular Hemoglobin Concent 34 g/dL Red Cell Distribution Width 16.8 % Platelet Count 407 x10^3/uL Neutrophils (%) (Auto) 70 % Lymphocytes (%) (Auto) 20 % Monocytes (%) (Auto) 6 % Eosinophils (%) (Auto) 3 % Basophils (%) (Auto) 1 % Neutrophils # (Auto) 6.0 x10^3/uL Lymphocytes # (Auto) 1.7 x10^3/uL Monocytes # (Auto) 0.6 x10^3/uL Eosinophils # (Auto) 0.3 x10^3/uL Basophils # (Auto) 0.1 x10^3/uL Sodium Level 142 mmol/L Potassium Level 3.8 mmol/L Chloride Level 107 mmol/L Carbon Dioxide Level 28 mmol/L Anion Gap 7 Blood Urea Nitrogen 16 mg/dL Creatinine 1.9 mg/dL Estimated GFR (Cockcroft-Gault) 41.4 Glucose Level 91 mg/dL Calcium Level 8.4 mg/dL Magnesium Level 1.6 mg/dL Test 02/09/20 06:59 Glucose (Fingerstick) 93 mg/dL URINE CULTURE Final Final No Growth on 02/09/20 at 0926 GRAM STAIN Final Final GRAM NEGATIVE RODS:FEW GRAM POSITIVE COCCI:RARE SQUAMOUS EPI CELL:RARE PMN (WBCs):NONE SEEN Unless otherwise specified, Testing Performed by: [address] [address] For Inquires, the Physician may contact the Microbiology department at [phone] ANAEROBIC-AEROBIC CULTURE Final Final MIXED AEROBIC ANDRE on 02/04/20 at 1050 INCLUDING: MANY [ESCHERICHIA COLI] MANY [ENTEROCOCCUS SPECIES] MANY [STREPTOCOCCUS ANGINOSUS] MODERATE [BACTEROIDES FRAGILIS] on 02/06/20 at 1507 ESCHERICHIA COLI STREPTOCOCCUS ANGINOSUS BACTEROIDES FRAGILIS ENTEROCOCCUS SPECIES PE: GEN: NAD LUNGS: CTAB HEART: RRR ABD: S/ND/NT NEURO/PSYCH: A & O 3 A/P: Perirectal abscess s/p I&D Bacteremia ACD, h/o MPD, +Hemoccult - denies obvious GI bleeding -- Stable GI-mckinnon. Can address +Hemoccult later on. Justicifation of Admission Dx: Justifications for Admission: Justification of Admission Dx: Yes (sepsis and perirectal abscess and acute kidney injury) LIZZY ORR Feb 09, 2020 10:56
--- NOTE | 2020-02-09 11:12 | PDOC ---
Infectious Disease Note Subjective: Subjective Patient without complaints Feels better Postop site pain is under control Denies fever, nausea, vomiting, shortness of breath, diarrhea, abdominal pain, rash Vital Signs: Vital Signs Vital Signs Date Time Temp Pulse Resp B/P (MAP) Pulse Ox O2 Delivery O2 Flow Rate FiO2 02/09/20 08:00 Room Air 02/09/20 07:26 98.3 83 18 134/70 (91) 98 98.3 02/09/20 03:00 8.0 Physical Exam: PHYSICAL EXAM GENERAL: Propped up in bed, alert, smiling HEENT: Oral cavity pink, moist NECK: Supple, no JVP, no lymphadenopathy. LUNGS: Clear. HEART: S1, S2 regular. ABDOMEN: Soft and nontender EXTREMITIES: No edema or cyanosis. SKIN: warm to touch. No signs of rash RECTAL: Perineal packing in place. NEUROLOGICAL: Alert,answers questions appropriately PIV Medications: Inpatient Meds: Current Medications Medications (Trade) Dose Ordered Sig/Minnie Start Time Stop Time Status Last Admin Dose Admin Acetaminophen (Tylenol) 650 mg PRN Q4HRS PRN 02/02/20 18:30 Acetaminophen/ Hydrocodone Bitart (Lortab 5/325) 1 tab PRN Q4HRS PRN 02/02/20 18:30 02/08/20 18:43 1 TAB Allopurinol (Zyloprim) 100 mg DAILY 02/03/20 09:00 02/09/20 08:28 100 MG Amlodipine Besylate (Norvasc) 2.5 mg DAILY 02/03/20 09:00 02/03/20 12:00 DC Apixaban (Eliquis) 2.5 mg BID 02/02/20 21:00 02/03/20 12:00 DC 02/02/20 21:53 2.5 MG Bupivacaine HCl/ Epinephrine Bitart (Sensorcain-Epi 0.5%-1:037922 Mpf) 30 ml STK-MED ONCE 02/05/20 06:56 02/05/20 06:56 DC Desflurane (Suprane) 30 ml STK-MED ONCE 02/05/20 07:58 02/05/20 07:59 DC Dexamethasone Sodium Phosphate (Decadron) 4 mg STK-MED ONCE 02/05/20 07:53 02/05/20 07:54 DC Fentanyl Citrate (Fentanyl 2ml Vial) 100 mcg STK-MED ONCE 02/05/20 08:25 02/05/20 08:25 DC Folic Acid (Folic Acid) 1 mg DAILY 02/03/20 09:00 02/09/20 08:28 1 MG Glipizide (Glucotrol) 2.5 mg DAILYBFRSUP 02/02/20 18:00 02/07/20 10:40 DC 02/06/20 17:34 2.5 MG Hydrochlorothiazide (Hydrodiuril) 25 mg DAILY 02/03/20 09:00 02/03/20 12:00 DC Hydromorphone HCl (Dilaudid) 0.5 mg PRN Q10MIN PRN 02/05/20 07:00 02/06/20 06:59 DC Hydroxyurea (Hydrea) 500 mg DAILY 02/03/20 09:00 02/09/20 08:35 500 MG Info (Anti-Coagulation Monitoring By Pharmacy) 1 each PRN DAILY PRN 02/02/20 18:30 Lactobacillus Rhamnosus (Culturelle) 1 cap BID 02/04/20 21:00 02/09/20 08:28 1 CAP Lidocaine HCl (Lidocaine Pf 2% Vial) 5 ml STK-MED ONCE 02/05/20 07:53 02/05/20 07:54 DC Lidocaine HCl (Xylocaine-Mpf 1% 2ml Vial) 2 ml PRN 1X PRN 02/05/20 07:00 02/06/20 06:59 DC Linezolid/Dextrose 300 ml @ 300 mls/hr Q12HR 02/02/20 21:00 02/08/20 10:17 DC 02/08/20 09:34 300 MLS/HR Magnesium Sulfate 50 ml @ 25 mls/hr 1X ONCE 02/09/20 10:30 02/09/20 12:29 Morphine Sulfate (Morphine Sulfate) 1 mg PRN Q10MIN PRN 02/05/20 07:00 02/06/20 06:59 DC Non-Formulary Medication 1 ea QHS 02/05/20 21:00 02/08/20 22:40 1 EA Non-Formulary Medication (Rosuvastatin Calcium (Crestor)) 10 mg HS 02/02/20 21:00 02/08/20 22:36 10 MG Ondansetron HCl (Zofran) 4 mg STK-MED ONCE 02/05/20 07:54 02/05/20 07:54 DC Pantoprazole Sodium (Protonix) 40 mg DAILYAC 02/03/20 07:30 02/09/20 08:28 40 MG Pioglitazone HCl (Actos) 30 mg DAILY08 02/03/20 08:00 02/09/20 08:28 30 MG Piperacillin Sod/ Tazobactam Sod 3.375 gm/Sodium Chloride 50 ml @ 100 mls/hr Q8HRS 02/02/20 20:00 02/09/20 06:22 100 MLS/HR Polyethylene Glycol (miraLAX PACKET) 17 gm DAILY 02/03/20 09:00 02/06/20 09:54 17 GM Prochlorperazine Edisylate (Compazine) 5 mg PACU PRN PRN 02/05/20 07:00 02/06/20 06:59 DC Propofol (Diprivan) 200 mg STK-MED ONCE 02/05/20 07:53 02/05/20 07:54 DC Ringer's Solution 1,000 ml @ 30 mls/hr Q24H 02/05/20 07:00 02/05/20 15:01 DC Sennosides (Senna) 8.6 mg PRN BID PRN 02/02/20 18:30 Sodium Chloride 1,000 ml @ 40 mls/hr Q24H 02/03/20 12:00 02/08/20 09:44 40 MLS/HR Labs: Lab Laboratory Tests Test 02/08/20 11:16 02/08/20 16:08 02/08/20 20:23 02/09/20 05:34 Glucose (Fingerstick) 108 mg/dL (70-99) 113 mg/dL (70-99) 122 mg/dL (70-99) White Blood Count 8.6 x10^3/uL (4.0-11.0) Red Blood Count 2.74 x10^6/uL (4.30-5.70) Hemoglobin 8.3 g/dL (13.0-17.5) Hematocrit 24.7 % (39.0-53.0) Mean Corpuscular Volume 90 fL (79-100) Mean Corpuscular Hemoglobin 30 pg (25-35) Mean Corpuscular Hemoglobin Concent 34 g/dL (31-37) Red Cell Distribution Width 16.8 % (11.5-14.5) Platelet Count 407 x10^3/uL (140-400) Neutrophils (%) (Auto) 70 % (31-73) Lymphocytes (%) (Auto) 20 % (24-48) Monocytes (%) (Auto) 6 % (0-9) Eosinophils (%) (Auto) 3 % (0-3) Basophils (%) (Auto) 1 % (0-3) Neutrophils # (Auto) 6.0 x10^3/uL (1.8-7.7) Lymphocytes # (Auto) 1.7 x10^3/uL (1.0-4.8) Monocytes # (Auto) 0.6 x10^3/uL (0.0-1.1) Eosinophils # (Auto) 0.3 x10^3/uL (0.0-0.7) Basophils # (Auto) 0.1 x10^3/uL (0.0-0.2) Sodium Level 142 mmol/L (136-145) Potassium Level 3.8 mmol/L (3.5-5.1) Chloride Level 107 mmol/L (98-107) Carbon Dioxide Level 28 mmol/L (21-32) Anion Gap 7 (6-14) Blood Urea Nitrogen 16 mg/dL (8-26) Creatinine 1.9 mg/dL (0.7-1.3) Estimated GFR (Cockcroft-Gault) 41.4 Glucose Level 91 mg/dL (70-99) Calcium Level 8.4 mg/dL (8.5-10.1) Magnesium Level 1.6 mg/dL (1.8-2.4) Test 02/09/20 06:59 Glucose (Fingerstick) 93 mg/dL (70-99) Micro RUN DATE: 02/06/20 [facility] LAB *LIVE* PAGE 1 RUN TIME: 850 Specimen Inquiry PATIENT: TIM SALAS JR ACCT: [id number] LOC: [address] [place] [address] U: [id number] AGE/SX: 79/M ROOM: 424 RE02/02/[address]: QAMAR HOUSTON MD : 1940 BED: 1 DIS: STATUS: ADM IN TLOC: SPEC #: [id number] ROXIE: 02/02/20-1999 STATUS: COMP REQ #: [id number] RECD: 02/02/20-[address]: QAMAR HOUSTON MD SOURCE: BLOOD ENTR: 02/03/20-[address] [facility] [address]: ANY DECKER [facility] LULY FISHER MD ORDERED: PAUL PETTY - LC Procedure Result BLOOD CULTURE LC Final Final No Growth on 02/06/20 at 0844 Note: Gram stain smears were repeated and reviewed. No organisms were observed and all subculture plates were no growth at initial subculture and repeat subculture. CALLED TO SHANELL AT [facility]. TIME CALLED: 845 Unless otherwise specified, Testing Performed by: [facility] [address] [place] [address] For Inquires, the Physician may contact the Microbiology department at [phone] Objective: Assessment: Perineal abscess, which has opened up and is draining. Enterococcus spp, Strep anginosus ,bacteroides fragilis, and E. coli (ESPINOZA-S) so far. s/p I and D 02/04 MICRO ESCHERICHIA COLI STREPTOCOCCUS ANGINOSUS BACTEROIDES FRAGILIS ENTEROCOCCUS SPECIES Fever - better Leukocytosis - better Anemia Diabetes. Renal insufficiency. 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 ID still pending, no growth on subculture Plan: Plan of Care Continue Chantelsyjake. hopefully will be able to dc home tomorrow on oral antibiotic s/p steroids Probiotics f/u cultures Local wound care as directed Discussed with nursing staff BROOKS DECKER MD Feb 09, 2020 11:12
[2020-02-09] MEDS: HYDROcodone/APAP 5/325MG 1 TAB TABLET PO PRN (11:16)
--- NOTE | 2020-02-09 11:22 | PDOC ---
Renal-Progress Notes Subjective Notes Notes NO NEW COMPLAINTS History of Present Illness Hx of present illness NO CHANGE Vitals Vitals Vital Signs Date Time Temp Pulse Resp B/P (MAP) Pulse Ox O2 Delivery O2 Flow Rate FiO2 02/09/20 11:16 Room Air 02/09/20 07:26 98.3 83 18 134/70 (91) 98 98.3 02/09/20 03:00 8.0 Weight Weight [ ] I.O. Intake and Output Intake and Output 02/09/20 07:00 Intake Total 1780 ml Output Total 300 ml Balance 1480 ml Intake Oral 820 ml IV Total 480 ml Other 480 ml Output Urine Total 300 ml # Voids 3 Labs Labs Laboratory Tests Test 02/08/20 16:08 02/08/20 20:23 02/09/20 05:34 02/09/20 06:59 Glucose (Fingerstick) 113 mg/dL (70-99) 122 mg/dL (70-99) 93 mg/dL (70-99) White Blood Count 8.6 x10^3/uL (4.0-11.0) Red Blood Count 2.74 x10^6/uL (4.30-5.70) Hemoglobin 8.3 g/dL (13.0-17.5) Hematocrit 24.7 % (39.0-53.0) Mean Corpuscular Volume 90 fL (79-100) Mean Corpuscular Hemoglobin 30 pg (25-35) Mean Corpuscular Hemoglobin Concent 34 g/dL (31-37) Red Cell Distribution Width 16.8 % (11.5-14.5) Platelet Count 407 x10^3/uL (140-400) Neutrophils (%) (Auto) 70 % (31-73) Lymphocytes (%) (Auto) 20 % (24-48) Monocytes (%) (Auto) 6 % (0-9) Eosinophils (%) (Auto) 3 % (0-3) Basophils (%) (Auto) 1 % (0-3) Neutrophils # (Auto) 6.0 x10^3/uL (1.8-7.7) Lymphocytes # (Auto) 1.7 x10^3/uL (1.0-4.8) Monocytes # (Auto) 0.6 x10^3/uL (0.0-1.1) Eosinophils # (Auto) 0.3 x10^3/uL (0.0-0.7) Basophils # (Auto) 0.1 x10^3/uL (0.0-0.2) Sodium Level 142 mmol/L (136-145) Potassium Level 3.8 mmol/L (3.5-5.1) Chloride Level 107 mmol/L (98-107) Carbon Dioxide Level 28 mmol/L (21-32) Anion Gap 7 (6-14) Blood Urea Nitrogen 16 mg/dL (8-26) Creatinine 1.9 mg/dL (0.7-1.3) Estimated GFR (Cockcroft-Gault) 41.4 Glucose Level 91 mg/dL (70-99) Calcium Level 8.4 mg/dL (8.5-10.1) Magnesium Level 1.6 mg/dL (1.8-2.4) Test 02/09/20 11:18 Glucose (Fingerstick) 106 mg/dL (70-99) Micro Micro Microbiology 02/07/20 Urine Culture - Final, Complete 02/02/20 Gram Stain - Final, Resulted 02/02/20 Aerobic and Anaerobic Culture - Final, Resulted 02/02/20 Antimicrobic Susceptibility - Preliminary, Resulted 02/02/20 Blood Culture - Final, Complete Review of Systems Constitutional: yes: weakness, alert, oriented Ears/Nose/Throat: Yes: no symptom reported Eyes: Yes: no symptom reported Pulmonary: Yes no symptom reported Cardiovascular: Yes no symptom reported Gastrointestional: Yes: constipation Genitourinary: Yes: frequency Musculoskeletal: Yes: no symptom reported Skin: Yes no symptom reported Psychiatric/Neurological: Yes: no symptom reported Endocrine: Yes: no symptom reported Physical Exam General Appearance: no apparent distress Skin: warm Respiratory: bilateral CTA Heart: S1S2 Abdomen: soft, bowel sounds present Genitourinary: bladder flat Extremities: pulses present Neurology: alert Musculoskeletal: Osteoarthritis Assessment Assessment IMP CKD STAGE 3 WITH CR OF 1.9 AND STABLE LOW MAG HX OF HTN HX OF DM II PERIRECTAL ABSCESS SEPSIS RESOLVED PLAN REPLACE MG ANTIBIOTICS HYDRATION NEEDED RENAL FX IS STABLE WILL FOLLOW YOHANA ALCALA MD Feb 09, 2020 11:22
[2020-02-09 11:28] VITALS: BP 120/58
[2020-02-09 15:17] VITALS: BP 109/50
[2020-02-09 19:00] VITALS: BP 113/54
[2020-02-09] MEDS: [UNRECOGNIZED DRUG - OTHER] PO SCH (22:06)
[2020-02-09 23:00] VITALS: BP 118/51
[2020-02-10 03:00] VITALS: BP 128/64
[2020-02-10] MEDS: IV NORMAL SALINE 1000ML BAG 1,000 ML IV SCH (04:10)
[2020-02-10] MEDS: PIPERACILLIN/TAZOBACTAM 3.375 GM in IV NORMAL SALINE 50ML 50 ML IV SCH (05:52)
[2020-02-10 07:00] VITALS: BP 118/50
--- NOTE | 2020-02-10 07:24 | PDOC ---
Infectious Disease Note Subjective: Subjective Patient without complaints Feels better Postop site pain is under control Denies fever, nausea, vomiting, shortness of breath, diarrhea, abdominal pain, rash Vital Signs: Vital Signs Vital Signs Date Time Temp Pulse Resp B/P (MAP) Pulse Ox O2 Delivery O2 Flow Rate FiO2 02/10/20 03:00 98.4 85 18 128/64 (85) 96 Room Air 98.4 Physical Exam: PHYSICAL EXAM GENERAL: Propped up in bed, alert, smiling HEENT: Oral cavity pink, moist NECK: Supple, no JVP, no lymphadenopathy. LUNGS: Clear. HEART: S1, S2 regular. ABDOMEN: Soft and nontender EXTREMITIES: No edema or cyanosis. SKIN: warm to touch. No signs of rash RECTAL: Perineal packing in place. healing well NEUROLOGICAL: Alert,answers questions appropriately PIV Medications: Inpatient Meds: Current Medications Medications (Trade) Dose Ordered Sig/Minnie Start Time Stop Time Status Last Admin Dose Admin Acetaminophen (Tylenol) 650 mg PRN Q4HRS PRN 02/02/20 18:30 Acetaminophen/ Hydrocodone Bitart (Lortab 5/325) 1 tab PRN Q4HRS PRN 02/02/20 18:30 02/09/20 11:16 1 TAB Allopurinol (Zyloprim) 100 mg DAILY 02/03/20 09:00 02/09/20 08:28 100 MG Amlodipine Besylate (Norvasc) 2.5 mg DAILY 02/03/20 09:00 02/03/20 12:00 DC Apixaban (Eliquis) 2.5 mg BID 02/02/20 21:00 02/03/20 12:00 DC 02/02/20 21:53 2.5 MG Bupivacaine HCl/ Epinephrine Bitart (Sensorcain-Epi 0.5%-1:128777 Mpf) 30 ml STK-MED ONCE 02/05/20 06:56 02/05/20 06:56 DC Desflurane (Suprane) 30 ml STK-MED ONCE 02/05/20 07:58 02/05/20 07:59 DC Dexamethasone Sodium Phosphate (Decadron) 4 mg STK-MED ONCE 02/05/20 07:53 02/05/20 07:54 DC Fentanyl Citrate (Fentanyl 2ml Vial) 100 mcg STK-MED ONCE 02/05/20 08:25 02/05/20 08:25 DC Folic Acid (Folic Acid) 1 mg DAILY 02/03/20 09:00 02/09/20 08:28 1 MG Glipizide (Glucotrol) 2.5 mg DAILYBFRSUP 02/02/20 18:00 02/07/20 10:40 DC 02/06/20 17:34 2.5 MG Hydrochlorothiazide (Hydrodiuril) 25 mg DAILY 02/03/20 09:00 02/03/20 12:00 DC Hydromorphone HCl (Dilaudid) 0.5 mg PRN Q10MIN PRN 02/05/20 07:00 02/06/20 06:59 DC Hydroxyurea (Hydrea) 500 mg DAILY 02/03/20 09:00 02/09/20 08:35 500 MG Info (Anti-Coagulation Monitoring By Pharmacy) 1 each PRN DAILY PRN 02/02/20 18:30 02/09/20 20:34 DC Lactobacillus Rhamnosus (Culturelle) 1 cap BID 02/04/20 21:00 02/09/20 22:05 1 CAP Lidocaine HCl (Lidocaine Pf 2% Vial) 5 ml STK-MED ONCE 02/05/20 07:53 02/05/20 07:54 DC Lidocaine HCl (Xylocaine-Mpf 1% 2ml Vial) 2 ml PRN 1X PRN 02/05/20 07:00 02/06/20 06:59 DC Linezolid/Dextrose 300 ml @ 300 mls/hr Q12HR 02/02/20 21:00 02/08/20 10:17 DC 02/08/20 09:34 300 MLS/HR Magnesium Sulfate 50 ml @ 25 mls/hr 1X ONCE 02/09/20 10:30 02/09/20 12:29 DC 02/09/20 11:14 25 MLS/HR Morphine Sulfate (Morphine Sulfate) 1 mg PRN Q10MIN PRN 02/05/20 07:00 02/06/20 06:59 DC Non-Formulary Medication 1 ea QHS 02/05/20 21:00 02/09/20 22:06 1 EA Non-Formulary Medication (Rosuvastatin Calcium (Crestor)) 10 mg HS 02/02/20 21:00 02/09/20 22:05 10 MG Ondansetron HCl (Zofran) 4 mg STK-MED ONCE 02/05/20 07:54 02/05/20 07:54 DC Pantoprazole Sodium (Protonix) 40 mg DAILYAC 02/03/20 07:30 02/09/20 08:28 40 MG Pioglitazone HCl (Actos) 30 mg DAILY08 02/03/20 08:00 02/09/20 08:28 30 MG Piperacillin Sod/ Tazobactam Sod 3.375 gm/Sodium Chloride 50 ml @ 100 mls/hr Q8HRS 02/02/20 20:00 02/10/20 05:52 100 MLS/HR Polyethylene Glycol (miraLAX PACKET) 17 gm DAILY 02/03/20 09:00 02/06/20 09:54 17 GM Prochlorperazine Edisylate (Compazine) 5 mg PACU PRN PRN 02/05/20 07:00 02/06/20 06:59 DC Propofol (Diprivan) 200 mg STK-MED ONCE 02/05/20 07:53 02/05/20 07:54 DC Ringer's Solution 1,000 ml @ 30 mls/hr Q24H 02/05/20 07:00 02/05/20 15:01 DC Sennosides (Senna) 8.6 mg PRN BID PRN 02/02/20 18:30 Sodium Chloride 1,000 ml @ 40 mls/hr Q24H 02/03/20 12:00 02/10/20 04:10 40 MLS/HR Labs: Lab Laboratory Tests Test 02/09/20 11:18 02/09/20 16:40 02/09/20 20:29 02/10/20 07:00 Glucose (Fingerstick) 106 mg/dL (70-99) 122 mg/dL (70-99) 129 mg/dL (70-99) 108 mg/dL (70-99) Micro RUN DATE: 02/06/20 [facility] LAB *LIVE* PAGE 1 RUN TIME: 850 Specimen Inquiry PATIENT: TIM SALAS JR ACCT: [id number] LOC: [address] [place] [address] U: [id number] AGE/SX: 79/M ROOM: 424 RE02/02/[address]: QAMAR HOUSTON MD : 1940 BED: 1 DIS: STATUS: ADM IN TLOC: SPEC #: [id number] ROXIE: 02/02/20-1999 STATUS: COMP REQ #: [id number] RECD: 02/02/20-[address]: QAMAR HOUSTON MD SOURCE: BLOOD ENTR: 02/03/20-[address] [facility] [address]: ANY DECKER MD SPDC: LULY FISHER MD ORDERED: PAUL CULT - LC Procedure Result -------- ---- BLOOD CULTURE LC Final Final No Growth on 02/06/20 at 0844 Note: Gram stain smears were repeated and reviewed. No organisms were observed and all subculture plates were no growth at initial subculture and repeat subculture. CALLED TO SHANELL AT [facility]. TIME CALLED: 845 Unless otherwise specified, Testing Performed by: [facility] [address] [place] [address] For Inquires, the Physician may contact the Microbiology department at [phone] Objective: Assessment: Perineal abscess, which has opened up and is draining. Enterococcus spp, Strep anginosus ,bacteroides fragilis, and E. coli (ESPINOZA-S) so far. s/p I and D 02/04 MICRO ESCHERICHIA COLI STREPTOCOCCUS ANGINOSUS BACTEROIDES FRAGILIS ENTEROCOCCUS SPECIES Fever - better Leukocytosis - better Anemia Diabetes. Renal insufficiency. 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 augmentin for 7 days Probiotics Local wound care as directed BROOKS DECKER MD Feb 10, 2020 07:24
[2020-02-10 07:30] LABS: CALCIUM 7.9 mg/dL (8.5-10.1); CREATININE 1.8 mg/dL (0.7-1.3); MAGNESIUM 1.8 mg/dL (1.8-2.4); POTASSIUM 4.2 mmol/L (3.5-5.1)
[2020-02-10] MEDS: FOLIC ACID 1 MG TABLET. PO SCH (07:55)
[2020-02-10] MEDS: PIOGLITAZONE 15 MG TABLET. PO SCH (07:55)
[2020-02-10] MEDS: ALLOPURINOL 100 MG TABLET. PO SCH (07:55)
[2020-02-10] MEDS: LACTOBACILLUS RHAMNOSUS GG 1 CAPSULE. PO SCH (07:55)
[2020-02-10] MEDS: PANTOPRAZOLE 40 MG TABLET.DR. PO SCH (07:55)
[2020-02-10] MEDS: HYDROXYUREA 500 MG CAPSULE PO SCH (07:59)
[2020-02-10] MEDS: POLYETHYLENE GLYCOL 3350 17 GM PACKET. PO SCH (07:59)
[2020-02-10] MEDS ORDERED: AMOXICILLIN/K CLAV 875/125MG TABLET. PO SCH (09:00)
--- NOTE | 2020-02-10 09:15 | NUR ---
SW following. Discussed with RN, abx have been switched to orals. Plan is for [facility] at discharge, RN anticipates discharge home today. SW will continue to follow.
--- NOTE | 2020-02-10 11:05 | PDOC ---
Subjective: Subjective: No GI complaints. Objective: Objective: Reviewed chart - DC today? Vital Signs: Vital Signs Date Time Temp Pulse Resp B/P (MAP) Pulse Ox O2 Delivery O2 Flow Rate FiO2 02/10/20 08:00 Room Air 02/10/20 07:00 98.7 83 18 118/50 (72) 97 98.7 Labs: Laboratory Tests Test 02/09/20 11:18 02/09/20 16:40 02/09/20 20:29 02/10/20 06:25 Glucose (Fingerstick) 106 mg/dL 122 mg/dL 129 mg/dL Sodium Level 141 mmol/L Potassium Level 4.2 mmol/L Chloride Level 106 mmol/L Carbon Dioxide Level 27 mmol/L Anion Gap 8 Blood Urea Nitrogen 17 mg/dL Creatinine 1.8 mg/dL Estimated GFR (Cockcroft-Gault) 44.0 Glucose Level 102 mg/dL Calcium Level 7.9 mg/dL Magnesium Level 1.8 mg/dL Test 02/10/20 07:00 Glucose (Fingerstick) 108 mg/dL PE: GEN: NAD LUNGS: CTAB HEART: RRR ABD: NABS, S/ND/NT NEURO/PSYCH: A & O 3 A/P: Perirectal abscess s/p I&D Bacteremia ACD, h/o MPD, +Hemoccult -- Dc per primary, can follow-up re: +Hemoccult as outpt when abscess issues resolved. Justicifation of Admission Dx: Justifications for Admission: Justification of Admission Dx: Yes (sepsis and perirectal abscess and acute kidney injury) LIZZY ORR Feb 10, 2020 11:05
[2020-02-10 11:09] VITALS: BP 111/48
--- NOTE | 2020-02-10 11:15 | PDOC ---
PROGRESS NOTES Subjective Subjective feels well. switched to augmentin. lab reviewed. Objective Objective Vital Signs Date Time Temp Pulse Resp B/P (MAP) Pulse Ox O2 Delivery O2 Flow Rate FiO2 02/10/20 11:09 98.0 87 18 111/48 (69) 100 Room Air 98.0 02/09/20 03:00 8.0 Intake and Output 02/10/20 07:00 Intake Total 1900 ml Output Total 200 ml Balance 1700 ml Intake Oral 940 ml IV Total 480 ml Other 480 ml Output Urine Total 200 ml # Voids 2 Physical Exam Abdomen: Soft Heart: Regular rate, Normal S1, Normal S2 Extremities: No edema General: Alert HEENT: Atraumatic Lungs: Clear to auscultation Neuro: Normal speech Psych/Mental Status: Mental status NL Skin: Other (perirectal wound packed) Assessment Assessment 1. Perirectal abscess. surgical I and D 02/05/20 2. Leukocytosis, unclear what his baseline white count since he has a myeloproliferative disease. improved 3. Anemia, which could be related to myeloproliferative disease. 4. Acute kidney injury resolved. on ckd stage 3 5. Sepsis.resolved 6. Hypomagnesemia. 7. Coronary artery disease. 8. Hyperlipidemia. 9. Hypertension. 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 hypoglycemia 11. History of a pulmonary embolus, on Eliquis. 12. Myeloproliferative disorder. gram positive cocci bacilli on 07/23 BC. ID and S pending heme positive stool moderate aortic regurgitation\ severe protein calorie malnutrition Plan Plan of Care dismiss today with home health continue augmentin Comment Review of Relevant I have reviewed the following items sanjiv (where applicable) has been applied. Labs Laboratory Tests Test 02/08/20 11:16 02/08/20 16:08 02/08/20 20:23 02/09/20 05:34 Glucose (Fingerstick) 108 mg/dL (70-99) 113 mg/dL (70-99) 122 mg/dL (70-99) White Blood Count 8.6 x10^3/uL (4.0-11.0) Red Blood Count 2.74 x10^6/uL (4.30-5.70) Hemoglobin 8.3 g/dL (13.0-17.5) Hematocrit 24.7 % (39.0-53.0) Mean Corpuscular Volume 90 fL (79-100) Mean Corpuscular Hemoglobin 30 pg (25-35) Mean Corpuscular Hemoglobin Concent 34 g/dL (31-37) Red Cell Distribution Width 16.8 % (11.5-14.5) Platelet Count 407 x10^3/uL (140-400) Neutrophils (%) (Auto) 70 % (31-73) Lymphocytes (%) (Auto) 20 % (24-48) Monocytes (%) (Auto) 6 % (0-9) Eosinophils (%) (Auto) 3 % (0-3) Basophils (%) (Auto) 1 % (0-3) Neutrophils # (Auto) 6.0 x10^3/uL (1.8-7.7) Lymphocytes # (Auto) 1.7 x10^3/uL (1.0-4.8) Monocytes # (Auto) 0.6 x10^3/uL (0.0-1.1) Eosinophils # (Auto) 0.3 x10^3/uL (0.0-0.7) Basophils # (Auto) 0.1 x10^3/uL (0.0-0.2) Sodium Level 142 mmol/L (136-145) Potassium Level 3.8 mmol/L (3.5-5.1) Chloride Level 107 mmol/L (98-107) Carbon Dioxide Level 28 mmol/L (21-32) Anion Gap 7 (6-14) Blood Urea Nitrogen 16 mg/dL (8-26) Creatinine 1.9 mg/dL (0.7-1.3) Estimated GFR (Cockcroft-Gault) 41.4 Glucose Level 91 mg/dL (70-99) Calcium Level 8.4 mg/dL (8.5-10.1) Magnesium Level 1.6 mg/dL (1.8-2.4) Test 02/09/20 06:59 02/09/20 11:18 02/09/20 16:40 02/09/20 20:29 Glucose (Fingerstick) 93 mg/dL (70-99) 106 mg/dL (70-99) 122 mg/dL (70-99) 129 mg/dL (70-99) Test 02/10/20 06:25 02/10/20 07:00 Sodium Level 141 mmol/L (136-145) Potassium Level 4.2 mmol/L (3.5-5.1) Chloride Level 106 mmol/L (98-107) Carbon Dioxide Level 27 mmol/L (21-32) Anion Gap 8 (6-14) Blood Urea Nitrogen 17 mg/dL (8-26) Creatinine 1.8 mg/dL (0.7-1.3) Estimated GFR (Cockcroft-Gault) 44.0 Glucose Level 102 mg/dL (70-99) Calcium Level 7.9 mg/dL (8.5-10.1) Magnesium Level 1.8 mg/dL (1.8-2.4) Glucose (Fingerstick) 108 mg/dL (70-99) Laboratory Tests Test 02/09/20 11:18 02/09/20 16:40 02/09/20 20:29 02/10/20 06:25 Glucose (Fingerstick) 106 mg/dL (70-99) 122 mg/dL (70-99) 129 mg/dL (70-99) Sodium Level 141 mmol/L (136-145) Potassium Level 4.2 mmol/L (3.5-5.1) Chloride Level 106 mmol/L (98-107) Carbon Dioxide Level 27 mmol/L (21-32) Anion Gap 8 (6-14) Blood Urea Nitrogen 17 mg/dL (8-26) Creatinine 1.8 mg/dL (0.7-1.3) Estimated GFR (Cockcroft-Gault) 44.0 Glucose Level 102 mg/dL (70-99) Calcium Level 7.9 mg/dL (8.5-10.1) Magnesium Level 1.8 mg/dL (1.8-2.4) Test 02/10/20 07:00 Glucose (Fingerstick) 108 mg/dL (70-99) Microbiology 02/07/20 Urine Culture - Final, Complete 02/02/20 Gram Stain - Final, Resulted 02/02/20 Aerobic and Anaerobic Culture - Final, Resulted 02/02/20 Antimicrobic Susceptibility - Preliminary, Resulted 02/02/20 Blood Culture - Final, Complete Medications Current Medications Allopurinol (Zyloprim) 100 mg DAILY PO Last administered on 02/10/20at 07:55; Start 02/03/20 at 09:00 Apixaban (Eliquis) 2.5 mg BID PO Last administered on 02/02/20at 21:53; Start 02/02/20 at 21:00; Stop 02/03/20 at 12:00; Status DC Glipizide (Glucotrol) 2.5 mg DAILYBFRSUP PO Last administered on 02/06/20at 17:34; Start 02/02/20 at 18:00; Stop 02/07/20 at 10:40; Status DC Hydrochlorothiazide (Hydrodiuril) 25 mg DAILY PO ; Start 02/03/20 at 09:00; Stop 02/03/20 at 12:00; Status DC Hydroxyurea (Hydrea) 500 mg DAILY PO Last administered on 02/10/20at 07:59; Start 02/03/20 at 09:00 Amlodipine Besylate (Norvasc) 2.5 mg DAILY PO ; Start 02/03/20 at 09:00; Stop 02/03/20 at 12:00; Status DC Pantoprazole Sodium (Protonix) 40 mg DAILYAC PO Last administered on 02/10/20at 07:55; Start 02/03/20 at 07:30 Pioglitazone HCl (Actos) 30 mg DAILY08 PO Last administered on 02/10/20at 07:55; Start 02/03/20 at 08:00 Non-Formulary Medication (Rosuvastatin Calcium (Crestor)) 10 mg HS PO Last administered on 02/09/20at 22:05; Start 02/02/20 at 21:00 Info (Anti-Coagulation Monitoring By Pharmacy) 1 each PRN DAILY PRN MC SEE COMMENTS; Start 02/02/20 at 18:30; Stop 02/09/20 at 20:34; Status DC Linezolid/Dextrose 300 ml @ 300 mls/hr Q12HR IV Last administered on 02/08/20at 09:34; Start 02/02/20 at 21:00; Stop 02/08/20 at 10:17; Status DC Piperacillin Sod/ Tazobactam Sod 3.375 gm/Sodium Chloride 50 ml @ 100 mls/hr Q8HRS IV Last administered on 02/10/20at 05:52; Start 02/02/20 at 20:00; Stop 02/10/20 at 07:23; Status DC Acetaminophen (Tylenol) 650 mg PRN Q4HRS PRN PO FEVER; Start 02/02/20 at 18:30 Acetaminophen/ Hydrocodone Bitart (Lortab 5/325) 1 tab PRN Q4HRS PRN PO MODERATE PAIN Last administered on 02/09/20at 11:16; Start 02/02/20 at 18:30 Polyethylene Glycol (miraLAX PACKET) 17 gm DAILY PO Last administered on 02/06/20at 09:54; Start 02/03/20 at 09:00 Sennosides (Senna) 8.6 mg PRN BID PRN PO CONSTIPATION; Start 02/02/20 at 18:30 Folic Acid (Folic Acid) 1 mg DAILY PO Last administered on 02/10/20at 07:55; Start 02/03/20 at 09:00 Magnesium Sulfate 100 ml @ 25 mls/hr 1X ONCE IV Last administered on 02/03/20at 12:28; Start 02/03/20 at 12:30; Stop 02/03/20 at 16:29; Status DC Sodium Chloride 1,000 ml @ 40 mls/hr Q24H IV Last administered on 02/10/20at 04:10; Start 02/03/20 at 12:00 Ondansetron HCl (Zofran) 4 mg PRN Q6HRS PRN IV NAUSEA/VOMITING; Start 02/05/20 at 07:00; Stop 02/06/20 at 06:59; Status DC Fentanyl Citrate (Fentanyl 2ml Vial) 25 mcg PRN Q5MIN PRN IV MILD PAIN 1-3; Start 02/05/20 at 07:00; Stop 02/06/20 at 06:59; Status DC Fentanyl Citrate (Fentanyl 2ml Vial) 50 mcg PRN Q5MIN PRN IV MODERATE TO SEVERE PAIN; Start 02/05/20 at 07:00; Stop 02/06/20 at 06:59; Status DC Morphine Sulfate (Morphine Sulfate) 1 mg PRN Q10MIN PRN IV SEVERE PAIN 7-10; Start 02/05/20 at 07:00; Stop 02/06/20 at 06:59; Status DC Ringer's Solution 1,000 ml @ 30 mls/hr Q24H IV ; Start 02/05/20 at 07:00; Stop 02/05/20 at 15:01; Status DC Lidocaine HCl (Xylocaine-Mpf 1% 2ml Vial) 2 ml PRN 1X PRN ID PRIOR TO IV START; Start 02/05/20 at 07:00; Stop 02/06/20 at 06:59; Status DC Hydromorphone HCl (Dilaudid) 0.5 mg PRN Q10MIN PRN IV SEV PAIN, Second choice; Start 02/05/20 at 07:00; Stop 02/06/20 at 06:59; Status DC Prochlorperazine Edisylate (Compazine) 5 mg PACU PRN PRN IV NAUSEA, MRX1; Start 02/05/20 at 07:00; Stop 02/06/20 at 06:59; Status DC Lactobacillus Rhamnosus (Culturelle) 1 cap BID PO Last administered on 02/10/20at 07:55; Start 02/04/20 at 21:00 Bupivacaine HCl/ Epinephrine Bitart (Sensorcain-Epi 0.5%-1:367825 Mpf) 30 ml STK-MED ONCE .ROUTE ; Start 02/05/20 at 06:56; Stop 02/05/20 at 06:56; Status DC Propofol (Diprivan) 200 mg STK-MED ONCE IV ; Start 02/05/20 at 07:53; Stop 02/05/20 at 07:54; Status DC Lidocaine HCl (Lidocaine Pf 2% Vial) 5 ml STK-MED ONCE .ROUTE ; Start 02/05/20 at 07:53; Stop 02/05/20 at 07:54; Status DC Dexamethasone Sodium Phosphate (Decadron) 4 mg STK-MED ONCE .ROUTE ; Start 02/05/20 at 07:53; Stop 02/05/20 at 07:54; Status DC Ondansetron HCl (Zofran) 4 mg STK-MED ONCE .ROUTE ; Start 02/05/20 at 07:54; Stop 02/05/20 at 07:54; Status DC Desflurane (Suprane) 30 ml STK-MED ONCE IH ; Start 02/05/20 at 07:58; Stop 02/05/20 at 07:59; Status DC Fentanyl Citrate (Fentanyl 2ml Vial) 100 mcg STK-MED ONCE .ROUTE ; Start 0 at 08:25; Stop 02/05/20 at 08:25; Status DC Magnesium Sulfate 50 ml @ 25 mls/hr 1X ONCE IV Last administered on 02/05/20at 14:59; Start 02/05/20 at 12:45; Stop 02/05/20 at 14:44; Status DC Non-Formulary Medication 1 ea QHS PO Last administered on 02/09/20at 22:06; Start 02/05/20 at 21:00 Magnesium Sulfate 50 ml @ 25 mls/hr 1X ONCE IV Last administered on 02/09/20at 11:14; Start 02/09/20 at 10:30; Stop 02/09/20 at 12:29; Status DC Amoxicillin/ Clavulanate Potassium (Augmentin 875/ 125mg) 1 tab BID PO Last administered on 02/10/20at 07:55; Start 02/10/20 at 09:00 Active Scripts Active Reported Unisom (Doxylamine Succinate) 25 Mg Tablet 50 Mg PO QHS Hydroxyurea 500 Mg Capsule 500 Mg PO DAILY Eliquis (Apixaban) 2.5 Mg Tablet 2.5 Mg PO BID Allopurinol 100 Mg Tablet 1 Tab PO DAILY Unisom Sleep Aid (Doxylamine Succinate) 25 Mg Tablet 25 Mg PO HS Multivitamins (Multivitamin) 1 Each Tablet 1 Each PO DAILY Vitamin E (Vitamin E Mixed) 400 Unit Capsule 400 Unit PO DAILY Vitamin B-12 (Cyanocobalamin (Vitamin B-12)) 1,000 Mcg Tablet 1,000 Mcg PO DAILY Hydrochlorothiazide Tablet (Hydrochlorothiazide) 25 Mg Tablet 25 Mg PO DAILY Amlodipine Besylate 2.5 Mg Tablet 2.5 Mg PO DAILY Actos (Pioglitazone Hcl) 30 Mg Tablet 30 Mg PO DAILY08 Omeprazole 20 Mg Tablet.dr 20 Mg PO QHS Crestor (Rosuvastatin Calcium) 10 Mg Tablet 10 Mg PO HS Glipizide 5 Mg Tablet 2.5 Mg PO DAILYBFRSUP Vitals/I & O Vital Sign - Last 24 Hours 02/09/20 02/09/20 02/09/20 02/09/20 11:16 11:28 12:16 15:17 Temp 98.1 97.6 98.1 97.6 Pulse 81 87 Resp 18 18 B/P (MAP) 120/58 (78) 109/50 (69) Pulse Ox 99 98 O2 Delivery Room Air Room Air Room Air Room Air 02/09/20 02/09/20 02/09/20 02/10/20 19:00 19:50 23:00 03:00 Temp 98.1 97.9 98.4 98.1 97.9 98.4 Pulse 89 87 85 Resp 18 18 18 B/P (MAP) 113/54 (73) 118/51 (73) 128/64 (85) Pulse Ox 96 94 96 O2 Delivery Room Air Room Air Room Air Room Air 02/10/20 02/10/20 02/10/20 07:00 08:00 11:09 Temp 98.7 98.0 98.7 98.0 Pulse 83 87 Resp 18 18 B/P (MAP) 118/50 (72) 111/48 (69) Pulse Ox 97 100 O2 Delivery Room Air Room Air Room Air Intake and Output 02/09/20 02/09/20 02/10/20 15:00 23:00 07:00 Intake Total 400 ml 300 ml 1200 ml Output Total 200 ml Balance 400 ml 100 ml 1200 ml Justicifation of Admission Dx: Justifications for Admission: Justification of Admission Dx: Yes (sepsis and perirectal abscess and acute kidney injury) QAMAR HOUSTON MD Feb 10, 2020 11:15
[2020-02-10] MEDS ORDERED: LACT1CAP19 PO (11:21)
[2020-02-10] MEDS ORDERED: AMOX1TAB11 PO (11:21)
--- NOTE | 2020-02-10 11:24 | SNU/HH DC ---
DISCHARGE WITH HOME HEALTH DISCHARGE INFORMATION: Discharge Date: Feb 10, 2020 Final Diagnosis: perirectal abscess Condition on Discharge: Stable CODE STATUS: Code Status: Full HOME HEALTH: Face to Face: I certify this patient is under my care and that I, or a nurse practitioner or physician's first assistant manager working with me, had a face to face encounter that meets the physician face to face encounter requirements with this patient on [02/10/20]. RN For Eval/Treatment: Yes Pt Meets Homebound Status: Other: (wound care) POST DISCHARGE ORDERS: Activity Instructions for Disc: Bedrest today Weight Bearing Status after Di: As tolerated DIET AFTER DISCHARGE: ADA Wound/Incision Care: Keep wound/cast CDI Other wound/incision instructi: pack perirectal wound daily FOLLOW-UP: PCP to follow Home Health: dr. houston Follow up with: dr. houston next week Additional Instructions: stop glipizide . stop hydrochlorothiazide . stop amlodipine TREATMENT/EQUIPMENT ORDERS: Adaptive Equipment Issued: None CERTIFICATION STATEMENT: Certification Statement: Certification Statement: Based on the above finding, I certify that this patient is confined to the home and needs intermittent intermediate care, physical therapy and/or speech therapy, or continues to need occupational therapy.~ This patient is under my care, and I have initiated the establishment of the plan of care.~ This patient will be followed by myself or a community physician who will periodically review the plan of care. Home Meds Active Scripts Lactobacillus Rhamnosus Gg (CULTURELLE) 1 Each Cap.sprink, 1 CAP PO BID for probiotic, #14 CAP Prov:QAMAR HOUSTON MD 02/10/20 Amoxicillin/Potassium Clav (AMOX TR-K CLV 875-125 MG TAB) 1 Each Tablet, 1 TAB PO BID for perirectal abscess, #14 TAB Prov:QAMAR HOUSTON MD 02/10/20 Reported Medications Hydroxyurea (HYDROXYUREA) 500 Mg Capsule, 500 MG PO DAILY for chemo, CAP 02/02/20 Apixaban (ELIQUIS) 2.5 Mg Tablet, 2.5 MG PO BID for blood clots, TAB 06/29/19 Allopurinol (ALLOPURINOL) 100 Mg Tablet, 1 TAB PO DAILY, #30 TAB 5 Refills 10/14/16 Multivitamin (MULTIVITAMINS) 1 Each Tablet, 1 EACH PO DAILY 03/29/15 Cyanocobalamin (Vitamin B-12) (VITAMIN B-12) 1,000 Mcg Tablet, 1000 MCG PO DAILY 03/29/15 Pioglitazone Hcl (ACTOS) 30 Mg Tablet, 30 MG PO DAILY08 10/14/13 Omeprazole (OMEPRAZOLE) 20 Mg Tablet.dr, 20 MG PO QHS 08/16/13 Rosuvastatin Calcium (CRESTOR) 10 Mg Tablet, 10 MG PO HS 08/16/13 Discontinued Reported Medications Doxylamine Succinate (Unisom) 25 Mg Tablet, 50 MG PO QHS for insomnia, TAB 02/05/20 Doxylamine Succinate (UNISOM SLEEP AID) 25 Mg Tablet, 25 MG PO HS 03/29/15 Vitamin E Mixed (VITAMIN E) 400 Unit Capsule, 400 UNIT PO DAILY 03/29/15 Hydrochlorothiazide (HYDROCHLOROTHIAZIDE TABLET ) 25 Mg Tablet, 25 MG PO DAILY for DIURETIC, TAB 0 Refills 03/29/15 Amlodipine Besylate (AMLODIPINE BESYLATE) 2.5 Mg Tablet, 2.5 MG PO DAILY, TAB 03/29/15 Glipizide (GLIPIZIDE) 5 Mg Tablet, 2.5 MG PO DAILYBFRSUP 08/16/13 QAMAR HOUSTON MD Feb 10, 2020 11:24
--- NOTE | 2020-02-10 11:30 | PDOC ---
Provider Note Provider Note discharge summary dictated # [id number] Justicifation of Admission Dx: Justifications for Admission: Justification of Admission Dx: Yes (sepsis and perirectal abscess and acute kidney injury) QAMAR HOUSTON MD Feb 10, 2020 11:30
--- NOTE | 2020-02-10 11:46 | DS ---
DATE OF DISCHARGE: FINAL DIAGNOSES: 1. Perirectal abscess. 2. Leukocytosis. 3. Anemia. 4. Myeloproliferative disease. 5. Acute kidney injury on top of chronic kidney disease stage 3 secondary to inadequate fluid intake. Acute kidney injury, resolved with IV fluids. 6. Sepsis secondary to perirectal abscess. 7. Hypomagnesemia. 8. Coronary artery disease. 9. Hyperlipidemia. 10. Hypertension. 11. 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 12. History of a pulmonary embolus in the past, on Eliquis. 13. Heme-positive stool. PROCEDURE: Incision and drainage of a perirectal abscess. CONSULTANTS: Include Dr. De La Cruz, Dr. Miller, Dr. Webster, Dr. Ross, [facility] COURSE: The patient is an 79-year-old obese -[place] male with history of diabetes mellitus type 2 with diabetic nephropathy, chronic kidney disease stage 3 with a baseline serum creatinine 1.8, hypertension, hyperlipidemia, coronary artery disease, and his previous history of a pulmonary embolus and deep vein thrombosis, on chronic Eliquis. He has a myeloproliferative disease, on hydroxyurea and was seen in the office on 02/02/2020 with 3-week history of what appeared to be a perirectal abscess. He apparently saw his urologist who treated with him antibiotics for 6 days and has progressed and started draining pus and it was draining copious pus in the office. The patient was noted to have sinus tachycardia with a rate over 120, which was unusual for him. He denies any fever or chills. [facility], started on IV antibiotics including Zyvox and Zosyn. Seen in consultation by Dr. De La Cruz and eventually underwent incision and drainage of his perirectal abscess. Cultures are as written. Blood cultures were negative except for cocci bacilli, which was thought to be a contaminant. He eventually was switched to Augmentin on the day of dismissal and IV antibiotics were discontinued. He had low blood sugar and glipizide was discontinued and the blood sugars then normalized on Actos. His blood pressure was low and with acute kidney injury, hydrochlorothiazide and amlodipine were discontinued. His blood pressure was fine without them. He received packing for his perirectal abscess. He had heme-positive stool. Seen by Dr. Miller, at some point will need to have a colonoscopy and this was discussed with him after his perirectal abscess was healed. He was seen by the neurologist, Dr. Ross and Dr. Webster for his acute kidney injury, which resolved with hydration. His last serum creatinine was 1.9 today. Seen by the Infectious Disease doctor, Dr. Jeremias Richter and also Dr. Drarion Richter and also seen by the end frazer. He had Cardiology clearance. His echocardiogram just showed preserved left ventricular ejection fraction. He will be dismissed to home and was told to make an appointment to see Dr. Mclaughlin in 1 week. He will have home health who do the wound care once a day, packing the wound. He will be dismissed on Augmentin 875 mg 1 b.i.d. for 7 days, lactobacilli and acidophilus 1 b.i.d. which is a probiotic for 7 days, allopurinol 100 mg every day, Eliquis 2.5 mg b.i.d., vitamin B12 1000 mg p.o. daily, hydroxyurea 500 mg p.o. daily, multiple vitamin with minerals once a day, omeprazole 20 mg at bedtime, Actos 30 mg every day and Crestor 10 mg at bedtime. I will stop the glipizide, stop the hydrochlorothiazide and stop the amlodipine. Will make an appointment to see Dr. Mclaughlin in the office next week. QAMAR MCLAUGHLIN MD DR: MU/elvis JOB#: [id number] / [id number]
--- NOTE | 2020-02-10 11:59 | PDOC ---
Renal-Progress Notes Subjective Notes Notes NO NEW COMPLAINTS History of Present Illness Hx of present illness STABLE Vitals Vitals Vital Signs Date Time Temp Pulse Resp B/P (MAP) Pulse Ox O2 Delivery O2 Flow Rate FiO2 02/10/20 11:09 98.0 87 18 111/48 (69) 100 Room Air 98.0 Weight Weight [ ] I.O. Intake and Output Intake and Output 02/10/20 07:00 Intake Total 1900 ml Output Total 200 ml Balance 1700 ml Intake Oral 940 ml IV Total 480 ml Other 480 ml Output Urine Total 200 ml # Voids 2 Labs Labs Laboratory Tests Test 02/09/20 16:40 02/09/20 20:29 02/10/20 06:25 02/10/20 07:00 Glucose (Fingerstick) 122 mg/dL (70-99) 129 mg/dL (70-99) 108 mg/dL (70-99) Sodium Level 141 mmol/L (136-145) Potassium Level 4.2 mmol/L (3.5-5.1) Chloride Level 106 mmol/L (98-107) Carbon Dioxide Level 27 mmol/L (21-32) Anion Gap 8 (6-14) Blood Urea Nitrogen 17 mg/dL (8-26) Creatinine 1.8 mg/dL (0.7-1.3) Estimated GFR (Cockcroft-Gault) 44.0 Glucose Level 102 mg/dL (70-99) Calcium Level 7.9 mg/dL (8.5-10.1) Magnesium Level 1.8 mg/dL (1.8-2.4) Test 02/10/20 11:43 Glucose (Fingerstick) 114 mg/dL (70-99) Micro Micro Microbiology 02/07/20 Urine Culture - Final, Complete 02/02/20 Gram Stain - Final, Resulted 02/02/20 Aerobic and Anaerobic Culture - Final, Resulted 02/02/20 Antimicrobic Susceptibility - Preliminary, Resulted 02/02/20 Blood Culture - Final, Complete Review of Systems Constitutional: yes: weakness, alert, oriented Ears/Nose/Throat: Yes: no symptom reported Eyes: Yes: no symptom reported Pulmonary: Yes no symptom reported Cardiovascular: Yes no symptom reported Gastrointestional: Yes: constipation Genitourinary: Yes: frequency Musculoskeletal: Yes: no symptom reported Skin: Yes no symptom reported Psychiatric/Neurological: Yes: no symptom reported Endocrine: Yes: no symptom reported Physical Exam General Appearance: no apparent distress Skin: warm Respiratory: bilateral CTA Heart: S1S2 Abdomen: soft, bowel sounds present Genitourinary: bladder flat Extremities: pulses present Neurology: alert Musculoskeletal: Osteoarthritis Assessment Assessment IMP CKD STAGE 3 WITH CR OF 1.8 AND STABLE LOW MAG HX OF HTN HX OF DM II PERIRECTAL ABSCESS SEPSIS RESOLVED PLAN ANTIBIOTICS HYDRATION NEEDED RENAL FX IS STABLE WILL FOLLOW YOHANA ALCALA MD Feb 10, 2020 11:59
[2020-02-10] MEDS: HYDROcodone/APAP 5/325MG 1 TAB TABLET PO PRN (12:32)
== END 2020-02-10 13:55 | disposition home health service (06) | DRG 853 ==
LOC: 4 NORTH 17:04
PROVIDERS: ADMIT Internal Medicine; ATTEND Internal Medicine
PROC: 0D9P0ZZ Drainage of Rectum, Open Approach (ICD-10-PCS; principal; 2020-02-05 08:00)
DX: A41.9 Sepsis, unspecified organism (principal); E43 Unspecified severe protein-calorie malnutrition; C94.6 Myelodysplastic disease, not elsewhere classified; K61.1 Rectal abscess; N17.9 Acute kidney failure, unspecified; D64.9 Anemia, unspecified; E11.22 Type 2 diabetes mellitus with diabetic chronic kidney disease; E11.42 Type 2 diabetes mellitus with diabetic polyneuropathy; Z68.27 Body mass index [BMI] 27.0-27.9, adult; E66.9 Obesity, unspecified; E78.5 Hyperlipidemia, unspecified; E83.42 Hypomagnesemia; I12.9 Hypertensive chronic kidney disease with stage 1 through stage 4 chronic kidney disease, or unspecified chronic kidney disease; I25.10 Atherosclerotic heart disease of native coronary artery without angina pectoris; I35.1 Nonrheumatic aortic (valve) insufficiency; K57.30 Diverticulosis of large intestine without perforation or abscess without bleeding; K59.00 Constipation, unspecified; N18.3 Chronic kidney disease, stage 3 (moderate); N40.1 Benign prostatic hyperplasia with lower urinary tract symptoms; Z79.01 Long term (current) use of anticoagulants; Z79.84 Long term (current) use of oral hypoglycemic drugs; Z79.899 Other long term (current) drug therapy; Z80.0 Family history of malignant neoplasm of digestive organs; Z82.49 Family history of ischemic heart disease and other diseases of the circulatory system; Z83.3 Family history of diabetes mellitus; Z86.711 Personal history of pulmonary embolism; Z86.718 Personal history of other venous thrombosis and embolism; Z87.11 Personal history of peptic ulcer disease; K21.9 Gastro-esophageal reflux disease without esophagitis; M10.9 Gout, unspecified; M19.90 Unspecified osteoarthritis, unspecified site; Z20.828 Contact with and (suspected) exposure to other viral communicable diseases
CPT/HCPCS: 36415; 71045; 72192; 76770; 80048; 80053; 80061; 81001; 82274; 82728; 82962; 83540; 83550; 83735; 85025; 87040; 87071; 87075; 87086; 87205; 93005; 93306; J1100; J2020; J2405; J2543; J2704; J3010; J3475; J7030; A4461; G0378; U0003-CS

== ENCOUNTER → 2020-02-16 | Outpatient (CLI) | payer MEDICARE ==
[2020-02-10 11:09] VITALS: BP 111/48
[~2020-02-16] MED LIST changes: +AMOX1TAB11 PO; +DOXY25TA49 PO; +HYDR500C16 PO; +LACT1CAP19 PO
[2020-02-16 10:31] LABS: BASO # 0.1 x10^3/uL (0.0-0.2); BASO % 1 % (0-3); EOS # 0.1 x10^3/uL (0.0-0.7); EOS % 1 % (0-3); HEMATOCRIT 24.1 % (39.0-53.0); HEMOGLOBIN 8.3 g/dL (13.0-17.5); LYMPH # 1.7 x10^3/uL (1.0-4.8); LYMPH % 14 % (24-48); MEAN CORPUSCULAR HEMOGLOBIN 30 pg (25-35); MEAN CORPUSCULAR HGB CONC 34 g/dL (31-37); MEAN CORPUSCULAR VOLUME 88 fL (79-100); MONO # 0.9 x10^3/uL (0.0-1.1); MONO % 8 % (0-9); NEUT % 76 % (31-73); PLATELET COUNT 327 x10^3/uL (140-400); RED BLOOD COUNT 2.75 x10^6/uL (4.30-5.70); RED CELL DISTRIBUTION WIDTH 16.7 % (11.5-14.5)
[2020-02-16 12:28] LABS: % BANDS 1 % (0-9); % EOS 1 % (0-5); % LYMPHS 12 % (24-48); % MONOS 6 % (0-10); % SEGS 80 % (35-66); NUCLEATED RBC 1; PLT ESTIMATE ADEQUATE (ADEQUATE)
[2020-02-17 18:57] LABS: WHITE BLOOD COUNT 11.8 x10^3/uL (4.0-11.0)
== END | disposition home or self-care (01) ==
LOC: LAB 09:55
PROVIDERS: ATTEND Internal Medicine Hematology & Oncology
DX: D47.3 Essential (hemorrhagic) thrombocythemia (principal)
CPT/HCPCS: 36415; 85007; 85025

== ENCOUNTER → 2020-02-29 | Outpatient (CLI) | payer MEDICARE ==
[2020-02-10 11:09] VITALS: BP 111/48
[2020-02-29 13:03] LABS: BASO # 0.1 x10^3/uL (0.0-0.2); BASO % 1 % (0-3); EOS % 0 % (0-3); HEMATOCRIT 28.1 % (39.0-53.0); HEMOGLOBIN 9.4 g/dL (13.0-17.5); LYMPH # 1.9 x10^3/uL (1.0-4.8); LYMPH % 19 % (24-48); MEAN CORPUSCULAR HEMOGLOBIN 30 pg (25-35); MEAN CORPUSCULAR HGB CONC 34 g/dL (31-37); MEAN CORPUSCULAR VOLUME 90 fL (79-100); MONO # 0.8 x10^3/uL (0.0-1.1); MONO % 9 % (0-9); NEUT % 71 % (31-73); PLATELET COUNT 505 x10^3/uL (140-400); RED BLOOD COUNT 3.11 x10^6/uL (4.30-5.70); RED CELL DISTRIBUTION WIDTH 17.6 % (11.5-14.5); WHITE BLOOD COUNT 9.8 x10^3/uL (4.0-11.0)
[2020-02-29 13:33] LABS: CREATININE 1.6 mg/dL (0.7-1.3); GFR 50.4; POTASSIUM 4.3 mmol/L (3.5-5.1)
[2020-02-29 13:39] LABS: ALBUMIN 3.1 g/dL (3.4-5.0); ALBUMIN/GLOBULIN RATIO 0.7 (1.0-1.7); TOTAL BILIRUBIN 0.5 mg/dL (0.2-1.0); TOTAL PROTEIN 7.4 g/dL (6.4-8.2)
== END | disposition home or self-care (01) ==
LOC: ONCLAB 12:43
PROVIDERS: ATTEND Internal Medicine Hematology & Oncology
DX: D47.3 Essential (hemorrhagic) thrombocythemia (principal)
CPT/HCPCS: 36415; 80053; 83615; 85025

== ENCOUNTER → 2020-03-10 | Outpatient (CLI) | payer MEDICARE ==
[2020-02-10 11:09] VITALS: BP 111/48
[~2020-03-10] MED LIST changes: +GADOTERATE 7.5 MMOL/15ML VIAL. IVP ONE
--- NOTE | 2020-03-10 13:32 | RAD ---
EXAM: MRI pelvis with and without contrast. HISTORY: Perineal fistula. TECHNIQUE: MRI of the pelvis was performed before and after the intravenous administration of 19 mL Dotarem. COMPARISON: 02/02/2020. FINDINGS: There are 2 main fluid collections within the peroneal soft tissues. One is anterior to the anus and measures approximately 2.0 x 1.4 cm. It has thin tracts that extend to the left greater than right aspects of the anus. Direct communication with the anal canal is not identified. The second larger collection is along the undersurface of the base of the penis and measures 5.3 x 3.3 cm. Thin tracts extend from this collection to the more posterior collection, and superiorly along the medial and lateral aspects of the membranous urethra. Additional small nonenhancing collections are noted within the substance of the prostate gland inferiorly. Communication with the membranous or very distal prostatic urethra is suspected. The prostate is moderately to severely enlarged measuring 6.6 x 5.7 x 7.3 cm. It impresses on the bladder base. Border between the central and peripheral zone is not well-defined by this technique. There are some relatively peripheral small regions of hypoattenuation such as seen on series 9 image 3, measuring up to 6 mm. IMPRESSION: 1. Multiple complicated fluid collections within the perineum. These extend from the inferior aspect of the substance of the prostate inferiorly along the course of the urethra to form two main perineal collections at the base of the penis and just anterior to the anus. 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 Ongoing management is recommended. 2. Severe benign prostatic hypertrophy. Small low signal foci within the peripheral aspect of the central zone most likely reflect benign prostatic hypertrophy, but correlation with PSA is recommended to further exclude malignancy. Dedicated prostate MRI could further evaluate after resolution of the acute process is if there is persistent concern. Electronically signed by: Manny Fontaine MD (03/10/2020 1:29 PM) [id number]
== END | disposition home or self-care (01) ==
LOC: MRI 08:25
PROVIDERS: ATTEND Preventive Medicine Undersea and Hyperbaric Medicine
DX: K61.1 Rectal abscess (principal); N40.0 Benign prostatic hyperplasia without lower urinary tract symptoms
CPT/HCPCS: 72197; A9575

== ENCOUNTER → 2020-03-31 | Outpatient (CLI) | payer MEDICARE ==
[~2020-03-31] MED LIST changes: -GADOTERATE 7.5 MMOL/15ML VIAL. IVP ONE
[2020-03-31 13:14] LABS: BASO # 0.2 x10^3/uL (0.0-0.2); BASO % 1 % (0-3); EOS # 0.1 x10^3/uL (0.0-0.7); EOS % 1 % (0-3); HEMATOCRIT 30.6 % (39.0-53.0); LYMPH # 2.1 x10^3/uL (1.0-4.8); LYMPH % 16 % (24-48); MEAN CORPUSCULAR HEMOGLOBIN 30 pg (25-35); MEAN CORPUSCULAR HGB CONC 33 g/dL (31-37); MEAN CORPUSCULAR VOLUME 91 fL (79-100); MONO # 0.9 x10^3/uL (0.0-1.1); MONO % 7 % (0-9); NEUT # 10.1 x10^3/uL (1.8-7.7); NEUT % 76 % (31-73); PLATELET COUNT 419 x10^3/uL (140-400); RED BLOOD COUNT 3.35 x10^6/uL (4.30-5.70); RED CELL DISTRIBUTION WIDTH 17.9 % (11.5-14.5); WHITE BLOOD COUNT 13.3 x10^3/uL (4.0-11.0)
[2020-03-31 13:34] LABS: CALCIUM 8.9 mg/dL (8.5-10.1); CREATININE 1.9 mg/dL (0.7-1.3); GFR 41.4; POTASSIUM 3.8 mmol/L (3.5-5.1)
[2020-03-31 13:40] LABS: ALBUMIN 3.1 g/dL (3.4-5.0); ALBUMIN/GLOBULIN RATIO 0.6 (1.0-1.7); TOTAL BILIRUBIN 0.4 mg/dL (0.2-1.0); TOTAL PROTEIN 7.9 g/dL (6.4-8.2)
== END | disposition home or self-care (01) ==
LOC: ONCLAB 11:45
PROVIDERS: ATTEND Internal Medicine Hematology & Oncology
DX: D47.3 Essential (hemorrhagic) thrombocythemia (principal)
CPT/HCPCS: 36415; 80053; 83615; 85025

== ENCOUNTER → 2020-05-02 | Outpatient (CLI) | payer MEDICARE ==
[2020-05-02 10:31] LABS: BASO # 0.1 x10^3/uL (0.0-0.2); BASO % 1 % (0-3); EOS # 0.2 x10^3/uL (0.0-0.7); EOS % 2 % (0-3); HEMATOCRIT 29.6 % (39.0-53.0); HEMOGLOBIN 9.6 g/dL (13.0-17.5); LYMPH # 1.4 x10^3/uL (1.0-4.8); LYMPH % 15 % (24-48); MEAN CORPUSCULAR HEMOGLOBIN 29 pg (25-35); MEAN CORPUSCULAR HGB CONC 33 g/dL (31-37); MEAN CORPUSCULAR VOLUME 88 fL (79-100); MONO # 0.7 x10^3/uL (0.0-1.1); MONO % 7 % (0-9); NEUT # 7.2 x10^3/uL (1.8-7.7); NEUT % 76 % (31-73); PLATELET COUNT 483 x10^3/uL (140-400); RED BLOOD COUNT 3.36 x10^6/uL (4.30-5.70); RED CELL DISTRIBUTION WIDTH 16.7 % (11.5-14.5); WHITE BLOOD COUNT 9.6 x10^3/uL (4.0-11.0)
[2020-05-02 10:49] LABS: CALCIUM 8.8 mg/dL (8.5-10.1); CREATININE 2.4 mg/dL (0.7-1.3); GFR 31.5; POTASSIUM 4.9 mmol/L (3.5-5.1)
[2020-05-02 10:56] LABS: ALBUMIN 3.2 g/dL (3.4-5.0); ALBUMIN/GLOBULIN RATIO 0.7 (1.0-1.7); TOTAL BILIRUBIN 0.2 mg/dL (0.2-1.0); TOTAL PROTEIN 7.5 g/dL (6.4-8.2)
== END ==
LOC: ONCLAB 10:10
PROVIDERS: ATTEND Internal Medicine Hematology & Oncology
DX: D47.3 Essential (hemorrhagic) thrombocythemia (principal)
CPT/HCPCS: 36415; 80053; 83615; 85025

== ENCOUNTER → 2020-05-31 | Outpatient (CLI) | payer MEDICARE ==
[2020-05-31 13:50] LABS: BASO # 0.1 x10^3/uL (0.0-0.2); BASO % 1 % (0-3); CALCIUM 9.3 mg/dL (8.5-10.1); CREATININE 1.7 mg/dL (0.7-1.3); EOS # 0.3 x10^3/uL (0.0-0.7); EOS % 2 % (0-3); GFR 46.9; HEMATOCRIT 29.4 % (39.0-53.0); HEMOGLOBIN 9.7 g/dL (13.0-17.5); LYMPH # 1.7 x10^3/uL (1.0-4.8); LYMPH % 15 % (24-48); MEAN CORPUSCULAR HEMOGLOBIN 28 pg (25-35); MEAN CORPUSCULAR HGB CONC 33 g/dL (31-37); MEAN CORPUSCULAR VOLUME 86 fL (79-100); MONO # 0.8 x10^3/uL (0.0-1.1); MONO % 7 % (0-9); NEUT # 8.5 x10^3/uL (1.8-7.7); NEUT % 75 % (31-73); PLATELET COUNT 479 x10^3/uL (140-400); RED BLOOD COUNT 3.41 x10^6/uL (4.30-5.70); RED CELL DISTRIBUTION WIDTH 16.6 % (11.5-14.5); WHITE BLOOD COUNT 11.3 x10^3/uL (4.0-11.0)
== END ==
LOC: ONCLAB 13:22
PROVIDERS: ATTEND Internal Medicine Hematology & Oncology
DX: D47.3 Essential (hemorrhagic) thrombocythemia (principal)
CPT/HCPCS: 36415; 80048; 83615; 85025

== ENCOUNTER → 2020-06-30 | Outpatient (CLI) | payer MEDICARE ==
[~2020-06-30] MED LIST changes: +DIATRIZOATE MEGLUMINE 18% 300 ML SOLUTION. BLADIN ONE
--- NOTE | 2020-06-30 13:33 | RAD ---
Examination: IR URETHROGRAM RETROGRADE History: Reason: INFLAMMATION DISORDER OF UNSPECIFIED MALE GENITAL ORGAN. / Spl. Instructions: 3.3min FT / History: Comparison/Correlation: None Findings: Retrograde urethrogram was performed utilizing 3.3 minutes of fluoroscopy. 31 images acquir ed. Cleansing of the skin with Betadine was performed prior to placement of the Robertson catheter into the d istal urethra. Contrast was injected. There is normal distention of the urethra evident. No definite persistent suspicious filling defect. There is no fistula delineated. Urinary bladder is partially di stended with contrast. Patient was requested to void but could not. Impression: No evidence of fistula. Electronically signed by: Damien Morales MD (06/30/2020 11:57 AM) [id number]
== END ==
LOC: RAD 08:00
PROVIDERS: ATTEND Urology
DX: N49.9 Inflammatory disorder of unspecified male genital organ (principal); N32.89 Other specified disorders of bladder
CPT/HCPCS: 51610; 74450; Q9958

== ENCOUNTER → 2020-08-08 | Outpatient (CLI) | payer MEDICARE ==
[~2020-08-08] MED LIST changes: -DIATRIZOATE MEGLUMINE 18% 300 ML SOLUTION. BLADIN ONE
--- NOTE | 2020-08-08 16:47 | RAD ---
Examination: Ultrasound kidneys HISTORY: History of renal failure, hydronephrosis COMPARISON: 02/03/2020 FINDINGS: Right kidney measures 11.7 x 5.4 x 5.5 cm. The left kidney measures 11.4 x 4.3 x 1.2 cm. Echogenic ap pearing bilateral kidneys could be due to medical renal disease. Cystic structures identified in the bilateral kidneys with the largest measuring 3.2 cm in the right and 4.5 cm in the left.Urinary bladd er is mildly distended. Moderate enlarged prostate gland. IMPRESSION: 1. Bilateral renal cysts. Echogenic appearing bilateral kidneys likely medical renal disease. 2. Enlarged prostate. Electronically signed by: Aníbal Paulson MD (08/08/2020 4:45 PM) [id number]
== END ==
LOC: US 14:56
PROVIDERS: ATTEND Internal Medicine
DX: N28.1 Cyst of kidney, acquired (principal); N40.0 Benign prostatic hyperplasia without lower urinary tract symptoms; N13.39 Other hydronephrosis
CPT/HCPCS: 76770

== ENCOUNTER → 2020-08-29 | Outpatient (CLI) | payer MEDICARE ==
[2020-08-29 12:17] LABS: BASO # 0.1 x10^3/uL (0.0-0.2); BASO % 1 % (0-3); EOS # 0.2 x10^3/uL (0.0-0.7); EOS % 2 % (0-3); HEMATOCRIT 31.7 % (39.0-53.0); HEMOGLOBIN 10.6 g/dL (13.0-17.5); LYMPH # 1.5 x10^3/uL (1.0-4.8); LYMPH % 15 % (24-48); MEAN CORPUSCULAR HEMOGLOBIN 28 pg (25-35); MEAN CORPUSCULAR HGB CONC 33 g/dL (31-37); MEAN CORPUSCULAR VOLUME 83 fL (79-100); MONO # 0.4 x10^3/uL (0.0-1.1); MONO % 4 % (0-9); NEUT # 7.7 x10^3/uL (1.8-7.7); NEUT % 79 % (31-73); PLATELET COUNT 417 x10^3/uL (140-400); RED BLOOD COUNT 3.84 x10^6/uL (4.30-5.70); RED CELL DISTRIBUTION WIDTH 17.4 % (11.5-14.5); WHITE BLOOD COUNT 9.8 x10^3/uL (4.0-11.0)
[2020-08-29 12:26] LABS: CALCIUM 9.3 mg/dL (8.5-10.1); CREATININE 1.6 mg/dL (0.7-1.3); GFR 50.3; POTASSIUM 4.3 mmol/L (3.5-5.1)
[2020-08-29 12:32] LABS: ALBUMIN 3.1 g/dL (3.4-5.0); ALBUMIN/GLOBULIN RATIO 0.6 (1.0-1.7); TOTAL BILIRUBIN 0.5 mg/dL (0.2-1.0); TOTAL PROTEIN 8.2 g/dL (6.4-8.2)
== END ==
LOC: ONCLAB 11:47
PROVIDERS: ATTEND Internal Medicine Hematology & Oncology
DX: D72.828 Other elevated white blood cell count (principal)
CPT/HCPCS: 36415; 80053; 85025

== ENCOUNTER → 2020-09-15 | Outpatient (CLI) | payer MEDICARE ==
[2020-09-15 14:13] LABS: HEMATOCRIT 32.5 % (39.0-53.0)
[2020-09-15 14:27] LABS: ALBUMIN 3.2 g/dL (3.4-5.0); CALCIUM 8.9 mg/dL (8.5-10.1); GFR 38.9; PHOSPHORUS 4.3 mg/dL (2.6-4.7); POTASSIUM 4.7 mmol/L (3.5-5.1)
[2020-09-15 14:35] LABS: BILIRUBIN,URINE NEGATIVE (NEG); CLARITY,URINE CLEAR; COLOR,URINE YELLOW; NITRITE,URINE NEGATIVE (NEG); PH,URINE 5.5 (<5.0-8.0); PROTEIN,URINE NEGATIVE (NEG-TRACE); UROBILINOGEN,URINE 0.2 mg/dL (0.2 mg/dL)
[2020-09-15 14:59] LABS: RBC,URINE RARE /HPF (0-2)
[2020-09-15 15:00] LABS: BACTERIA,URINE 0 /HPF (0-FEW)
[2020-09-16 09:16] LABS: CREAT RD UR 97.1 mg/dL (Not Estab.); MICROALB RD UR 27.7 ug/mL (Not Estab.)
== END ==
LOC: LAB 13:46
PROVIDERS: ATTEND Internal Medicine Nephrology
DX: N17.9 Acute kidney failure, unspecified (principal)
CPT/HCPCS: 80069; 81001; 82043; 82306; 82570; 83970; 84156; 85014; 85018; 87086

== ENCOUNTER → 2020-10-20 | Outpatient (CLI) | payer MEDICARE ==
[~2020-10-20] MED LIST changes: +IOHEXOL 300 MG/ML 100ML VIAL. IJ ONE
--- NOTE | 2020-10-20 10:51 | RAD ---
DG FLUOROSCOPIC GUIDED FISTULAGRAM Indication: Reason: Perineum ulcer Comparison: None. Technique: Small caliber catheter was inserted into the perineum cutaneous ulcer. Contrast was injected lightly. FINDINGS: Small cutaneous ulcer identified within the perineum anterior to the anus. Small caliber catheter was inserted into the ulcer. Contrast was injected. Contrast extended posteriorly from the ulcer and dilip led the rectum. Multiple spot fluoroscopic images were obtained in multiple obliquities demonstrating contrast opacification of the rectum. Fluoroscopic time: 2.1 minutes Number of fluoroscopic images: 5 mL Omnipaque 300 IMPRESSION: 1. 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 Electronically signed by: Vikas Laguerre DO (10/20/2020 10:49 AM) [id number]
== END | disposition home or self-care (01) ==
LOC: RAD 09:35
PROVIDERS: ATTEND Preventive Medicine Undersea and Hyperbaric Medicine
DX: L98.499 Non-pressure chronic ulcer of skin of other sites with unspecified severity (principal); K65.1 Peritoneal abscess
CPT/HCPCS: 73501; Q9967; 76080

== ENCOUNTER → 2020-10-27 | Outpatient (CLI) | payer MEDICARE ==
[~2020-10-27] MED LIST changes: -IOHEXOL 300 MG/ML 100ML VIAL. IJ ONE
[2020-10-27 12:54] LABS: CREATININE 1.9 mg/dL (0.7-1.3); GFR 41.3; POTASSIUM 4.6 mmol/L (3.5-5.1)
[2020-10-27 13:02] LABS: ALBUMIN 3.4 g/dL (3.4-5.0); ALBUMIN/GLOBULIN RATIO 0.7 (1.0-1.7); TOTAL BILIRUBIN 0.5 mg/dL (0.2-1.0); TOTAL PROTEIN 8.3 g/dL (6.4-8.2)
[2020-10-27 13:15] LABS: BASO # 0.1 x10^3/uL (0.0-0.2); BASO % 1 % (0-3); EOS # 0.2 x10^3/uL (0.0-0.7); EOS % 2 % (0-3); HEMATOCRIT 31.9 % (39.0-53.0); HEMOGLOBIN 10.6 g/dL (13.0-17.5); LYMPH # 1.9 x10^3/uL (1.0-4.8); LYMPH % 17 % (24-48); MEAN CORPUSCULAR HEMOGLOBIN 27 pg (25-35); MEAN CORPUSCULAR HGB CONC 33 g/dL (31-37); MEAN CORPUSCULAR VOLUME 82 fL (79-100); MONO # 0.9 x10^3/uL (0.0-1.1); MONO % 8 % (0-9); NEUT # 8.4 x10^3/uL (1.8-7.7); NEUT % 73 % (31-73); PLATELET COUNT 441 x10^3/uL (140-400); RED BLOOD COUNT 3.91 x10^6/uL (4.30-5.70); RED CELL DISTRIBUTION WIDTH 17.5 % (11.5-14.5); WHITE BLOOD COUNT 11.5 x10^3/uL (4.0-11.0)
[2020-10-31 17:10] LABS: FREE PSA/PSA RATIO 12.3 % (.); PSA FREE 1.13 ng/mL; PSA TOTAL 9.2 ng/mL (0.0-4.0)
== END ==
LOC: ONCLAB 11:12
PROVIDERS: ATTEND Internal Medicine Hematology & Oncology
DX: D47.3 Essential (hemorrhagic) thrombocythemia (principal); D72.828 Other elevated white blood cell count; R97.20 Elevated prostate specific antigen [PSA]
CPT/HCPCS: 36415; 80053; 83615; 84153; 84154; 85025

== ENCOUNTER → 2020-12-27 | Outpatient (CLI) | payer MEDICARE ==
[2020-12-27 13:56] LABS: BASO # 0.1 x10^3/uL (0.0-0.2); BASO % 1 % (0-3); EOS # 0.2 x10^3/uL (0.0-0.7); EOS % 2 % (0-3); HEMATOCRIT 30.2 % (39.0-53.0); HEMOGLOBIN 10.1 g/dL (13.0-17.5); LYMPH # 1.5 x10^3/uL (1.0-4.8); LYMPH % 14 % (24-48); MEAN CORPUSCULAR HEMOGLOBIN 28 pg (25-35); MEAN CORPUSCULAR HGB CONC 33 g/dL (31-37); MEAN CORPUSCULAR VOLUME 83 fL (79-100); MONO # 0.8 x10^3/uL (0.0-1.1); MONO % 8 % (0-9); NEUT % 76 % (31-73); PLATELET COUNT 406 x10^3/uL (140-400); RED BLOOD COUNT 3.64 x10^6/uL (4.30-5.70); RED CELL DISTRIBUTION WIDTH 19.9 % (11.5-14.5); WHITE BLOOD COUNT 10.6 x10^3/uL (4.0-11.0)
[2020-12-27 14:34] LABS: ALBUMIN 3.4 g/dL (3.4-5.0); ALBUMIN/GLOBULIN RATIO 0.7 (1.0-1.7); CALCIUM 8.8 mg/dL (8.5-10.1); CREATININE 1.9 mg/dL (0.7-1.3); GFR 41.3; POTASSIUM 4.2 mmol/L (3.5-5.1); TOTAL BILIRUBIN 0.5 mg/dL (0.2-1.0)
[2021-01-03 17:13] LABS: PSA FREE 1.05 ng/mL
== END ==
LOC: ONCLAB 12:50
PROVIDERS: ATTEND Internal Medicine Hematology & Oncology
DX: R97.20 Elevated prostate specific antigen [PSA] (principal); N18.31 Chronic kidney disease, stage 3a
CPT/HCPCS: 36415; 80053; 84153; 84154; 85025

== ENCOUNTER → 2021-01-19 | Outpatient (CLI) | payer MEDICARE ==
[2021-01-19 11:12] LABS: HEMATOCRIT 31.2 % (39.0-53.0); HEMOGLOBIN 10.7 g/dL (13.0-17.5)
[2021-01-19 11:37] LABS: ALBUMIN 3.5 g/dL (3.4-5.0); CALCIUM 9.1 mg/dL (8.5-10.1); CREATININE 1.9 mg/dL (0.7-1.3); GFR 41.3; PHOSPHORUS 3.1 mg/dL (2.6-4.7); POTASSIUM 4.5 mmol/L (3.5-5.1)
[2021-01-19 13:12] LABS: CREATININE,RANDOM URINE 145.9 mg/dL (Not Establ.)
[2021-01-19 22:08] LABS: CREAT RD UR 133.2 mg/dL (Not Estab.); MICROALB RD UR 90.2 ug/mL (Not Estab.)
[2021-01-19 23:08] LABS: CALCIUM PTH 9.3 mg/dL (8.6-10.2); CREATININE PTH 1.76 mg/dL (0.76-1.27); PTH INTACT 54 pg/mL (15-65)
== END ==
LOC: LAB 10:18
PROVIDERS: ATTEND Nurse Practitioner Adult Health
DX: E11.22 Type 2 diabetes mellitus with diabetic chronic kidney disease (principal); I12.9 Hypertensive chronic kidney disease with stage 1 through stage 4 chronic kidney disease, or unspecified chronic kidney disease; N18.32 Chronic kidney disease, stage 3b; E11.21 Type 2 diabetes mellitus with diabetic nephropathy; N17.9 Acute kidney failure, unspecified; D50.9 Iron deficiency anemia, unspecified
CPT/HCPCS: 80069; 82043; 82570; 82728; 83540; 83550; 83970; 84156; 85014; 85018

== ENCOUNTER → 2021-01-29 | Outpatient (CLI) | payer MEDICARE ==
--- NOTE | 2021-01-29 15:15 | RAD ---
EXAM: XR CHEST 2V 01/29/2021 2:54 PM CLINICAL INDICATION: Right-sided chest pain COMPARISON: Chest radiograph 02/02/2020 TECHNIQUE: PA and lateral views of the chest FINDINGS: The heart and mediastinum are normal. Lungs are adequately expanded. No consolidation, ple ural effusion, or pneumothorax. No acute osseous abnormality. There is degenerative disc disease with bridging osteophytes in the thoracic spine. IMPRESSION: No acute cardiopulmonary abnormality. Electronically signed by: Elieen Hardy MD (01/29/2021 3:13 PM) [id number]
== END ==
LOC: RAD 14:45
PROVIDERS: ATTEND Internal Medicine
DX: R07.9 Chest pain, unspecified (principal); M51.34 Other intervertebral disc degeneration, thoracic region; M25.78 Osteophyte, vertebrae
CPT/HCPCS: 71046

== ENCOUNTER → 2021-02-26 | Outpatient (CLI) | payer MEDICARE ==
[2021-02-26 12:53] LABS: BASO # 0.1 x10^3/uL (0.0-0.2); BASO % 1 % (0-3); EOS # 0.2 x10^3/uL (0.0-0.7); EOS % 2 % (0-3); HEMATOCRIT 30.9 % (39.0-53.0); HEMOGLOBIN 10.2 g/dL (13.0-17.5); LYMPH # 1.6 x10^3/uL (1.0-4.8); LYMPH % 14 % (24-48); MEAN CORPUSCULAR HEMOGLOBIN 28 pg (25-35); MEAN CORPUSCULAR HGB CONC 33 g/dL (31-37); MEAN CORPUSCULAR VOLUME 86 fL (79-100); MONO # 0.8 x10^3/uL (0.0-1.1); MONO % 7 % (0-9); NEUT # 8.8 x10^3/uL (1.8-7.7); NEUT % 76 % (31-73); PLATELET COUNT 445 x10^3/uL (140-400); RED BLOOD COUNT 3.59 x10^6/uL (4.30-5.70); RED CELL DISTRIBUTION WIDTH 17.9 % (11.5-14.5); WHITE BLOOD COUNT 11.5 x10^3/uL (4.0-11.0)
[2021-02-26 13:08] LABS: CREATININE 1.8 mg/dL (0.7-1.3); GFR 43.9; POTASSIUM 4.4 mmol/L (3.5-5.1)
[2021-02-26 13:15] LABS: ALBUMIN 2.9 g/dL (3.4-5.0); ALBUMIN/GLOBULIN RATIO 0.5 (1.0-1.7); TOTAL BILIRUBIN 0.5 mg/dL (0.2-1.0); TOTAL PROTEIN 8.2 g/dL (6.4-8.2)
== END ==
LOC: ONCLAB 12:21
PROVIDERS: ATTEND Internal Medicine Hematology & Oncology
DX: N18.31 Chronic kidney disease, stage 3a (principal); D47.3 Essential (hemorrhagic) thrombocythemia
CPT/HCPCS: 36415; 80053; 83615; 85025

== ENCOUNTER → 2021-04-30 | Outpatient (CLI) | payer MEDICARE ==
[2021-04-30 12:50] LABS: BASO # 0.1 x10^3/uL (0.0-0.2); BASO % 1 % (0-3); EOS # 0.2 x10^3/uL (0.0-0.7); EOS % 2 % (0-3); HEMATOCRIT 31.6 % (39.0-53.0); HEMOGLOBIN 10.8 g/dL (13.0-17.5); LYMPH # 1.5 x10^3/uL (1.0-4.8); LYMPH % 14 % (24-48); MEAN CORPUSCULAR HEMOGLOBIN 29 pg (25-35); MEAN CORPUSCULAR HGB CONC 34 g/dL (31-37); MEAN CORPUSCULAR VOLUME 86 fL (79-100); MONO # 0.8 x10^3/uL (0.0-1.1); MONO % 7 % (0-9); NEUT # 7.9 x10^3/uL (1.8-7.7); NEUT % 76 % (31-73); PLATELET COUNT 412 x10^3/uL (140-400); RED BLOOD COUNT 3.68 x10^6/uL (4.30-5.70); WHITE BLOOD COUNT 10.5 x10^3/uL (4.0-11.0)
[2021-04-30 12:57] LABS: CALCIUM 8.9 mg/dL (8.5-10.1); CREATININE 1.9 mg/dL (0.7-1.3); GFR 41.2; POTASSIUM 4.6 mmol/L (3.5-5.1)
[2021-04-30 13:02] LABS: ALBUMIN 3.3 g/dL (3.4-5.0); ALBUMIN/GLOBULIN RATIO 0.7 (1.0-1.7); TOTAL BILIRUBIN 0.5 mg/dL (0.2-1.0); TOTAL PROTEIN 8.3 g/dL (6.4-8.2)
== END ==
LOC: ONCLAB 12:27
PROVIDERS: ATTEND Physician Assistant
DX: N18.31 Chronic kidney disease, stage 3a (principal); D47.3 Essential (hemorrhagic) thrombocythemia
CPT/HCPCS: 36415; 80053; 83615; 85025

== ENCOUNTER → 2021-07-03 | Outpatient (CLI) | payer MEDICARE ==
[2021-07-03 12:47] LABS: BASO # 0.1 x10^3/uL (0.0-0.2); BASO % 1 % (0-3); EOS # 0.1 x10^3/uL (0.0-0.7); EOS % 1 % (0-3); HEMATOCRIT 33.5 % (39.0-53.0); HEMOGLOBIN 11.1 g/dL (13.0-17.5); LYMPH % 24 % (24-48); MEAN CORPUSCULAR HEMOGLOBIN 29 pg (25-35); MEAN CORPUSCULAR HGB CONC 33 g/dL (31-37); MEAN CORPUSCULAR VOLUME 86 fL (79-100); MONO # 0.6 x10^3/uL (0.0-1.1); MONO % 7 % (0-9); NEUT # 5.6 x10^3/uL (1.8-7.7); NEUT % 67 % (31-73); PLATELET COUNT 396 x10^3/uL (140-400); RED CELL DISTRIBUTION WIDTH 17.8 % (11.5-14.5); WHITE BLOOD COUNT 8.3 x10^3/uL (4.0-11.0)
[2021-07-03 12:57] LABS: CALCIUM 9.2 mg/dL (8.5-10.1); CREATININE 1.7 mg/dL (0.7-1.3); GFR 46.8; POTASSIUM 4.9 mmol/L (3.5-5.1)
[2021-07-03 13:03] LABS: ALBUMIN 3.4 g/dL (3.4-5.0); ALBUMIN/GLOBULIN RATIO 0.6 (1.0-1.7); TOTAL BILIRUBIN 0.4 mg/dL (0.2-1.0); TOTAL PROTEIN 8.7 g/dL (6.4-8.2)
== END ==
LOC: ONCLAB 12:15
PROVIDERS: ATTEND Internal Medicine Hematology & Oncology
DX: D64.9 Anemia, unspecified (principal)
CPT/HCPCS: 36415; 80053; 83615; 85025

== ENCOUNTER → 2021-07-17 | Outpatient (CLI) | payer MEDICARE ==
[2021-07-17 11:25] LABS: HEMATOCRIT 35.3 % (39.0-53.0); HEMOGLOBIN 11.7 g/dL (13.0-17.5)
[2021-07-17 11:45] LABS: ALBUMIN 3.6 g/dL (3.4-5.0); CREATININE 1.6 mg/dL (0.7-1.3); GFR 50.2; PHOSPHORUS 3.5 mg/dL (2.6-4.7); POTASSIUM 4.9 mmol/L (3.5-5.1)
== END ==
LOC: LAB 10:57
PROVIDERS: ATTEND Internal Medicine Nephrology
DX: I12.9 Hypertensive chronic kidney disease with stage 1 through stage 4 chronic kidney disease, or unspecified chronic kidney disease (principal); E11.21 Type 2 diabetes mellitus with diabetic nephropathy; N18.32 Chronic kidney disease, stage 3b; N17.9 Acute kidney failure, unspecified; D50.9 Iron deficiency anemia, unspecified; E55.9 Vitamin D deficiency, unspecified; D47.1 Chronic myeloproliferative disease; N28.1 Cyst of kidney, acquired; Z79.84 Long term (current) use of oral hypoglycemic drugs; Z68.25 Body mass index [BMI] 25.0-25.9, adult
CPT/HCPCS: 36415; 80069; 85014; 85018

== ENCOUNTER → 2021-10-03 | Outpatient (CLI) | payer MEDICARE ==
[2021-10-03 12:21] LABS: BASO # 0.1 x10^3/uL (0.0-0.2); BASO % 1 % (0-3); EOS # 0.2 x10^3/uL (0.0-0.7); EOS % 2 % (0-3); HEMOGLOBIN 11.1 g/dL (13.0-17.5); LYMPH # 2.1 x10^3/uL (1.0-4.8); LYMPH % 20 % (24-48); MEAN CORPUSCULAR HEMOGLOBIN 29 pg (25-35); MEAN CORPUSCULAR HGB CONC 33 g/dL (31-37); MEAN CORPUSCULAR VOLUME 88 fL (79-100); MONO # 0.7 x10^3/uL (0.0-1.1); MONO % 7 % (0-9); NEUT # 7.5 x10^3/uL (1.8-7.7); NEUT % 71 % (31-73); PLATELET COUNT 428 x10^3/uL (140-400); RED BLOOD COUNT 3.88 x10^6/uL (4.30-5.70); RED CELL DISTRIBUTION WIDTH 17.4 % (11.5-14.5); WHITE BLOOD COUNT 10.6 x10^3/uL (4.0-11.0)
[2021-10-03 12:33] LABS: CALCIUM 8.9 mg/dL (8.5-10.1); CREATININE 1.7 mg/dL (0.7-1.3); GFR 46.8; POTASSIUM 4.5 mmol/L (3.5-5.1)
[2021-10-03 12:40] LABS: ALBUMIN 3.4 g/dL (3.4-5.0); ALBUMIN/GLOBULIN RATIO 0.7 (1.0-1.7); TOTAL BILIRUBIN 0.4 mg/dL (0.2-1.0); TOTAL PROTEIN 8.1 g/dL (6.4-8.2)
== END ==
LOC: ONCLAB 11:52
PROVIDERS: ATTEND Internal Medicine Hematology & Oncology
DX: D47.3 Essential (hemorrhagic) thrombocythemia (principal); D64.9 Anemia, unspecified
CPT/HCPCS: 36415; 80053; 83615; 85025

== ENCOUNTER → 2021-12-04 | Outpatient (CLI) | payer MEDICARE ==
[~2021-12-04] MED LIST changes: -OMEP20TA8 PO; +OMEP20TA91 PO
[2021-12-04 12:32] LABS: BASO # 0.1 x10^3/uL (0.0-0.2); BASO % 1 % (0-3); EOS # 0.1 x10^3/uL (0.0-0.7); EOS % 1 % (0-3); HEMATOCRIT 36.4 % (39.0-53.0); HEMOGLOBIN 12.2 g/dL (13.0-17.5); LYMPH # 1.9 x10^3/uL (1.0-4.8); LYMPH % 20 % (24-48); MEAN CORPUSCULAR HEMOGLOBIN 30 pg (25-35); MEAN CORPUSCULAR HGB CONC 34 g/dL (31-37); MEAN CORPUSCULAR VOLUME 89 fL (79-100); MONO # 0.7 x10^3/uL (0.0-1.1); MONO % 7 % (0-9); NEUT # 6.7 x10^3/uL (1.8-7.7); NEUT % 71 % (31-73); PLATELET COUNT 387 x10^3/uL (140-400); RED BLOOD COUNT 4.09 x10^6/uL (4.30-5.70); RED CELL DISTRIBUTION WIDTH 16.9 % (11.5-14.5); WHITE BLOOD COUNT 9.5 x10^3/uL (4.0-11.0)
[2021-12-04 12:42] LABS: CREATININE 1.7 mg/dL (0.7-1.3); GFR 46.8; POTASSIUM 4.4 mmol/L (3.5-5.1)
[2021-12-04 12:47] LABS: ALBUMIN 3.4 g/dL (3.4-5.0); ALBUMIN/GLOBULIN RATIO 0.7 (1.0-1.7); TOTAL BILIRUBIN 0.6 mg/dL (0.2-1.0); TOTAL PROTEIN 8.1 g/dL (6.4-8.2)
== END ==
LOC: ONCLAB 12:16
PROVIDERS: ATTEND Internal Medicine Hematology & Oncology
DX: N18.31 Chronic kidney disease, stage 3a (principal); D63.1 Anemia in chronic kidney disease; D47.3 Essential (hemorrhagic) thrombocythemia; D72.828 Other elevated white blood cell count; R94.4 Abnormal results of kidney function studies; Z91.89 Other specified personal risk factors, not elsewhere classified
CPT/HCPCS: 36415; 80053; 83615; 85025